=== PATIENT | female | born 1970 | race Hispanic/Latino ===

== ENCOUNTER 2018-08-26 17:53 | Emergency (ER) | payer BC ==
--- OUTSIDE RECORDS SUMMARY | 2018-08-26 17:55 | XMS REPORT ---
:1970 Author Organization [employer] Care Team Providers Name Role Phone De Souza, Renuka Provider Role Unavailable Allergies, Adverse Reactions, Alerts Substance Reaction Event Type N.K.D.A. Info Not Available Non Drug Allergy Problems Problem Type Condition Code Onset Dates Condition Status Problem Obese E66.9 Active Problem Diabetes E11.9 Active Problem Fatty liver K76.0 Active Problem Right foot pain M79.671 Active Problem Seasonal allergic rhinitis, J30.2 Active unspecified trigger Problem Elevated liver enzymes R74.8 Active Problem Uncontrolled type 2 diabetes E11.65 Active mellitus without complication, without long-term current use of insulin Problem Uterine polyp N84.0 Active Problem Morbid (severe) obesity due to E66.01 Active excess calories Problem Congenital pes planus, unspecified Q66.50 Active foot Assessment Right foot pain M79.671 Active Assessment Elevated liver enzymes R74.8 Active Assessment Morbid (severe) obesity due to E66.01 Active excess calories Assessment Fatty liver K76.0 Active Assessment Seasonal allergic rhinitis, J30.2 Active unspecified trigger Assessment Uncontrolled type 2 diabetes E11.65 Active mellitus without complication, without long-term current use of insulin Medications Medication Code Code Instructions Start End Status Dosage System Date Date Zithromax [facility] 96986402077 250 MG Orally Active 2 tablets Z-Mario Alberto Once a day on the first day, then 1 tablet daily for 4 days Duexis [facility] 90655422274 800-26.6 MG Active 1 tablet Orally Three times a day Nasacort [facility] 08820044707 55 MCG/ACT Active 1 puff in Allergy 24HR Nasally Once a each day nostril Diflucan [facility] 66710141320 150 MG Orally Active 1 tablet Zyrtec Allergy [facility] 17891325502 10 MG Orally Active 1 tablet Once a day Metformin HCl ND 75780656715 1000 MG Orally Active 1 tablet Twice a day with meals Invokana [facility] 07795342847 300 MG Orally Active 1 tablet Once a day Tradjenta [facility] 68535847239 5 MG Orally Once Active 1 tablet a day Results No Known Results Summary Purpose eClinicalWorks Submission
--- OUTSIDE RECORDS SUMMARY | 2018-08-26 17:55 | XMS REPORT ---
:1970 Author Organization [employer] Care Team Providers Name Role Phone De Souza, Na Provider Role Unavailable Allergies, Adverse Reactions, Alerts Substance Reaction Event Type N.K.D.A. Info Not Available Non Drug Allergy Problems Problem Type Condition Code Onset Dates Condition Status Problem Diabetes E11.9 Active Problem Congenital pes planus, unspecified Q66.50 Active foot Problem Uterine polyp N84.0 Active Problem Other specified bacterial agents as B96.89 Active the cause of diseases classified elsewhere Problem Body aches R52 Active Problem Acute sinusitis, unspecified J01.90 Active Problem Right foot pain M79.671 Active Problem Morbid (severe) obesity due to E66.01 Active excess calories Problem Seasonal allergic rhinitis, J30.2 Active unspecified trigger Problem Elevated liver enzymes R74.8 Active Assessment Body aches R52 Active Assessment Seasonal allergic rhinitis, J30.2 Active unspecified trigger Problem Uncontrolled type 2 diabetes E11.65 Active mellitus without complication, without long-term current use of insulin Assessment Other specified bacterial agents as B96.89 Active the cause of diseases classified elsewhere Problem Obese E66.9 Active Assessment Acute sinusitis, unspecified J01.90 Active Problem Fatty liver K76.0 Active Medications Medication Code Code Instructions Start End Status Dosage System Date Date Augmentin [facility] 24817626797 875-125 MG Jan 24, Active 1 tablet Orally every 12 2018 hrs Metformin HCl [facility] 47009122743 1000 MG Orally Active 1 tablet Twice a day with meals Duexis [facility] 81999780345 800-26.6 MG Active 1 tablet Orally Three times a day Diflucan [facility] 15832875430 150 MG Orally Active 1 tablet Tradjenta [facility] 97330141419 5 MG Orally Once Active 1 tablet a day Invokana [facility] 00059048580 300 MG Orally Active 1 tablet Once a day Cetirizine HCl [facility] 45729658467 10 MG Orally Jan 14, Active 1 tablet Once a day 2017 Flonase [facility] 09333011388 50 MCG/ACT Jan 14, Active 2 spray in Nasally Once a 2018 each day nostril Zithromax [facility] 79185503779 250 MG Orally Active 2 tablets Z-Mario Alberto Once a day on the first day, then 1 tablet daily for 4 days Nasacort [facility] 19640610543 55 MCG/ACT Active 1 puff in Allergy 24HR Nasally Once a each day nostril Zyrtec Allergy [facility] 77675009101 10 MG Orally Active 1 tablet Once a day Results No Known Results Summary Purpose eClinicalWorks Submission
--- NOTE | 2018-08-26 20:25 | EDPHYS ---
Physician Documentation [facility] Name: Roxana Ricci Age: 48 yrs Sex: Female : 1970 Arrival Date: 08/26/2018 Time: 17:54 Bed 11 Private MD: ED Physician Urbano Amaral HPI: 08/26 20:19 This 48 yrs old Female presents to ER via Ambulatory with complaints of rn Abscess. 20:19 The patient presents with an abscess of the right supraclavicular region. Description: rn The affected area is small, swollen, warm. Onset: The symptoms/episode began/occurred 2 day(s) ago. Possible cause(s): unknown. Modifying factors: the symptoms are alleviated by nothing, the symptoms are aggravated by pressure, squeezing the lesion and expressing the contents. 20:21 Severity of symptoms: At their worst the symptoms were mild, in the emergency rn department the symptoms are unchanged. The patient has not experienced similar symptoms in the past. Reports a couple of days of small abscess to right supraclavicular region, is scabbed over now, unsure how it started, no fever, + pain with touching.. 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 - Social history:: Smoking status: Patient/guardian denies using tobacco. - Ebola Screening: : No symptoms or risks identified at this time. - Family history:: not pertinent. - Hospitalizations: : No recent hospitalization is reported. ROS: 20:21 Constitutional: Negative for fever, chills, and weight loss, Skin: + abscess to right rn supraclavicular region Exam: 20:22 Constitutional: This is a well developed, well nourished patient who is awake, alert, rn and in no acute distress. Skin: Warm, dry, 1cm area of swelling at right supraclavicular region, minimal fluctuance, is scabbed over and has a head to it, + mild warmth Vital Signs: 18:39 BP 141 / 87; Pulse 85; Resp 18; Temp 98; Pulse Ox 97% on R/A; Weight 136.08 kg; Height ea 5 ft. 1 in. (154.94 cm); Pain 7/10; 18:39 Body Mass Index 56.68 (136.08 kg, 154.94 cm) ea MDM: 20:12 Patient medically screened. rn 20:22 Differential diagnosis: abscess, cellulitis, insect bite. Data reviewed: vital signs, rn nurses notes, and as a result, I will discharge patient. Counseling: I had a detailed discussion with the patient and/or guardian regarding: the historical points, exam findings, and any diagnostic results supporting the discharge/admit diagnosis, the need for outpatient follow up, to return to the emergency department if symptoms worsen or persist or if there are any questions or concerns that arise at home. Special discussion: I discussed with the patient/guardian in detail that at this point there is no indication for admission to the hospital. It is understood, however, that if the symptoms persist or worsen the patient needs to return immediately for re-evaluation. Based on the history and exam findings, there is no indication for further emergent testing or inpatient evaluation. I discussed with the patient/guardian the need to see the primary care provider for further evaluation of the symptoms. ED course: Had discussion with patient, told her safest option is incision and drainage, with abx, patient states since is at a head, prefers to use warm compresses and express it herself, will add abx, and return precautions given and understood.. Administered Medications: 20:37 Drug: Clindamycin 300 mg Route: PO; 20:54 Follow up: Response: No adverse reaction; No change in condition Disposition: 08/26/18 20:24 Discharged to Home. Impression: Cutaneous abscess, unspecified. - Condition is Stable. - Discharge Instructions: Skin Abscess. - Prescriptions for Clindamycin HCl 300 mg Oral Capsule - take 1 capsule by ORAL route every 6 hours for 10 days; 40 capsule. - Medication Reconciliation Form, Thank You Letter, Antibiotic Education, Prescription Opioid Use form. - Follow up: Private Physician; When: As needed; Reason: Recheck today's complaints, Re-evaluation by your physician. - Problem is an ongoing problem. - Symptoms are unchanged. Signatures: Chretien, GisellePATRICIA miguel RN, Roman, MD MD rn Antunez, Elena, RN RN ea Corrections: (The following items were deleted from the chart) 20:22 20:21 Constitutional: Negative for fever, chills, and weight loss, rn rn 20:54 20:24 08/26/2018 20:24 Discharged to Home. Impression: Cutaneous abscess, unspecified. fc Condition is Stable. Forms are Medication Reconciliation Form, Thank You Letter, Antibiotic Education, Prescription Opioid Use. Follow up: Private Physician; When: As needed; Reason: Recheck today's complaints, Re-evaluation by your physician. Problem is an ongoing problem. Symptoms are unchanged. rn
--- NOTE | 2018-08-26 20:25 | ER ---
Nurse's Notes [facility] Name: Roxana Ricci Age: 48 yrs Sex: Female : 1970 Arrival Date: 08/26/2018 Time: 17:54 Bed 11 Private MD: Diagnosis: Cutaneous abscess, unspecified Presentation: 08/26 18:38 Presenting complaint: Patient states: Abscess that started 3 days ago, redness and pain ea that travels down right arm started today. Pt denies fever at this time. Transition of care: patient was not received from another setting of care. Onset of symptoms was August 26, 2018. Risk Assessment: Do you want to hurt yourself or someone else? Patient reports no desire to harm self or others. Initial Sepsis Screen: Does the patient meet any 2 criteria? No. Patient's initial sepsis screen is negative. Does the patient have a suspected source of infection? Yes: Skin breakdown/wound. Care prior to arrival: None. 18:38 Method Of Arrival: Ambulatory ea 18:38 Acuity: FREDERIC 4 ea Triage Assessment: 18:40 General: Appears in no apparent distress. uncomfortable, Behavior is calm, cooperative, ea appropriate for age. Pain: Complains of pain in right arm. Neuro: Level of Consciousness is awake, alert, obeys commands, Oriented to person, place, time, situation. Cardiovascular: Patient's skin is warm and dry. Respiratory: Airway is patent Respiratory effort is even, unlabored, Respiratory pattern is regular, symmetrical. Derm: Abscess located on anterior aspect of right shoulder is dime sized, is hot to touch, is red. 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 - Social history:: Smoking status: Patient/guardian denies using tobacco. - Ebola Screening: : No symptoms or risks identified at this time. - Family history:: not pertinent. - Hospitalizations: : No recent hospitalization is reported. Screenin:10 Abuse screen: Denies threats or abuse. Nutritional screening: No deficits noted. fc Tuberculosis screening: No symptoms or risk factors identified. Fall Risk None identified. Assessment: 20:10 General: Appears uncomfortable, obese, well groomed, Behavior is calm, cooperative, fc appropriate for age. Pain: Complains of pain in anterior aspect of right shoulder Pain currently is 6 out of 10 on a pain scale. Quality of pain is described as burning, aching, Pain began gradually, Is continuous, Aggravated by increased activity, repositioning, palpitation. Neuro: Level of Consciousness is awake, alert, obeys commands, Oriented to person, place, time, situation, Appropriate for age. Cardiovascular: No deficits noted. Respiratory: No deficits noted. GI: No deficits noted. : No deficits noted. EENT: No deficits noted. Derm: Skin is pink, warm \T\ dry. Abscess located on anterior aspect of right shoulder is dime sized, is hot to touch, is red, is raised, was lanced by patient prior to arrival, Reports burning, pain. Musculoskeletal: Circulation, motion, and sensation intact. Capillary refill < 3 seconds, Range of motion: intact in all extremities. 20:15 Reassessment: Dr Amaral in to see and examine pt. fc 20:53 Reassessment: No changes from previously documented assessment. Patient and/or family fc updated on plan of care and expected duration. Pain level reassessed. Patient is alert, oriented x 3, equal unlabored respirations, skin warm/dry/pink. Vital Signs: 18:39 BP 141 / 87; Pulse 85; Resp 18; Temp 98; Pulse Ox 97% on R/A; Weight 136.08 kg; Height ea 5 ft. 1 in. (154.94 cm); Pain 7/10; 18:39 Body Mass Index 56.68 (136.08 kg, 154.94 cm) ea ED Course: 17:54 Patient arrived in ED. rg4 18:39 Triage completed. ea 20:10 Arm band placed on Patient placed in an exam room, on a stretcher. fc 20:10 Patient has correct armband on for positive identification. Bed in low position. Call fc light in reach. 20:10 No provider procedures requiring assistance completed. fc 20:12 Urbano Amaral MD is Attending Physician. rn 20:53 Patient did not have IV access during this emergency room visit. fc Administered Medications: 20:37 Drug: Clindamycin 300 mg Route: PO; fc 20:54 Follow up: Response: No adverse reaction; No change in condition Outcome: 20:24 Discharge ordered by . rn 20:53 Discharged to home ambulatory. 20:53 Condition: good 20:53 Discharge instructions given to patient, Instructed on discharge instructions, follow up and referral plans. no drinking with medication, no driving heavy equipment, medication usage, wound care, Demonstrated understanding of instructions, follow-up care, medications, wound care, Prescriptions given X 1. 20:54 Patient left the ED. fc Signatures: Giselle Rowland, RN RN Urbano Amaral MD MD rn Garcia, Rubi rg4 Marie Bae RN RN ea
[2018-08-26] MEDS ORDERED: CLINDAMYCIN HCL 150 MG CAP ONE (20:48)
== END 2018-08-26 20:54 | disposition home or self-care (01) ==
LOC: ER 17:53
DX: L02.413 Cutaneous abscess of right upper limb (principal); E11.9 Type 2 diabetes mellitus without complications
CPT/HCPCS: 99283

== ENCOUNTER 2019-03-28 18:36 | Inpatient (IN) | payer BC ==
[2019-03-28] MEDS ORDERED: LIDOCAINE 1% MPF 5 ML VIAL ONE ×2 (19:58→21:01)
[2019-03-28] MEDS ORDERED: ONDANSETRON 4 MG/2 ML VIAL ONE (19:58)
[2019-03-28] MEDS ORDERED: FENTANYL CITR 100 MCG/2 ML ONE ×2 (19:58→21:14)
[2019-03-28] MEDS ORDERED: NA CHLORIDE 0.9% 1,000 ML ONE ×3 (19:59→21:56)
[2019-03-28] MEDS ORDERED: CLINDAMYCIN 900MG/D5W 900 MG/50 ML IVPB IV ONE (19:59)
[2019-03-28] MEDS ORDERED: PIPER/TAZO/NS 3.375gm 3.375 GM/100 ML BAG ONE (20:04)
[2019-03-28 20:10] LABS: Basophils % 0.4 % (0-1.3); Lymphocytes % 7.3 % (15.3-44.8); MPV 10.9 fL (7.6-11.3); RBC Red Blood Cell Count 4.87 M/uL (3.86-4.86)
[2019-03-28 20:31] LABS: Urine Blood TRACE (NEG); Urine Glucose 2+ (NEG); Urine Protein NEGATIVE (NEG)
[2019-03-28 20:36] LABS: Blood Morphology Comment NOT SEEN (NOT SEEN); Platelet Estimate ADEQ; Platelets, Giant PRESENT; Urine White Blood Cell Casts OK
[2019-03-28 21:22] LABS: Albumin 2.2 g/dL (3.4-5.0); Bilirubin Direct 0.9 mg/dL (0-0.2); Bilirubin Total 2.3 mg/dL (0.2-1.0); Potassium 4.2 mmol/L (3.5-5.1); Protein, Total 8.3 g/dL (6.4-8.2)
--- NOTE | 2019-03-28 21:41 | ER ---
Nurse's Notes [facility] Name: Roxana Ricci Age: 48 yrs Sex: Female : 1970 Arrival Date: 03/28/2019 Time: 18:37 Bed 5 Private MD: Renuka De Souza Diagnosis: Large Left Groin Abscess;L lateral thigh abscess;Hyperglycemia, unspecified;Leukocytosis Presentation: 03/28 19:18 Presenting complaint: Patient states: abscess to left inner thigh since Thursday. pt ak1 stated abscess started draining yesterday. pt started her mother's antibiotics Thursday and now states she also has a yeast infection. pt has a 2nd abscess to left buttock X1 week. pt has appointment with PCP Thursday. Transition of care: patient was not received from another setting of care. Onset of symptoms is unknown. Risk Assessment: Do you want to hurt yourself or someone else? Patient reports no desire to harm self or others. Initial Sepsis Screen: Does the patient meet any 2 criteria? No. Patient's initial sepsis screen is negative. Does the patient have a suspected source of infection? No. Patient's initial sepsis screen is negative. Care prior to arrival: None. 19:18 Method Of Arrival: Ambulatory ak1 19:18 Acuity: FREDERIC 3 ak1 Triage Assessment: 19:20 General: Appears in no apparent distress. uncomfortable, Behavior is cooperative. Pain: ak1 Complains of pain in pelvis. 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 - Social history:: Smoking status: Patient/guardian denies using tobacco. - Ebola Screening: : No symptoms or risks identified at this time. - Family history:: not pertinent. - Hospitalizations: : No recent hospitalization is reported. Screenin:50 Abuse screen: Denies threats or abuse. Denies injuries from another. Nutritional ca1 screening: No deficits noted. Tuberculosis screening: No symptoms or risk factors identified. Fall Risk None identified. Assessment: 19:50 General: Appears in no apparent distress. comfortable, obese, Behavior is calm, ca1 cooperative, appropriate for age. Pain: Complains of pain in left femoral area Pain currently is 10 out of 10 on a pain scale. Neuro: Level of Consciousness is awake, alert, obeys commands, Oriented to person, place, time, situation, Appropriate for age. Cardiovascular: Heart tones S1 S2 present Capillary refill < 3 seconds Patient's skin is warm and dry. Respiratory: Airway is patent Respiratory effort is even, unlabored, Respiratory pattern is regular, symmetrical, Breath sounds are clear bilaterally. GI: Abdomen is round non-distended, obese, Bowel sounds present X 4 quads. Abd is soft and non tender X 4 quads. : No deficits noted. No signs and/or symptoms were reported regarding the genitourinary system. EENT: No deficits noted. No signs and/or symptoms were reported regarding the EENT system. Derm: Skin is healthy with good turgor, Skin is pink, warm \T\ dry. Abscess located on left femoral area is quarter sized, is hot to touch, is red, is raised. Musculoskeletal: Circulation, motion, and sensation intact. Capillary refill < 3 seconds. 20:50 Reassessment: Patient appears in no apparent distress at this time. Patient and/or ca1 family updated on plan of care and expected duration. Pain level reassessed. Patient is alert, oriented x 3, equal unlabored respirations, skin warm/dry/pink. 21:41 Reassessment: Patient appears in no apparent distress at this time. Patient and/or ca1 family updated on plan of care and expected duration. Pain level reassessed. Patient is alert, oriented x 3, equal unlabored respirations, skin warm/dry/pink. 23:27 Reassessment: Patient appears in no apparent distress at this time. No changes from wh previously documented assessment. Patient and/or family updated on plan of care and expected duration. Pain level reassessed. Patient is alert, oriented x 3, equal unlabored respirations, skin warm/dry/pink. Patient states feeling better. Patient states symptoms have improved. Vital Signs: 19:18 BP 154 / 95; Pulse 106; Resp 18; Temp 98.2; Pulse Ox 94% on R/A; Weight 145.15 kg (R); ak1 Height 5 ft. 1 in. (154.94 cm) (R); Pain 10/10; 20:18 BP 136 / 86; Pulse 105; Resp 16 S; Pulse Ox 95% on R/A; ca1 21:41 BP 104 / 88; Pulse 105; Resp 16 S; Pulse Ox 96% on R/A; ca1 23:15 BP 125 / 75; Pulse 108; Resp 18; Pulse Ox 92% on R/A; wh 19:18 Body Mass Index 60.46 (145.15 kg, 154.94 cm) ak1 ED Course: 18:37 Patient arrived in ED. mr 18:38 Renuka De Souza MD is Private Physician. mr 19:18 Arm band placed on Patient placed in waiting room, Patient notified of wait time. ak1 19:20 Triage completed. ak1 19:33 Chase Mancini MD is Attending Physician. wa 19:33 Esther Bonner, PATRICIA is Primary Nurse. ca1 19:41 Urine obtained. ak1 19:50 Patient has correct armband on for positive identification. Placed in gown. Bed in low ca1 position. Call light in reach. Side rails up X 1. Pulse ox on. NIBP on. Warm blanket given. 19:55 Inserted saline lock: 20 gauge in right antecubital area, using aseptic technique. mt Blood collected. 20:50 Lab(s) recollected, by me, sent to lab. ca1 21:40 Verona Crum MD is Hospitalizing Provider. wa 21:42 Assist provider with I \T\ D: of an abscess on left perineal back of thigh L Set up I\T\D ca 1 tray. Performed by Chase Mancini MD Culture sent to lab. Wound packed. iodoform gauze, Dressing with 4X4s, tape Patient tolerated well. 23:32 Patient admitted, IV remains in place. wh Administered Medications: 20:00 Drug: NS 0.9% 1000 ml Route: IV; Rate: 1 bolus; Site: right antecubital; ca1 21:48 Follow up: IV Status: Completed infusion ca1 20:05 Drug: Zofran 4 mg Route: IVP; Site: right antecubital; ca1 21:57 Follow up: Response: No adverse reaction; Nausea is decreased ca1 20:10 Drug: fentaNYL (PF) 75 mcg Route: IVP; Site: right antecubital; ca1 21:51 Follow up: Response: No adverse reaction; Pain is decreased ca1 20:14 Drug: Clindamycin 900 mg Route: IVPB; Infused Over: 30 mins; Site: right antecubital; ca1 21:15 Follow up: Response: No adverse reaction; IV Status: Completed infusion ca1 20:45 Drug: Zosyn 3.375 grams Route: IVPB; Infused Over: 60 mins; Site: right antecubital; ca1 21:52 Follow up: Response: No adverse reaction; IV Status: Completed infusion ca1 21:58 Follow up: Response: No adverse reaction; IV Status: Completed infusion ca1 21:20 Drug: fentaNYL (PF) 100 mcg Route: IVP; Site: right antecubital; ea 23:31 Follow up: Response: No adverse reaction; Pain is decreased; RASS: Alert and Calm (0) 21:57 Drug: NS 0.9% 1000 ml Route: IV; Rate: 1 bolus; Site: right antecubital; ca1 23:31 Follow up: Response: No adverse reaction; IV Status: Completed infusion Outcome: 21:40 Decision to Hospitalize by Provider. adair 22:23 Instructed on the need for admit, Demonstrated understanding of instructions. an 23:31 Admitted to Tele accompanied by tech, via wheelchair, room 407, with chart, Report wh called to Elizabeth Bolivar RN 23:31 Condition: stable 23:31 Instructed on the need for admit, Demonstrated understanding of 23:32 Patient left the ED. Signatures: Negra Waterman mr McknightJosie RN RN Yomaira Holcomb mt, Elena, RN RN ea Habalo, Winsy Chase Mancini MD MD wa Acob, Cheryl, RN RN ca1
--- NOTE | 2019-03-28 21:41 | EDPHYS ---
Physician Documentation [facility] Name: Roxana Ricci Age: 48 yrs Sex: Female : 1970 Arrival Date: 03/28/2019 Time: 18:37 Bed 5 Private MD: Renuka De Souza ED Physician Chase Mancini HPI: 03/28 20:34 This 48 yrs old Female presents to ER via Ambulatory with complaints of wa Abscess. 20:34 The patient presents with an abscess of the left femoral area. Description: localized, wa draining, erythematous, fluctuant, swollen. Onset: The symptoms/episode began/occurred 2 day(s) ago. Possible cause(s): unknown. Associated signs and symptoms: Pertinent positives: drainage, erythema, swelling, Pertinent negatives: headache, shortness of breath, vomiting. Modifying factors: the symptoms are alleviated by nothing, the symptoms are aggravated by movement, walking, pressure, squeezing the lesion and expressing the contents, touching. Severity of symptoms: At their worst the symptoms were moderate, in the emergency department the symptoms are unchanged. The patient has experienced similar episodes in the past, several times. The patient has not recently seen a physician. states has noted some drainage from lesion. 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 - Social history:: Smoking status: Patient/guardian denies using tobacco. - Ebola Screening: : No symptoms or risks identified at this time. - Family history:: not pertinent. - Hospitalizations: : No recent hospitalization is reported. ROS: 20:36 Constitutional: Negative for fever, chills, and weight loss, Eyes: Negative for injury, wa pain, redness, and discharge, ENT: Negative for injury, pain, and discharge, Neck: Negative for injury, pain, and swelling, Cardiovascular: Negative for chest pain, palpitations, and edema, Respiratory: Negative for shortness of breath, cough, wheezing, and pleuritic chest pain, Abdomen/GI: Negative for abdominal pain, nausea, vomiting, diarrhea, and constipation, Back: Negative for injury and pain, : Negative for injury, bleeding, discharge, and swelling, MS/Extremity: Negative for injury and deformity, Neuro: Negative for headache, weakness, numbness, tingling, and seizure, Psych: Negative for depression, anxiety, suicide ideation, homicidal ideation, and hallucinations. 20:36 Skin: Positive for abscess, swelling, of the left femoral area. 20:36 All other systems are negative. Exam: 20:37 Constitutional: This is a well developed, well nourished patient who is awake, alert, wa and in no acute distress. Head/Face: Normocephalic, atraumatic. Eyes: Pupils equal round and reactive to light, extra-ocular motions intact. Lids and lashes normal. Conjunctiva and sclera are non-icteric and not injected. Cornea within normal limits. Periorbital areas with no swelling, redness, or edema. ENT: Nares patent. No nasal discharge, no septal abnormalities noted. Tympanic membranes are normal and external auditory canals are clear. Oropharynx with no redness, swelling, or masses, exudates, or evidence of obstruction, uvula midline. Mucous membranes moist. Neck: Trachea midline, no thyromegaly or masses palpated, and no cervical lymphadenopathy. Supple, full range of motion without nuchal rigidity, or vertebral point tenderness. No Meningismus. Chest/axilla: Normal chest wall appearance and motion. Nontender with no deformity. No lesions are appreciated. Cardiovascular: Regular rate and rhythm with a normal S1 and S2. No gallops, murmurs, or rubs. Normal PMI, no JVD. No pulse deficits. Respiratory: Lungs have equal breath sounds bilaterally, clear to auscultation and percussion. No rales, rhonchi or wheezes noted. No increased work of breathing, no retractions or nasal flaring. Abdomen/GI: Soft, non-tender, with normal bowel sounds. No distension or tympany. No guarding or rebound. No evidence of tenderness throughout. Back: No spinal tenderness. No costovertebral tenderness. Full range of motion. MS/ Extremity: Pulses equal, no cyanosis. Neurovascular intact. Full, normal range of motion. Neuro: Awake and alert, GCS 15, oriented to person, place, time, and situation. Cranial nerves II-XII grossly intact. Motor strength 5/5 in all extremities. Sensory grossly intact. Cerebellar exam normal. Normal gait. Psych: Awake, alert, with orientation to person, place and time. Behavior, mood, and affect are within normal limits. 20:37 Skin: abscess, that is moderate sized, of the left femoral area, with fluctuance, that is moderate. Vital Signs: 19:18 BP 154 / 95; Pulse 106; Resp 18; Temp 98.2; Pulse Ox 94% on R/A; Weight 145.15 kg (R); ak1 Height 5 ft. 1 in. (154.94 cm) (R); Pain 10/10; 20:18 BP 136 / 86; Pulse 105; Resp 16 S; Pulse Ox 95% on R/A; ca1 21:41 BP 104 / 88; Pulse 105; Resp 16 S; Pulse Ox 96% on R/A; ca1 23:15 BP 125 / 75; Pulse 108; Resp 18; Pulse Ox 92% on R/A; wh 19:18 Body Mass Index 60.46 (145.15 kg, 154.94 cm) ak1 Procedures: 21:16 I \T\ D: Incision and drainage was performed for an abscess of the left lateral thigh wa Prepped with Betadine, Anesthetized with 5 ml's 2% Lidocaine. Incised with #11 blade. Drained small amount purulent fluid. Packed with iodoform gauze, Dressing: sterile 4x4 gauze, the patient tolerated the procedure well. 21:37 I \T\ D: Incision and drainage was performed for an abscess of the left medial groin wa Prepped with Betadine, Anesthetized with 6 ml's 1% Lidocaine. Incised with #11 blade. Drained large amount purulent fluid. Loculations removed. Cultures obtained. Abscess cavity explored. Packed with iodoform gauze, Dressing: sterile 4x4 gauze, the patient tolerated the procedure well. MDM: 19:33 Patient medically screened. wa 20:37 Differential diagnosis: abscess, cellulitis. Data reviewed: vital signs, nurses notes. wa 21:38 Test interpretation: by ED physician or midlevel provider: large groin abscess drained. wa elevated wbc. h/o DM. will admit for IV abx and further surgical eval. . Response to treatment: the patient's symptoms have markedly improved after treatment. Physician consultation: Verona Crum MD. ED course: large groin abscess drained. pt with comorbidities. needs admit for further tx. 21:41 Test interpretation: by ED physician or midlevel provider: labs noted for glucose of wa 400 (hyperglycemia). elevated wbc. elevated T.bili. UA noted for 2+ glucose and ketones. ED course: hyperglycemia. will give IV fluid bolus and consider insulin therapy. 03/28 19:52 Order name: Basic Metabolic Panel; Complete Time: 21:41 ny 03/28 19:52 Order name: CBC with Diff; Complete Time: 21:15 ny 03/28 19:52 Order name: Hepatic Function; Complete Time: 21:41 ny 03/28 20:08 Order name: Urine Dipstick--Ancillary (enter results); Complete Time: 21:15 cm6 03/28 20:08 Order name: Urine --Ancillary (enter results); Complete Time: 21:15 cm6 03/28 20:36 Order name: CBC Smear Scan; Complete Time: 21:15 EDHI 03/28 21:30 Order name: Wound Culture mt 03/28 21:31 Order name: Wound Culture EDHI 03/28 22:36 Order name: Basic Metabolic Panel EDHI 03/28 22:36 Order name: Basic Metabolic Panel EDMS 03/28 22:36 Order name: CBC with Automated Diff EDHI 03/28 22:36 Order name: CBC with Automated Diff EDHI 03/28 19:52 Order name: IV Saline Lock; Complete Time: 19:55 ny 03/28 19:52 Order name: Labs collected and sent; Complete Time: 19:55 ny 03/28 19:52 Order name: I\T\D Setup; Complete Time: 20:06 ny 03/28 22:36 Order name: CONS Pharmacy Consult EDHI 03/28 22:36 Order name: CONS Pharmacy Consult EDHI Administered Medications: 20:00 Drug: NS 0.9% 1000 ml Route: IV; Rate: 1 bolus; Site: right antecubital; ca1 21:48 Follow up: IV Status: Completed infusion ca1 20:05 Drug: Zofran 4 mg Route: IVP; Site: right antecubital; ca1 21:57 Follow up: Response: No adverse reaction; Nausea is decreased ca1 20:10 Drug: fentaNYL (PF) 75 mcg Route: IVP; Site: right antecubital; ca1 21:51 Follow up: Response: No adverse reaction; Pain is decreased ca1 20:14 Drug: Clindamycin 900 mg Route: IVPB; Infused Over: 30 mins; Site: right antecubital; ca1 21:15 Follow up: Response: No adverse reaction; IV Status: Completed infusion ca1 20:45 Drug: Zosyn 3.375 grams Route: IVPB; Infused Over: 60 mins; Site: right antecubital; ca1 21:52 Follow up: Response: No adverse reaction; IV Status: Completed infusion ca1 21:58 Follow up: Response: No adverse reaction; IV Status: Completed infusion ca1 21:20 Drug: fentaNYL (PF) 100 mcg Route: IVP; Site: right antecubital; ea 23:31 Follow up: Response: No adverse reaction; Pain is decreased; RASS: Alert and Calm (0) 21:57 Drug: NS 0.9% 1000 ml Route: IV; Rate: 1 bolus; Site: right antecubital; ca1 23:31 Follow up: Response: No adverse reaction; IV Status: Completed infusion Disposition: 03/28/19 21:40 Hospitalization ordered by Verona Crum for Inpatient Admission. Preliminary diagnosis are Large Left Groin Abscess, L lateral thigh abscess, Hyperglycemia, unspecified, Leukocytosis. - Bed requested for Telemetry/MedSurg (Inpatient). - Status is Inpatient Admission. - Condition is Stable. - Problem is new. - Symptoms have improved. UTI on Admission? No Signatures: Dispatcher [employer] EDMS Josie Mcknight RN RN akDaisy Gutierrez RN RN Marie Bae RN RN ea Habalo, Winsy Chase Mancini MD MD wa Acob, Cheryl, RN RN ca1 Corrections: (The following items were deleted from the chart) 21:44 21:40 Hospitalization Ordered by Verona Crum MD for Observation. Preliminary ny diagnosis is Large Left Groin Abscess; L lateral thigh abscess. Bed requested for Telemetry/MedSurg (observation). Status is Observation. Condition is Stable. Problem is new. Symptoms have improved. UTI on Admission? No. ny 23:09 21:44 03/28/2019 21:40 Hospitalization Ordered by Verona Crum MD for Inpatient Admission. Preliminary diagnosis is Large Left Groin Abscess; L lateral thigh abscess; Hyperglycemia, unspecified; Leukocytosis. Bed requested for Telemetry/MedSurg (Inpatient). Status is Inpatient Admission. Condition is Stable. Problem is new. Symptoms have improved. UTI on Admission? No. ny 23:32 23:09 03/28/2019 21:40 Hospitalization Ordered by Verona Crum MD for Inpatient Admission. Preliminary diagnosis is Large Left Groin Abscess; L lateral thigh abscess; Hyperglycemia, unspecified; Leukocytosis. Bed requested for Telemetry/MedSurg (Inpatient). Status is Inpatient Admission. Condition is Stable. Problem is new. Symptoms have improved. UTI on Admission? No.
[2019-03-28] MEDS ORDERED: ACETAMINOPHEN 500 MG TAB PO PRN (22:31)
[2019-03-28] MEDS ORDERED: ONDANSETRON 4 MG/2 ML VIAL IV PRN (22:31)
[2019-03-29 00:03] VITALS: BMI 57.0
[2019-03-29] MEDS ORDERED: D50W 25 GM/50 ML SYRINGE IV PRN ×2 (00:14→12:04)
[2019-03-29] MEDS ORDERED: GLUCAGON 1 MG/VIAL IM PRN ×2 (00:14→12:04)
[2019-03-29] MEDS ORDERED: INSULIN 70/30 100 UNITS/ML SQ ONE (00:15)
[2019-03-29] MEDS: NA CHLORIDE 0.9% 1,000 ML IV SCH ×2 (00:52→13:55)
[2019-03-29] MEDS ORDERED: VANCOMYCIN/NS 1 gm 2 GM/500 ML BAG IVPB SCH (02:00)
[2019-03-29] MEDS ORDERED: VANCOMYCIN 1 GM/VIAL ONE ×2 (02:06→02:11)
[2019-03-29] MEDS ORDERED: NA CHLORIDE 0.9% 500 ML ONE (02:07)
[2019-03-29 02:22] LABS: Absolute Lymphocytes (CBC) 0.9 K/uL (0.7-4.9); Basophils % 0.5 % (0-1.3); Hematocrit 38.7 % (36.0-45.0); Lymphocytes % 6.6 % (15.3-44.8); MPV 11.3 fL (7.6-11.3); RBC Red Blood Cell Count 4.17 M/uL (3.86-4.86)
[2019-03-29 02:39] LABS: BUN Blood Urea Nitrogen 8 mg/dL (7-18); Bicarbonate 24 mmol/L (21-32); Glucose Level 324 mg/dL (74-106); Potassium 4.2 mmol/L (3.5-5.1); Sodium Level 134 mmol/L (136-145)
[2019-03-29] MEDS ORDERED: Levofloxacin500mg IV 500 MG/100 ML BAG IV SCH (05:00)
[2019-03-29] MEDS: HYDROMORPHONE HCL 1 MG/ML INJ IV PRN (05:55)
--- NOTE | 2019-03-29 08:45 | P.HP ---
Certification for Inpatient Patient admitted to: Inpatient With expected LOS: >2 Midnights Patient will require the following post-hospital care: None Practitioner: I am a practitioner with admitting privileges, knowledge of patient current condition, hospital course, and medical plan of care. Services: Services provided to patient in accordance with Admission requirements found in Title 42 Section 412.3 of the Code of Federal Regulations Patient History Date of Service: 03/29/19 Reason for admission: Cutaneous abscess/skin abscess x2 History of Present Illness: Patient is a 48-year-old female who came to the hospital with multiple abscesses. Patient had an inguinal abscess and a lower extremity abscess. Patient has had prior abscesses in the past. Patient came in with a large boil that was I & D in the emergency room. Patient had a large amount of purulent drainage. Patient hadan incision and debrided over lower extremity abscess. Patient will be admitted for further evaluation along with surgical consultation. Allergies No Known Allergies Allergy (Verified 03/29/19 00:20) Home Medications: Metformin HCl 1,000 mg PO BID 03/29/19 - Past Medical/Surgical History Has patient received pneumonia vaccine in the past: No Diabetic: Yes -: NIDDM -: D&C - Family History Father Family History: Reviewed- Non-Contributory - Social History Smoking Status: Never smoker Alcohol use: Yes Place of Residence: Home Review of Systems 10-point ROS is otherwise unremarkable Physical Examination - Vital Signs Temperature: 97.1 F Blood Pressure: 90/52 Pulse: 104 Respirations: 19 Pulse Ox (%): 93 - Physical Exam General: Alert, In no apparent distress, Oriented x3 HEENT: Atraumatic, PERRLA, Mucous membr. moist/pink, EOMI, Sclerae nonicteric Neck: Supple, 2+ carotid pulse no bruit, No LAD, Without JVD or thyroid abnormality Respiratory: Clear to auscultation bilaterally, Normal air movement Cardiovascular: Regular rate/rhythm, Normal S1 S2, No murmurs Gastrointestinal: Normal bowel sounds, Soft and benign, Non-distended, No tenderness Musculoskeletal: No tenderness Integumentary: Skin breakdown, Skin lesion, Tenderness/swelling Neurological: Normal gait, Normal speech, Normal strength at 5/5 x4 extr, Normal tone, Sensation intact, Cranial nerves 3-12 intact, Normal affect Lymphatics: No axilla or inguinal lymphadenopathy - Studies Laboratory Data (last 24 hrs) 03/28/19 20:48: Sodium 133 L, Potassium 4.2, BUN 8, Creatinine 0.87, Glucose 400 H, Total Bilirubin 2.3 H, AST 20, ALT 19, Alkaline Phosphatase 202 H 03/28/19 19:55: WBC 13.8 H, Hgb 15.2 H, Hct 46.0 H, Plt Count 183 Assessment & Plan - Problems (Diagnosis) (1) Inguinal abscess Current Visit: Yes Status: Acute (2) Abscess of left lower extremity Current Visit: Yes Status: Acute (3) History of type 2 diabetes mellitus Current Visit: Yes Status: Acute - Plan 1. Continue with IV antibiotic 2. Continue with local wound care 3. Wound care consultation/surgical consultation 4. Gentle IV hydration 5. Monitor CBC 6. Strict blood sugar monitoring 7. Pain control 8. GI and DVT prophylaxis Discharge Plan: Home Plan to discharge in: Greater than 2 days - Advance Directives Does patient have a Living Will: No Does patient have a Durable POA for Healthcare: No - Code Status/Comfort Care Code Status Assessed: Yes Code Status: Full Code Critical Care: No Time Spent Managing PTS Care (In Minutes): 45
[2019-03-29] MEDS ORDERED: PROPOFOL 200 MG/20 ML VIAL IV ONE ×2 (10:33→11:31)
[2019-03-29] MEDS ORDERED: LIDOCAINE 2% MPF 5 ML VIAL ONE ×2 (10:33→11:31)
[2019-03-29] MEDS ORDERED: FENTANYL CITR 100 MCG/2 ML ONE ×2 (10:33→11:31)
[2019-03-29] MEDS ORDERED: MIDAZOLAM HCL 2 MG/2 ML INJ ONE ×2 (10:33→11:31)
--- NOTE | 2019-03-29 12:31 | P.BOP ---
Preoperative diagnosis: LEft groin and left post thigh necrotic wound with complex abscess.morbid o Postoperative diagnosis: morbid obesity, cellulitis groin and thigh, diabetes Primary procedure: 1. Incision drainage complex abscess left groin abscess 11 x 7 x3 cm Secondary procedure: 2. Incision drainage complex abscess left post thigh abscess 6 x 5 x 2 cm Estimated blood loss: <20cc Specimen: necrotic tissue and abscess culture Findings: see dictation Anesthesia: General Complications: None Transferred to: Recovery Room Condition: Good
[2019-03-29] MEDS: HYDROMORPHONE HCL 1 MG/ML INJ ONE ×3 (12:45→12:51)
--- NOTE | 2019-03-29 12:52 | CON ---
Reason For Service: Cellulitis and abscess with necrotic wound of the left groin area and also cellu litis and abscess of the left posterior thigh. History Of Present Illness: This is a case of a 48-year-old patient, morbidly obese, who comes to us with infection over the left groin area on the left posterior thigh region. The ER saw her yesterd ay, did a small I and D in that area, not enough to drain all the pus and she was having so much pain she was admitted to the hospital and a surgical consult was obtained for a formal incision and drain age and debridement. She does not remember exactly what happened. She denies any dysuria, hematuria , hematochezia, or melena. Denies any recent traveling out of the country. Denies any family member sick at home. Past Medical History: Includes morbid obesity, diabetes. Past Surgical History: Includes D and C. Family History: Noncontributory. Social History: She does not smoke. She does not drink alcohol. Medications: Reviewed. Review of Systems: Ten points otherwise unremarkable. Physical Examination: General: Patient is awake and alert, no distress. HEENT: Pupils are equal and reactive, anicteric. Neck: Supple. Chest: Clear. HEART: S1, S2. Abdomen: Soft and depressible. No guarding or rebound. EXTREMITIES: Over the left groin region, patient has a large necrotic ulcer with necrotic tissue pre sent and also an abscess and cellulitis associated with it. It is at least 5 x 5 cm with necrotic ti ssue present, going deep and tender, so patient is not letting us examine that 100% here. In the pos terior proximal thigh, patient has also an area of induration about 7 x 7 cm with fluctuance present. Apparently, they did an I and D yesterday but it was too tender. It was very small and is not able to drain that properly so that surgical consult was obtained also for incision and drainage of this abscess since it has not been draining completely yet. Good peripheral pulses present. No cyanosis. RECTAL: Deferred. BREASTS: Deferred. Laboratory Data: WBC count of 13.8 with hemoglobin of 15.2, potassium of 4.2, total bilirubin of 2.3 . UA; nitrite negative. Assessment: This is a 48-year-old patient, comes to us with cellulitis and abscess, necrotic ulcer o f the left groin and left posterior thigh. Patient needed incision and drainage of abscess with exci sional debridement of the necrotic tissue with benefits, alternatives, and risks including, but not l imited to infection, bleeding, damage to adjacent structures as complication, nonhealing wound, AL, a nd even . She also understands this may not relieve any symptoms. She might need more than one surgical intervention. The patient was immediately booked in OR for surgery. ISABEL/KIM Voice ID: [id number] Report ID: [id number]
[2019-03-29] MEDS ORDERED: VANCOMYCIN 2 GM in NA CHLORIDE 0.9% 500 ML IVPB SCH (14:00)
[2019-03-29] MEDS: HYDROCODONE/APAP 7.5/325 MG TAB PO PRN (16:38)
[2019-03-29] MEDS: INSULIN -REGULAR HUMAN 50 UNIT/0.5 ML ML SQ SCH ×2 (16:39→20:37)
[2019-03-29] MEDS: CLINDAMYCIN INJ 600 MG in NA CHLORIDE 0.9% 50 ML IV SCH (17:26)
[2019-03-30] MEDS: HYDROCODONE/APAP 7.5/325 MG TAB PO PRN ×2 (00:38→12:00)
[2019-03-30] MEDS: CLINDAMYCIN INJ 600 MG in NA CHLORIDE 0.9% 50 ML IV SCH ×4 (00:39→17:09)
[2019-03-30] MEDS: NA CHLORIDE 0.9% 1,000 ML IV SCH ×2 (00:39→16:12)
[2019-03-30] MEDS: INSULIN -REGULAR HUMAN 50 UNIT/0.5 ML ML SQ SCH ×4 (07:49→22:04)
[2019-03-30 09:43] VITALS: O2SAT 97
--- NOTE | 2019-03-30 11:45 | P.PN ---
Subjective Date of Service: 03/30/19 Chief Complaint: Cutaneous abscess/skin abscess x2 Subjective: No C/O voiced, Improving, Working w/ PT, Doing well Review of Systems 10-point ROS is otherwise unremarkable Physical Examination - Vital Signs Temperature: 96.5 F Blood Pressure: 115/61 Pulse: 84 Respirations: 19 Pulse Ox (%): 97 - Physical Exam General: Alert, In no apparent distress, Obese HEENT: Atraumatic, PERRLA, EOMI Neck: Supple, JVD not distended Respiratory: Clear to auscultation bilaterally, Normal air movement Cardiovascular: Regular rate/rhythm, Normal S1 S2 Gastrointestinal: Normal bowel sounds, No tenderness Musculoskeletal: No tenderness Integumentary: Skin breakdown, Skin lesion, Tenderness/swelling, Erythema Neurological: Normal speech, Normal tone, Normal affect Lymphatics: No axilla or inguinal lymphadenopathy - Studies Microbiology Data (last 24 hrs): 03/28/19 21:38 Wound - Abscess Gram Stain - Final Medications List Reviewed: Yes Assessment And Plan - Current Problems (Diagnosis) (1) Abscess of left lower extremity Current Visit: Yes Status: Acute Plan: abscess of the LLE and Inguinal Area most likely 2.2 to Uncontrolled DM and Obesity -S/o I&D with Surgery POD # 1 -Blood and wound culture are pending -Currently on IV clindamycin improving -Will f.u with Culture -Dressing changes wet to dry per surgery reccs (2) Inguinal abscess Current Visit: Yes Status: Acute Plan: abscess of the LLE and Inguinal Area most likely 2.2 to Uncontrolled DM and Obesity -S/o I&D with Surgery POD # 1 -Blood and wound culture are pending -Currently on IV clindamycin improving -Will f.u with Culture -Dressing changes wet to dry per surgery reccs (3) History of type 2 diabetes mellitus Current Visit: Yes Status: Chronic Discharge Plan: Home Plan to discharge in: Greater than 2 days - Code Status/Comfort Care Code Status Assessed: Yes Critical Care: No
[2019-03-30] MEDS: HYDROMORPHONE HCL 1 MG/ML INJ IV PRN ×2 (13:14→22:02)
--- NOTE | 2019-03-30 14:54 | PN ---
Date of Progress Note: 03/30/2019 Diagnoses: Groin and hip cellulitis, abscess, status post debridement. Patient doing well. No feve r. Physical Examination: Abdomen: Nontender. Surgical site. Extremities: Intact surgical site. Culture is still pending. Plan: When the patient gets discharged home, she is going to be discharged home in a wet-to-dry dres sing, normal saline. Follow with my office in 1 week. May take a shower with dressings off. ISABEL/KIM Voice ID: [id number] Report ID: [id number]
[2019-03-31] MEDS: CLINDAMYCIN INJ 600 MG in NA CHLORIDE 0.9% 50 ML IV SCH ×2 (00:50→06:17)
[2019-03-31] MEDS: HYDROCODONE/APAP 7.5/325 MG TAB PO PRN ×3 (04:38→16:31)
[2019-03-31] MEDS: NA CHLORIDE 0.9% 1,000 ML IV SCH (06:17)
[2019-03-31] MEDS: INSULIN -REGULAR HUMAN 50 UNIT/0.5 ML ML SQ SCH ×3 (07:24→16:45)
[2019-03-31 08:00] LABS: Basophils % 0.4 % (0-1.3); Hematocrit 35.2 % (36.0-45.0); Lymphocytes % 13.8 % (15.3-44.8); MPV 9.9 fL (7.6-11.3); RBC Red Blood Cell Count 3.83 M/uL (3.86-4.86)
[2019-03-31] MEDS ORDERED: INSULIN GLARGINE 100 UNITS/ML SQ SCH (08:00)
[2019-03-31 08:20] LABS: BUN Blood Urea Nitrogen 5 mg/dL (7-18); Bicarbonate 28 mmol/L (21-32); Glucose Level 295 mg/dL (74-106); Potassium 3.9 mmol/L (3.5-5.1); Sodium Level 136 mmol/L (136-145)
[2019-03-31] MEDS: METFORMIN HCL 500 MG TAB PO SCH ×2 (08:43→16:48)
[2019-03-31] MEDS ORDERED: AMOX/K CLAV 875 MG TAB PO SCH (09:00)
--- NOTE | 2019-03-31 10:11 | P.DS ---
Admission Date: 03/29/19 Discharge Date: 03/31/19 Primary Care Provider: Dr. De Souza Disposition: ROUTINE DISCHARGE Discharge Condition: GOOD Reason for Admission: Cutaneous abscess/skin abscess x2 Consultations: Surgery-Dr. Gee Procedures: Surgery: Data procedure: March 29, 2019 Surgeon: Dr. Oskar Gee Preop diagnosis: left groin and left posterior thigh necrotic wound with complex abscess Postop diagnosis: As above Primary procedure: Incision drainage of complex abscess/cellulitis left groin 11 x 7 x 3 cm Secondary procedure: Incision drainage of complex abscess last cellulitis to the left posterior thigh 6 x 5 x 2 cm Estimated blood loss: Less than 20 cc. Specimen: Necrotic tissue and abscess culture Complications: none Medical Problem List: Left groin and left posterior thigh complex abscess/cellulitis status post incision/drainage of complex abscess, wound culture positive for Streptococcus. Diabetes mellitus type 2 now insulin-dependent with hyperglycemia Morbid obesity, BMI 57 Brief History of Present Illness: 48-year-old [place] female with history of diabetes presented with cellulitis and abscess to the left groin and upper thigh. Patient was evaluated in the emergency room. Patient admitted for further evaluation and treatment. Hospital Course: Patient presented with Left groin and left posterior thigh complex abscess/ cellulitis. Patient was started on IV antibiotic therapy. Cultures obtained. Surgery was consulted. Surgical intervention was required. Patient had incision/drainage of complex abscess. Wound culture was positive for Streptococcus. Patient tolerated the procedure well. At discharge patient will continue with current wound care. Patient will continue with Augmentin 875 mg 1 pill twice daily and doxycycline 100 mg twice daily for 10 days. Patient and family member will be taught wound care. Patient will follow up with surgery in 1 week to follow up this hospitalization and continue her care. Home health for wound care will be arranged prior to discharge. Patient with underlying diabetes mellitus type 2. Patient previously only on metformin. Patient with hypoglycemia. A1c was 11.1. Insulin therapy was recommended. At discharge she will continue with metformin 1000 mg 1 pill twice daily. Patient will also begin Lantus 10 units subcu daily for better diabetic control. Recommend to monitor blood sugars at least twice daily. Recommend to maintain blood sugars less 140 fasting and less than 200 after meals. Patient may need to increase her insulin therapy if blood sugar remains above 200. Further adjustment can be done by her PCP. Patient with morbid obesity. Lifestyle modification education will be provided. Vital Signs/Physical Exam: Temp Pulse Resp BP Pulse Ox 96.9 F 83 19 116/63 92 03/31/19 08:00 03/31/19 08:00 03/31/19 08:00 03/31/19 08:00 03/31/19 08:00 General: Alert, In no apparent distress, Oriented x3, Cooperative HEENT: Atraumatic Neck: Supple Respiratory: Clear to auscultation bilaterally, Normal air movement Cardiovascular: Normal pulses, Regular rate/rhythm Gastrointestinal: Normal bowel sounds, Soft and benign, Non-distended Musculoskeletal: No erythema, No tenderness, No warmth Neurological: Normal speech, Normal strength at 5/5 x4 extr, Normal tone, Normal affect Laboratory Data at Discharge: WBC 7.2 K/uL (4.3-10.9) D 03/31/19 07:49 Hgb 12.6 g/dL (12.0-15.0) 03/31/19 07:49 Hct 35.2 % (36.0-45.0) L 03/31/19 07:49 Plt Count 185 K/uL (152-406) 03/31/19 07:49 Sodium 136 mmol/L (136-145) 03/31/19 07:49 Potassium 3.9 mmol/L (3.5-5.1) 03/31/19 07:49 BUN 5 mg/dL (7-18) L 03/31/19 07:49 Creatinine 0.53 mg/dL (0.55-1.3) L 03/31/19 07:49 Glucose 295 mg/dL (74-106) H 03/31/19 07:49 Magnesium 2.0 mg/dL (1.8-2.4) 03/31/19 07:49 Total Bilirubin 2.3 mg/dL (0.2-1.0) H 03/28/19 20:48 AST 20 U/L (15-37) 03/28/19 20:48 ALT 19 U/L (12-78) 03/28/19 20:48 Alkaline Phosphatase 202 U/L (45-117) H 03/28/19 20:48 Home Medications: Metformin HCl 1,000 mg PO BID 03/29/19 Amox/Clavulanate [Augmentin 875-125 Tab*] 875 mg PO BID #20 tab 03/31/19 Doxycycline Hyclate 100 mg PO BID #20 tablet 03/31/19 Insulin Glargine,Hum.rec.anlog [Lantus Solostar] 10 unit SQ DAILY #1 packet traMADol HCL [Ultram*] 50 mg PO TID PRN #10 tab 03/31/19 New Medications: Amox/Clavulanate [Augmentin 875-125 Tab*] 875 mg PO BID #20 tab Doxycycline Hyclate 100 mg PO BID #20 tablet Insulin Glargine,Hum.rec.anlog [Lantus Solostar] 10 unit SQ DAILY #1 packet traMADol HCL [Ultram*] 50 mg PO TID PRN #10 tab PRN Reason: Pain Patient Discharge Instructions: 1. Recommend follow up with her PCP in 1 week to follow up this hospitalization. 2. Patient presented with Left groin and left posterior thigh complex abscess/cellulitis. Patient was started on IV antibiotic therapy. Cultures obtained. Surgery was consulted. Surgical intervention was required. Patient had incision/drainage of complex abscess. Wound culture was positive for Streptococcus. Patient tolerated the procedure well. At discharge patient will continue with current wound care. Patient will continue with Augmentin 875 mg 1 pill twice daily and doxycycline 100 mg twice daily for 10 days. Patient and family member will be taught wound care. Patient will follow up with surgery in 1 week to follow up this hospitalization and continue her care. Home health for wound care will be arranged prior to discharge. 3. Patient with underlying diabetes mellitus type 2. Patient previously only on metformin. Patient with hypoglycemia. A1c was 11.1. Insulin therapy was recommended. At discharge she will continue with metformin 1000 mg 1 pill twice daily. Patient will also begin Lantus 10 units subcu daily for better diabetic control. Recommend to monitor blood sugars at least twice daily. Recommend to maintain blood sugars less 140 fasting and less than 200 after meals. Patient may need to increase her insulin therapy if blood sugar remains above 200. Further adjustment can be done by her PCP. 4. Patient with morbid obesity. Lifestyle modification education will be provided. 5. A limited supply of pain medication-tramadol will be provided prior to discharge. Diet: AHA Activity: Ad kenia Time spent managing pt's care (in minutes): 55
[2019-03-31 15:42] VITALS: BP 128/73; TEMP 96.2
--- NOTE | 2019-04-07 23:59 | OP ---
Date of Procedure: 03/29/2019 Surgeon: Oskar Gee MD Preoperative Diagnoses: Left groin left posterior thigh necrotic wound with complex abscess, morbid obesity. Postoperative Diagnoses: Left groin left posterior thigh necrotic wound with complex abscess, morbid obesity, diabetes. Procedures: 1.Incision and drainage of complex abscess, left groin abscess 11 x 7 x 3 cm with excisional debride ment of necrotic tissue. 2.Incision and drainage of complex abscess, left posterior thigh abscess 6 x 5 x 2 cm. Findings: Patient has foul smelling with necrotic tissue over both areas, worse of the left groin re gion goes all the way down to the groin region and inguinal area. The area was debrided, profuse irr igation was done over the area until the area is clean. Indications: This is a case of a lady, who comes to us with a cellulitis over the left groin and thi gh region initially, any I and D was done in ER by the ER physician, did not improve her condition. She was admitted to the hospital. IV antibiotics and a surgical consult were obtained after foul sme lling coming from the wound with necrotic tissue. The benefits, alternatives, and risks of the incis ion and drainage with debridement fully explained to the patient of those 2 areas, which include, but not limited to infection, bleeding, damage to adjacent structures, anesthesia complication, nonheali ng wound, MA, and even . She also understands this may not relieve any symptoms. She might nee d more than one surgical intervention. She understands the importance of wound care. Being complian ce with treatment, diabetes control, and losing weight. She signed a consent. The area of concern w as marked by me and the patient in the holding room. Description Of Procedure: The patient was brought to the operating room, placed in supine position. Anesthesia was done without complication. Then, the patient was placed in lateral decubitus positio n with proper protection. This allowed me to visualize the 2 areas. The instruments were kept apart . In the area of the groin, we did incise the area, we noticed a large cavity about 11 x 7 cm with n ecrotic tissue, foul smelling, but we did a wide debridement of that region, drained the abscess, exp lored loculations, irrigated the area, and then cultured the area, and then packed the area with wet- to-dry Nu Gauze. Then, we went to the area of the posterior thigh once again, another complex absces s, which is half to remove the necrotic tissue, drained the abscess, drained loculations, and then pa cked the area with also Nu Gauze half an inch. Local anesthetic was applied to both areas. Patient tolerated the procedure well. The patient was sent to recovery room in stable condition. This patie nt may need further debridement. ISABEL/KIM Voice ID: [id number] Report ID: [id number]
== END 2019-03-31 17:37 | disposition home or self-care (01) | DRG 264 ==
LOC: ER 18:36 → 4TH 23:22 → OBSVTOIN 03-29 08:40
PROVIDERS: ADMIT Hospitalist; ATTEND Family Medicine
PROC: 0JBP0ZZ Excision of Left Lower Leg Subcutaneous Tissue and Fascia, Open Approach (ICD-10-PCS; 2019-03-29)
PROC: 0JBC0ZZ Excision of Pelvic Region Subcutaneous Tissue and Fascia, Open Approach (ICD-10-PCS; principal; 2019-03-29 11:00)
DX: E11.52 Type 2 diabetes mellitus with diabetic peripheral angiopathy with gangrene (principal); L02.416 Cutaneous abscess of left lower limb; L02.214 Cutaneous abscess of groin; I96 Gangrene, not elsewhere classified; Z68.43 Body mass index [BMI] 50.0-59.9, adult; B95.1 Streptococcus, group B, as the cause of diseases classified elsewhere; E66.01 Morbid (severe) obesity due to excess calories; E11.65 Type 2 diabetes mellitus with hyperglycemia
CPT/HCPCS: 36415; 80048; 80076; 81003; 81025; 82947; 83036; 83605; 83735; 85025; 87040; 87070; 87075; 87077; 87185; 87186; 87205; 88304; 96361; 96365; 96368; 96375; 97116; 97161; 99285; G0378; J1170; J1815; J2250; J2405; J2543; J2704; J3010; J3370; J7030; J7040

== ENCOUNTER 2019-04-13 09:34 | Day surgery (SDC) | payer BC ==
[2019-04-12 13:10] LABS: Absolute Lymphocytes (CBC) 1.5 K/uL (0.7-4.9); Basophils % 0.8 % (0-1.3); Hematocrit 40.6 % (36.0-45.0); Lymphocytes % 25.4 % (15.3-44.8); MPV 11.2 fL (7.6-11.3); RBC Red Blood Cell Count 4.44 M/uL (3.86-4.86)
[2019-04-12 13:12] LABS: BUN Blood Urea Nitrogen 10 mg/dL (7-18); Bicarbonate 30 mmol/L (21-32); Glucose Level 154 mg/dL (74-106); Potassium 3.9 mmol/L (3.5-5.1); Sodium Level 139 mmol/L (136-145)
[2019-04-13] MEDS ORDERED: NA CHLORIDE 0.9% 1,000 ML ONE (09:51)
[2019-04-13] MEDS: BUPIVACAINE 0.5% PF 10 ML VIAL ONE ×2 (11:58→12:18)
[2019-04-13] MEDS ORDERED: propofoL 200 MG/20 ML VIAL IV ONE (12:05)
[2019-04-13] MEDS ORDERED: LIDOCAINE 1% MPF 5 ML VIAL ONE (12:05)
[2019-04-13] MEDS ORDERED: FENTANYL CITR 100 MCG/2 ML ONE (12:05)
[2019-04-13] MEDS ORDERED: MIDAZOLAM HCL 2 MG/2 ML INJ ONE (12:05)
[2019-04-13] MEDS ORDERED: ONDANSETRON 4 MG/2 ML VIAL ONE (12:44)
[2019-04-13] MEDS ORDERED: KETOROLAC 30 MG/ML INJ ONE (12:44)
[2019-04-13] MEDS: HYDROMORPHONE HCL 2 MG/ML inj ONE ×4 (13:12→13:27)
[2019-04-13 13:20] VITALS: O2SAT 100
--- NOTE | 2019-04-13 13:21 | P.BOP ---
Preoperative diagnosis: left groin necrotic complex wound down to fascia, morbid obesity, diabetes Postoperative diagnosis: same Primary procedure: Wide excision of left groin necrotic wound down to muscle 3.8 x 6 x 6cm Estimated blood loss: <20cc Specimen: necrotic tissue Findings: large cavity tracking from the right inner thigh , cephalad up to inguinal Anesthesia: General Complications: None Transferred to: Recovery Room Condition: Good
[2019-04-13] MEDS ORDERED: HYDROMORPHONE HCL 1 MG/ML INJ ONE (13:31)
[2019-04-13] MEDS ORDERED: CODEINE 30MG/APAP 300MG TAB ONE (14:06)
[2019-04-13 14:45] VITALS: BP 99/64; TEMP 96.5
--- NOTE | 2019-04-14 02:18 | DS ---
Date of Discharge: 04/13/2019 Diagnosis: Left groin necrotic complex wound. Procedures: Wide excision of left groin necrotic wound down to muscle 3.8 x 6 x 6 cm. Disposition: Home. Discharge Instructions: The patient is going to continue with Nu Gauze wet-to-dry over that area. S he has home health agencies already going to her home. PENELOPE Voice ID: [id number] Report ID: [id number]
--- NOTE | 2019-04-14 02:20 | OP ---
Date of Procedure: 04/13/2019 Surgeon: Oskar Gee MD Preoperative Diagnoses: Left groin necrotic complex wound down to fascia, morbid obesity, diabetes. Postoperative Diagnoses: Left groin necrotic complex wound down to fascia, morbid obesity, diabetes. Procedure Performed: Wide excision of left groin necrotic wound debridement down to muscle 3.8 x 6 x 6 cm. Estimated Blood Loss: Less than 20 mL. Specimens: Necrotic tissue. Findings: A large cavity tracking from the right thigh inner area into the right groin, I can find a tunnel which was 6 cm into the inguinal area, then also that goes medial side, goes near the genital ia, although it does not involve the genitalia, which is about 6 cm too. Inside the area, patient irwin d the fascia of the muscle necrotic. This has been cleaned before and when she will have an acute ev ent that she need admission to the hospital. But the other one that we did before looked improved, b ut not this one. Anesthesia: General plus local. Indications: This is the case of a 48-year-old with history just mentioned above. The patient need once again screening under anesthesia since she cannot have it done left groin area. It i s deep and due to the morbid obesity it is hard for her to just manipulate the area as good as she ma nipulate the lateral side. The benefits, alternatives, and risks of excision were fully explained to the patient, which include, but are not limited to infection, bleeding, damage to adjacent structure s, anesthesia complication, nonhealing wound, ND, and even . She also understands the importanc e of proper packing, understanding the hygiene, understanding also of losing weight. She signed the consent. Description Of Procedure: Patient was brought to the operating room, placed in supine position. Ane sthesia was done without complication. Patient was placed in the lithotomy position with proper prot ection. The left thigh and groin area were prepped and draped in the usual sterile fashion. Once melissa mcmullen, we took a look at the wound in the area, it is large about 6 x 6 cm with necrotic tis dora. So, we have to open the area even more until we got to deep subcutaneous tissue musc le need to be debrided. Muscle seems to be intact leaving a large cavity behind about 6 x 6 x 3.8 cm . Necrotic tissue was sent to the pathologist. The area was profusely irrigated and then packed all the way in with a 1 inch iodoform packing. Patient tolerated the procedure well. Patient was sent to recovery in stable condition. ISAEBL/KIM Voice ID: [id number] Report ID: [id number]
--- OUTSIDE RECORDS SUMMARY | 2019-04-18 00:41 | XMS REPORT ---
:1970 Author Organization [employer] Care Team Providers Name Role Phone De Souza, Na Provider Role Unavailable Allergies No Known Allergies Problems Problem Type Condition Code Onset Dates Condition Status Problem Elevated liver enzymes R74.8 Active Problem Body aches R52 Active Problem Seasonal allergic rhinitis, J30.2 Active unspecified trigger Problem Current use of insulin Z79.4 Active Problem Uncontrolled type 2 diabetes E11.65 Active mellitus with hyperglycemia Problem Diabetic polyneuropathy associated E11.42 Active with type 2 diabetes mellitus Problem Other specified bacterial agents as B96.89 Active the cause of diseases classified elsewhere Problem Acute sinusitis, unspecified J01.90 Active Problem Infection of wound due to A49.02 Active methicillin resistant Staphylococcus aureus (MRSA) Problem Abscess of skin of abdomen L02.211 Active Problem Congenital pes planus, unspecified Q66.50 Active foot Problem Morbid (severe) obesity due to E66.01 Active excess calories Problem Diabetes E11.9 Active Problem Uterine polyp N84.0 Active Problem Obese E66.9 Active Problem Uncontrolled type 2 diabetes E11.65 Active mellitus without complication, without long-term current use of insulin Problem Fatty liver K76.0 Active Problem Right foot pain M79.671 Active Medications Medication Code System Code Instructions Start Date End Date Status Dosage Jardiance [facility] [id number] 25 MG Orally Once Feb 10, Mar 12, Active 1 tablet a day 2018 2018 Results No Known Results Summary Purpose [employer] Submission
== END 2019-04-13 14:53 | disposition home or self-care (01) ==
LOC: OR 09:34
PROVIDERS: ATTEND Surgery
PROC: 0JBM0ZZ Excision of Left Upper Leg Subcutaneous Tissue and Fascia, Open Approach (ICD-10-PCS; principal; 2019-04-13 12:45)
DX: L98.499 Non-pressure chronic ulcer of skin of other sites with unspecified severity (principal); E11.622 Type 2 diabetes mellitus with other skin ulcer; I96 Gangrene, not elsewhere classified; E66.01 Morbid (severe) obesity due to excess calories; Z68.43 Body mass index [BMI] 50.0-59.9, adult
CPT/HCPCS: 85025; 80048; 36415; 82947 ×2; 88304; 11042; 11045; J2704; J2250; J1170; J3010; J7030; J2405

== ENCOUNTER 2019-07-15 12:42 | Emergency (ER) | payer OTHER, SELFPAY ==
--- OUTSIDE RECORDS SUMMARY | 2019-07-15 12:45 | XMS REPORT ---
:1970 Author Organization [employer] Care Team Providers Name Role Phone De Souza, Na Provider Role Unavailable Allergies, Adverse Reactions, Alerts Substance Reaction Event Type N.K.D.A. Info Not Available Non Drug Allergy Problems Problem Type Condition Code Onset Dates Condition Status Assessment History of nonadherence to medical Z91.19 Active treatment Assessment Current use of insulin Z79.4 Active Assessment Morbid (severe) obesity due to E66.01 Active excess calories Assessment Fatty liver K76.0 Active Problem Uncontrolled type 2 diabetes E11.65 Active mellitus without complication, without long-term current use of insulin Assessment Wound, open T14.8XXA Active Problem Right foot pain M79.671 Active Assessment Elevated liver enzymes R74.8 Active Problem Elevated liver enzymes R74.8 Active Problem Body aches R52 Active Problem Seasonal allergic rhinitis, J30.2 Active unspecified trigger Problem Current use of insulin Z79.4 Active Problem Uncontrolled type 2 diabetes E11.65 Active mellitus with hyperglycemia Assessment Infection of wound due to A49.02 Active methicillin resistant Staphylococcus aureus (MRSA) Assessment Uncontrolled type 2 diabetes E11.65 Active mellitus with hyperglycemia Problem Diabetic polyneuropathy associated E11.42 Active with type 2 diabetes mellitus Assessment Diabetic polyneuropathy associated E11.42 Active with type 2 diabetes mellitus Problem Other specified bacterial agents B96.89 Active as the cause of diseases classified elsewhere Problem Acute sinusitis, unspecified J01.90 Active Problem Infection of wound due to A49.02 Active methicillin resistant Staphylococcus aureus (MRSA) Problem Abscess of skin of abdomen L02.211 Active Problem Congenital pes planus, unspecified Q66.50 Active foot Problem Morbid (severe) obesity due to E66.01 Active excess calories Assessment Hospital discharge follow-up Z09 Active Problem Diabetes E11.9 Active Problem Uterine polyp N84.0 Active Problem Obese E66.9 Active Problem Fatty liver K76.0 Active Medications Medication Code Code Instructions Start End Status Dosage System Date Date Diflucan ND 73198173291 150 MG Orally Active 1 tablet Zithromax Z-Mario Alberto NDC 24217661372 250 MG Orally Active 2 tablets on Once a day the first day, then 1 tablet daily for 4 days Zyrtec Allergy [facility] 21929295497 10 MG Orally Active 1 tablet Once a day Furosemide ND 89884896203 40 MG Orally Active 1 tablet Once a day x 3 days prn swelling Potassium [facility] 34769104224 20 MEQ Active TAKE 1 TABLET Chloride ER BY MOUTH EVERY DAY TAKEN WITH LASIX Triamcinolone [facility] 88683856606 0.1 % December Active 1 application Acetonide Externally 10, to affected Twice a day 2018 area Cetirizine HCl [facility] 21902828328 10 MG Orally Jan 14, Active 1 tablet Once a day 2017 Furosemide [facility] 85202691629 40 MG Orally Active 1 tablet Once a day x 3 days prn swelling Gabapentin ND 77112743290 300 MG Orally Apr 05, Active as directed twice a day at 2019 bedtime Nasacort Allergy [facility] 01260009672 55 MCG/ACT Active 1 puff in 24HR Nasally Once a each nostril day Flonase [facility] 50149945187 50 MCG/ACT Jan 14, Active 2 spray in Nasally Once a 2018 each nostril day Metformin HCl [facility] 00985403155 1000 MG Orally Active 1 tablet with Twice a day meals Doxycycline [facility] 82832515593 100 MG Orally Active 1 capsule Hyclate Twice a day Bactrim DS [facility] 40159591397 800-160 MG Active 1 tablet Orally Twice a day Lantus SoloStar [facility] 37432248258 100 UNIT/ML Active 10 units Subcutaneous daily titrate once daily up 2 untis every 2 days until FBG less 100 Duexis [facility] 54804983250 800-26.6 MG Active 1 tablet Orally Three times a day Results No Known Results Summary Purpose [employer]ClinicalWorks Submission
--- OUTSIDE RECORDS SUMMARY | 2019-07-15 12:45 | XMS REPORT ---
[...] Date End Date Status Dosage Jardiance [facility] 95922985233 25 MG Orally Once Feb 10, Mar 12, Active 1 tablet a day 2018 2018 Results No Known Results Summary Purpose [employer]ClinicalWorks Submission
--- OUTSIDE RECORDS SUMMARY | 2019-07-15 12:45 | XMS REPORT ---
:1970 Author Organization [employer] Care Team Providers Name Role Phone De Souza, Na Provider Role Unavailable Allergies, Adverse Reactions, Alerts Substance Reaction Event Type N.K.D.A. Info Not Available Non Drug Allergy Problems Problem Type Condition Code Onset Dates Condition Status Assessment Current use of insulin Z79.4 Active Problem Uncontrolled type 2 diabetes E11.65 Active mellitus without complication, without long-term current use of insulin Assessment Morbid (severe) obesity due to E66.01 Active excess calories Problem Right foot pain M79.671 Active Assessment Fatty liver K76.0 Active Problem Elevated liver enzymes R74.8 Active Problem Body aches R52 Active Problem Seasonal allergic rhinitis, J30.2 Active unspecified trigger Problem Current use of insulin Z79.4 Active Problem Uncontrolled type 2 diabetes E11.65 Active mellitus with hyperglycemia Assessment Infection of wound due to A49.02 Active methicillin resistant Staphylococcus aureus (MRSA) Assessment Diabetic polyneuropathy associated E11.42 Active with type 2 diabetes mellitus Problem Diabetic polyneuropathy associated E11.42 Active with type 2 diabetes mellitus Assessment Wound, open T14.8XXA Active Problem Other specified bacterial agents B96.89 Active as the cause of diseases classified elsewhere Problem Acute sinusitis, unspecified J01.90 Active Problem Infection of wound due to A49.02 Active methicillin resistant Staphylococcus aureus (MRSA) Problem Abscess of skin of abdomen L02.211 Active Problem Congenital pes planus, unspecified Q66.50 Active foot Problem Morbid (severe) obesity due to E66.01 Active excess calories Assessment Uncontrolled type 2 diabetes E11.65 Active mellitus with hyperglycemia Problem Diabetes E11.9 Active Problem Uterine polyp N84.0 Active Problem Obese E66.9 Active Problem Fatty liver K76.0 Active Medications Medication Code Code Instructions Start End Status Dosage System Date Date Diflucan [facility] 32676546868 150 MG Orally Active 1 tablet Zithromax Z-Mario Alberto ND 62908408155 250 MG Orally Active 2 tablets on Once a day the first day, then 1 tablet daily for 4 days Nasacort Allergy [facility] 94909628072 55 MCG/ACT Active 1 puff in 24HR Nasally Once a each nostril day Gabapentin [facility] 50458603741 300 MG Orally Active as directed twice a day at bedtime Bactrim DS [facility] 68094798257 800-160 MG Active 1 tablet Orally Twice a day Triamcinolone [facility] 10343883620 0.1 % December Active 1 application Acetonide Externally 10, to affected Twice a day 2018 area Cetirizine HCl [facility] 16745608510 10 MG Orally Jan 14, Active 1 tablet Once a day 2017 Metformin HCl [facility] 40333234869 1000 MG Orally Active 1 tablet with Twice a day meals Duexis [facility] 13702682881 800-26.6 MG Active 1 tablet Orally Three times a day Zyrtec Allergy [facility] 55949375291 10 MG Orally Active 1 tablet Once a day Furosemide [facility] 63363228866 40 MG Orally Active 1 tablet Once a day x 3 days prn swelling Flonase [facility] 67329736045 50 MCG/ACT Jan 14, Active 2 spray in Nasally Once a 2017 each nostril day Potassium [facility] 75531586713 20 MEQ Active TAKE 1 TABLET Chloride ER BY MOUTH EVERY DAY TAKEN WITH LASIX Furosemide ND 57904990374 40 MG Orally Active 1 tablet Once a day x 3 days prn swelling Doxycycline [facility] 99265323038 100 MG Orally Active 1 capsule Hyclate Twice a day Lantus SoloStar [facility] 29639608897 100 UNIT/ML Active 20 units Subcutaneous daily titrate once daily up 2 untis every 2 days until fbg less 100 Results No Known Results Summary Purpose eClinicalWorks Submission
[2019-07-15 13:51] LABS: Urine Blood TRACE (NEG); Urine Glucose 2+ (NEG); Urine Protein 1+ (NEG); Urine Specific Gravity 1.015 (1.005-1.030)
[2019-07-15] MEDS ORDERED: NA CHLORIDE 0.9% 1,000 ML ONE (14:31)
[2019-07-15] MEDS ORDERED: MORPHINE 4 MG/ML SYR ONE (14:31)
[2019-07-15] MEDS ORDERED: ONDANSETRON 4 MG/2 ML VIAL ONE (14:31)
[2019-07-15 14:35] LABS: Absolute Lymphocytes (CBC) 0.6 K/uL (0.7-4.9); Basophils % 0.3 % (0-1.3); Hematocrit 39.2 % (36.0-45.0); Lymphocytes % 5.7 % (15.3-44.8); MPV 9.9 fL (7.6-11.3); RBC Red Blood Cell Count 4.39 M/uL (3.86-4.86)
[2019-07-15 14:55] LABS: Albumin 2.5 g/dL (3.4-5.0); Protein, Total 8.3 g/dL (6.4-8.2)
[2019-07-15] MEDS ORDERED: LIDOCAINE 1% 20 ML MDV ONE (15:36)
[2019-07-15] MEDS ORDERED: SMZ./TMP. 800/160 MG TABLET ONE (16:13)
[2019-07-15] MEDS ORDERED: CLINDAMYCIN 900MG/D5W 900 MG/50 ML IVPB IV ONE (16:13)
--- NOTE | 2019-07-15 16:24 | ER ---
Nurse's Notes [facility] Name: Roxana Ricci Age: 48 yrs Sex: Female : 1970 Arrival Date: 07/15/2019 Time: 12:45 Bed 27 Private MD: Diagnosis: Urinary tract infection, site not specified;Cutaneous abscess of buttock;Cutaneous abscess of groin Presentation: 07/15 13:07 Presenting complaint: Patient states: burning with urination, low bad pain, low back iw pain since yesterday , denies fever, also has abscess on bottom and abscess in private area X2-3 days also has pain to right groin area down right leg, pt is diabetic has hx abscesses to groin area. Transition of care: patient was not received from another setting of care. Onset of symptoms was July 13, 2019. Risk Assessment: Do you want to hurt yourself or someone else? Patient reports no desire to harm self or others. Initial Sepsis Screen: Does the patient meet any 2 criteria? HR > 90 bpm. Does the patient have a suspected source of infection?. Care prior to arrival: None. 13:07 Method Of Arrival: Ambulatory iw 13:07 Acuity: FREDERIC 3 iw [employer]: 13:29 LMP N/A - Post-menopause iw Historical: - Allergies: 13:11 No Known Allergies; iw - Home Meds: 13:11 metformin 1,000 mg Oral tab 1 tab 2 times per day [Active]; iw 13:29 Lantus 100 unit/mL Sub-Q soln 22 unit daily [Active]; iw - PMHx: 13:11 Diabetes - NIDDM; iw - PSHx: 13:29 I\T\D X 2; D \T\ C; iw - Immunization history:: Adult Immunizations not up to date. - Coronavirus screen:: The patient has NOT traveled to [place], [place], or [place] in the past 14 days. Proceed with normal triage process as indicated. - Social history:: Smoking status: Patient denies any tobacco usage or history of. - Ebola Screening: : Patient negative for fever greater than or equal to 101.5 degrees Fahrenheit, and additional compatible Ebola Virus Disease symptoms Patient denies exposure to infectious person Patient denies travel to an Ebola-affected area in the 21 days before illness onset No symptoms or risks identified at this time. Screenin:00 Abuse screen: Denies threats or abuse. Nutritional screening: No deficits noted. vc Tuberculosis screening: No symptoms or risk factors identified. Fall Risk None identified. Assessment: 13:55 Reassessment: Chaperoned for visual inspection of vaginal abscess and abscess on right vc gluteus renny. 14:00 General: Appears in no apparent distress. uncomfortable. Pain: Complains of pain in vc left labia majora. Pain: Complains of pain in right gluteus renny. Pain: Complains of pain in medial aspect of right thigh Pain radiates to medial aspect of right knee Pain at worst was 10 out of 10 on a pain scale. Neuro: Level of Consciousness is awake, alert, obeys commands, Oriented to person, place, time, situation, Appropriate for age. Cardiovascular: Patient's skin is warm and dry. Respiratory: Respiratory effort is even, unlabored, Respiratory pattern is regular, symmetrical. GI: Bowel sounds present X 4 quads. Abd is soft X 4 quads Abdomen is tender to palpation in right lower quadrant and left lower quadrant. : Urine is cloudy, orange in color. EENT: No signs and/or symptoms were reported regarding the EENT system. Derm: Wound noted right gluteus renny. Derm: Wound noted left labia majora. Musculoskeletal: Circulation, motion, and sensation intact. Range of motion: intact in all extremities. 15:00 Reassessment: Patient and/or family updated on plan of care and expected duration. Pain vc level reassessed. Patient is alert, oriented x 3, equal unlabored respirations, skin warm/dry/pink. 16:00 Reassessment: Patient and/or family updated on plan of care and expected duration. Pain vc level reassessed. Patient is alert, oriented x 3, equal unlabored respirations, skin warm/dry/pink. Patient states feeling better. Patient states symptoms have improved. 16:31 Reassessment: Discharge on hold due to fluids infusing. vc 16:50 Reassessment: Patient and/or family updated on plan of care and expected duration. Pain vc level reassessed. Patient is alert, oriented x 3, equal unlabored respirations, skin warm/dry/pink. Reassessment: Patient states feeling better. Patient states symptoms have improved. General: Appears. Neuro: Level of Consciousness is awake, alert, obeys commands, Oriented to person, place, time. Vital Signs: 13:29 BP 106 / 85; Pulse 116; Resp 20 S; Temp 98.5; Pulse Ox 97% on R/A; Weight 129.27 kg; iw Height 5 ft. 1 in. (154.94 cm); Pain 10/10; 14:30 BP 110 / 48; Pulse 88; Pulse Ox 96% on R/A; vc 15:30 BP 95 / 61; Pulse 88; Pulse Ox 97% on R/A; vc 16:30 BP 101 / 64; Pulse 86; Pulse Ox 94% on R/A; vc 13:29 Body Mass Index 53.85 (129.27 kg, 154.94 cm) iw ED Course: 12:45 Patient arrived in ED. as 13:03 Ayesha Anaya, PATRICIA is Primary Nurse. vc 13:10 Triage completed. iw 13:11 Kevin Daniels PA is PHCP. jmm 13:11 Verona Moody MD is Attending Physician. jmm 13:29 Arm band placed on. iw 13:40 Patient has correct armband on for positive identification. Pulse ox on. NIBP on. vc 14:20 Inserted saline lock: 20 gauge in right antecubital area, using aseptic technique. vc 14:39 Blood Culture Adult (2) Sent. vc 14:39 Urine Culture Sent. vc 16:05 Assist provider with I \T\ D: of an abscess on Right gluteus renny, left labia majora. vc 16:51 IV discontinued, intact, bleeding controlled, No redness/swelling at site. Pressure vc dressing applied. Administered Medications: 14:39 Drug: Zofran 4 mg Route: IVP; Site: right antecubital; vc 16:25 Follow up: Response: No adverse reaction vc 14:40 Drug: NS 0.9% 1000 ml Route: IV; Rate: 1 bolus; Site: right antecubital; vc 15:40 Follow up: IV Status: Completed infusion vc 14:40 Drug: morphine 4 mg Route: IVP; Site: right antecubital; vc 16:25 Follow up: Response: No adverse reaction vc 16:05 Drug: Lidocaine (1 %) 20 ml Volume: 20 ml; Route: Infiltration; vc 16:15 Drug: Clindamycin 900 mg Route: IVPB; Infused Over: 30 mins; Site: right antecubital; vc 16:54 Follow up: Response: No adverse reaction; IV Status: Completed infusion vc 16:15 Drug: Bactrim (160 mg-800 mg (DS) 1 tablet Route: PO; vc 16:54 Follow up: Response: No adverse reaction vc Outcome: 16:23 Discharge ordered by . didier 16:51 Discharged to home ambulatory, with family. vc 16:51 Condition: good 16:51 Discharge instructions given to patient, family, Instructed on discharge instructions, follow up and referral plans. no driving heavy equipment, medication usage, Demonstrated understanding of instructions, follow-up care, medications, Prescriptions given X 3. 17:00 Patient left the ED. vc Addendum: 07/17/2019 07:27 Addendum: Culture Results: Positive urine culture. No further action required. Bacteria e b sensitive to prescribed antibiotic. Signatures: Kevin Daniels PA PA jmm Martinez, Amelia as Williams, Irene, RN RN iw Botello, Elizabeth eb Calcote, Vanessa, RN RN vc
--- NOTE | 2019-07-15 16:24 | EDPHYS ---
Physician Documentation [facility] Name: Roxana Ricci Age: 48 yrs Sex: Female : 1970 Arrival Date: 07/15/2019 Time: 12:45 Bed 27 Private MD: ED Physician Verona Moody HPI: 07/15 13:44 This 48 yrs old Female presents to ER via Ambulatory with complaints of jmm Abscess, Leg Pain, Pain With Urination, Abdominal Pain, Back Pain. 13:44 The patient presents with cellulitis of the pelvis. Onset: The symptoms/episode jmm began/occurred gradually, 2 day(s) ago. Possible cause(s): unknown. Associated signs and symptoms: Pertinent negatives: fever. Modifying factors: the symptoms are alleviated by nothing, the symptoms are aggravated by squeezing the lesion and expressing the contents. This is a 48 year old female with a history of DM that presents to the ED with complaints of 2 abscesses which began 2 days ago. Patient states she has squeezed pus out of both abscesses. Patient also complaints of right left pain which radiates to the knee along with painful urination. . 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 - Coronavirus screen:: The patient has NOT traveled to [place], [place], or [place] in the past 14 days. Proceed with normal triage process as indicated. - Social history:: Smoking status: Patient denies any tobacco usage or history of. - Ebola Screening: : Patient negative for fever greater than or equal to 101.5 degrees Fahrenheit, and additional compatible Ebola Virus Disease symptoms Patient denies exposure to infectious person Patient denies travel to an Ebola-affected area in the 21 days before illness onset No symptoms or risks identified at this time. ROS: 13:58 Cardiovascular: Negative for chest pain, palpitations, and edema, Respiratory: Negative jmm for shortness of breath, cough, wheezing, and pleuritic chest pain, Abdomen/GI: Negative for abdominal pain, nausea, vomiting, diarrhea, and constipation. 13:58 Constitutional: Positive for body aches, chills. 13:58 : Positive for urinary symptoms. 13:58 MS/extremity: Positive for pain. 13:58 All other systems are negative. Exam: 13:58 Constitutional: This is a well developed, well nourished patient who is awake, alert, jmm and in no acute distress. Head/Face: atraumatic. Eyes: EOMI, no conjunctival erythema appreciated ENT: Moist Mucus Membranes Neck: Trachea midline, Supple Chest/axilla: Normal chest wall appearance and motion. Cardiovascular: Regular rate and rhythm. No edema appreciated Respiratory: Normal respirations, no respiratory distress appreciated Back: Normal ROM 13:58 Abdomen/GI: Inspection: obese Bowel sounds: normal. 13:58 Skin: a small area of induration and erythema is appreciated on the left labia and right buttocks. Purulent drainage is appreciated. 13:58 Neuro: Orientation: is normal, Mentation: is normal, Memory: is normal. 13:58 Psych: Behavior/mood is pleasant, cooperative. Vital Signs: 13:29 BP 106 / 85; Pulse 116; Resp 20 S; Temp 98.5; Pulse Ox 97% on R/A; Weight 129.27 kg; iw Height 5 ft. 1 in. (154.94 cm); Pain 10/10; 14:30 BP 110 / 48; Pulse 88; Pulse Ox 96% on R/A; vc 15:30 BP 95 / 61; Pulse 88; Pulse Ox 97% on R/A; vc 16:30 BP 101 / 64; Pulse 86; Pulse Ox 94% on R/A; vc 13:29 Body Mass Index 53.85 (129.27 kg, 154.94 cm) iw Procedures: 16:17 I \T\ D: Incision and drainage was performed for an abscess of the left labia majora jmm Prepped with Betadine, Anesthetized with 3 ml's 1% Lidocaine. Incised with #11 blade. Drained small amount purulent fluid. Abscess cavity explored. Packed with iodoform gauze, Dressing: sterile 4x4 gauze, the patient tolerated the procedure well. I \T\ D: Incision and drainage was performed for an abscess of the right gluteus renny Prepped with Betadine, Anesthetized with 3 ml's 1% Lidocaine. Incised with #15 blade. Drained moderate amount purulent fluid. Abscess cavity explored. Packed with iodoform gauze, Dressing: sterile 4x4 gauze, the patient tolerated the procedure well. MDM: 13:22 Patient medically screened. [facility] 16:22 Data reviewed: vital signs, nurses notes. Counseling: I had a detailed discussion with didier the patient and/or guardian regarding: the historical points, exam findings, and any diagnostic results supporting the discharge/admit diagnosis, lab results, the need for outpatient follow up, to return to the emergency department if symptoms worsen or persist or if there are any questions or concerns that arise at home. ED course: Patient is alert and non toxic in appearance in the ED. Patient will follow up with Dr. Gee on Thursday and otherwise given strict return precautions. Patient understood and agrees with the plan of care. . 07/15 13:38 Order name: Urine Dipstick--Ancillary (enter results); Complete Time: 13:53 07/15 13:38 Order name: Urine --Ancillary (enter results); Complete Time: 13:53 07/15 13:44 Order name: CBC with Diff; Complete Time: 16:39 [facility] 07/15 13:44 Order name: CMP; Complete Time: 15:01 [facility] 07/15 13:44 Order name: Procalcitonin; Complete Time: 15:26 [facility] 07/15 13:44 Order name: Lactate; Complete Time: 15:01 [facility] 07/15 13:54 Order name: Urine Culture [facility] 07/15 13:57 Order name: Blood Culture Adult (2) [facility] 07/15 16:38 Order name: CBC Smear Scan; Complete Time: 16:39 EDMS Administered Medications: 14:39 Drug: Zofran 4 mg Route: IVP; Site: right antecubital; vc 16:25 Follow up: Response: No adverse reaction vc 14:40 Drug: NS 0.9% 1000 ml Route: IV; Rate: 1 bolus; Site: right antecubital; vc 15:40 Follow up: IV Status: Completed infusion vc 14:40 Drug: morphine 4 mg Route: IVP; Site: right antecubital; vc 16:25 Follow up: Response: No adverse reaction vc 16:05 Drug: Lidocaine (1 %) 20 ml Volume: 20 ml; Route: Infiltration; vc 16:15 Drug: Clindamycin 900 mg Route: IVPB; Infused Over: 30 mins; Site: right antecubital; vc 16:54 Follow up: Response: No adverse reaction; IV Status: Completed infusion vc 16:15 Drug: Bactrim (160 mg-800 mg (DS) 1 tablet Route: PO; vc 16:54 Follow up: Response: No adverse reaction vc Disposition: 18:15 Co-signature as Attending Physician, Verona Moody MD. ma2 Disposition: 07/15/19 16:23 Discharged to Home. Impression: Urinary tract infection, site not specified, Cutaneous abscess of buttock, Cutaneous abscess of groin. - Condition is Stable. - Discharge Instructions: Skin Abscess, Incision and Drainage, Urinary Tract Infection, Adult. - Prescriptions for Clindamycin HCl 300 mg Oral Capsule - take 1 capsule by ORAL route every 6 hours for 10 days; 40 capsule. Tylenol- Codeine #3 300-30 mg Oral Tablet - take 1 tablet by ORAL route every 6 hours As needed; 20 tablet. Bactrim DS 800- 160 mg Oral Tablet - take 1 tablet by ORAL route every 12 hours for 10 days; 20 tablet. - Medication Reconciliation Form, Thank You Letter, Antibiotic Education, Prescription Opioid Use form. - Follow up: Private Physician; When: 2 - 3 days; Reason: Recheck today's complaints, Continuance of care, Re-evaluation by your physician. Signatures: Dispatcher [employer] EDMS Kevin Daniels PA PA jmm Williams, Irene, PATRICIA GOMEZ Verona Moody MD MD ma2 Ayesha Anaya RN RN vc Corrections: (The following items were deleted from the chart) 13:59 13:44 This is a 48 year old female with a history of DM that presents to the ED with [facility] complaints of 2 abscesses which began . didier 17:00 16:23 07/15/2019 16:23 Discharged to Home. Impression: Urinary tract infection, site vc not specified; Cutaneous abscess of buttock; Cutaneous abscess of groin. Condition is Stable. Forms are Medication Reconciliation Form, Thank You Letter, Antibiotic Education, Prescription Opioid Use. Follow up: Private Physician; When: 2 - 3 days; Reason: Recheck today's complaints, Continuance of care, Re-evaluation by your physician. didier
[2019-07-15 16:37] LABS: Blood Morphology Comment NOT SEEN (NOT SEEN); Platelet Estimate ADEQ; Urine White Blood Cell Casts OK
[2019-07-15 17:07] VITALS: TEMP 98.5
[2019-07-15 17:10] VITALS: BP 101/64; O2SAT 94
== END 2019-07-15 17:00 | disposition home or self-care (01) ==
LOC: ER 12:42
PROC: 0J990ZZ Drainage of Buttock Subcutaneous Tissue and Fascia, Open Approach (ICD-10-PCS; principal; 2019-07-15)
PROC: 0J9B0ZZ Drainage of Perineum Subcutaneous Tissue and Fascia, Open Approach (ICD-10-PCS; 2019-07-15)
DX: N39.0 Urinary tract infection, site not specified (principal); L02.31 Cutaneous abscess of buttock; L02.214 Cutaneous abscess of groin; E11.9 Type 2 diabetes mellitus without complications
CPT/HCPCS: 96365; 96361; 87040 ×2; 87088; 85025; 87086; 36415; 81025; 83605; 87077; 87186; 81003; 80053; 84145; 96375; 99284; 10060; J7030; J2405

== ENCOUNTER 2019-07-17 21:50 | Emergency (ER) | payer OTHER ==
--- OUTSIDE RECORDS SUMMARY | 2019-07-17 21:52 | XMS REPORT ---
[...] End Status Dosage System Date Date Diflucan [facility] 00415230100 150 MG Orally Active 1 tablet Zithromax Z-Mario Alberto ND 88451347079 250 MG Orally Active 2 tablets on Once a day the first day, then 1 tablet daily for 4 days Nasacort Allergy [facility] 26139049973 55 MCG/ACT Active 1 puff in 24HR Nasally Once a each nostril day Gabapentin [facility] 63023664987 300 MG Orally Active as directed twice a day at bedtime Bactrim DS [facility] 84809265535 800-160 MG Active 1 tablet Orally Twice a day Triamcinolone [facility] 91564859518 0.1 % December Active 1 application Acetonide Externally 10, to affected Twice a day 2018 area Cetirizine HCl [facility] 06264146860 10 MG Orally Jan 14, Active 1 tablet Once a day 2017 Metformin HCl [facility] 16268748923 1000 MG Orally Active 1 tablet with Twice a day meals Duexis [facility] 36604610453 800-26.6 MG Active 1 tablet Orally Three times a day Zyrtec Allergy [facility] 56020843388 10 MG Orally Active 1 tablet Once a day Furosemide [facility] 37391717986 40 MG Orally Active 1 tablet Once a day x 3 days prn swelling Flonase [facility] 73857744156 50 MCG/ACT Jan 14, Active 2 spray in Nasally Once a 2017 each nostril day Potassium [facility] 16332677233 20 MEQ Active TAKE 1 TABLET Chloride ER BY MOUTH EVERY DAY TAKEN WITH LASIX Furosemide ND 77150963705 40 MG Orally Active 1 tablet Once a day x 3 days prn swelling Doxycycline [facility] 83470248407 100 MG Orally Active 1 capsule Hyclate Twice a day Lantus SoloStar [facility] 27426859541 100 UNIT/ML Active 20 units Subcutaneous daily titrate once daily up 2 untis every 2 days until fbg less 100 Results No Known Results Summary Purpose eClinicalWorks Submission
--- OUTSIDE RECORDS SUMMARY | 2019-07-17 21:52 | XMS REPORT ---
[...] Start Date End Date Status Dosage Jardiance [facility] 58778734893 25 MG Orally Once Feb 10, Mar 12, Active 1 tablet a day 2018 2018 Results No Known Results Summary Purpose eClinicalWorks Submission
--- OUTSIDE RECORDS SUMMARY | 2019-07-17 21:52 | XMS REPORT ---
[...] Status Dosage System Date Date Diflucan ND 30122316101 150 MG Orally Active 1 tablet Zithromax Z-Mario Alberto NDC 88034948550 250 MG Orally Active 2 tablets on Once a day the first day, then 1 tablet daily for 4 days Zyrtec Allergy [facility] 21539320477 10 MG Orally Active 1 tablet Once a day Furosemide ND 86752838722 40 MG Orally Active 1 tablet Once a day x 3 days prn swelling Potassium [facility] 74230515090 20 MEQ Active TAKE 1 TABLET Chloride ER BY MOUTH EVERY DAY TAKEN WITH LASIX Triamcinolone [facility] 25011651431 0.1 % December Active 1 application Acetonide Externally 10, to affected Twice a day 2018 area Cetirizine HCl [facility] 70932542945 10 MG Orally Jan 14, Active 1 tablet Once a day 2017 Furosemide [facility] 15834924069 40 MG Orally Active 1 tablet Once a day x 3 days prn swelling Gabapentin ND 51452008253 300 MG Orally Apr 05, Active as directed twice a day at 2019 bedtime Nasacort Allergy [facility] 19111383325 55 MCG/ACT Active 1 puff in 24HR Nasally Once a each nostril day Flonase [facility] 61120358988 50 MCG/ACT Jan 14, Active 2 spray in Nasally Once a 2018 each nostril day Metformin HCl [facility] 19864922559 1000 MG Orally Active 1 tablet with Twice a day meals Doxycycline [facility] 14626490218 100 MG Orally Active 1 capsule Hyclate Twice a day Bactrim DS [facility] 99901025481 800-160 MG Active 1 tablet Orally Twice a day Lantus SoloStar [facility] 56964784571 100 UNIT/ML Active 10 units Subcutaneous daily titrate once daily up 2 untis every 2 days until FBG less 100 Duexis [facility] 08057948614 800-26.6 MG Active 1 tablet Orally Three times a day Results No Known Results Summary Purpose eClinicalWorks Submission
[2019-07-17] MEDS ORDERED: ONDANSETRON 4 MG/2 ML VIAL ONE (22:31)
[2019-07-17] MEDS ORDERED: KETOROLAC 30 MG/ML INJ ONE (22:31)
--- NOTE | 2019-07-17 23:46 | EDPHYS ---
Physician Documentation [facility] Name: Roxana Ricci Age: 48 yrs Sex: Female : 1970 Arrival Date: 07/17/2019 Time: 21:54 Bed 13 Private MD: ED Physician Hunter Cobb HPI: 07/18 03:38 This 48 yrs old Female presents to ER via Ambulatory with complaints of tw4 Headache, Nausea. 03:38 The patient complains of pain to the top of head, forehead, left frontal area, left tw4 temporal area and right temporal area. The patient describes the headache as crushing, a pressure. Onset: The symptoms/episode began/occurred today. Associated signs and symptoms: Pertinent positives: nausea, vomiting. Severity of symptoms: At its worst the pain was moderate, in the emergency department the pain is unchanged. Headache History: Denies prior headaches. The symptoms are alleviated by nothing. the symptoms are aggravated by nothing. The patient has not experienced similar symptoms in the past. 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 - Coronavirus screen:: The patient has NOT traveled to [place], [place], or [place] in the past 14 days. - Social history:: Smoking status: Patient/guardian denies using tobacco. - Ebola Screening: : Patient denies travel to an Ebola-affected area in the 21 days before illness onset. ROS: 07/18 03:38 Constitutional: Negative for fever, chills, and weight loss, Eyes: Negative for injury, tw4 pain, redness, and discharge, Cardiovascular: Negative for chest pain, palpitations, and edema, Respiratory: Negative for shortness of breath, cough, wheezing, and pleuritic chest pain, Back: Negative for injury and pain, MS/Extremity: Negative for injury and deformity, Skin: Negative for injury, rash, and discoloration, Neuro: Negative for headache, weakness, numbness, tingling, and seizure. Abdomen/GI: Positive for nausea and vomiting, Negative for abdominal pain, diarrhea, constipation, abdominal cramps, abdominal distension, anorexia. Neuro: Positive for headache, Negative for altered mental status, dizziness, gait disturbance, hearing loss, loss of consciousness, numbness, syncope. Exam: 03:38 Head/Face: Normocephalic, atraumatic. Eyes: Pupils equal round and reactive to light, tw4 extra-ocular motions intact. Lids and lashes normal. Conjunctiva and sclera are non-icteric and not injected. Cornea within normal limits. Periorbital areas with no swelling, redness, or edema. Chest/axilla: Normal chest wall appearance and motion. Nontender with no deformity. No lesions are appreciated. Cardiovascular: Regular rate and rhythm with a normal S1 and S2. No gallops, murmurs, or rubs. Normal PMI, no JVD. No pulse deficits. Respiratory: Lungs have equal breath sounds bilaterally, clear to auscultation and percussion. No rales, rhonchi or wheezes noted. No increased work of breathing, no retractions or nasal flaring. Abdomen/GI: Soft, non-tender, with normal bowel sounds. No distension or tympany. No guarding or rebound. No evidence of tenderness throughout. Back: No spinal tenderness. No costovertebral tenderness. Full range of motion. Skin: Warm, dry with normal turgor. Normal color with no rashes, no lesions, and no evidence of cellulitis. MS/ Extremity: Pulses equal, no cyanosis. Neurovascular intact. Full, normal range of motion. Neuro: Awake and alert, GCS 15, oriented to person, place, time, and situation. Cranial nerves II-XII grossly intact. Motor strength 5/5 in all extremities. Sensory grossly intact. Cerebellar exam normal. Normal gait. 03:38 Constitutional: The patient appears in obvious pain, uncomfortable. Vital Signs: 07/17 22:01 BP 127 / 79; Pulse 98; Resp 18; Temp 97.2; Pulse Ox 100% on R/A; Weight 129.27 kg (R); aj1 Height 5 ft. 1 in. (154.94 cm) (R); Pain 10/10; 22:15 BP 117 / 78; Pulse 82; Pulse Ox 99% on R/A; vc 23:00 BP 109 / 71; Pulse 79; Pulse Ox 97% on R/A; vc 23:30 BP 112 / 65; Pulse 84; Resp 18; Pulse Ox 98% on R/A; vc 22:01 Body Mass Index 53.85 (129.27 kg, 154.94 cm) aj1 Hanna Coma Score: 07/18 03:38 Eye Response: spontaneous(4). Verbal Response: oriented(5). Motor Response: obeys tw4 commands(6). Total: 15. MDM: 07/17 22:07 Patient medically screened. tw4 07/18 03:38 Differential diagnosis: hypertensive headache, migraine, tension headache, trigeminal tw4 neuralgia, uremia. Data reviewed: vital signs, nurses notes. Data interpreted: Pulse oximetry: Interpretation: normal. Counseling: I had a detailed discussion with the patient and/or guardian regarding: the historical points, exam findings, and any diagnostic results supporting the discharge/admit diagnosis. Medication response: Toradol markedly relieved the patient's pain, Zofran markedly relieved the patient's nausea. Response to treatment: and as a result, I will discharge patient. Special discussion: I discussed with the patient/guardian in detail that at this point there is no indication for admission to the hospital. It is understood, however, that if the symptoms persist or worsen the patient needs to return immediately for re-evaluation. Administered Medications: 07/17 22:35 Drug: TORadol 30 mg Route: IVP; Site: right antecubital; vc 23:35 Follow up: Response: No adverse reaction; Pain is decreased vc 22:35 Drug: Zofran 4 mg Route: IVP; Site: right antecubital; vc 23:35 Follow up: Response: No adverse reaction; Pain is decreased vc Disposition: 07/17/19 23:45 Discharged to Home. Impression: Headache. - Condition is Stable. - Discharge Instructions: General Headache Without Cause. - Prescriptions for Fiorinal 50- 325-40 mg Oral Capsule - take 1 capsule by ORAL route every 4 hours As needed - not to exceed 6 capsules per day; 20 capsule. Ibuprofen 800 mg Oral Tablet - take 1 tablet by ORAL route every 8 hours As needed take with food; 30 tablet. Zofran 4 mg Oral Tablet - take 1 tablet by ORAL route every 12 hours As needed; 6 tablet. - Medication Reconciliation Form, Thank You Letter, Antibiotic Education, Prescription Opioid Use form. - Follow up: Private Physician; When: Upon discharge from the Emergency Department; Reason: If symptoms return, Recheck today's complaints, Continuance of care, Re-evaluation by your physician. - Problem is new. - Symptoms have improved. Signatures: Samantha Merino RN RN aj1 Hunter Cobb MD MD tw4 Ayesha Anaya RN RN vc Corrections: (The following items were deleted from the chart) 07/18 00:02 07/17 23:45 07/17/2019 23:45 Discharged to Home. Impression: Headache. Condition is vc Stable. Forms are Medication Reconciliation Form, Thank You Letter, Antibiotic Education, Prescription Opioid Use. Follow up: Private Physician; When: Upon discharge from the Emergency Department; Reason: If symptoms return, Recheck today's complaints, Continuance of care, Re-evaluation by your physician. Problem is new. Symptoms have improved. tw4
--- NOTE | 2019-07-17 23:46 | ER ---
Nurse's Notes [facility] Name: Roxana Ricci Age: 48 yrs Sex: Female : 1970 Arrival Date: 07/17/2019 Time: 21:54 Bed 13 Private MD: Diagnosis: Headache Presentation: 07/17 21:59 Presenting complaint: Patient states: "I was here Thursday and the doctor prescribed me 2 aj1 antibiotics and Tylenol #3 and I started taking the antibiotic when I got them but I have a real bad headache, I had a UTI and 2 abscess and he lanced them. I've had the headache since I started taking that medicine and it dont want to go away". Transition of care: patient was not received from another setting of care. Onset of symptoms was July 2019. Risk Assessment: Do you want to hurt yourself or someone else? Patient reports no desire to harm self or others. Initial Sepsis Screen: Does the patient meet any 2 criteria? HR > 90 bpm. No. Patient's initial sepsis screen is negative. Does the patient have a suspected source of infection? Yes: Skin breakdown/wound. Care prior to arrival: None. 21:59 Method Of Arrival: Ambulatory aj1 21:59 Acuity: FREDERIC 4 aj1 Triage Assessment: 22:01 Headache History: Denies prior headaches. General: Appears in no apparent distress. aj1 comfortable, Behavior is calm, cooperative, appropriate for age. Pain: Complains of pain in forehead Pain currently is 10 out of 10 on a pain scale. Pain began 2-3 days ago. Also complains of nausea. Neuro: Level of Consciousness is awake, alert, obeys commands, Oriented to person, place, time, situation. Cardiovascular: Patient's skin is warm and dry. Respiratory: Airway is patent Respiratory effort is even, unlabored, Respiratory pattern is regular, symmetrical. 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 - Coronavirus screen:: The patient has NOT traveled to [place], [place], or [place] in the past 14 days. - Social history:: Smoking status: Patient/guardian denies using tobacco. - Ebola Screening: : Patient denies travel to an Ebola-affected area in the 21 days before illness onset. Screenin:00 Abuse screen: Denies threats or abuse. Nutritional screening: No deficits noted. vc Tuberculosis screening: No symptoms or risk factors identified. Fall Risk None identified. Assessment: 22:15 General: Appears in no apparent distress. uncomfortable, Behavior is calm, cooperative, vc appropriate for age. Pain: Complains of pain in forehead Aggravated by LIGHTS. Neuro: Level of Consciousness is awake, alert, obeys commands, Oriented to person, place, time, situation, Appropriate for age. Cardiovascular: Patient's skin is warm and dry. Respiratory: Respiratory effort is even, unlabored, Respiratory pattern is regular, symmetrical. GI: No signs and/or symptoms were reported involving the gastrointestinal system. : No signs and/or symptoms were reported regarding the genitourinary system. EENT: No signs and/or symptoms were reported regarding the EENT system. Derm: Skin temperature is warm. Musculoskeletal: Circulation, motion, and sensation intact. Range of motion: intact in all extremities. 23:00 Reassessment: Patient and/or family updated on plan of care and expected duration. Pain vc level reassessed. Patient is alert, oriented x 3, equal unlabored respirations, skin warm/dry/pink. 23:45 Reassessment: Patient and/or family updated on plan of care and expected duration. Pain vc level reassessed. Patient is alert, oriented x 3, equal unlabored respirations, skin warm/dry/pink. Patient states feeling better. Patient states symptoms have improved. Vital Signs: 22:01 BP 127 / 79; Pulse 98; Resp 18; Temp 97.2; Pulse Ox 100% on R/A; Weight 129.27 kg (R); aj1 Height 5 ft. 1 in. (154.94 cm) (R); Pain 10/10; 22:15 BP 117 / 78; Pulse 82; Pulse Ox 99% on R/A; vc 23:00 BP 109 / 71; Pulse 79; Pulse Ox 97% on R/A; vc 23:30 BP 112 / 65; Pulse 84; Resp 18; Pulse Ox 98% on R/A; vc 22:01 Body Mass Index 53.85 (129.27 kg, 154.94 cm) aj1 John Coma Score: 07/18 03:38 Eye Response: spontaneous(4). Verbal Response: oriented(5). Motor Response: obeys tw4 commands(6). Total: 15. ED Course: 07/17 21:54 Patient arrived in ED. cf2 22:01 Triage completed. aj1 22:01 Arm band placed on Patient placed in an exam room. aj1 22:05 Hunter Cobb MD is Attending Physician. tw4 22:15 Patient has correct armband on for positive identification. vc 22:15 No provider procedures requiring assistance completed. Inserted saline lock: 22 gauge vc in right antecubital area, using aseptic technique. 22:19 Ayesha Anaya RN is Primary Nurse. vc 07/18 00:00 IV discontinued, intact, bleeding controlled, No redness/swelling at site. Pressure vc dressing applied. Administered Medications: 07/17 22:35 Drug: TORadol 30 mg Route: IVP; Site: right antecubital; vc 23:35 Follow up: Response: No adverse reaction; Pain is decreased vc 22:35 Drug: Zofran 4 mg Route: IVP; Site: right antecubital; vc 23:35 Follow up: Response: No adverse reaction; Pain is decreased vc Outcome: 23:45 Discharge ordered by . tw4 23:50 Condition: good vc 23:50 Discharge instructions given to patient, Instructed on discharge instructions, medication usage, Demonstrated understanding of instructions, follow-up care, medications, Prescriptions given X 3. 07/18 00:00 Discharged to home ambulatory, with family. vc 00:02 Patient left the ED. vc Signatures: Samantha eMrino RN RN aj1 Hunter Cobb MD MD tw4 Jay Hughes 2 Ayesha Anaya RN RN vc Corrections: (The following items were deleted from the chart) 00:00 07/17 23:50 Discharge instructions given to patient, Instructed on discharge vc instructions, medication usage, Demonstrated understanding of instructions, follow-up care, medications, vc
[2019-07-18 00:56] VITALS: TEMP 97.2
[2019-07-18 01:00] VITALS: BP 112/65; O2SAT 98
== END 2019-07-18 00:02 | disposition home or self-care (01) ==
LOC: ER 21:50
DX: R51 Headache (principal); E11.9 Type 2 diabetes mellitus without complications; Z79.4 Long term (current) use of insulin
CPT/HCPCS: 96375; 96374; 99283; J2405

== ENCOUNTER 2019-07-20 07:34 | Day surgery (SDC) | payer OTHER ==
--- NOTE | 2019-07-19 17:20 | RAD REPORT ---
EXAM DESCRIPTION: Dino Villanueva (2 Views)07/19/2019 4:52 pm CLINICAL HISTORY: Preop surgery for abscess removal from inguinal region COMPARISON: None FINDINGS: The lungs appear clear of acute infiltrate. The heart is normal size Calcified right hilar lymph nodes are present IMPRESSION: No acute abnormalities displayed
[2019-07-19 17:46] LABS: Absolute Lymphocytes (CBC) 1.2 K/uL (0.7-4.9); Basophils % 0.5 % (0-1.3); Hematocrit 39.3 % (36.0-45.0); Lymphocytes % 13.3 % (15.3-44.8); MPV 10.3 fL (7.6-11.3); RBC Red Blood Cell Count 4.38 M/uL (3.86-4.86)
--- NOTE | 2019-07-19 18:42 | EKG ---
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
[2019-07-19 20:11] LABS: Potassium 4.2 mmol/L (3.5-5.1)
--- OUTSIDE RECORDS SUMMARY | 2019-07-20 06:30 | XMS REPORT ---
[...] Status Dosage System Date Date Diflucan ND 72456213146 150 MG Orally Active 1 tablet Zithromax Z-Mario Alberto NDC 03267810157 250 MG Orally Active 2 tablets on Once a day the first day, then 1 tablet daily for 4 days Zyrtec Allergy [facility] 36881110644 10 MG Orally Active 1 tablet Once a day Furosemide ND 58101966084 40 MG Orally Active 1 tablet Once a day x 3 days prn swelling Potassium [facility] 25155557268 20 MEQ Active TAKE 1 TABLET Chloride ER BY MOUTH EVERY DAY TAKEN WITH LASIX Triamcinolone [facility] 40237390198 0.1 % December Active 1 application Acetonide Externally 10, to affected Twice a day 2018 area Cetirizine HCl [facility] 27225772498 10 MG Orally Jan 14, Active 1 tablet Once a day 2017 Furosemide [facility] 65945000075 40 MG Orally Active 1 tablet Once a day x 3 days prn swelling Gabapentin ND 76091808836 300 MG Orally Apr 05, Active as directed twice a day at 2019 bedtime Nasacort Allergy [facility] 49865347406 55 MCG/ACT Active 1 puff in 24HR Nasally Once a each nostril day Flonase [facility] 15409858111 50 MCG/ACT Jan 14, Active 2 spray in Nasally Once a 2018 each nostril day Metformin HCl [facility] 74351863640 1000 MG Orally Active 1 tablet with Twice a day meals Doxycycline [facility] 03589373112 100 MG Orally Active 1 capsule Hyclate Twice a day Bactrim DS [facility] 32816234290 800-160 MG Active 1 tablet Orally Twice a day Lantus SoloStar [facility] 74488689823 100 UNIT/ML Active 10 units Subcutaneous daily titrate once daily up 2 untis every 2 days until FBG less 100 Duexis [facility] 39720157934 800-26.6 MG Active 1 tablet Orally Three times a day Results No Known Results Summary Purpose eClinicalWorks Submission
--- OUTSIDE RECORDS SUMMARY | 2019-07-20 06:30 | XMS REPORT ---
[...] Start Date End Date Status Dosage Jardiance [facility] 53233527738 25 MG Orally Once Feb 10, Mar 12, Active 1 tablet a day 2018 2018 Results No Known Results Summary Purpose eClinicalWorks Submission
--- OUTSIDE RECORDS SUMMARY | 2019-07-20 06:31 | XMS REPORT ---
[...] End Status Dosage System Date Date Diflucan [facility] 45263341353 150 MG Orally Active 1 tablet Zithromax Z-Mario Alberto ND 45344970079 250 MG Orally Active 2 tablets on Once a day the first day, then 1 tablet daily for 4 days Nas[address] Allergy [facility] 27971888911 55 MCG/ACT Active 1 puff in 24HR Nasally Once a each nostril day Gabapentin [facility] 54528911794 300 MG Orally Active as directed twice a day at bedtime Bactrim DS [facility] 53172826578 800-160 MG Active 1 tablet Orally Twice a day Triamcinolone [facility] 53018582774 0.1 % December Active 1 application Acetonide Externally 10, to affected Twice a day 2018 area Cetirizine HCl [facility] 52552767961 10 MG Orally Jan 14, Active 1 tablet Once a day [address] [facility] 17708018789 1000 MG Orally Active 1 tablet with Twice a day meals Duexis [facility] 54651542454 800-26.6 MG Active 1 tablet Orally Three times a day Zyrtec Allergy [facility] 85905410843 10 MG Orally Active 1 tablet Once a day Furosemide [facility] 74768893659 40 MG Orally Active 1 tablet Once a day x 3 days prn swelling Flonase [facility] 32895720575 50 MCG/ACT Jan 14, Active 2 spray in Nasally Once a 2017 each nostril day Potassium [facility] 71115541717 20 MEQ Active TAKE 1 TABLET Chloride ER BY MOUTH EVERY DAY TAKEN WITH LASIX Furosemide ND 25453805982 40 MG Orally Active 1 tablet Once a day x 3 days prn swelling Doxycycline [facility] 17855304517 100 MG Orally Active 1 capsule Hyclate Twice a day Lantus SoloStar [facility] 71532353324 100 UNIT/ML Active 20 units Subcutaneous daily titrate once daily up 2 untis every 2 days until fbg less 100 Results No Known Results Summary Purpose eClinicalWorks Submission
--- OUTSIDE RECORDS SUMMARY | 2019-07-20 07:39 | XMS REPORT ---
[...] Start Date End Date Status Dosage Jardiance [facility] 74061372843 25 MG Orally Once Feb 10, Mar 12, Active 1 tablet a day 2018 2018 Results No Known Results Summary Purpose eClinicalWorks Submission
--- OUTSIDE RECORDS SUMMARY | 2019-07-20 07:40 | XMS REPORT ---
[...] End Status Dosage System Date Date Diflucan [facility] 34121755715 150 MG Orally Active 1 tablet Zithromax Z-Mario Alberto ND 40242018006 250 MG Orally Active 2 tablets on Once a day the first day, then 1 tablet daily for 4 days Nasacort Allergy [facility] 05896471339 55 MCG/ACT Active 1 puff in 24HR Nasally Once a each nostril day Gabapentin [facility] 32423458403 300 MG Orally Active as directed twice a day at bedtime Bactrim DS [facility] 78442370593 800-160 MG Active 1 tablet Orally Twice a day Triamcinolone [facility] 50993287350 0.1 % December Active 1 application Acetonide Externally 10, to affected Twice a day 2018 area Cetirizine HCl [facility] 53425313495 10 MG Orally Jan 14, Active 1 tablet Once a day 2017 Metformin HCl [facility] 40374436366 1000 MG Orally Active 1 tablet with Twice a day meals Duexis [facility] 83381902813 800-26.6 MG Active 1 tablet Orally Three times a day Zyrtec Allergy [facility] 76491409652 10 MG Orally Active 1 tablet Once a day Furosemide [facility] 20844488890 40 MG Orally Active 1 tablet Once a day x 3 days prn swelling Flonase [facility] 60150935742 50 MCG/ACT Jan 14, Active 2 spray in Nasally Once a 2017 each nostril day Potassium [facility] 97082607959 20 MEQ Active TAKE 1 TABLET Chloride ER BY MOUTH EVERY DAY TAKEN WITH LASIX Furosemide ND 29433289415 40 MG Orally Active 1 tablet Once a day x 3 days prn swelling Doxycycline [facility] 81006067161 100 MG Orally Active 1 capsule Hyclate Twice a day Lantus SoloStar [facility] 23553413486 100 UNIT/ML Active 20 units Subcutaneous daily titrate once daily up 2 untis every 2 days until fbg less 100 Results No Known Results Summary Purpose eClinicalWorks Submission
--- OUTSIDE RECORDS SUMMARY | 2019-07-20 07:40 | XMS REPORT ---
[...] Status Dosage System Date Date Diflucan ND 70391256876 150 MG Orally Active 1 tablet Zithromax Z-Mario Alberto NDC 53118889838 250 MG Orally Active 2 tablets on Once a day the first day, then 1 tablet daily for 4 days Zyrtec Allergy [facility] 38186167575 10 MG Orally Active 1 tablet Once a day Furosemide ND 71914232607 40 MG Orally Active 1 tablet Once a day x 3 days prn swelling Potassium [facility] 42400141649 20 MEQ Active TAKE 1 TABLET Chloride ER BY MOUTH EVERY DAY TAKEN WITH LASIX Triamcinolone [facility] 11503862728 0.1 % December Active 1 application Acetonide Externally 10, to affected Twice a day 2018 area Cetirizine HCl [facility] 12668681743 10 MG Orally Jan 14, Active 1 tablet Once a day 2017 Furosemide [facility] 05872940964 40 MG Orally Active 1 tablet Once a day x 3 days prn swelling Gabapentin ND 70786934080 300 MG Orally Apr 05, Active as directed twice a day at 2019 bedtime Nasacort Allergy [facility] 36079051096 55 MCG/ACT Active 1 puff in 24HR Nasally Once a each nostril day Flonase [facility] 65143914447 50 MCG/ACT Jan 14, Active 2 spray in Nasally Once a 2018 each nostril day Metformin HCl [facility] 34837872820 1000 MG Orally Active 1 tablet with Twice a day meals Doxycycline [facility] 25261353962 100 MG Orally Active 1 capsule Hyclate Twice a day Bactrim DS [facility] 78493334400 800-160 MG Active 1 tablet Orally Twice a day Lantus SoloStar [facility] 72191758978 100 UNIT/ML Active 10 units Subcutaneous daily titrate once daily up 2 untis every 2 days until FBG less 100 Duexis [facility] 49505846436 800-26.6 MG Active 1 tablet Orally Three times a day Results No Known Results Summary Purpose eClinicalWorks Submission
[2019-07-20] MEDS ORDERED: NA CHLORIDE 0.9% 1,000 ML ONE (08:01)
[2019-07-20] MEDS: CEFAZOLIN/SWI 1gm 1 GM/10 ML SYR ONE ×2 (09:24→09:32)
[2019-07-20] MEDS ORDERED: SUCCINYLCHOLINE 20 MG/ML (10 ML) IV ONE (09:28)
[2019-07-20] MEDS ORDERED: LIDOCAINE 1% MPF 5 ML VIAL ONE (09:30)
[2019-07-20] MEDS ORDERED: propofoL 200 MG/20 ML VIAL IV ONE (09:30)
[2019-07-20] MEDS ORDERED: FENTANYL CITR 100 MCG/2 ML ONE (09:30)
[2019-07-20] MEDS ORDERED: ROCURONIUM 50 MG/5 ML VIAL IV ONE (09:32)
[2019-07-20] MEDS ORDERED: KETOROLAC 30 MG/ML INJ ONE (10:06)
[2019-07-20] MEDS ORDERED: ONDANSETRON 4 MG/2 ML VIAL ONE (10:08)
--- NOTE | 2019-07-20 10:41 | P.BOP ---
Preoperative diagnosis: LEft groin , labia and buttock abscess, morbid obesity Postoperative diagnosis: same Primary procedure: 1. Incision and drainage of Left groin complex abscess 2x2x4 cm Secondary procedure: 2. Incision and drainage of Left labia abscess 2x2x1 cm Other procedure(s): 3. Incision and drainage of Left buttock abscess 2x2x1 cm Estimated blood loss: <10cc Specimen: culture and devitalized tissue Findings: as above Anesthesia: General Complications: None Transferred to: Recovery Room Condition: Good
[2019-07-20 10:55] VITALS: O2SAT 98
[2019-07-20] MEDS ORDERED: INSULIN -REGULAR HUMAN 50 UNIT/0.5 ML ML ONE (10:57)
[2019-07-20 11:05] VITALS: TEMP 97.3
[2019-07-20 11:37] VITALS: BP 105/68
--- NOTE | 2019-07-20 23:27 | OP ---
Date of Procedure: 07/20/2019 Surgeon: Oskar Gee MD Preoperative Diagnoses: 1.Left groin, left labia, left buttock abscess. 2.Morbid obesity. Postoperative Diagnoses: 1.Left groin, left labia, left buttock abscess. 2.Morbid obesity. Procedures: 1.Incision and drainage of complex left groin abscess, 2 x 2 x 4 cm. 2.Incision and drainage of a left labia abscess 2 x 2 x 1 cm. 3.Incision and drainage of left buttock abscess, 2 x 2 x 1 cm. Specimen: Culture and devitalized tissue. Indications: This is the case of a 48-year-old patient, who came yesterday to the wound healing cent er with abscess on the left groin, left labia, and left buttock. Patient has been on and off dealing with a previous wound several months ago and that she was almost getting completely resolved with th is, but then some of the abscesses just developed. The patient needed incision and drainage with ramez efits, alternatives, and risks including, but not limited to infection, bleeding, damage to adjacent structures, anesthesia complication, recurrence, NH, and even . She also understands the import ance of dressing changes. She has to make sure she do them. In the past, she used to have home heal th, then she lost home health and she is trying to do the best she can, but apparently and she might need some help since location is difficult to access by herself. The benefits, alternatives, and ris ks of incision and drainage were explained, which include but are not limited to infection, bleeding, damage to adjacent structures as complication, nonhealing wound, NH, and even . She understood and signed a consent. Description Of Procedure: Patient came to the operating room this morning. We pinpointed the area w ith markers. Then, the patient was placed in lithotomy position. The genitalia, groin, and buttocks were prepped and draped in a sterile fashion. Then, we proceeded to do the I and D of those areas u sing the same technique, which consisted of sharp knife incision, taken all the way down until all of the devitalized tissue was removed. Pus was obtained for culture. Area was irrigated. Hemostasis obtained. Local anesthesia was applied and then each area was packed with iodoform quarter of an inc h. Each area was done individually using the same technique. Patient tolerated each procedure well. Patient was sent to Recovery in stable condition. ISABEL/KIM Voice ID: [id number] Report ID: [id number]
--- NOTE | 2019-07-20 23:38 | DS ---
Date of Discharge: 07/20/2019 Diagnoses: 1.Left groin, labia, and buttock abscess. 2.Morbid obesity. Procedure: Incision and drainage of left groin, labia, and buttock abscess. Disposition: Home. Discharge Instructions: Wet-to-dry dressing. Normal saline daily. The family is going to trying to do it, otherwise they are going to call home health once again. Followup: Follow up in my office in 1 week. Call for appointment [phone]. Then, follow up in the wound healing center in one week. Call for appointment [phone]. ISABEL/KIM Voice ID: [id number] Report ID: [id number]
== END 2019-07-20 12:03 | disposition home health service (06) ==
LOC: OR 07:34
PROVIDERS: ATTEND Surgery
PROC: 0J9C0ZZ Drainage of Pelvic Region Subcutaneous Tissue and Fascia, Open Approach (ICD-10-PCS; 2019-07-20)
PROC: 0U9M0ZZ Drainage of Vulva, Open Approach (ICD-10-PCS; principal; 2019-07-20 09:00)
PROC: 0J990ZZ Drainage of Buttock Subcutaneous Tissue and Fascia, Open Approach (ICD-10-PCS; 2019-07-20 09:00)
DX: N76.4 Abscess of vulva (principal); L02.31 Cutaneous abscess of buttock; L02.214 Cutaneous abscess of groin; E11.9 Type 2 diabetes mellitus without complications; K21.9 Gastro-esophageal reflux disease without esophagitis; E66.01 Morbid (severe) obesity due to excess calories; Z68.43 Body mass index [BMI] 50.0-59.9, adult
CPT/HCPCS: 93005; 87070; 85025; 80048; 36415; 87205; 82947 ×2; 88304; 87075; 87077 ×2; 87186 ×2; 71046; 56405; 10061; J2704; J0330; J3010; J0690; J7030; J2405; 88305

== ENCOUNTER 2019-08-02 11:35 | Emergency (ER) | payer OTHER ==
--- OUTSIDE RECORDS SUMMARY | 2019-08-02 11:37 | XMS REPORT ---
[...] Status Dosage System Date Date Diflucan ND 37837253728 150 MG Orally Active 1 tablet Zithromax Z-Mario Alberto NDC 92015396580 250 MG Orally Active 2 tablets on Once a day the first day, then 1 tablet daily for 4 days Zyrtec Allergy [facility] 54446601095 10 MG Orally Active 1 tablet Once a day Furosemide ND 72551716234 40 MG Orally Active 1 tablet Once a day x 3 days prn swelling Potassium [facility] 92078172978 20 MEQ Active TAKE 1 TABLET Chloride ER BY MOUTH EVERY DAY TAKEN WITH LASIX Triamcinolone [facility] 59931375351 0.1 % December Active 1 application Acetonide Externally 10, to affected Twice a day 2018 area Cetirizine HCl [facility] 32081784632 10 MG Orally Jan 14, Active 1 tablet Once a day 2017 Furosemide [facility] 71234902474 40 MG Orally Active 1 tablet Once a day x 3 days prn swelling Gabapentin ND 50241569619 300 MG Orally Apr 05, Active as directed twice a day at 2019 bedtime Nasacort Allergy [facility] 58117623132 55 MCG/ACT Active 1 puff in 24HR Nasally Once a each nostril day Flonase [facility] 01413184712 50 MCG/ACT Jan 14, Active 2 spray in Nasally Once a 2018 each nostril day Metformin HCl [facility] 04366107773 1000 MG Orally Active 1 tablet with Twice a day meals Doxycycline [facility] 21066768840 100 MG Orally Active 1 capsule Hyclate Twice a day Bactrim DS [facility] 95575429215 800-160 MG Active 1 tablet Orally Twice a day Lantus SoloStar [facility] 75262435303 100 UNIT/ML Active 10 units Subcutaneous daily titrate once daily up 2 untis every 2 days until FBG less 100 Duexis [facility] 33018730366 800-26.6 MG Active 1 tablet Orally Three times a day Results No Known Results Summary Purpose eClinicalWorks Submission
--- OUTSIDE RECORDS SUMMARY | 2019-08-02 11:37 | XMS REPORT ---
[...] Start Date End Date Status Dosage Jardiance [facility] 45950847772 25 MG Orally Once Feb 10, Mar 12, Active 1 tablet a day 2018 2018 Results No Known Results Summary Purpose eClinicalWorks Submission
--- OUTSIDE RECORDS SUMMARY | 2019-08-02 11:38 | XMS REPORT ---
[...] foot pain M79.671 Active Medications Medication Code Code Instructions Start End Status Dosage System Date Date BD Ultra-Fine [facility] 34037587941 4mm x 32Gm SQ as Aug 01, Jul 26, Active as directed Rosalind Pen directed 2019 2020 [place] Lantus ND 23187348709 100 UNIT/ML Active 25 units SoloStar Subcutaneous daily once daily titrate up 2 untis every 2 days until fbg less 100 Results No Known Results Summary Purpose eClinicalWorks Submission
--- OUTSIDE RECORDS SUMMARY | 2019-08-02 11:38 | XMS REPORT ---
[...] End Status Dosage System Date Date Diflucan [facility] 86073227683 150 MG Orally Active 1 tablet Zithromax Z-Mario Alberto ND 10480032476 250 MG Orally Active 2 tablets on Once a day the first day, then 1 tablet daily for 4 days Nasacort Allergy [facility] 21039977787 55 MCG/ACT Active 1 puff in 24HR Nasally Once a each nostril day Gabapentin [facility] 37039810940 300 MG Orally Active as directed twice a day at bedtime Bactrim DS [facility] 54575147422 800-160 MG Active 1 tablet Orally Twice a day Triamcinolone [facility] 22933791310 0.1 % December Active 1 application Acetonide Externally 10, to affected Twice a day 2018 area Cetirizine HCl [facility] 39738930141 10 MG Orally Jan 14, Active 1 tablet Once a day 2017 Metformin HCl [facility] 48957401251 1000 MG Orally Active 1 tablet with Twice a day meals Duexis [facility] 20335300268 800-26.6 MG Active 1 tablet Orally Three times a day Zyrtec Allergy [facility] 59268775340 10 MG Orally Active 1 tablet Once a day Furosemide [facility] 36924692050 40 MG Orally Active 1 tablet Once a day x 3 days prn swelling Flonase [facility] 40798415828 50 MCG/ACT Jan 14, Active 2 spray in Nasally Once a 2017 each nostril day Potassium [facility] 83929863536 20 MEQ Active TAKE 1 TABLET Chloride ER BY MOUTH EVERY DAY TAKEN WITH LASIX Furosemide ND 00309452583 40 MG Orally Active 1 tablet Once a day x 3 days prn swelling Doxycycline [facility] 69979283363 100 MG Orally Active 1 capsule Hyclate Twice a day Lantus SoloStar [facility] 36988415087 100 UNIT/ML Active 20 units Subcutaneous daily titrate once daily up 2 untis every 2 days until fbg less 100 Results No Known Results Summary Purpose eClinicalWorks Submission
[2019-08-02] MEDS ORDERED: HYDROCODONE/APAP 10/325 TAB ONE (12:17)
[2019-08-02 12:24] LABS: Urine Blood 1+ (NEG); Urine Glucose NEGATIVE (NEG); Urine Protein NEGATIVE (NEG); Urine pH 6.5 (5.0-7.0)
--- NOTE | 2019-08-02 12:31 | EDPHYS ---
Physician Documentation [facility] Name: Roxana Ricci Age: 48 yrs Sex: Female : 1970 Arrival Date: 08/02/2019 Time: 11:38 Bed 26 Private MD: Renuka De Souza ED Physician Collins Gee HPI: 08/02 12:22 This 48 yrs old Female presents to ER via Ambulatory with complaints of kb Vaginal Pain. 12:22 The patient presents with vaginal pain. Onset: The symptoms/episode began/occurred 5 kb day(s) ago. Modifying factors: The symptoms are alleviated by nothing, the symptoms are aggravated by movement, pressure, walking. Associated signs and symptoms: The patient has no apparent associated signs or symptoms. Severity of symptoms: At their worst the symptoms were moderate, severe. The patient has not experienced similar symptoms in the past. The patient has been recently seen by a physician: Dr. 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 - Coronavirus screen:: The patient has NOT traveled to [place] in the past 14 days. The patient has NOT had contact with known/suspected case of Coronavirus? Proceed with normal triage procedures. - Social history:: Smoking status: Patient denies any tobacco usage or history of. - Ebola Screening: : No symptoms or risks identified at this time. ROS: 12:20 Constitutional: Negative for fever, chills, and weight loss, Cardiovascular: Negative kb for chest pain, palpitations, and edema, Respiratory: Negative for shortness of breath, cough, wheezing, and pleuritic chest pain, Abdomen/GI: Negative for abdominal pain, nausea, vomiting, diarrhea, and constipation, Back: Negative for injury and pain, MS/Extremity: Negative for injury and deformity, Skin: Negative for injury, rash, and discoloration, Neuro: Negative for headache, weakness, numbness, tingling, and seizure. 12:20 : Positive for vaginal pain. Exam: 12:20 Constitutional: This is a well developed, well nourished patient who is awake, alert, kb and in no acute distress. Head/Face: Normocephalic, atraumatic. Chest/axilla: Normal chest wall appearance and motion. Nontender with no deformity. No lesions are appreciated. Cardiovascular: Regular rate and rhythm with a normal S1 and S2. No gallops, murmurs, or rubs. Normal PMI, no JVD. No pulse deficits. Respiratory: Lungs have equal breath sounds bilaterally, clear to auscultation and percussion. No rales, rhonchi or wheezes noted. No increased work of breathing, no retractions or nasal flaring. Abdomen/GI: Soft, non-tender, with normal bowel sounds. No distension or tympany. No guarding or rebound. No evidence of tenderness throughout. Skin: Warm, dry with normal turgor. Normal color with no rashes, no lesions, and no evidence of cellulitis. MS/ Extremity: Pulses equal, no cyanosis. Neurovascular intact. Full, normal range of motion. Neuro: Awake and alert, GCS 15, oriented to person, place, time, and situation. Cranial nerves II-XII grossly intact. Motor strength 5/5 in all extremities. Sensory grossly intact. Cerebellar exam normal. Normal gait. 12:20 : Pelvic Exam: External exam: is normal, no tenderness on external exam, the nurse was present for the exam. 12:29 : Pelvic Exam: Speculum exam: no bleeding is noted, erythema noted on speculum exam, kb no source of vaginal pain identified. . Vital Signs: 11:45 BP 131 / 84; Pulse 89; Resp 16; Temp 97.9; Pulse Ox 100% on R/A; Weight 131.54 kg; hb Height 5 ft. 1 in. (154.94 cm); Pain 10/10; 12:44 BP 107 / 69; Pulse 85; Resp 16 S; Pulse Ox 100% on R/A; ca1 11:45 Body Mass Index 54.79 (131.54 kg, 154.94 cm) hb MDM: 11:51 Patient medically screened. kb 12:21 Data reviewed: vital signs, nurses notes. Data interpreted: Pulse oximetry: on room air kb is 100 %. Interpretation: normal. 12:29 Counseling: I had a detailed discussion with the patient and/or guardian regarding: the kb historical points, exam findings, and any diagnostic results supporting the discharge/admit diagnosis, lab results, the need for outpatient follow up, an OB/Gyne specialist, to return to the emergency department if symptoms worsen or persist or if there are any questions or concerns that arise at home. ED course: Pt educated to call Dr Jon's office today to make appt for follow up. . 08/02 12:14 Order name: Urine Dipstick--Ancillary (enter results); Complete Time: 12:28 bd 08/02 12:14 Order name: Urine --Ancillary (enter results); Complete Time: 12:28 bd 08/02 12:08 Order name: Urine Dipstick-Ancillary (obtain specimen); Complete Time: 12:09 kb 08/02 12:08 Order name: Pelvic Exam Setup; Complete Time: 12:09 kb Administered Medications: 12:14 Drug: [place] 10 mg-325 mg 1 tabs {Note: rass - 0.} Route: PO; ca1 12:36 Follow up: Response: No adverse reaction; Pain is decreased; RASS: Alert and Calm (0) ca1 Disposition: 08/03 06:49 Co-signature as Attending Physician, Collins Gee MD I agree with the assessment and kdr plan of care. Disposition: 08/02/19 12:31 Discharged to Home. Impression: Vaginal Pain. - Condition is Stable. - Discharge Instructions: Pelvic Pain, Female, [id number]. - Medication Reconciliation Form, Thank You Letter, Antibiotic Education, Prescription Opioid Use form. - Follow up: Emergency Department; When: As needed; Reason: Worsening of condition. Follow up: Celia Price MD; When: 2 - 3 days; Reason: Recheck today's complaints. - Notes: Continue previously prescribed Tylenol with codiene for pain Signatures: Dispatcher [employer] EDMS Maryjo Polanco, ICT HELP DESK TECHNICIAN-C YAHIR-Collins Gentile MD MD kdr Baxter, Heather, PATRICIA RN hb AcEsther miranda RN RN ca1 Corrections: (The following items were deleted from the chart) 08/02 12:50 12:31 08/02/2019 12:31 Discharged to Home. Impression: Vaginal Pain. Condition is ca1 Stable. Forms are Medication Reconciliation Form, Thank You Letter, Antibiotic Education, Prescription Opioid Use. Follow up: Emergency Department; When: As needed; Reason: Worsening of condition. Follow up: Celia Price; When: 2 - 3 days; Reason: Recheck today's complaints. kb
--- NOTE | 2019-08-02 12:31 | ER ---
Nurse's Notes [facility] Name: Roxana Ricci Age: 48 yrs Sex: Female : 1970 Arrival Date: 08/02/2019 Time: 11:38 Bed 26 Private MD: Renuka De Souza Diagnosis: Vaginal Pain Presentation: 08/02 11:41 Presenting complaint: Worsening vaginal pain x 5 days. Recently seen by Dr. Gee for I\T\D of abscesses on labia and buttock, reports pain seems to be r/t labial abscess. Transition of care: patient was not received from another setting of care. Onset of symptoms was July 29, 2019. Risk Assessment: Do you want to hurt yourself or someone else? Patient reports no desire to harm self or others. Care prior to arrival: None. 11:41 Method Of Arrival: Ambulatory hb 11:41 Acuity: FREDERIC 3 hb 11:56 Initial Sepsis Screen: Does the patient meet any 2 criteria? No. Patient's initial ca1 sepsis screen is negative. Does the patient have a suspected source of infection? No. Patient's initial sepsis screen is negative. 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 - Coronavirus screen:: The patient has NOT traveled to [place] in the past 14 days. The patient has NOT had contact with known/suspected case of Coronavirus? Proceed with normal triage procedures. - Social history:: Smoking status: Patient denies any tobacco usage or history of. - Ebola Screening: : No symptoms or risks identified at this time. Screenin:54 Abuse screen: Denies threats or abuse. Denies injuries from another. Nutritional ca1 screening: No deficits noted. Tuberculosis screening: No symptoms or risk factors identified. Fall Risk None identified. Assessment: 11:54 General: Appears in no apparent distress. uncomfortable, Behavior is calm, cooperative, ca1 appropriate for age. Pain: Complains of pain in groin Pain currently is 10 out of 10 on a pain scale. Pain began 2-3 days ago. Neuro: Level of Consciousness is awake, alert, obeys commands, Oriented to person, place, time, situation, Appropriate for age. Cardiovascular: Heart tones S1 S2 present Capillary refill < 3 seconds Patient's skin is warm and dry. Respiratory: Airway is patent Respiratory effort is even, unlabored, Respiratory pattern is regular, symmetrical, Breath sounds are clear bilaterally. GI: Abdomen is round non-distended, obese, Bowel sounds present X 4 quads. Abd is soft and non tender X 4 quads. : Reports pain on vaginal area. EENT: No signs and/or symptoms were reported regarding the EENT system. Derm: Skin is intact, is healthy with good turgor, Skin is pink, warm \T\ dry. Musculoskeletal: Circulation, motion, and sensation intact. Capillary refill < 3 seconds. 12:44 Reassessment: Patient appears in no apparent distress at this time. Patient is alert, ca1 oriented x 3, equal unlabored respirations, skin warm/dry/pink. Vital Signs: 11:45 BP 131 / 84; Pulse 89; Resp 16; Temp 97.9; Pulse Ox 100% on R/A; Weight 131.54 kg; hb Height 5 ft. 1 in. (154.94 cm); Pain 10/10; 12:44 BP 107 / 69; Pulse 85; Resp 16 S; Pulse Ox 100% on R/A; ca1 11:45 Body Mass Index 54.79 (131.54 kg, 154.94 cm) hb ED Course: 11:38 Patient arrived in ED. mr 11:38 Renuka De Souza MD is Private Physician. mr 11:40 Maryjo Polanco FNP-C is [facility]. kb 11:40 Collins Gee MD is Attending Physician. kb 11:45 Triage completed. hb 11:46 Esther Bonner, PATRICIA is Primary Nurse. ca1 11:46 Arm band placed on. hb 11:54 Patient has correct armband on for positive identification. Placed in gown. Bed in low ca1 position. Call light in reach. Side rails up X2. Pulse ox on. NIBP on. Warm blanket given. 12:15 Assist provider with pelvic exam: Set up pelvic tray. Performed by Maryjo RIVERA Patient tolerated well. 12:15 Patient did not have IV access during this emergency room visit. ca1 12:30 Celia Price MD is Referral Physician. kb Administered Medications: 12:14 Drug: [place] 10 mg-325 mg 1 tabs {Note: rass - 0.} Route: PO; ca1 12:36 Follow up: Response: No adverse reaction; Pain is decreased; RASS: Alert and Calm (0) ca1 Outcome: 12:31 Discharge ordered by . elizabeth 12:45 Discharged to home via wheelchair. ca1 12:45 Condition: stable 12:45 Discharge instructions given to patient, Instructed on discharge instructions, follow up and referral plans. Demonstrated understanding of instructions, follow-up care. 12:50 Patient left the ED. ca1 Signatures: Maryjo Polanco, NICOLE SINCLAIR-Negra Canas mr Meli Bautista, RN RN Esther Bonner RN RN ca1
[2019-08-02 13:14] VITALS: TEMP 97.9; O2SAT 100
[2019-08-02 13:15] VITALS: BP 107/69
== END 2019-08-02 12:50 | disposition home or self-care (01) ==
LOC: ER 11:35
DX: R10.2 Pelvic and perineal pain (principal); E11.9 Type 2 diabetes mellitus without complications
CPT/HCPCS: 81003; 81025; 99215; 99283

== ENCOUNTER 2019-08-31 06:09 | Day surgery (SDC) | payer OTHER ==
--- OUTSIDE RECORDS SUMMARY | 2019-08-31 06:11 | XMS REPORT ---
[...] Status Dosage System Date Date Diflucan ND 77425575238 150 MG Orally Active 1 tablet Zithromax Z-Mario Alberto NDC 88337925212 250 MG Orally Active 2 tablets on Once a day the first day, then 1 tablet daily for 4 days Zyrtec Allergy [facility] 91193572137 10 MG Orally Active 1 tablet Once a day Furosemide ND 36342428066 40 MG Orally Active 1 tablet Once a day x 3 days prn swelling Potassium [facility] 52345584412 20 MEQ Active TAKE 1 TABLET Chloride ER BY MOUTH EVERY DAY TAKEN WITH LASIX Triamcinolone [facility] 75251568712 0.1 % December Active 1 application Acetonide Externally 10, to affected Twice a day 2018 area Cetirizine HCl [facility] 87953532658 10 MG Orally Jan 14, Active 1 tablet Once a day 2017 Furosemide [facility] 88305056746 40 MG Orally Active 1 tablet Once a day x 3 days prn swelling Gabapentin ND 45003846904 300 MG Orally Apr 05, Active as directed twice a day at 2019 bedtime Nasacort Allergy [facility] 99212991881 55 MCG/ACT Active 1 puff in 24HR Nasally Once a each nostril day Flonase [facility] 73827390672 50 MCG/ACT Jan 14, Active 2 spray in Nasally Once a 2018 each nostril day Metformin HCl [facility] 54575847793 1000 MG Orally Active 1 tablet with Twice a day meals Doxycycline [facility] 44703459388 100 MG Orally Active 1 capsule Hyclate Twice a day Bactrim DS [facility] 21510332714 800-160 MG Active 1 tablet Orally Twice a day Lantus SoloStar [facility] 95416415178 100 UNIT/ML Active 10 units Subcutaneous daily titrate once daily up 2 untis every 2 days until FBG less 100 Duexis [facility] 72210702927 800-26.6 MG Active 1 tablet Orally Three times a day Results No Known Results Summary Purpose eClinicalWorks Submission
--- OUTSIDE RECORDS SUMMARY | 2019-08-31 06:11 | XMS REPORT ---
[...] Start Date End Date Status Dosage Jardiance [facility] 85042201676 25 MG Orally Once Feb 10, Mar 12, Active 1 tablet a day 2018 2018 Results No Known Results Summary Purpose eClinicalWorks Submission
--- OUTSIDE RECORDS SUMMARY | 2019-08-31 06:11 | XMS REPORT ---
[...] Status Dosage System Date Date Diflucan [facility] 26268900900 150 MG Orally Active 1 tablet Zithromax Z-Mario Alberto ND 65718775166 250 MG Orally Active 2 tablets on Once a day the first day, then 1 tablet daily for 4 days Nasacort Allergy [facility] 95860953399 55 MCG/ACT Active 1 puff in 24HR Nasally Once a each nostril day Gabapentin [facility] 47119904013 300 MG Orally Active as directed twice a day at bedtime Bactrim DS [facility] 30096335594 800-160 MG Active 1 tablet Orally Twice a day Triamcinolone [facility] 18382155874 0.1 % December Active 1 application Acetonide Externally 10, to affected Twice a day 2018 area Cetirizine HCl [facility] 60615019534 10 MG Orally Jan 14, Active 1 tablet Once a day 2017 Metformin HCl [facility] 68282738251 1000 MG Orally Active 1 tablet with Twice a day meals Duexis [facility] 67150308968 800-26.6 MG Active 1 tablet Orally Three times a day Zyrtec Allergy [facility] 99148076862 10 MG Orally Active 1 tablet Once a day Furosemide [facility] 21702961568 40 MG Orally Active 1 tablet Once a day x 3 days prn swelling Flonase [facility] 36578574114 50 MCG/ACT Jan 14, Active 2 spray in Nasally Once a 2017 each nostril day Potassium [facility] 93235578790 20 MEQ Active TAKE 1 TABLET Chloride ER BY MOUTH EVERY DAY TAKEN WITH LASIX Furosemide ND 37001124065 40 MG Orally Active 1 tablet Once a day x 3 days prn swelling Doxycycline [facility] 35993331775 100 MG Orally Active 1 capsule Hyclate Twice a day Lantus SoloStar [facility] 58133371578 100 UNIT/ML Active 20 units Subcutaneous daily titrate once daily up 2 untis every 2 days until fbg less 100 Results No Known Results Summary Purpose eClinicalWorks Submission
--- OUTSIDE RECORDS SUMMARY | 2019-08-31 06:12 | XMS REPORT ---
[...] Medications Medication Code Code Instructions Start End Date Status Dosage System Date Metformin HCl [facility] 91436026391 1000 MG Orally Active 1 tablet Twice a day with meals Results No Known Results Summary Purpose eClinicalWorks Submission
--- OUTSIDE RECORDS SUMMARY | 2019-08-31 06:12 | XMS REPORT ---
[...] Status Dosage System Date Date BD Ultra-Fine [facility] 38492450109 4mm x 32Gm SQ as Aug 01, Jul 26, Active as directed Rosalind Pen directed 2019 2020 [place] Lantus ND 37083610250 100 UNIT/ML Active 25 units SoloStar Subcutaneous daily once daily titrate up 2 untis every 2 days until fbg less 100 Results No Known Results Summary Purpose eClinicalWorks Submission
--- OUTSIDE RECORDS SUMMARY | 2019-08-31 06:12 | XMS REPORT ---
[...] Start End Status Dosage System Date Date Basaglar [facility] 18616675838 100 UNIT/ML Aug 02, Active 25 units KwikPen daily daily 2019 daily titrate up 2 untis every 2 days until fbg less [address] [facility] 08142993152 100 UNIT/ML Inactive 25 units SoloStar Subcutaneous daily once daily titrate up 2 untis every 2 days until fbg less 100 Results No Known Results Summary Purpose eClinicalWorks Submission
[2019-08-31] MEDS ORDERED: NA CHLORIDE 0.9% 1,000 ML ONE (07:10)
[2019-08-31 07:14] LABS: Specific Gravity 1.015 (1.005-1.030)
[2019-08-31] MEDS ORDERED: MIDAZOLAM HCL 2 MG/2 ML INJ ONE (07:30)
[2019-08-31] MEDS ORDERED: ONDANSETRON 4 MG/2 ML VIAL ONE (07:30)
[2019-08-31] MEDS ORDERED: FENTANYL CITR 100 MCG/2 ML ONE (07:30)
[2019-08-31] MEDS ORDERED: LIDOCAINE 2% MPF 5 ML VIAL ONE (07:30)
[2019-08-31] MEDS ORDERED: propofoL 200 MG/20 ML VIAL IV ONE (07:30)
[2019-08-31] MEDS ORDERED: dexAMETHasone 10 MG/ML VIAL ONE (07:30)
[2019-08-31] MEDS ORDERED: LIDOCAINE 1% W/EPI 1:100,000 MDV 20 ML VIAL ONE (07:36)
[2019-08-31 10:31] VITALS: BP 139/75; TEMP 97.6; O2SAT 99
--- NOTE | 2019-08-31 21:51 | OP ---
Date of Procedure: 08/31/2019 Surgeon: Celia Price MD Preoperative Diagnoses: Pelvic pain, history of endometrial polyps, morbid obesity, risk factors for uterine atypia or malignancy. Postoperative Diagnoses: Pelvic pain, history of endometrial polyps, morbid obesity, risk factors fo r uterine atypia or malignancy. Procedures Performed: Hysteroscopy, D and C. Anesthesia: General. Specimens: Endometrial curettings. Complications: No complications. Drains: No drains. Condition: Stable. Description Of Procedure: After informed consent was verified, patient was taken back to OR, placed in a supine fashion on operative table. General anesthesia given. Placed in a dorsal lithotomy posi tion using Wolfgang stirrups. Vulva, vagina, perineum prepped and draped in a sterile fashion. A specu lum placed to expose the cervix. Anterior lip grasped with 2 Allis clamps. External cervical os ope julia up with the tip of a hemostat. A Slimline diagnostic hysteroscope introduced through the cervica l canal to traverse into the uterine cavity under direct vision. The cavity was narrowed. There wer e adhesions and synechiae on the left half of it. Only the right tubal ostium could be visualized. There was evidence of adhesions here on the left side without any intracavitary lesions and endometri um appeared to be unremarkable. Scope was removed. A 0 endometrial curette was used for performing endometrial curettage. A small amount of tissue was obtained and sent to pathology. All instruments were removed. Instrument, needle, and sponge counts were correct at the end of the case. The patie nt tolerated the procedure well. She was recovered from anesthesia in the OR and taken to PACU in stable condition. She will follow up with qian lomas in 1 week in a tele meeting. SHANTELL/KIM Voice ID: [id number] Report ID: [id number]
== END 2019-08-31 10:40 | disposition home or self-care (01) ==
LOC: OR 06:09
PROVIDERS: ATTEND Obstetrics & Gynecology
PROC: 0UJD8ZZ Inspection of Uterus and Cervix, Via Natural or Artificial Opening Endoscopic (ICD-10-PCS; 2019-08-31)
PROC: 0UDB7ZX Extraction of Endometrium, Via Natural or Artificial Opening, Diagnostic (ICD-10-PCS; principal; 2019-08-31 07:30)
DX: R10.2 Pelvic and perineal pain (principal); N85.6 Intrauterine synechiae; N76.6 Ulceration of vulva; E11.65 Type 2 diabetes mellitus with hyperglycemia; E66.01 Morbid (severe) obesity due to excess calories; Z68.43 Body mass index [BMI] 50.0-59.9, adult; Z79.4 Long term (current) use of insulin
CPT/HCPCS: 81025; 82947 ×2; 88305; 58558; J2704; J2250; J3010; J7030; J2405; J1100

== ENCOUNTER 2019-09-13 12:17 | Inpatient (IN) | payer OTHER ==
--- OUTSIDE RECORDS SUMMARY | 2019-09-13 12:30 | XMS REPORT ---
:1970 Author Organization eClinicalWorks Care Team Providers Name Role Phone De Souza, Na Provider Role Unavailable Allergies No Known Allergies Problems Problem Type Condition Code Onset Dates Condition Statu s Problem Elevated liver enzymes R74.8 Activ e Problem Body aches R52 Active Problem Seasonal allergic rhinitis, J30.2 Active unspecified trigger Problem Current use of insulin Z79.4 Activ e Problem Uncontrolled type 2 diabetes E11.65 Active mellitus with hyperglycemia Problem Diabetic polyneuropathy associated E11.42 Active with type 2 diabetes mellitus Problem Other specified bacterial agents as B96.89 Active the cause of diseases classified elsewhere Problem Acute sinusitis, unspecified J01.90 Active Problem Infection of wound due to A49.02 Ac tive methicillin resistant Staphylococcus aureus (MRSA) Problem Abscess of skin of abdomen L02.211 A ctive Problem Congenital pes planus, unspecified Q66.50 Active [...] [facility] 96448390012 25 MG Orally Once Feb 10, Mar 12, Active 1 tablet a day 2018 2018 Results No Known Results Summary Purpose eClinicalWorks Submission
--- OUTSIDE RECORDS SUMMARY | 2019-09-13 12:31 | XMS REPORT ---
:1970 Author Organization eClinicalWorks Care Team Providers Name Role Phone De Souza, Na Provider Role Unavailable Allergies, Adverse Reactions, Alerts Substance Reaction Event Type N.K.D.A. Info Not Available Non Drug Allergy Problems Problem Type Condition Code Onset Dates Condition Statu s Assessment History of nonadherence to medical Z91.19 Active treatment Assessment Current use of insulin Z79.4 Activ e Assessment Morbid (severe) obesity due to E66.01 Active excess calories Assessment Fatty liver K76.0 Active Problem Uncontrolled type 2 diabetes E11.65 Active mellitus without complication, without long-term current use of insulin Assessment Wound, open T14.8XXA Active Problem Right foot pain M79.671 Active Assessment Elevated liver enzymes R74.8 Activ e Problem Elevated liver enzymes R74.8 Activ e Problem Body aches R52 Active Problem Seasonal allergic rhinitis, J30.2 Active unspecified trigger Problem Current use of insulin Z79.4 Activ e Problem Uncontrolled type 2 diabetes E11.65 Active mellitus with hyperglycemia Assessment Infection of wound due to A49.02 Ac tive methicillin resistant Staphylococcus aureus (MRSA) Assessment Uncontrolled [...] End Status Dosage System Date Date Diflucan [facility] 52306154058 150 MG Orally Active 1 tab let Zithromax Z-Mario Alberto [facility] 91011731485 250 MG Orally Active 2 tablets on Once a day the first day, then 1 tablet daily for 4 days Zyrtec Allergy [facility] 47781906369 10 MG Orally Active 1 tablet Once a day Furosemide ND 00115967681 40 MG Orally Active 1 ta blet Once a day x 3 days prn swelling Potassium [facility] 87187992765 20 MEQ Active TAKE 1 TAB LET Chloride ER BY MOUTH EVERY DAY TAKEN WITH LASIX Triamcinolone [facility] 87250831920 0.1 % December Active 1 appl ication Acetonide Externally 10, to affected Twice a day 2019 area Cetirizine HCl ND 91014250416 10 MG Orally Jan 14, Active 1 tablet Once a day 2017 Furosemide ND 50573970510 40 MG Orally Active 1 ta blet Once a day x 3 days prn swelling Gabapentin ND 65122970338 300 MG Orally Apr 05, Active as directed twice a day at 2019 bedtime Nasacort Allergy [facility] 04874434225 55 MCG/ACT Active 1 puff in 24HR Nasally Once a each nost ril day Flonase [facility] 16849331308 50 MCG/ACT Jan 14, Active 2 spray i n Nasally Once a 2017 each nost ril day Metformin HCl ND 87212157323 1000 MG Orally Active 1 tablet with Twice a day meals Doxycycline [facility] 12388247045 100 MG Orally Active 1 capsule Hyclate Twice a day Bactrim DS [facility] 58111819552 800-160 MG Active 1 tabl et Orally Twice a day Lantus SoloStar [facility] 99859102593 100 UNIT/ML Active 10 units Subcutaneous daily titra te once daily up 2 untis every 2 days until FBG less 100 Duexis [facility] 58771790217 800-26.6 MG Active 1 tablet Orally Three times a day Results No Known Results Summary Purpose eClinicalWorks Submission
--- OUTSIDE RECORDS SUMMARY | 2019-09-13 12:31 | XMS REPORT ---
:1970 Author Organization eClinicalWorks Care Team Providers Name Role Phone De Souza, Na Provider Role Unavailable Allergies, Adverse Reactions, Alerts Substance Reaction Event Type N.K.D.A. Info Not Available Non Drug Allergy Problems Problem Type Condition Code Onset Dates Condition Statu s Assessment Current use of insulin Z79.4 Activ e Problem Uncontrolled type 2 diabetes E11.65 Active mellitus without complication, without long-term current use of insulin Assessment Morbid (severe) obesity due to E66.01 Active excess calories Problem Right foot pain M79.671 Active Assessment Fatty liver K76.0 Active Problem Elevated liver enzymes R74.8 Activ e Problem Body aches R52 Active Problem Seasonal allergic rhinitis, J30.2 Active unspecified trigger Problem Current use of insulin Z79.4 Activ e Problem Uncontrolled type 2 diabetes E11.65 Active mellitus with hyperglycemia Assessment Infection of wound due to A49.02 Ac tive methicillin resistant Staphylococcus aureus (MRSA) Assessment Diabetic [...] End Status Dosage System Date Date Diflucan NDC 20015266902 150 MG Orally Active 1 tab let Zithromax Z-Mario Alberto NDC 57186988112 250 MG Orally Active 2 tablets on Once a day the first day, then 1 tablet daily for 4 days [address]ergy [facility] 78675058887 55 MCG/ACT Active 1 puff in 24HR Nasally Once a each nost ril day Gabapentin ND 27919297821 300 MG Orally Active as directed twice a day at bedtime Bactrim DS [facility] 73773975345 800-160 MG Active 1 tabl et Orally Twice a day Triamcinolone [facility] 03317747058 0.1 % December Active 1 appl ication Acetonide Externally 10, to affected Twice a day 2018 area Cetirizine HCl ND 35284336297 10 MG Orally Jan 14, Active 1 tablet Once a day 2017 Metformin HCl ND 24933196375 1000 MG Orally Active 1 tablet with Twice a day meals Duexis [facility] 79804816491 800-26.6 MG Active 1 tablet Orally Three times a day Zyrtec Allergy [facility] 33882283013 10 MG Orally Active 1 tablet Once a day Furosemide ND 21338964052 40 MG Orally Active 1 ta blet Once a day x 3 days prn swelling Flonase [facility] 62271442532 50 MCG/ACT Jan 14, Active 2 spray i n Nasally Once a 2017 each nost ril day Potassium [facility] 03402357947 20 MEQ Active TAKE 1 TAB LET Chloride ER BY MOUTH EVERY DAY TAKEN WITH LASIX Furosemide ND 26328338695 40 MG Orally Active 1 ta blet Once a day x 3 days prn swelling Doxycycline ND 94762643252 100 MG Orally Active 1 capsule Hyclate Twice a day Lantus SoloStar [facility] 94715191542 100 UNIT/ML Active 20 units Subcutaneous daily titra te once daily up 2 untis every 2 days until fbg less 100 Results No Known Results Summary Purpose eClinicalWorks Submission
--- OUTSIDE RECORDS SUMMARY | 2019-09-13 12:32 | XMS REPORT ---
[...] End Status Dosage System Date Date Basaglar [facility] 49879458658 100 UNIT/ML Aug 02, Active 25 unit s KwikPen daily daily 2019 daily titrate up 2 untis every 2 days until fbg less [address] [facility] 53267272547 100 UNIT/ML Inactive 25 unit s SoloStar Subcutaneous daily once daily titrate up 2 untis every 2 days until fbg less 100 Results No Known Results Summary Purpose eClinicalWorks Submission
--- OUTSIDE RECORDS SUMMARY | 2019-09-13 12:32 | XMS REPORT ---
[...] Status Dosage System Date Date BD Ultra-Fine ND 15796406555 4mm x 32Gm SQ as Aug 01, Jul 26, Activ e as directed Rosalind Pen directed 2019 2020 [place] Lantus [facility] 42403852004 100 UNIT/ML Active 25 units SoloStar Subcutaneous daily once daily titrate up 2 untis every 2 days until fbg less 100 Results No Known Results Summary Purpose eClinicalWorks Submission
--- OUTSIDE RECORDS SUMMARY | 2019-09-13 12:32 | XMS REPORT ---
[...] Date Status Dosage System Date Metformin HCl [facility] 45374990915 1000 MG Orally Active 1 tablet Twice a day with meals Results No Known Results Summary Purpose eClinicalWorks Submission
[2019-09-13] MEDS ORDERED: VANCOMYCIN/NS 1 gm 1 GM/250 ML BAG IV ONE ×2 (12:45→21:00)
[2019-09-13 12:49] LABS: Absolute Lymphocytes (CBC) 1.3 K/uL (0.7-4.9); Basophils % 0.5 % (0-1.3); Lymphocytes % 14.9 % (15.3-44.8); MPV 10.5 fL (7.6-11.3); RBC Red Blood Cell Count 4.46 M/uL (3.86-4.86)
--- NOTE | 2019-09-13 12:50 | RAD REPORT ---
EXAM DESCRIPTION: Dino Single View09/13/2019 12:43 pm CLINICAL HISTORY: Preop for abscess drainage from buttock COMPARISON: July 2019 FINDINGS: The lungs appear clear of acute infiltrate. The heart is normal size IMPRESSION: No acute abnormalities displayed
[2019-09-13 12:52] LABS: Protime INR 1.02
[2019-09-13] MEDS ORDERED: PIPER/TAZO/NS 3.375gm 3.375 GM/100 ML BAG ONE (13:01)
[2019-09-13] MEDS ORDERED: NA CHLORIDE 0.9% 2,000 ML ONE (13:01)
[2019-09-13] MEDS ORDERED: MORPHINE 2 MG/ML SYR ONE (13:01)
[2019-09-13] MEDS ORDERED: ONDANSETRON 4 MG/2 ML VIAL ONE (13:01)
[2019-09-13 13:17] LABS: ALT/SGPT 16 U/L (12-78); AST/SGOT 19 U/L (15-37); Albumin 2.5 g/dL (3.4-5.0); Alkaline Phosphatase 194 U/L (45-117); BUN Blood Urea Nitrogen 9 mg/dL (7-18); Bicarbonate 24 mmol/L (21-32); Bilirubin Direct 0.3 mg/dL (0-0.2); Bilirubin Total 0.9 mg/dL (0.2-1.0); Glucose Level 237 mg/dL (74-106); Lipase 92 U/L (73-393); Magnesium 1.8 mg/dL (1.8-2.4); NT PRO-BNP 176 pg/mL (<125); Protein, Total 9.3 g/dL (6.4-8.2); Sodium Level 136 mmol/L (136-145); Troponin (Emerg Dept Use Only) < 0.02 ng/mL (0.0-0.045)
[2019-09-13 13:41] LABS: Urine Blood TRACE (NEG); Urine Glucose TRACE (NEG); Urine Protein TRACE (NEG); Urine Specific Gravity 1.025 (1.005-1.030); Urine pH 6.5 (5.0-7.0)
--- NOTE | 2019-09-13 13:49 | EDPHYS ---
Physician Documentation [facility] Name: Roxana Ricci Age: 49 yrs Sex: Female : 1970 Arrival Date: 09/13/2019 Time: 12:20 Bed 14 Private MD: ED Physician Yunior Barney HPI: 09/12 13:24 This 49 yrs old Female presents to ER via Ambulatory with complaints of roxane REFERRAL FROM DR JEFFREY. 13:24 The patient presents with an abscess of the buttocks, The patient presents with roxane cellulitis of the buttocks. Description: The affected area is small, confluent, draining, erythematous. Onset: The symptoms/episode began/occurred 3 day(s) ago. Possible cause(s): unknown. Associated signs and symptoms: The patient has no apparent associated signs or symptoms. Modifying factors: the symptoms are alleviated by remaining still, warm soaks, sitz bath, the symptoms are aggravated by walking, pressure, sitting, squeezing the lesion and expressing the contents. Severity of symptoms: At their worst the symptoms were moderate, in the emergency department the symptoms are unchanged. The patient has not experienced similar symptoms in the past. 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 - Social history:: Smoking status: Patient denies any tobacco usage or history of. - Family history:: not pertinent. ROS: 13:24 Constitutional: Negative for fever, chills, and weight loss, Eyes: Negative for injury, roxane pain, redness, and discharge, ENT: Negative for injury, pain, and discharge, Neck: Negative for injury, pain, and swelling, Cardiovascular: Negative for chest pain, palpitations, and edema, Respiratory: Negative for shortness of breath, cough, wheezing, and pleuritic chest pain, Abdomen/GI: Negative for abdominal pain, nausea, vomiting, diarrhea, and constipation, Back: Negative for injury and pain, : Negative for injury, bleeding, discharge, and swelling, MS/Extremity: Negative for injury and deformity, Neuro: Negative for headache, weakness, numbness, tingling, and seizure, Psych: Negative for depression, anxiety, suicide ideation, homicidal ideation, and hallucinations, Allergy/Immunology: Negative for hives, rash, and allergies, Endocrine: Negative for neck swelling, polydipsia, polyuria, polyphagia, and marked weight changes, Hematologic/Lymphatic: Negative for swollen nodes, abnormal bleeding, and unusual bruising. 13:24 Skin: Positive for cellulitis, erythema, swelling, of the left gluteus renny. Exam: 13:24 Constitutional: This is a well developed, well nourished patient who is awake, alert, roxane and in no acute distress. Head/Face: Normocephalic, atraumatic. Eyes: Pupils equal round and reactive to light, extra-ocular motions intact. Lids and lashes normal. Conjunctiva and sclera are non-icteric and not injected. Cornea within normal limits. Periorbital areas with no swelling, redness, or edema. ENT: Nares patent. No nasal discharge, no septal abnormalities noted. Tympanic membranes are normal and external auditory canals are clear. Oropharynx with no redness, swelling, or masses, exudates, or evidence of obstruction, uvula midline. Mucous membranes moist. Neck: Trachea midline, no thyromegaly or masses palpated, and no cervical lymphadenopathy. Supple, full range of motion without nuchal rigidity, or vertebral point tenderness. No Meningismus. Chest/axilla: Normal chest wall appearance and motion. Nontender with no deformity. No lesions are appreciated. Cardiovascular: Regular rate and rhythm with a normal S1 and S2. No gallops, murmurs, or rubs. Normal PMI, no JVD. No pulse deficits. Respiratory: Lungs have equal breath sounds bilaterally, clear to auscultation and percussion. No rales, rhonchi or wheezes noted. No increased work of breathing, no retractions or nasal flaring. Abdomen/GI: Soft, non-tender, with normal bowel sounds. No distension or tympany. No guarding or rebound. No evidence of tenderness throughout. Back: No spinal tenderness. No costovertebral tenderness. Full range of motion. MS/ Extremity: Pulses equal, no cyanosis. Neurovascular intact. Full, normal range of motion. Neuro: Awake and alert, GCS 15, oriented to person, place, time, and situation. Cranial nerves II-XII grossly intact. Motor strength 5/5 in all extremities. Sensory grossly intact. Cerebellar exam normal. Normal gait. Psych: Awake, alert, with orientation to person, place and time. Behavior, mood, and affect are within normal limits. Vital Signs: 12:23 BP 147 / 83; Pulse 79; Resp 16; Temp 98.3; Pulse Ox 97% ; Weight 127.01 kg; Height 5 hb ft. 1 in. (154.94 cm); Pain 6/10; 12:23 Body Mass Index 52.90 (127.01 kg, 154.94 cm) hb MDM: 12:26 Patient medically screened. [facility] 13:39 Data reviewed: vital signs, nurses notes, lab test result(s), EKG, radiologic studies, roxane plain films. 09/12 12:29 Order name: Basic Metabolic Panel [facility] 09/12 12:29 Order name: CBC with Diff [facility] 09/12 12:29 Order name: LFT's [facility] 09/12 12:29 Order name: Magnesium [facility] 09/12 12:29 Order name: NT PRO-BNP; Complete Time: 13:46 [facility] 09/12 12:29 Order name: PT-INR; Complete Time: 13:46 [facility] 09/12 12:29 Order name: Troponin (emerg Dept Use Only); Complete Time: 13:46 [facility] 09/12 12:29 Order name: Urine Culture [facility] 09/12 12:29 Order name: Lipase; Complete Time: 13:46 [facility] 09/12 12:30 Order name: Basic Metabolic Panel; Complete Time: 13:46 [facility] 09/12 12:30 Order name: CBC with Automated Diff; Complete Time: 13:46 [facility]MN 09/12 12:30 Order name: Liver (Hepatic) Function; Complete Time: 13:46 [facility]MN 09/12 12:30 Order name: Magnesium; Complete Time: 13:46 [facility]MN 09/12 13:17 Order name: Urine Dipstick--Ancillary (enter results); Complete Time: 13:46 09/12 12:29 Order name: XRAY Chest (1 view); Complete Time: 13:46 [facility] 09/12 12:29 Order name: EKG; Complete Time: 12:30 roxane 09/12 13:17 Order name: Urine --Ancillary (enter results); Complete Time: 13:46 bd 09/12 14:23 Order name: CONS Pharmacy Consult [facility] 09/12 14:23 Order name: CONS Pharmacy Consult [facility] 09/12 14:23 Order name: Clear Liquid [facility] 09/12 14:23 Order name: Vancomycin Level Trough [facility] 09/12 14:23 Order name: Blood Culture [facility] 09/12 15:00 Order name: CONS Physician Consult [facility] 09/12 12:29 Order name: Cardiac monitoring; Complete Time: 13:38 [facility] 09/12 12:29 Order name: EKG - Nurse/Tech; Complete Time: 13:38 [facility] 09/12 12:29 Order name: IV Saline Lock; Complete Time: 12:45 [facility] 09/12 12:29 Order name: Labs collected and sent; Complete Time: 12:45 [facility] 09/12 12:29 Order name: O2 Per Protocol; Complete Time: 13:38 [facility] 09/12 12:29 Order name: O2 Sat Monitoring; Complete Time: 13:38 [facility] 09/12 12:29 Order name: Urine Dipstick-Ancillary (obtain specimen); Complete Time: 13:20 [facility] 09/12 12:29 Order name: Urine Test (obtain specimen); Complete Time: 13:20 [facility] 09/12 15:05 Order name: CONS Pharmacy Consult EDMN Administered Medications: 13:00 Drug: NS 0.9% 1000 ml Route: IV; Rate: 1 bolus; Site: right antecubital; 14:51 Follow up: IV Status: Completed infusion; IV Intake: 1000ml 13:05 Drug: Zofran (Ondansetron) 4 mg Route: IVP; Site: right antecubital; 14:51 Follow up: Response: No adverse reaction ah 13:05 Drug: morphine 2 mg Route: IVP; Site: right antecubital; ah 14:51 Follow up: Response: No adverse reaction; Pain is decreased; RASS: Alert and Calm (0) 13:10 Drug: Zosyn 3.375 grams Route: IVPB; Infused Over: 60 mins; Site: right antecubital; 14:24 Follow up: Response: No adverse reaction; IV Status: Completed infusion; IV Intake: ah 100ml 14:20 Drug: vancoMYCIN 1 grams Route: IVPB; Infused Over: 2 hrs; Site: right antecubital; 14:50 Drug: NS 0.9% 1000 ml Route: IV; Rate: 125 ml/hr; Site: right antecubital; Disposition: 09/13/19 13:47 Hospitalization ordered by Shakir Elliott for Inpatient Admission. Preliminary diagnosis are Cutaneous abscess of buttock, Type 2 diabetes mellitus, Obesity, unspecified. - Bed requested for Telemetry/MedSurg (Inpatient). - Status is Inpatient Admission. ll1 - Condition is Fair. - Problem is new. - Symptoms have improved. Signatures: Dispatcher [employer] EDMS Caro Hansen Corey, MD MD cha Baxter, Heather, RN RN Khloe Morel RN RN ah Lewis, Lynsay, RN RN ll1 Corrections: (The following items were deleted from the chart) 14:59 14:23 CONS Physician Consult ordered. EDMN EDMN 15:14 13:47 Hospitalization Ordered by Shakir Elliott MD for Inpatient Admission. Preliminary bd diagnosis is Cutaneous abscess of buttock; Type 2 diabetes mellitus; Obesity, unspecified. Bed requested for Telemetry/MedSurg (Inpatient). Status is Inpatient Admission. Condition is Fair. Problem is new. Symptoms have improved. [facility] 16:59 15:14 09/13/2019 13:47 Hospitalization Ordered by Shakir Elliott MD for Inpatient ll1 Admission. Preliminary diagnosis is Cutaneous abscess of buttock; Type 2 diabetes mellitus; Obesity, unspecified. Bed requested for Telemetry/MedSurg (Inpatient). Status is Inpatient Admission. Condition is Fair. Problem is new. Symptoms have improved. bd
--- NOTE | 2019-09-13 13:49 | ER ---
Nurse's Notes [facility] Name: Roxana Ricci Age: 49 yrs Sex: Female : 1970 Arrival Date: 09/13/2019 Time: 12:20 Bed 14 Private MD: Diagnosis: Cutaneous abscess of buttock;Type 2 diabetes mellitus;Obesity, unspecified Presentation: 09/12 12:23 Chief complaint: Sent by Dr. Gee for abscess on left buttock x 3 days. Coronavirus hb screen: Proceed with normal triage. Ebola Screen: No symptoms or risks identified at this time. Initial Sepsis Screen: Does the patient meet any 2 criteria? No. Patient's initial sepsis screen is negative. Does the patient have a suspected source of infection? No. Patient's initial sepsis screen is negative. Risk Assessment: Do you want to hurt yourself or someone else? Patient reports no desire to harm self or others. Onset of symptoms was September 11, 2019. 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 - Social history:: Smoking status: Patient denies any tobacco usage or history of. - Family history:: not pertinent. Screenin:43 Abuse screen: Denies threats or abuse. Nutritional screening: No deficits noted. Tuberculosis screening: No symptoms or risk factors identified. Fall Risk None identified. Assessment: 13:00 General: Appears in no apparent distress. uncomfortable, Behavior is calm, cooperative, ah appropriate for age, Denies fever, chills. Pain: Complains of pain in buttocks left inner buttocks Pain does not radiate. Pain currently is 6 out of 10 on a pain scale. Quality of pain is described as Pain began 2-3 days ago. Alleviated by repositioning. Neuro: Level of Consciousness is awake, alert, obeys commands, Oriented to person, place, time, situation, Olive Grower are equal bilaterally. Cardiovascular: Heart tones S1 S2 present Capillary refill < 3 seconds Patient's skin is warm and dry. Respiratory: Airway is patent Respiratory effort is even, unlabored, Respiratory pattern is regular, symmetrical, Breath sounds are clear bilaterally. GI: No signs and/or symptoms were reported involving the gastrointestinal system. Bowel sounds present X 4 quads. GI: Abdomen is obese. : No signs and/or symptoms were reported regarding the genitourinary system. EENT: No signs and/or symptoms were reported regarding the EENT system. Derm: Abscess located on left inner buttocks is red, open with redness around. Pt states that she squeezed it this morning and some red tinged liquid came out Reports pain that is 6 out of 10 on a pain scale. Musculoskeletal: No signs and/or symptoms reported regarding the musculoskeletal system. 14:00 Reassessment: Patient appears in no apparent distress at this time. Patient and/or ah family updated on plan of care and expected duration. Pain level reassessed. Patient is alert, oriented x 3, equal unlabored respirations, skin warm/dry/pink. Patient states feeling better. 16:04 Reassessment: Called report to Vital Signs: 12:23 BP 147 / 83; Pulse 79; Resp 16; Temp 98.3; Pulse Ox 97% ; Weight 127.01 kg; Height 5 hb ft. 1 in. (154.94 cm); Pain 6/10; 12:23 Body Mass Index 52.90 (127.01 kg, 154.94 cm) ED Course: 12:20 Patient arrived in ED. fj1 12:24 Triage completed. hb 12:24 Arm band placed on. hb 12:26 Yunior Barney MD is Attending Physician. roxane 12:33 Khloe Morel, RN is Primary Nurse. ah 12:45 XRAY Chest (1 view) In Process Unspecified. EDMS 12:45 Initial lab(s) drawn, by me, sent to lab. Inserted saline lock: 20 gauge in right em1 antecubital area, using aseptic technique. Blood collected. 13:44 Patient has correct armband on for positive identification. Placed in gown. Bed in low ah position. Call light in reach. Side rails up X 1. Pulse ox on. NIBP on. Door closed. Lights dimmed. 13:47 Shakir Elliott MD is Hospitalizing Provider. [facility] 16:30 No provider procedures requiring assistance completed. Patient admitted, IV remains in place. Administered Medications: 13:00 Drug: NS 0.9% 1000 ml Route: IV; Rate: 1 bolus; Site: right antecubital; 14:51 Follow up: IV Status: Completed infusion; IV Intake: 1000ml 13:05 Drug: Zofran (Ondansetron) 4 mg Route: IVP; Site: right antecubital; 14:51 Follow up: Response: No adverse reaction 13:05 Drug: morphine 2 mg Route: IVP; Site: right antecubital; 14:51 Follow up: Response: No adverse reaction; Pain is decreased; RASS: Alert and Calm (0) 13:10 Drug: Zosyn 3.375 grams Route: IVPB; Infused Over: 60 mins; Site: right antecubital; 14:24 Follow up: Response: No adverse reaction; IV Status: Completed infusion; IV Intake: ah 100ml 14:20 Drug: vancoMYCIN 1 grams Route: IVPB; Infused Over: 2 hrs; Site: right antecubital; 14:50 Drug: NS 0.9% 1000 ml Route: IV; Rate: 125 ml/hr; Site: right antecubital; Intake: 14:24 IV: 100ml; Total: 100ml. 14:51 IV: 1000ml; Total: 1100ml. Outcome: 13:47 Decision to Hospitalize by Provider. [facility] 16:45 Discharge instructions given to patient, Instructed on the need for admit. 16:59 Patient left the ED. ll1 22:33 Admitted to Med/surg accompanied by tech, via wheelchair, with chart, Report called to receiving nurse 22:33 Condition: stable Signatures: Dispatcher [employer] EDYunior Chinchilla MD MD cha Martinez, Eric em1 Meli Bautista, Francisco Means RN1 Khloe Morel, PATRICIA RN Kali Abel RN RN ll1
[2019-09-13] MEDS ORDERED: ONDANSETRON 4 MG/2 ML VIAL IV PRN (14:06)
[2019-09-13] MEDS ORDERED: MORPHINE 2 MG/ML SYR IV PRN (14:13)
[2019-09-13] MEDS ORDERED: ACETAMINOPHEN 325 MG TABLET PO PRN (14:13)
[2019-09-13] MEDS ORDERED: HYDRALAZINE HCL 20 MG/ML VIAL IV PRN (14:13)
--- NOTE | 2019-09-13 14:35 | P.HP ---
Certification for Inpatient With expected LOS: >2 Midnights Patient will require the following post-hospital care: None Practitioner: I am a practitioner with admitting privileges, knowledge of patient current condition, hospital course, and medical plan of care. Services: Services provided to patient in accordance with Admission requirements found in Title 42 Section 412.3 of the Code of Federal Regulations Patient History Date of Service: 09/13/19 Reason for admission: Right buttock abscess History of Present Illness: 49-year-old female with past medical history of longstanding diabetes, recurrent abscess in the buttock and groin area. New home right inguinal area poorly healing wound status post multiple debridements since the last 3 months, follow with Dr. Gee developed new pimple like pain and swelling over the right Botox was asked to come to the ED. In the ED she is noted with right buttock abscess and he has been admitted for possible debridement by Dr. ang in the morning. She admits to history of poorly-controlled diabetes but admits to compliance with her home insulin regimen. She states her last A1c was about 11 2 months ago. She denies any nausea vomiting. She denies any dysuria, polyuria or nocturia. She states she has never had a prolonged antibiotics course in the past Allergies No Known Allergies Allergy (Verified 07/19/19 16:12) Home Medications: Metformin HCl 1,000 mg PO BID 03/29/19 Ibuprofen [Ibu] 600 mg PO PRN PRN 04/12/19 Insulin Glargine,Hum.rec.anlog [Lantus Solostar] 23 unit SQ DAILY AFTER SUPPER 04/12/19 - Past Medical/Surgical History Diabetic: Yes -: NIDDM -: D&C - Social History Alcohol use: Yes Review of Systems 10-point ROS is otherwise unremarkable Physical Examination - Physical Exam General: Alert, In no apparent distress, Oriented x3 HEENT: Atraumatic, Normocephalic, PERRLA Neck: Supple, 2+ carotid pulse no bruit Respiratory: Clear to auscultation bilaterally, Normal air movement Gastrointestinal: Normal bowel sounds, Soft and benign, Non-distended Musculoskeletal: Erythema, Tenderness Integumentary: No rashes, No breakdown, Other (right buttock cheek abscess , healing open ulcer lesion ) Neurological: Normal speech, Normal strength at 5/5 x4 extr, Cranial nerves 3-12 intact - Studies Laboratory Data (last 24 hrs) 09/13/19 12:40: PT 12.0, INR 1.02 09/13/19 12:40: WBC 8.5, Hgb 13.4, Hct 40.0, Plt Count 210 09/13/19 12:40: Sodium 136, Potassium 4.0, BUN 9, Creatinine 0.75, Glucose 237 H, Magnesium 1.8, Total Bilirubin 0.9, AST 19, ALT 16, Alkaline Phosphatase 194 H, Lipase 92 Assessment and Plan - Problems (Diagnosis) (1) History of type 2 diabetes mellitus Current Visit: No Status: Chronic (2) Inguinal abscess Current Visit: No Status: Resolved - Advance Directives Does patient have a Living Will: No Does patient have a Durable POA for Healthcare: No Physician Review: Patient Assessed, Agree with Above Assessment and Plan Physician Review Additional Text: # Left Buttock Abscess - will start pt on vancomycin -Strict glycemic control advised -will add ascorbic acid and zinc -will consult surgery for debridement -NPO post midnight # DM -strict glycemic control advised -resume home lantus dosage -follow hba1c # DVT prop- sc heparin Time Spent Managing Pts Care (In Minutes): 65
[2019-09-13] MEDS ORDERED: VANCOMYCIN 1.25 GM in NA CHLORIDE 0.9% 250 ML IVPB SCH (15:00)
[2019-09-13] MEDS: INSULIN -REGULAR HUMAN 50 UNIT/0.5 ML ML SQ SCH ×2 (16:30→21:00)
[2019-09-13] MEDS ORDERED: INSULIN GLARGINE HUM REC ANLOG 23 UNIT SQ SCH (17:30)
[2019-09-13 17:45] VITALS: BMI 52.9
[2019-09-13] MEDS: ENOXAPARIN 40 MG/0.4 ML SQ SCH (18:16)
[2019-09-13] MEDS: METFORMIN HCL 500 MG TAB PO SCH (18:17)
[2019-09-13] MEDS: INSULIN GLARGINE 100 UNITS/ML SQ SCH (18:17)
[2019-09-13] MEDS: NS KCL 20MEQ 20 MEQ/1,000 ML BAG IV SCH (18:17)
[2019-09-13] MEDS: MORPHINE 2 MG/ML SYR IV PRN (18:18)
[2019-09-13] MEDS ORDERED: HOME MED 1 EA UNK (Metformin Hcl [Metformin Hcl] 1,000 MG) PO SCH (21:00)
[2019-09-13] MEDS: FAMOTIDINE 20 MG TAB PO SCH (21:27)
[2019-09-13] MEDS ORDERED: D50W 25 GM/50 ML SYRINGE/VIAL IV PRN (21:28)
[2019-09-13] MEDS ORDERED: GLUCAGON 1 MG/VIAL IM PRN (21:28)
[2019-09-14 06:01] LABS: Absolute Lymphocytes (CBC) 1.5 K/uL (0.7-4.9); Basophils % 0.7 % (0-1.3); Hematocrit 36.1 % (36.0-45.0); Lymphocytes % 19.9 % (15.3-44.8); MPV 10.9 fL (7.6-11.3); RBC Red Blood Cell Count 4.02 M/uL (3.86-4.86)
[2019-09-14 06:12] LABS: ALT/SGPT 14 U/L (12-78); AST/SGOT 18 U/L (15-37); Albumin 2.2 g/dL (3.4-5.0); Alkaline Phosphatase 139 U/L (45-117); BUN Blood Urea Nitrogen 5 mg/dL (7-18); Bicarbonate 27 mmol/L (21-32); Glucose Level 186 mg/dL (74-106); Potassium 4.1 mmol/L (3.5-5.1); Protein, Total 8.1 g/dL (6.4-8.2); Sodium Level 138 mmol/L (136-145)
[2019-09-14] MEDS: MORPHINE 2 MG/ML SYR IV PRN (06:32)
[2019-09-14] MEDS: INSULIN -REGULAR HUMAN 50 UNIT/0.5 ML ML SQ SCH ×5 (06:32→20:37)
[2019-09-14] MEDS: METFORMIN HCL 500 MG TAB PO SCH ×2 (08:00→17:00)
[2019-09-14] MEDS: ZINC SULFATE 220 MG CAP PO SCH (08:38)
[2019-09-14] MEDS: ENOXAPARIN 40 MG/0.4 ML SQ SCH (08:38)
[2019-09-14] MEDS: ASCORBIC ACID 500 MG TABLET PO SCH (08:38)
[2019-09-14] MEDS: FAMOTIDINE 20 MG TAB PO SCH ×2 (08:38→20:37)
[2019-09-14] MEDS: VANCOMYCIN 2 GM in NA CHLORIDE 0.9% 500 ML IVPB SCH ×2 (08:53→20:36)
--- NOTE | 2019-09-14 11:22 | P.PN ---
Subjective Date of Service: 09/14/19 Chief Complaint: Right buttock abscess Subjective: No new changes Patient has no new complaint. She has been afebrile. Physical Examination - Vital Signs Temperature: 97.8 F Blood Pressure: 111/61 Pulse: 76 Respirations: 20 Pulse Ox (%): 96 - Physical Exam General: Alert, In no apparent distress, Obese HEENT: Mucous membr. moist/pink Neck: Supple Respiratory: Clear to auscultation bilaterally, Normal air movement Cardiovascular: No edema, Regular rate/rhythm, Normal S1 S2 Gastrointestinal: Normal bowel sounds, Soft and benign, Non-distended, Other (Obese abdomen.) Musculoskeletal: No erythema Integumentary: Other (Dressed wound-right gluteal area, and left inguinal area.) Neurological: Normal speech, Normal strength at 5/5 x4 extr - Studies Laboratory Data (last 24 hrs) 09/13/19 12:40: PT 12.0, INR 1.02 09/13/19 12:40: WBC 8.5, Hgb 13.4, Hct 40.0, Plt Count 210 09/13/19 12:40: Sodium 136, Potassium 4.0, BUN 9, Creatinine 0.75, Glucose 237 H, Magnesium 1.8, Total Bilirubin 0.9, AST 19, ALT 16, Alkaline Phosphatase 194 H, Lipase 92 Assessment And Plan - Current Problems (Diagnosis) (1) DM type 2 (diabetes mellitus, type 2) Current Visit: Yes Status: Acute (2) Morbid obesity with BMI of 50.0-59.9, adult Current Visit: No Status: Acute (3) Inguinal abscess Current Visit: No Status: Resolved (4) Open wound of left buttock with complication Current Visit: No Status: Resolved Physician Review: Patient Assessed, Agree with Above Assessment and Plan Physician Review Additional Text: # Left Buttock Abscess - will start pt on vancomycin. -add IV Levaquin for double coverage given diabetes. -hemoglobin A1c 6 months ago was 11 denoting uncontrolled diabetes. -Strict glycemic control advised -continue metformin -titrate Lantus insulin, keep fingerstick glucose less than 200 for optimal wound healing. -condition ascorbic acid and zinc -patient may need I and D and debridement -general surgery consult is pending. # DM type 2 -strict glycemic control advised -continue and titrate Lantus insulin -continue metformin. -follow hba1c # DVT prop- sc heparin
[2019-09-14] MEDS ORDERED: NA CHLORIDE 0.9% 1,000 ML ONE (13:59)
[2019-09-14] MEDS ORDERED: propofoL 200 MG/20 ML VIAL IV ONE (14:45)
[2019-09-14] MEDS ORDERED: FENTANYL CITR 100 MCG/2 ML ONE (14:45)
[2019-09-14] MEDS ORDERED: LIDOCAINE 2% MPF 5 ML VIAL ONE (14:45)
[2019-09-14] MEDS ORDERED: MIDAZOLAM HCL 2 MG/2 ML INJ ONE (14:45)
[2019-09-14] MEDS ORDERED: ONDANSETRON 4 MG/2 ML VIAL ONE (14:50)
[2019-09-14] MEDS ORDERED: ROCURONIUM 50 MG/5 ML VIAL IV ONE (14:55)
[2019-09-14] MEDS ORDERED: Phenylephrine HCl 10 MG/ML 1 ML VIAL ONE (15:16)
[2019-09-14] MEDS ORDERED: GLYCOPYRROLATE 0.2 MG/ML SYR ONE (15:32)
[2019-09-14] MEDS ORDERED: KETOROLAC 30 MG/ML INJ ONE (15:32)
[2019-09-14] MEDS ORDERED: NEOSTIGMINE 1 MG/ML -5 ML ONE (15:33)
--- NOTE | 2019-09-14 15:42 | P.BOP ---
Preoperative diagnosis: right buttock cellulitis, abscess, diabetes, morbid obesity Postoperative diagnosis: same plus complex abscess Primary procedure: Incision and drainage of left buttock complex abscess 7 x 6 x 2 cm Estimated blood loss: <20cc Specimen: pus culture Findings: multiloculated deep abscess Anesthesia: General Complications: None Drain(s): Other Transferred to: Recovery Room Condition: Good
--- NOTE | 2019-09-14 15:54 | EKG ---
Test Date: 2019-09-13 Test Time: 13:10:56 [employer] Tender: KERRI MEASUREMENT RESULTS: Intervals: Rate: 78 MS: 132 QRSD: 76 QT: 376 QTc: 428 [place]: P: 39 MS: 132 QRS: -19 T: 21 INTERPRETIVE STATEMENTS: Normal sinus rhythm Normal ECG Compared to ECG 07/19/2019 16:16:48 No significant changes Electronically Signed On 09-14-19 15:50:40 CDT by Reed Dobson
--- NOTE | 2019-09-14 15:55 | CON ---
Date of Consultation: 09/14/2019 Reason For Service: Cellulitis of the left buttock with a large abscess. History Of Present Illness: This is a case of a 49-year-old patient, known by us in the past due to history of multiple complex abscesses. She still is recovering from some other ones in some other pa rt of the body, now came yesterday with a large area of the buttocks with induration. She noticed ho w the other ones started before and got out of control to the point that she needed long-term antibio tics and she needed long-term hospital stay. She came to the ER, admitted to the hospital for cellul itis and buttock abscess. She does not remember any trauma. She does not remember any laceration or any bruises in that area. She denies any dysuria, hematuria, hematochezia, or melena. Denies any r ecent traveling out of the country. Denies any family members sick at home. Allergies: NONE. Medical Problems: Morbid obesity and diabetes. Past Surgical History: D and C. Social History: She does not drink alcohol. She does not smoke. Family History: Noncontributory. Review of Systems: 10 points otherwise unremarkable. Physical Examination: General: Patient is awake, alert. HEENT: Pupils are equal and reactive. Anicteric. Neck: Supple. Chest: Clear. Abdomen: Soft and depressible. No guarding or rebound. Skin: On the left buttock, patient has an area of large abscess, about 12 x 12 cm, with induration, fluctuance, erythema, tenderness. The rest of the wounds on other parts of the body look intact. Sh abebe has been doing dressing changes. Extremities: Good capillary refill. Laboratory Data: WBC count is 8.5 with hemoglobin of 13.4. Potassium is 4.0. Glucose is 237. Assessment: This is a 49-year-old patient with abscess and cellulitis of the left buttock area, is v sabino tender. She does not want local anesthetic. If we leave it like this, that will prolong treatme nt. Will be in the hospital for some time. Last time, she had to receive IV antibiotics for a signi ficant amount of time, so I agree with her. We are going to get this case emergently in the OR to do incision and drainage. Hopefully, we can home send her home soon enough when the diabetes also gets under control, so she can be with antibiotics. She understands the benefits, alternatives, and risk s of surgery which include but not limited to infection, bleeding, damage to adjacent structures, ane sthesia complication, nonhealing wound, [place], and even . She also understands this may not reliev e the symptoms. She might need more than one surgical intervention. She understands she will requir e wound care. She understands the national emergency right now with coronavirus outbreak. She under stands the risk of aracely that. Still, this is getting too tender and too big in the last 2 day s. It has doubled in size and she wants this done. So, we will book her emergently in the OR. ISABEL/KIM Voice ID: [id number] Report ID: [id number]
[2019-09-14] MEDS: HYDROMORPHONE HCL 1 MG/ML INJ ONE ×2 (16:25→16:30)
[2019-09-14] MEDS: INSULIN GLARGINE 100 UNITS/ML SQ SCH (18:39)
[2019-09-14] MEDS: NS KCL 20MEQ 20 MEQ/1,000 ML BAG IV SCH (20:35)
--- NOTE | 2019-09-15 02:04 | OP ---
Date of Procedure: 09/14/2019 Surgeon: Oskar Gee MD Preoperative Diagnoses: Right buttock cellulitis, abscess; diabetes; morbid obesity. Postoperative Diagnoses: Right buttock cellulitis, abscess; diabetes; morbid obesity; complex absces s, right buttock. Procedure: Incision and drainage of left buttock complex abscess 7 x 6 x 2 cm. Estimated Blood Loss: Less than 20 mL. Specimen: Pus culture. Findings: Multiloculated deep abscess, left buttock. Anesthesia: General plus local. Indications: This is the case of a 49-year-old patient known by us due to history of abscess in the past to the point that get complicated complex requiring many hospital stay for IV antibiotics. At t his time, she found 1 in the left buttock. She found medially. She wants this done befor e it is too late. It is very tender, large, doubled in size in just hours. So, patient was fully ex plained the need for incision and drainage of this abscess with benefits, alternatives, and risks inc luding, but not limited to infection, bleeding, damage to adjacent structures, anesthesia complicatio n, recurrence, [place], and even . She also understands this may not relieve the symptoms. She migh t need more than one surgical intervention. She knows how to do dressing changes and she was explain ed how to do so. Patient understands the emergency with coronavirus at risk exposure. She understoo d the case was booked emergently. Area was marked by me and the patient in the holding room. Description Of Procedure: Patient was brought to the operating room, placed in supine position. Ane sthesia was done without complication. Patient was placed in lateral decubitus position with proper protection. Left buttock was prepped and draped in a sterile fashion. Incision was made in that are a after injection of local anesthetic. Then, we go deep right near the muscle. We found this large cavity with purulent discharge present. The loculations were explored and opened. The area was prof usely irrigated. Hemostasis obtained and then the area was packed with wet-to-dry dressing. Patient tolerated the procedure well. Patient was sent to recovery in stable condition. ISABEL/MODL Voice ID: [id number] Report ID: [id number]
[2019-09-15] MEDS: NS KCL 20MEQ 20 MEQ/1,000 ML BAG IV SCH (07:00)
[2019-09-15] MEDS: INSULIN -REGULAR HUMAN 50 UNIT/0.5 ML ML SQ SCH ×2 (07:30→11:30)
[2019-09-15] MEDS: ENOXAPARIN 40 MG/0.4 ML SQ SCH (07:47)
[2019-09-15] MEDS: FAMOTIDINE 20 MG TAB PO SCH (07:47)
[2019-09-15] MEDS: METFORMIN HCL 500 MG TAB PO SCH (07:47)
[2019-09-15] MEDS: ZINC SULFATE 220 MG CAP PO SCH (07:47)
[2019-09-15] MEDS: ASCORBIC ACID 500 MG TABLET PO SCH (07:47)
[2019-09-15 07:53] VITALS: O2SAT 97
[2019-09-15] MEDS: MORPHINE 2 MG/ML SYR IV PRN ×2 (09:00→14:40)
[2019-09-15] MEDS ORDERED: VANCOMYCIN 1.5 GM in NA CHLORIDE 0.9% 500 ML IVPB SCH (09:00)
[2019-09-15] MEDS ORDERED: Levofloxacin 750mg IV 750 MG/150 ML BAG IV SCH (10:00)
--- NOTE | 2019-09-15 13:04 | P.DS ---
Admission Date: 09/13/19 Discharge Date: 09/15/19 Disposition: ROUTINE DISCHARGE Discharge Condition: FAIR Reason for Admission: Right buttock abscess - Problems (1) Abscess of right buttock Status: Acute (2) DM type 2 (diabetes mellitus, type 2) Status: Acute (3) Morbid obesity with BMI of 50.0-59.9, adult Status: Acute Brief History of Present Illness: 49-year-old morbidly obese woman with a history of diabetes mellitus, on insulin therapy which was started about 6 months ago, history of recurrent abscess in the gluteal and inguinal areas presented to the ED with a complaint of another abscess developing in the right gluteal area. Patient noted to have a new large abscess in the right gluteal area, had old left inguinal wound. No leukocytosis or fever. Dr. eGe was contacted who recommended hospitalization for him to evaluate for I and D and debridement. Patient was admitted for further management. Hospital Course: Patient admitted to the medical floor and treated with IV vancomycin and Levaquin. She was taking to the OR, incision and drainage and debridement of the right gluteal abscess was performed. Postop period was uneventful. She was continued on her home dose Lantus insulin, home dose metformin and insulin sliding scale added for glucose control. Her blood glucose readings were mostly less than 180 which is optimal for wound healing. The patient is discharged to home with same regimen. Wound culture is currently growing coag ulase positive Staph. This is likely MRSA given her history of MRSA infected wounds. Patient is therefore discharged with oral Augmentin and doxycycline based on her previous culture results. She will be a re-evaluate by Dr. Gee next week in the office. Vital Signs/Physical Exam: Temp Pulse Resp BP Pulse Ox 97.2 F 63 16 107/65 98 09/15/19 08:00 09/15/19 08:00 09/15/19 09:30 09/15/19 08:00 09/15/19 09:30 General: Alert, Obese HEENT: Mucous membr. moist/pink Respiratory: Clear to auscultation bilaterally, Normal air movement Cardiovascular: No edema, Regular rate/rhythm, Normal S1 S2 Gastrointestinal: Normal bowel sounds, Soft and benign, Non-distended, No tenderness Musculoskeletal: No swelling Integumentary: Other (Right gluteal abscess-status post I and D and dressed. Left inguinal wound also dressed.) Neurological: Other (Non-focal.) Laboratory Data at Discharge: WBC 7.3 K/uL (4.3-10.9) D 09/14/19 04:56 Hgb 11.9 g/dL (12.0-15.0) L 09/14/19 04:56 Hct 36.1 % (36.0-45.0) 09/14/19 04:56 Plt Count 197 K/uL (152-406) 09/14/19 04:56 PT 12.0 SECONDS (9.5-12.5) 09/13/19 12:40 INR 1.02 09/13/19 12:40 Sodium 138 mmol/L (136-145) 09/14/19 04:56 Potassium 4.1 mmol/L (3.5-5.1) 09/14/19 04:56 BUN 5 mg/dL (7-18) L 09/14/19 04:56 Creatinine 0.62 mg/dL (0.55-1.3) 09/14/19 04:56 Glucose 186 mg/dL (74-106) H 09/14/19 04:56 Magnesium 1.8 mg/dL (1.8-2.4) 09/13/19 12:40 Total Bilirubin 1.0 mg/dL (0.2-1.0) 09/14/19 04:56 AST 18 U/L (15-37) 09/14/19 04:56 ALT 14 U/L (12-78) 09/14/19 04:56 Alkaline Phosphatase 139 U/L (45-117) H 09/14/19 04:56 Lipase 92 U/L (73-393) 09/13/19 12:40 Home Medications: Metformin HCl 1,000 mg PO BID 03/29/19 Insulin Glargine,Hum.rec.anlog [Lantus Solostar] 23 unit SQ DAILY AFTER SUPPER 04/12/19 Amox/Clavulanate [Augmentin 875-125 Tab] 875 mg PO BID #28 tab 09/15/19 Ascorbic Acid [Vitamin C*] 500 mg PO DAILY #30 tablet 09/15/19 Codeine/APAP [Tylenol W/Codeine #3 tab] 1 tab PO Q6HP PRN #20 tab 09/15/19 Doxycycline Hyclate 100 mg PO BID #28 capsule 09/15/19 Ibuprofen [Ibu] 600 mg PO PRN PRN #30 09/15/19 Insulin -Regular Human [Novolin -R*] See Protocol SQ ACHS #10 ml 09/15/19 Zinc Sulfate [Zinc Sulfate*] 220 mg PO DAILY #30 cap 09/15/19 New Medications: Codeine/APAP [Tylenol W/Codeine #3 tab] 1 tab PO Q6HP PRN #20 tab PRN Reason: Pain Amox/Clavulanate [Augmentin 875-125 Tab] 875 mg PO BID #28 tab Doxycycline Hyclate 100 mg PO BID #28 capsule Ibuprofen [Ibu] 600 mg PO PRN PRN #30 PRN Reason: pain Insulin -Regular Human [Novolin -R*] See Protocol SQ ACHS #10 ml Ascorbic Acid [Vitamin C*] 500 mg PO DAILY #30 tablet Zinc Sulfate [Zinc Sulfate*] 220 mg PO DAILY #30 cap Diet: ADA Activity: Ad kenia Followup: Oskar Gee MD [ACTIVE - CAN ADMIT] - (Please call to make an appointment. ) Time spent managing pt's care (in minutes): 40
[2019-09-15 14:03] VITALS: BP 102/63; TEMP 97.3
--- NOTE | 2019-09-15 14:17 | PN ---
Date of Progress Note: 09/15/2019 Diagnosis: Buttock abscess. Subjective: Patient is doing better. No complaint. Buttock area left surgical site is intact. Cul ture is still pending. Laboratory Data: WBC count of 7.3. Assessment: 49-year-old patient with history of diabetes, morbid obesity, multiple abscess in the pa st who received incision and drainage. From the surgical standpoint, whenever her medical issues are controlled, she can be discharged home. [facility] have to do dressing changes and take a look at the incision. Her mother normally does her dressing changes, though they feel comfortable with that. With those conditions, we will see the manjeet pruitt next Thursday then. ISABEL/KIM Voice ID: [id number] Report ID: [id number]
== END 2019-09-15 16:17 | disposition home or self-care (01) | DRG 580 ==
LOC: ER 12:17 → ERHOLD 15:04 → 2ND 16:32
PROVIDERS: ADMIT Internal Medicine; ATTEND Internal Medicine
PROC: 0K9P0ZZ Drainage of Left Hip Muscle, Open Approach (ICD-10-PCS; principal; 2019-09-14 10:15)
DX: L02.31 Cutaneous abscess of buttock (principal); Z68.43 Body mass index [BMI] 50.0-59.9, adult; E11.9 Type 2 diabetes mellitus without complications; E66.01 Morbid (severe) obesity due to excess calories; L03.317 Cellulitis of buttock; Z79.4 Long term (current) use of insulin; B95.62 Methicillin resistant Staphylococcus aureus infection as the cause of diseases classified elsewhere; Z86.14 Personal history of Methicillin resistant Staphylococcus aureus infection; Z79.891 Long term (current) use of opiate analgesic
CPT/HCPCS: 36415; 71045; 80048; 80053; 80076; 80202; 81003; 81025; 82947; 83690; 83735; 83880; 84484; 85025; 85610; 87040; 87070; 87075; 87077; 87086; 87088; 87186; 87205; 88304; 93005; 96361; 96365; 96375; 99285; J1170; J1650; J1815; J2250; J2270; J2370; J2405; J2543; J2704; J2710; J3010; J3370; J7030; J7040

== ENCOUNTER 2021-03-26 18:33 | Emergency (ER) | payer OTHER ==
[2021-03-26 20:48] LABS: Urine Blood Trace-lysed (Negative); Urine Glucose 2+ (Negative); Urine Protein Negative (Negative); Urine Specific Gravity 1.025 (1.005-1.030)
[2021-03-26 20:52] LABS: Urine Specific Gravity/Preg 1.025 (1.005-1.030)
[2021-03-26 21:06] LABS: Urine Appearance CLOUDY (Clear); Urine Bilirubin NEGATIVE (Negative); Urine Blood TRACE (Negative); Urine Color YELLOW (Yellow); Urine Glucose 3+ (Negative); Urine Protein NEGATIVE (Negative); Urine Specific Gravity >=1.030 (1.005-1.030); Urine Urobilinogen 0.2 mg/dL (0.2-1.0)
[2021-03-26 21:07] LABS: Urine Microscopic Reflex ORDER UMIC
[2021-03-26 21:14] LABS: Urine Bacteria 20-50 /HPF (<20); Urine Mucus 2+ /HPF (NONE SEEN)
[2021-03-26] MEDS ORDERED: ACETAMINOPHEN 500 MG TAB ONE (22:50)
[2021-03-26] MEDS ORDERED: LIDOCAINE JELLY 2%- 5 ML TUBE ONE ×2 (22:51→22:56)
[2021-03-26] MEDS ORDERED: CEFTRIAXONE 1000 MG/VIAL ONE (22:51)
[2021-03-26] MEDS ORDERED: IBUPROFEN 400 MG TAB ONE (22:51)
[2021-03-26] MEDS ORDERED: WATER FOR INJ,STERILE 10 ML ONE (22:51)
[2021-03-26] MEDS ORDERED: AZITHROMYCIN 250 MG TAB ONE (22:51)
--- NOTE | 2021-03-26 23:42 | ER ---
Nurse's Notes [facility] Name: Roxana Wheeler Age: 50 yrs Sex: Female : 1970 Arrival Date: 03/26/2021 Time: 18:47 Bed 23 Private MD: Renuka De Souza Diagnosis: Herpesviral infection of genitalia and urogenital tract;UTI/ Urinary tract infection, site not specified;Acute vaginitis Presentation: 03/26 19:27 Chief complaint: Patient states: vaginal itching, burning, diarrhea x 2 days, sore sj1 throat x 1 day. Coronavirus screen: Vaccine status: Patient reports receiving the 2nd dose of the covid vaccine. Ebola Screen: Patient negative for fever greater than or equal to 101.5 degrees Fahrenheit, and additional compatible Ebola Virus Disease symptoms Patient denies exposure to infectious person. Patient denies travel to an Ebola-affected area in the 21 days before illness onset. No symptoms or risks identified at this time. Risk Assessment:. Onset of symptoms was March 24, 2021. 19:27 Method Of Arrival: Ambulatory [facility] 19:27 Acuity: FREDERIC 4 sj1 21:00 Initial Sepsis Screen: Does the patient meet any 2 criteria? No. Patient's initial dc2 sepsis screen is negative. Does the patient have a suspected source of infection? No. Patient's initial sepsis screen is negative. Risk Assessment: Do you want to hurt yourself or someone else? Patient reports no desire to harm self or others. Triage Assessment: 19:32 General: Appears in no apparent distress. Pain: Complains of pain in throat pain. sj1 21:00 General: Appears in no apparent distress. 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 - Social history:: Smoking status: Patient denies any tobacco usage or history of. Patient/guardian denies using alcohol, street drugs. Screenin:00 Abuse screen:. Nutritional screening: No deficits noted. Tuberculosis screening: No dc2 symptoms or risk factors identified. Never had TB. Possible symptoms: None. Fall Risk None identified. No fall in past 12 months (0 pts). No secondary diagnosis (0 pts). No IV (0 pts). Ambulatory Aid- None/Bed Rest/Nurse Assist (0 pts). Gait- Normal/Bed Rest/Wheelchair (0 pts) Mental Status- Oriented to own ability (0 pts). Total Kincaid Fall Scale indicates No Risk (0-24 pts). Assessment: 21:00 Pain: Complains of pain in Pelvic , vagina area x 3 days. Neuro: No deficits noted. dc2 Respiratory: No deficits noted. GI: No deficits noted. : Blisters noted Reports vaginal itching, since 3 days ago. Derm: No deficits noted. Musculoskeletal: No deficits noted. Vital Signs: 19:27 BP 125 / 72 RA Sitting (auto/reg); Pulse 94; Resp 20; Temp 98.2; Pulse Ox 96% ; Weight sj1 136.08 kg; Height 5 ft. 1 in. (154.94 cm); Pain 9/10; 21:30 BP 133 / 79; Pulse 87; Resp 19; Temp 98.6; Pulse Ox 98% ; Pain 8/10; dc2 22:20 BP 131 / 71; Pulse 80; Resp 20; Pulse Ox 98% ; Pain 10/10; dc2 23:17 BP 140 / 89; Pulse 82; Resp 18; Pulse Ox 100% ; Pain 6/10; dc2 19:27 Body Mass Index 56.68 (136.08 kg, 154.94 cm) sj1 ED Course: 18:47 Patient arrived in ED. am2 18:47 Renuka De Souza MD is Private Physician. am2 19:29 Triage completed. sj1 19:32 Arm band placed on. sj1 20:49 Milly Le, RN is Primary Nurse. dc2 21:00 Pulse ox on. NIBP on. Door closed. Lights dimmed. Warm blanket given. dc2 21:00 Patient has correct armband on for positive identification. Allergy band placed. Placed dc2 in gown. Bed in low position. Call light in reach. Side rails up X 1. 21:06 Yunior Wilson PA is PHCP. cp 21:06 Darinel Cooper MD is Attending Physician. cp 22:20 Assist provider with pelvic exam: Set up pelvic tray. Patient tolerated well. dc2 23:50 Patient did not have IV access during this emergency room visit. dc2 Administered Medications: 22:15 CANCELLED (Physician Discretion): Rocephin (cefTRIAXone) 250 mg IM once cp 22:36 Drug: Ibuprofen 800 mg Route: PO; ld1 22:36 Follow up: Response: No adverse reaction ld1 23:21 Follow up: Response: Pain is decreased dc2 22:36 Drug: Lidocaine Gel 2 % 1 ea Volume: 15 ml; Route: Mucous Membrane; ld1 22:36 Follow up: Response: No adverse reaction ld1 23:21 Follow up: Response: No adverse reaction dc2 22:36 Drug: Zithromax (azithromycin) 1 grams Route: PO; ld1 22:37 Follow up: Response: No adverse reaction ld1 23:21 Follow up: Response: No adverse reaction dc2 22:36 Drug: Rocephin (cefTRIAXone) 1 grams Route: IM; Site: right gluteus; ld1 22:37 Follow up: Response: No adverse reaction ld1 23:21 Follow up: Response: No adverse reaction dc2 22:36 Drug: Tylenol 1000 mg Route: PO; mr2 22:36 Follow up: Response: No adverse reaction ld1 23:21 Follow up: Response: Pain is decreased dc2 Outcome: 23:42 Discharge ordered by MD. cp 23:50 Discharged to home ambulatory. dc2 23:50 Condition: stable 23:50 Discharge instructions given to Instructed on discharge instructions, follow up and referral plans. Demonstrated understanding of instructions, follow-up care, Prescriptions given X 4. 23:56 Patient left the ED. dc2 Addendum: 04/01/2021 07:46 Addendum: Culture Results: Positive urine culture. Phone call Attempt #1 Called patient s s who states that her UTI symptoms have improved. Verbalizes understanding importance of follow up with PCP. Signatures: Nelly Mcclendon RN RN ss Yunior Wilson PA PA cp Moreno, Amanda am2 Kasia Bailey RN RN ld1 Mateo Gonzalez RN RN mr2 Milly Le RN RN dc2 Paula Merino RN RN sj1 Corrections: (The following items were deleted from the chart) 07:49 07:46 Addendum: Culture Results: Positive urine culture. No further action required. ss Bacteria sensitive to prescribed antibiotic. ss
--- NOTE | 2021-03-26 23:42 | EDPHYS ---
Physician Documentation [facility] Name: Roxana Wheeler Age: 50 yrs Sex: Female : 1970 Arrival Date: 03/26/2021 Time: 18:47 Bed 23 Private MD: Renuka De Souza ED Physician Darinel Cooper HPI: 03/26 20:30 This 50 yrs old Female presents to ER via Ambulatory with complaints of cp Vaginal Pain, Vaginal Itching. 20:30 The patient presents with perineal itching, of the vaginal, pain. cp 20:30 Onset: The symptoms/episode began/occurred 2 day(s) ago. cp 20:30 Patient reports she has been applying OTC vagiseal. cp 20:30 The patient or guardian reports cough, that is intermittent, with no sputum, sore cp throat. Onset: The symptoms/episode began/occurred 2 day(s) ago. 20:30 Severity of symptoms: in the emergency department the symptoms are unchanged, despite cp home interventions. 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 - Social history:: Smoking status: Patient denies any tobacco usage or history of. Patient/guardian denies using alcohol, street drugs. ROS: 20:35 Constitutional: Negative for body aches, chills, fever, poor PO intake. cp 20:35 Eyes: Negative for injury, pain, redness, and discharge. cp 20:35 ENT: Positive for rhinorrhea, sore throat, Negative for drainage from ear(s), ear pain, difficulty swallowing, difficulty handling secretions. 20:35 Respiratory: Positive for cough, with no reported sputum, Negative for shortness of breath, wheezing. 20:35 Abdomen/GI: Negative for abdominal pain, nausea, vomiting, and diarrhea. 20:35 : Positive for vaginal itching, vaginal burning and pain. 20:35 All other systems are negative. Exam: 20:40 Constitutional: The patient appears in no acute distress, alert, awake, non-toxic, well cp developed, well nourished, obese. 20:40 Head/Face: Normocephalic, atraumatic. cp 20:40 Eyes: Periorbital structures: appear normal, Conjunctiva: normal, no exudate, no injection, Sclera: no appreciated abnormality, Lids and lashes: appear normal, bilaterally. 20:40 ENT: External ear(s): are unremarkable, Ear canal(s): are normal, clear, TM's: bulging, is not appreciated, bilaterally, dullness, bilaterally, erythema, is not appreciated, bilaterally, Nose: is normal, Mouth: Lips: moist, Oral mucosa: pink and intact, moist, Posterior pharynx: Airway: no evidence of obstruction, patent, Tonsils: are normal in appearance, swelling, is not appreciated, erythema, is not appreciated, exudate, is not appreciated. 20:40 Neck: Lymph nodes: no appreciated lymphadenopathy. 20:40 Chest/axilla: Inspection: normal, Palpation: is normal, no crepitus, no tenderness. 20:40 Cardiovascular: Rate: normal, Rhythm: regular. 20:40 Respiratory: the patient does not display signs of respiratory distress, Respirations: normal, no use of accessory muscles, no retractions, labored breathing, is not present, Breath sounds: are clear throughout, no decreased breath sounds, no stridor, no wheezing, + upper airway congestion. 20:40 Abdomen/GI: Inspection: obese Palpation: abdomen is soft and non-tender, in all quadrants. 20:40 Back: CVA tenderness, is absent. 22:45 : Pelvic Exam: External exam: reveals ulcerations on external genitalia, mild cp erythema, pain to touch. Patient with remnants of vaginal cream in vaginal vault, the nurse was present for the exam, Sexual behavior: the patient is sexually active. Vital Signs: 19:27 BP 125 / 72 RA Sitting (auto/reg); Pulse 94; Resp 20; Temp 98.2; Pulse Ox 96% ; Weight sj1 136.08 kg; Height 5 ft. 1 in. (154.94 cm); Pain 9/10; 21:30 BP 133 / 79; Pulse 87; Resp 19; Temp 98.6; Pulse Ox 98% ; Pain 8/10; dc2 22:20 BP 131 / 71; Pulse 80; Resp 20; Pulse Ox 98% ; Pain 10/10; dc2 23:17 BP 140 / 89; Pulse 82; Resp 18; Pulse Ox 100% ; Pain 6/10; dc2 19:27 Body Mass Index 56.68 (136.08 kg, 154.94 cm) 1 MDM: 21:13 Patient medically screened. cp 23:40 Data reviewed: vital signs, nurses notes, lab test result(s). cp 23:40 Antibiotic administration: The patient is discharged and will get outpatient antibiotics. Counseling: I had a detailed discussion with the patient and/or guardian regarding: the historical points, exam findings, and any diagnostic results supporting the discharge/admit diagnosis, lab results. ED course: VSS. Pain improved with meds. Patient reports history of genital herpes. Will treat with antivirals and antibiotics to cover for gc/chlamydia. Will discharge to home for continued monitoring. 03/26 19:31 Order name: Strep; Complete Time: 22:14 sj1 03/26 20:22 Order name: Throat Culture EDMO 03/26 20:48 Order name: Urine Dipstick-Ancillary; Complete Time: 22:14 EDMO 03/26 20:49 Order name: Urine --Ancillary (enter results); Complete Time: 22:14 tt3 03/26 20:49 Order name: UA; Complete Time: 22:14 dc2 03/26 21:10 Order name: Urine Microscopic Only; Complete Time: 22:14 EDMO 03/26 22:57 Interpretation: Normal except: UWBC 5-10; URBC 5-10; UBACT 20-50. cp 03/26 21:16 Order name: Urine Culture EDMO 03/26 21:31 Order name: Influenza Screen (a \T\ B); Complete Time: 22:57 cp 03/26 22:57 Interpretation: Reviewed. cp 03/26 21:31 Order name: Setup-Pelvic Exam; Complete Time: 22:37 cp Administered Medications: 22:15 CANCELLED (Physician Discretion): Rocephin (cefTRIAXone) 250 mg IM once cp 22:36 Drug: Ibuprofen 800 mg Route: PO; ld1 22:36 Follow up: Response: No adverse reaction ld1 23:21 Follow up: Response: Pain is decreased dc2 22:36 Drug: Lidocaine Gel 2 % 1 ea Volume: 15 ml; Route: Mucous Membrane; ld1 22:36 Follow up: Response: No adverse reaction ld1 23:21 Follow up: Response: No adverse reaction dc2 22:36 Drug: Zithromax (azithromycin) 1 grams Route: PO; ld1 22:37 Follow up: Response: No adverse reaction ld1 23:21 Follow up: Response: No adverse reaction dc2 22:36 Drug: Rocephin (cefTRIAXone) 1 grams Route: IM; Site: right gluteus; ld1 22:37 Follow up: Response: No adverse reaction ld1 23:21 Follow up: Response: No adverse reaction dc2 22:36 Drug: Tylenol 1000 mg Route: PO; mr2 22:36 Follow up: Response: No adverse reaction ld1 23:21 Follow up: Response: Pain is decreased dc2 Disposition: 03/27 07:14 Co-signature as Attending Physician, Darinel Cooper MD. 7 Disposition Summary: 03/26/21 23:42 Discharge Ordered Location: Home cp Problem: new cp Symptoms: have improved cp Condition: Stable cp Diagnosis - Herpesviral infection of genitalia and urogenital tract cp - UTI/ Urinary tract infection, site not specified cp - Acute vaginitis cp Followup: cp - With: Private Physician - When: 2 - 3 days - Reason: Recheck today's complaints Discharge Instructions: - Discharge Summary Sheet cp - Genital Herpes cp Forms: - Medication Reconciliation Form cp - Thank You Letter cp - Antibiotic Education cp - Prescription Opioid Use cp - Work release form dc2 Prescriptions: - Acyclovir 200 mg Oral Capsule - take 1 capsule by ORAL route 5 times per day; 50 capsule; Refills: 0, Product cp Selection Permitted - Doxycycline Hyclate 100 mg Oral Tablet - take 1 tablet by ORAL route every 12 hours; 20 tablet; Refills: 0, Product cp Selection Permitted - Ibuprofen 800 mg Oral Tablet - take 1 tablet by ORAL route every 8 hours As needed take with food; 30 tablet; cp Refills: 0, Product Selection Permitted - Metronidazole 500 mg Oral Tablet - take 1 tablet by ORAL route every 8 hours; 30 tablet; Refills: 0, Product cp Selection Permitted Signatures: Dispatcher [employer] [facility] Yunior Wilson PA PA cp Holmes, Maurice, MD MD 7 Kasia Bailey RN RN ld1 Mateo Gonzalez RN RN mr2 Milly Le RN RN dc2 Paula Merino RN RN 1 Corrections: (The following items were deleted from the chart) 03/26 22:15 22:14 Rocephin (cefTRIAXone) 250 mg IM once ordered. cp cp
[2021-03-27 00:52] VITALS: BP 133/79; TEMP 98.6; O2SAT 98
== END 2021-03-26 23:56 | disposition home or self-care (01) ==
LOC: ER 18:33
DX: A60.09 Herpesviral infection of other urogenital tract (principal); U07.1 COVID-19; N39.0 Urinary tract infection, site not specified; N76.0 Acute vaginitis
CPT/HCPCS: 87070; 87088; 87086; 81025; 87081; 87077; 87186; 87804 ×2; 96372; 99284; U0003; 81003; 81015

== ENCOUNTER 2021-04-03 00:03 | Inpatient (IN) | payer OTHER ==
--- NOTE | 2021-04-03 00:24 | P.HP ---
Certification for Inpatient Patient admitted to: Inpatient With expected LOS: >2 Midnights Patient will require the following post-hospital care: None Practitioner: I am a practitioner with admitting privileges, knowledge of patient current condition, hospital course, and medical plan of care. Services: Services provided to patient in accordance with Admission requirements found in Title 42 Section 412.3 of the Code of Federal Regulations Patient History Date of Service: 04/03/21 Reason for admission: COVID-19 pneumonia History of Present Illness: 50-year-old female with history of diabetes mellitus type 2 presented to emergency department for shortness of breath. Patient reports testing positive for Covid approximately 10 days ago, had [employer] vaccine in August. Patient with progressing shortness of breath over the course of the last few days arrived to the emergency department hypoxic with saturations in the 80s, currently on simple facemask. Patient was evaluated in the emergency department ED provider wishes to admit for further evaluation and management of COVID-19 pneumonia. Allergies No Known Allergies Allergy (Verified 07/19/19 16:12) Home Medications: Metformin HCl 1,000 mg PO BID 03/29/19 Insulin Glargine,Hum.rec.anlog [Lantus Solostar] 23 unit SQ DAILY AFTER SUPPER 04/12/19 Amox/Clavulanate [Augmentin 875-125 Tab] 875 mg PO BID #28 tab 09/15/19 Ascorbic Acid [Vitamin C*] 500 mg PO DAILY #30 tablet 09/15/19 Codeine/APAP [Tylenol W/Codeine #3 tab] 1 tab PO Q6HP PRN #20 tab 09/15/19 Doxycycline Hyclate 100 mg PO BID #28 capsule 09/15/19 Ibuprofen [Ibu] 600 mg PO PRN PRN #30 09/15/19 Insulin -Regular Human [Novolin -R*] See Protocol SQ ACHS #10 ml 09/15/19 Zinc Sulfate [Zinc Sulfate*] 220 mg PO DAILY #30 cap 09/15/19 - Past Medical/Surgical History Diabetic: Yes -: NIDDM -: D&C Psychosocial/ Personal History: Patient lives at home alone, 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 moist/pink, EOMI, Sclerae nonicteric Neck: Supple, 2+ carotid pulse no bruit, No LAD, Without JVD or thyroid abnormality Respiratory: Clear to auscultation bilaterally, Normal air movement Cardiovascular: Regular rate/rhythm, Normal S1 S2 Gastrointestinal: Normal bowel sounds, No tenderness Musculoskeletal: No tenderness Integumentary: No rashes Neurological: Normal gait, Normal speech, Normal strength at 5/5 x4 extr, Normal tone, Normal affect Lymphatics: No axilla or inguinal lymphadenopathy Assessment and Plan - Plan Assessment: Acute hypoxic respiratory failure secondary to COVID-19 pneumonia Diabetes type 2 Obesity Plan: Acute hypoxic respiratory failure secondary to COVID-19 pneumonia: Patient vaccinated in August with [employer] vaccine tested positive approximate 10 days ago, currently with saturations in the 80s on room air tolerating simple mask well at this point time. Patient given IV steroids in the ER, will likely require multiple days of hospitalization. Pulmonology and respiratory therapy consulted. Continue with IV steroids, oral supplements. Waiting on labs to determine if patient is candidate for baricitinib or Actemra. Diabetes type 2: ACH is Accu-Chek, sliding scale insulin therapy. A1c with morning labs Obesity: Lifestyle changes addressed. DVT PPX: Lovenox Code status: Full Discharge Plan: Home Plan to discharge in: Greater than 2 days - Advance Directives Does patient have a Living Will: No Does patient have a Durable POA for Healthcare: No - Code Status/Comfort Care Code Status Assessed: Yes (Full code) Critical Care: No Time Spent Managing Pts Care (In Minutes): 55
--- NOTE | 2021-04-03 00:33 | ER ---
Nurse's Notes [facility] Name: Roxana Wheeler Age: 50 yrs Sex: Female : 1970 Arrival Date: 04/03/2021 Time: 00:05 Bed 8 Private MD: Diagnosis: COVID - 19 (Hypoxia) Presentation: 04/03 00:15 Chief complaint: EMS states: DX with covid on 03/26 yesterday around 1800 started kc4 feeling SOB. on EMS arrival O2 sat was 80. placed on a NRB 15L O2 increased to 93%. pt complains of N/ D with generalized body pain and weakness. Coronavirus screen: Client denies travel out of the [place] in the last 14 days. diarrhea, difficulty breathing, fatigue, muscle pain, nausea, shortness of breath, Client presents with at least one sign or symptom that may indicate coronavirus-19. Standard/surgical mask placed on the client. Provider contacted for isolation considerations. Client reports previous positive COVID test result. Date of collection: March 26, 2021. Ebola Screen: Patient negative for fever greater than or equal to 101.5 degrees Fahrenheit, and additional compatible Ebola Virus Disease symptoms Patient denies exposure to infectious person. Patient denies travel to an Ebola-affected area in the 21 days before illness onset. No symptoms or risks identified at this time. Initial Sepsis Screen: Does the patient meet any 2 criteria? RR > 20 per min. No. Patient's initial sepsis screen is negative. Does the patient have a suspected source of infection? No. Patient's initial sepsis screen is negative. Risk Assessment: Do you want to hurt yourself or someone else? Patient reports no desire to harm self or others. Onset of symptoms was April 02, 2021 at 13:00. 00:15 Method Of Arrival: EMS kc4 00:15 Acuity: FREDERIC 2 kc4 Triage Assessment: 00:26 General: Appears distressed, uncomfortable, obese, unkempt, Behavior is cooperative, kc4 appropriate for age, restless. Pain: Denies pain. EENT: No deficits noted. No signs and/or symptoms were reported regarding the EENT system. Neuro: No deficits noted. 00:44 Cardiovascular: No deficits noted. Reports shortness of breath, Denies chest pain, kc4 diaphoresis, nausea, palpitations, syncope, vomiting, Heart tones Capillary refill < 3 seconds Rhythm is regular Chest pain is denied. Respiratory: Reports shortness of breath at rest on exertion since yesterday Airway is patent Trachea midline Respiratory effort is with nasal flaring, with retractions, using tripod position, Respiratory pattern is symmetrical, tachypnea Ventilator assessment: HOB > 30 degrees. Breath sounds are diminished bilaterally. Onset: The symptoms/episode began/occurred yesterday, the patient has moderate shortness of breath Denies shortness of breath at rest, on exertion. GI: No deficits noted. No signs and/or symptoms were reported involving the gastrointestinal system. : No deficits noted. No signs and/or symptoms were reported regarding the genitourinary system. Derm: No deficits noted. No signs and/or symptoms reported regarding the dermatologic system. Musculoskeletal: No deficits noted. No signs and/or symptoms reported regarding the musculoskeletal system. Historical: - Home Meds: 00:26 Lantus 100 unit/mL Sub-Q soln 22 unit daily for type 2 diabetes mellitus [Active]; kc4 metformin 1,000 mg Oral tab 1 tab 2 times per day for type 2 diabetes mellitus [Active]; 01:01 metronidazole 500 mg Oral tab 1 tab every 8 hours [Active]; acyclovir 200 mg Oral cap 1 kc4 cap 5 times per day [Active]; ibuprofen 800 mg Oral tab 1 tab 3 times per day [Active]; doxycycline hyclate 100 mg Oral cap 1 cap every 12 hours [Active]; - PMHx: 00:26 Diabetes - NIDDM; kc4 - Immunization history:: Adult Immunizations up to date, Client reports receiving the Wilber \T\ Wilber single-dose vaccine. Date received August 2020. - Social history:: Smoking status: Patient denies any tobacco usage or history of. Screenin:48 Abuse screen: Denies threats or abuse. Nutritional screening: No deficits noted. On no kc4 prescribed diet Difficulty chewing/swallowing? No. Tuberculosis screening: No symptoms or risk factors identified. Never had TB. Possible symptoms: None Risk factors: None. Fall Risk None identified. No fall in past 12 months (0 pts). No secondary diagnosis (0 pts). IV access (20 points). Ambulatory Aid- None/Bed Rest/Nurse Assist (0 pts). Gait- Normal/Bed Rest/Wheelchair (0 pts) Mental Status- Oriented to own ability (0 pts). Total Kincaid Fall Scale indicates No Risk (0-24 pts). Assessment: 01:15 General: Appears distressed, uncomfortable, obese, Behavior is calm, cooperative, kc4 appropriate for age. Pain: Denies pain. Neuro: No deficits noted. Cardiovascular: No deficits noted. Respiratory: Reports shortness of breath at rest on exertion Airway is patent Trachea midline Breath sounds are diminished bilaterally. GI: No deficits noted. No signs and/or symptoms were reported involving the gastrointestinal system. : No deficits noted. No signs and/or symptoms were reported regarding the genitourinary system. EENT: No deficits noted. Derm: No deficits noted. No signs and/or symptoms reported regarding the dermatologic system. Musculoskeletal: Reports weakness in generalized. Vital Signs: 00:15 BP 123 / 72; Pulse 80; Resp 22; Temp 98.8(O); Pulse Ox 94% on 15% Non-rebreather mask; kc4 Weight 136.08 kg; Height 5 ft. 1 in. (154.94 cm); Pain 3/10; 01:14 BP 126 / 72; Pulse 84; Resp 20; Temp 98.7(O); Pulse Ox 92% on 15% Non-rebreather mask; kc4 Pain 0/10; 02:43 BP 128 / 72 LA Sitting (man/reg); Pulse 80; Resp 20; Temp 98.8(A); Pulse Ox 93% on 15% kc4 Non-rebreather mask; Pain 0/10; 00:15 Body Mass Index 56.68 (136.08 kg, 154.94 cm) kc4 John Coma Score: 01:14 Eye Response: spontaneous(4). Verbal Response: oriented(5). Motor Response: obeys kc4 commands(6). Total: 15. ED Course: 00:05 Patient arrived in ED. mw2 00:06 Kevin Daniels PA is PHCP. jmm 00:06 Yunior Barney MD is Attending Physician. jmm 00:13 Rina Oconnor is Primary Nurse. kc4 00:26 Triage completed. kc4 00:32 Tray Hampton DO is Hospitalizing Provider. jmm 00:44 Arm band placed on right wrist. kc4 00:48 Appears restless. kc4 00:48 Patient has correct armband on for positive identification. Placed in gown. Bed in low kc4 position. Call light in reach. Side rails up X2. loop sewer on. Pulse ox on. NIBP on. 00:48 No provider procedures requiring assistance completed. Inserted saline lock: 18 gauge kc4 in right antecubital area, using aseptic technique. 01:00 Basic Metabolic Panel Sent. kc4 01:00 LFT's Sent. kc4 01:00 Magnesium Sent. kc4 01:00 NT PRO-BNP Sent. kc4 01:00 PT-INR Sent. kc4 01:00 Troponin (emerg Dept Use Only) Sent. kc4 01:01 Ferritin Sent. kc4 01:01 CRP Sent. kc4 02:43 Patient admitted, IV remains in place. kc4 Administered Medications: 01:00 Drug: Decadron - Dexamethasone 10 mg Route: IVP; Site: right antecubital; kc4 01:17 Follow up: Response: No adverse reaction kc4 02:41 Follow up: Response: No adverse reaction kc4 Outcome: 00:32 Decision to Hospitalize by Provider. didier 02:42 Admitted to Tele accompanied by nurse, via stretcher, room 408, with oxygen, with kc4 chart, Report called to Taryn GOMEZ 02:42 Condition: stable 02:42 Instructed on the need for admit. 03:12 Patient left the ED. kc4 Signatures: Kevin Daniels PA PA jmm [place], MyKena mw2 Rina Oconnor kc4
--- NOTE | 2021-04-03 00:33 | EDPHYS ---
Physician Documentation [facility] Name: Roxana Wheeler Age: 50 yrs Sex: Female : 1970 Arrival Date: 04/03/2021 Time: 00:05 Bed 8 Private MD: ED Physician Yunior Barney HPI: 04/03 00:25 This 50 yrs old Female presents to ER via Unassigned with complaints of jmm shortness of breath. 00:25 The patient has shortness of breath at rest. Onset: The symptoms/episode began/occurred jmm gradually. Duration: The symptoms are continuous, and are steadily getting worse. The patient's shortness of breath is aggravated by nothing, is alleviated by nothing. Associated signs and symptoms: Pertinent negatives: fever. 50-year-old female with history of obesity, diabetes mellitus the presents emerged department with complaints of increasingly worsening shortness of breath over the past 10 days since being diagnosed with Covid.. Historical: - Home Meds: 00:26 Lantus 100 unit/mL Sub-Q soln 22 unit daily for type 2 diabetes mellitus [Active]; kc4 metformin 1,000 mg Oral tab 1 tab 2 times per day for type 2 diabetes mellitus [Active]; 01:01 metronidazole 500 mg Oral tab 1 tab every 8 hours [Active]; acyclovir 200 mg Oral cap 1 kc4 cap 5 times per day [Active]; ibuprofen 800 mg Oral tab 1 tab 3 times per day [Active]; doxycycline hyclate 100 mg Oral cap 1 cap every 12 hours [Active]; - PMHx: 00:26 Diabetes - NIDDM; kc4 - Immunization history:: Adult Immunizations up to date, Client reports receiving the Wilber \T\ Wilber single-dose vaccine. Date received August 2020. - Social history:: Smoking status: Patient denies any tobacco usage or history of. ROS: 00:25 Constitutional: Negative for fever, chills, and weight loss, Cardiovascular: Negative jmm for chest pain, palpitations, and edema. 00:25 Respiratory: Positive for cough, shortness of breath. 00:25 All other systems are negative. Exam: 00:25 Constitutional: This is a well developed, well nourished patient who is awake, alert, jmm and in no acute distress. Head/Face: atraumatic. Eyes: EOMI, no conjunctival erythema appreciated ENT: Moist Mucus Membranes Neck: Trachea midline, Supple Chest/axilla: Normal chest wall appearance and motion. Cardiovascular: Regular rate and rhythm. No edema appreciated 00:25 Abdomen/GI: Non distended, soft Back: Normal ROM Skin: General appearance color normal MS/ Extremity: Moves all extremities, no obvious deformities appreciated, no edema noted to the lower extremities Neuro: Awake and alert, normal gait Psych: Behavior is normal, Mood is normal, Patient is cooperative and pleasant 00:25 Respiratory: the patient does not display signs of respiratory distress, Respirations: normal, Breath sounds: decreased breath sounds, are scattered. Vital Signs: 00:15 BP 123 / 72; Pulse 80; Resp 22; Temp 98.8(O); Pulse Ox 94% on 15% Non-rebreather mask; kc4 Weight 136.08 kg; Height 5 ft. 1 in. (154.94 cm); Pain 3/10; 01:14 BP 126 / 72; Pulse 84; Resp 20; Temp 98.7(O); Pulse Ox 92% on 15% Non-rebreather mask; kc4 Pain 0/10; 02:43 BP 128 / 72 LA Sitting (man/reg); Pulse 80; Resp 20; Temp 98.8(A); Pulse Ox 93% on 15% kc4 Non-rebreather mask; Pain 0/10; 00:15 Body Mass Index 56.68 (136.08 kg, 154.94 cm) kc4 Buna Coma Score: 01:14 Eye Response: spontaneous(4). Verbal Response: oriented(5). Motor Response: obeys kc4 commands(6). Total: 15. MDM: 00:07 Patient medically screened. roxane 00:25 Data reviewed: vital signs, nurses notes. Counseling: I had a detailed discussion with didier the patient and/or guardian regarding: the historical points, exam findings, and any diagnostic results supporting the discharge/admit diagnosis, lab results, the need for further work-up and treatment in the hospital. ED course: I discussed the patient with Stu Mitchell whom accepted the patient to Dr. Berta mcgregor.. 04/03 00:06 Order name: Basic Metabolic Panel; Complete Time: 01:19 [facility] 04/03 00:06 Order name: CBC with Diff [facility] 04/03 00:06 Order name: LFT's; Complete Time: 01:19 [facility] 04/03 00:06 Order name: Magnesium; Complete Time: :19 [facility] 04/03 00:06 Order name: NT PRO-BNP; Complete Time: 01:19 [facility] 04/03 00:06 Order name: PT-INR [facility] 04/03 00:06 Order name: Troponin (emerg Dept Use Only); Complete Time: 01:19 [facility] 04/03 00:07 Order name: D-Dimer; Complete Time: 00:50 [facility] 04/03 00:07 Order name: CRP; Complete Time: : [facility] 04/03 00:07 Order name: Ferritin; Complete Time: 01: [facility] 04/03 00:44 Order name: Protime (+INR); Complete Time: 00:50 [facility] 04/03 00:51 Order name: CT Chest For PE Angio [facility] 04/03 02:15 Order name: Urine --Ancillary (enter results) 04/03 02:15 Order name: Urine Dipstick-Ancillary [facility] 04/03 00:06 Order name: EKG; Complete Time: 00:07 [facility] 04/03 00:06 Order name: Cardiac monitoring; Complete Time: 01:17 [facility] 04/03 00:06 Order name: EKG - Nurse/Tech; Complete Time: 01:17 [facility] 04/03 00:06 Order name: IV Saline Lock; Complete Time: 00:53 [facility] 04/03 00:06 Order name: Labs collected and sent; Complete Time: 00:53 [facility] 04/03 00:06 Order name: O2 Per Protocol; Complete Time: 00:53 [facility] 04/03 00:06 Order name: O2 Sat Monitoring; Complete Time: 00:53 [facility] 04/03 02:10 Order name: Urine Dipstick-Ancillary (obtain specimen); Complete Time: 02:10 bs2 04/03 02:10 Order name: Urine Test (obtain specimen); Complete Time: 02:10 bs2 Administered Medications: 01:00 Drug: Decadron - Dexamethasone 10 mg Route: IVP; Site: right antecubital; kc4 01:17 Follow up: Response: No adverse reaction kc4 02:41 Follow up: Response: No adverse reaction kc4 Disposition: 08:04 Co-signature as Attending Physician, Yunior Ector MD I agree with the assessment and roxane plan of care. Disposition Summary: 04/03/21 00:32 Hospitalization Ordered Hospitalization Status: Inpatient Admission [facility] Provider: Tray Hampton Location: Telemetry/MedSurg (Inpatient) jmm Condition: Stable jmm Problem: new jmm Symptoms: are unchanged jmm Bed/Room Type: Standard [facility] Room Assignment: 408(04/03/21 00:43) mw Diagnosis - COVID - 19 (Hypoxia) jmm Forms: - Medication Reconciliation Form jmm - SBAR form [facility] Signatures: Dispatcher [employer] EDSandi Boyd RN RN Yunior Espinosa MD MD cha Mickail, Joel, PA PA jmm Smith, Bridget, RN RN bs2 Rina Oconnor kc4 Corrections: (The following items were deleted from the chart) 00:43 00:32 jmm
[2021-04-03 00:36] LABS: Absolute Lymphocytes (CBC) 0.7 K/uL (0.7-4.9); Basophils % 0.3 % (0-1.3); Hematocrit 47.7 % (36.0-45.0); Lymphocytes % 8.8 % (15.3-44.8); MPV 10.6 fL (7.6-11.3); RBC Red Blood Cell Count 5.38 M/uL (3.86-4.86)
[2021-04-03 00:39] LABS: Protime INR 1.12
[2021-04-03 01:03] LABS: ALT/SGPT 38 U/L (12-78); AST/SGOT 60 U/L (15-37); Albumin 2.5 g/dL (3.4-5.0); Alkaline Phosphatase 167 U/L (45-117); BUN Blood Urea Nitrogen 8 mg/dL (7-18); Bicarbonate 23 mmol/L (21-32); Bilirubin Direct 0.4 mg/dL (0-0.2); Bilirubin Total 0.9 mg/dL (0.2-1.0); Ferritin 1145.3 ng/mL (8-388); Glucose Level 309 mg/dL (74-106); NT PRO-BNP 95 pg/mL (<125); Potassium 4.1 mmol/L (3.5-5.1); Protein, Total 8.7 g/dL (6.4-8.2); Sodium Level 135 mmol/L (136-145); Troponin (Emerg Dept Use Only) < 0.02 ng/mL (0.0-0.045)
[2021-04-03] MEDS ORDERED: dexAMETHasone 10 MG/ML VIAL ONE (01:22)
[2021-04-03 02:15] LABS: Urine Blood Negative (Negative); Urine Glucose 2+ (Negative); Urine Protein 1+ (Negative); Urine Specific Gravity 1.025 (1.005-1.030); Urine pH 5.5 (5.0-7.0)
[2021-04-03] MEDS ORDERED: ACETAMINOPHEN 500 MG TAB PO PRN (04:37)
[2021-04-03] MEDS ORDERED: MELATONIN 5 MG TABLET PO PRN (04:37)
[2021-04-03 05:17] LABS: Blood Morphology Comment NOT SEEN (NOT SEEN); Platelet Estimate ADEQ
--- NOTE | 2021-04-03 06:13 | P.PN ---
Subjective Date of Service: 04/03/21 Chief Complaint: COVID-19 pneumonia Subjective: Other (Overall stable. Currently on 15 L) Physical Examination - Vital Signs Temperature: 98.8 F Blood Pressure: 128/72 Pulse: 80 Respirations: 20 Pulse Ox (%): 92 - Studies Laboratory Data (last 24 hrs) 04/03/21 00:06: PT Cancelled, INR Cancelled Assessment & Plan Discharge Plan: Home Plan to discharge in: Greater than 2 days Physician Review Additional Text: COVID: Positive CT Chest: COMPARISON: Chest x-ray performed on 09/13/2019. No additional studies were available for comparison. FINDINGS: There is suboptimal contrast opacification of the pulmonary arteries on this examination. The pulmonary artery trunk and main pulmonary arteries enhance homogeneously. There are no intra-arterial filling defects within these vessels. Evaluation of the segmental and subsegmental pulmonary artery branches is limited for evaluation of pulmonary emboli. The thoracic aorta is normal in caliber and contour without evidence of aneurysm or dissection. The left vertebral artery arises directly from the aortic arch, a normal developmental variant. There also appears to be a common origin of the left common carotid artery and right brachiocephalic artery, a developmental variant. There are groundglass opacities and scattered areas of moderate airspace consol idation throughout both lungs most compatible with multifocal pneumonia. There are no pleural effusions. There is no pneumothorax. The central airways are patent. The heart is normal in size. There is no pericardial effusion. There is no reflux of contrast into the hepatic veins to suggest right heart strain.The RV/LV ratio is within normal limits. There is no evidence of hilar, mediastinal or axillary lymphadenopathy. No acute osseous abnormality is identified. The visualized upper abdominal structures are unremarkable. IMPRESSION: 1. Suboptimal contrast opacification of the pulmonary arteries on this examination. There are no intra-arterial filling defects within the pulmonary artery trunk or main pulmonary arteries. Evaluation of the segmental and subsegmental pulmonary artery branches is limited for evaluation of pulmonary emboli. 2. Groundglass opacities and scattered areas of moderate airspace consolidation throughout both lungs most compatible with multifocal pneumonia. Commonly reported imaging features of (COVID-19 or viral) pneumonia are present. Other processes such as influenza pneumonia and organizing pneumonia, as can be seen with drug toxicity and connective tissue disease, can cause similar imaging pattern. Physical exam: General: Alert, In no apparent distress, Oriented x3 HEENT: Neck supple Respiratory: Decreased bilateral. Currently on 15 L. Cardiovascular: Regular rate/rhythm, Normal S1 S2 Gastrointestinal: Normal bowel sounds, No tenderness Musculoskeletal: No tenderness Integumentary: No rashes Neurological: Normal gait, Normal speech, Normal strength at 5/5 x4 extr, Normal tone, Normal affect Lymphatics: No axilla or inguinal lymphadenopathy Assessment: Acute hypoxic respiratory failure secondary to bilateral COVID-19 pneumonia Diabetes mellitus type 2 with hyperglycemia Obesity, BMI 56.3 Plan: Acute hypoxic respiratory failure secondary to bilateral COVID-19 pneumonia: Patient vaccinated in August with Wilber & Wilber vaccine. Patient stable at this time. Continue with oxygen to maintain sats above 90%. Continue to wean off. Patient may require BiPAP. Will monitor closely. Continue IV steroids. Continue vitamin supplementation. Patient is a candidate for baricitinib. Side effects addressed in detail with patient. Patient understands medication. Will start baricitinib. Pulmonology consulted. Await further recommendation. Monitor lab closely. Recheck chest x-ray tomorrow. Continue to assess daily. Encourage incentive spirometer, proning, lying on her side. Anticipate continued improvement. Diabetes mellitus type 2 with hyperglycemia: Accu-Cheks in place. Will start Lantus for better diabetic control. Continue to adjust medication Obesity, BMI 56.3: Continue lifestyle modification education. DVT PPX: Xarelto Code status: Full code Discharge Plan: Home at discharge Time Spent Managing Pts Care (In Minutes): 55
[2021-04-03] MEDS ORDERED: D50W 25 GM/50 ML SYRINGE IV PRN (06:56)
[2021-04-03] MEDS ORDERED: GLUCAGON 1 MG/VIAL IM PRN (06:56)
[2021-04-03] MEDS: ASCORBIC ACID 500 MG TABLET PO SCH ×4 (07:48→20:52)
[2021-04-03] MEDS: VITAMIN D 1000 UNIT TAB PO SCH (07:48)
[2021-04-03] MEDS: THIAMINE HCL 100 MG TABLET PO SCH (07:48)
[2021-04-03] MEDS: ASPIRIN EC 81 MG TAB PO SCH (07:48)
[2021-04-03] MEDS: ZINC SULFATE 220 MG CAP PO SCH (07:49)
[2021-04-03] MEDS: METHYLPREDNISOLONE 40 MG INJ IV SCH ×2 (07:49→20:52)
[2021-04-03] MEDS: BARICITINIB 2 MG TABLET PO SCH (08:13)
[2021-04-03] MEDS: INSULIN -REGULAR HUMAN 50 UNIT/0.5 ML ML SQ SCH ×4 (08:13→20:58)
[2021-04-03] MEDS: INSULIN GLARGINE 100 UNITS/ML SQ SCH ×2 (08:13→20:54)
[2021-04-03] MEDS ORDERED: ENOXAPARIN 40 MG/0.4 ML SQ SCH (09:00)
--- NOTE | 2021-04-03 12:24 | RAD REPORT ---
EXAM DESCRIPTION: CT - Chest For Pe Angio - 04/03/2021 7:20 am CLINICAL HISTORY: 50 years Female sob, d-dimer. TECHNIQUE: Following the administration of intravenous contrast, multiple high-resolution axial imag es of the chest were performed followed by sagittal and coronal reconstructed images. Coronal and sag ittal MIP images were also performed. The CT study is performed according to ALARA (as low as reasona shannon achievable) or ALARA/IMAGE GENTLY, with automatic adjustment of mA and/or kV according to patient size. Performed on: 04/03/2021 at 2:31 AM COMPARISON: Chest x-ray performed on 09/13/2019. No additional studies were available for comparison. FINDINGS: There is suboptimal contrast opacification of the pulmonary arteries on this examination . The pulmonary artery trunk and main pulmonary arteries enhance homogeneously. There are no intra-ar terial filling defects within these vessels. Evaluation of the segmental and subsegmental pulmonary a rtery branches is limited for evaluation of pulmonary emboli. The thoracic aorta is normal in caliber and contour without evidence of aneurysm or dissection. The left vertebral artery arises directly fr om the aortic arch, a normal developmental variant. There also appears to be a common origin of the l eft common carotid artery and right brachiocephalic artery, a developmental variant. There are groundglass opacities and scattered areas of moderate airspace consolidation throughout bot h lungs most compatible with multifocal pneumonia. There are no pleural effusions. There is no pneumo thorax. The central airways are patent. The heart is normal in size. There is no pericardial effusion. There is no reflux of contrast into th e hepatic veins to suggest right heart strain.The RV/LV ratio is within normal limits. There is no evidence of hilar, mediastinal or axillary lymphadenopathy. No acute osseous abnormality is identified. The visualized upper abdominal structures are unremarkable. IMPRESSION: 1. Suboptimal contrast opacification of the pulmonary arteries on this examination. Th ere are no intra-arterial filling defects within the pulmonary artery trunk or main pulmonary arterie s. Evaluation of the segmental and subsegmental pulmonary artery branches is limited for evaluation o f pulmonary emboli. 2. Groundglass opacities and scattered areas of moderate airspace consolidation throughout both humberto gs most compatible with multifocal pneumonia. Commonly reported imaging features of (COVID-19 or sunday l) pneumonia are present. Other processes such as influenza pneumonia and organizing pneumonia, as ca n be seen with drug toxicity and connective tissue disease, can cause similar imaging pattern. Electronically signed by: Christa Collins DO 04/03/2021 3:33 AM CDT Due to temporary technical issues with the PACS/Fluency reporting system, reports are being signed by the in house radiologists without review as a courtesy to insure prompt reporting. The interpreting radiologist is fully responsible for the content of the report.
--- NOTE | 2021-04-03 12:27 | P.CNS ---
Date of Consult: 04/03/21 Reason for Consult: Coronavirus pneumonia Chief Complaint: COVID-19 pneumonia History of Present Illness: Patient is 50 years of age has been vaccinated letter from the emergency room with dyspnea and coronavirus pneumonia currently on high flow oxygen stable Morbidly obese Allergies No Known Allergies Allergy (Verified 07/19/19 16:12) Home Medications: Doxycycline Hyclate 100 mg PO BID #28 capsule 09/15/19 Acyclovir 200 mg PO 5XD 04/03/21 Ibuprofen [Ibu] 800 mg PO PRN PRN 04/03/21 Metronidazole 500 mg PO TID 04/03/21 - Past Medical/Surgical History Diabetic: Yes -: NIDDM -: D&C Psychosocial/ Personal History: Patient lives at home alone, 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 - Family History Mother Medical History: Hypertension - Social History Alcohol use: Yes CD- Drugs: No Caffeine use: No Place of Residence: Home Review of Systems General: Weakness Respiratory: Shortness of Breath Physical Examination Temp Pulse Resp BP Pulse Ox 97.4 F 74 26 H 137/76 92 04/03/21 08:00 04/03/21 08:00 04/03/21 08:00 04/03/21 08:00 04/03/21 08:00 General: Alert, Oriented x1, Mild distress Laboratory Data (last 24 hrs) 04/03/21 00:06: PT Cancelled, INR Cancelled - Problems (1) 2019 novel coronavirus-infected pneumonia (NCIP) Current Visit: Yes Status: Acute Plan: Patient is 50 years of age morbidly obese admitted with coronavirus pneumonia labs chemistries reviewed CT scan consistent with Covid pneumonia change to BiPAP and is on steroids Barcitinib fully anticoagulated
[2021-04-03 14:24] LABS: Urine Appearance CLEAR (Clear); Urine Bilirubin NEGATIVE (Negative); Urine Blood NEGATIVE (Negative); Urine Color YELLOW (Yellow); Urine Glucose 3+ (Negative); Urine Protein NEGATIVE (Negative); Urine Specific Gravity >=1.030 (1.005-1.030); Urine Urobilinogen 0.2 mg/dL (0.2-1.0); Urine pH 5.5 (5.0-7.0)
[2021-04-03 14:28] LABS: Urine Microscopic Reflex NO UMIC
--- NOTE | 2021-04-03 16:08 | EKG ---
Test Date: 2021-04-03 Test Time: 01:05:07 [place] Architect: MASON MEASUREMENT RESULTS: Intervals: Rate: 83 NV: 124 QRSD: 82 QT: 388 QTc: 455 [place]: P: 15 NV: 124 QRS: -44 T: 10 INTERPRETIVE STATEMENTS: Normal sinus rhythm Left axis deviation Anterolateral infarct, age undetermined Abnormal ECG Compared to ECG 05/11/1999 12:01:00 Left-axis deviation now present Myocardial infarct finding still present Electronically Signed On 04-03-21 16:07:03 CDT by Reed Dobson
[2021-04-03] MEDS: RIVAROXABAN 20 MG TABLET PO SCH (16:36)
[2021-04-03] MEDS: BENZONATATE 100 MG CAP PO PRN (20:58)
[2021-04-03 21:17] LABS: Urine Specific Gravity/Preg 1.025 (1.005-1.030)
[2021-04-04 04:00] LABS: Absolute Lymphocytes (CBC) 0.7 K/uL (0.7-4.9); Basophils % 0.1 % (0-1.3); Hematocrit 43.4 % (36.0-45.0); Lymphocytes % 9.5 % (15.3-44.8); MPV 10.7 fL (7.6-11.3); RBC Red Blood Cell Count 4.89 M/uL (3.86-4.86)
[2021-04-04 04:56] LABS: Bilirubin Total 0.5 mg/dL (0.2-1.0); Ferritin 1052.3 ng/mL (8-388); Magnesium 2.5 mg/dL (1.8-2.4); Potassium 4.5 mmol/L (3.5-5.1); Protein, Total 7.8 g/dL (6.4-8.2); Thyroid Stimulating Hormone 0.232 uIU/mL (0.360-3.740)
--- NOTE | 2021-04-04 06:00 | P.PN ---
Subjective Date of Service: 04/04/21 Chief Complaint: COVID-19 pneumonia Subjective: Other (Overall stable. Currently on BiPAP) Physical Examination - Vital Signs Temperature: 97.6 F Blood Pressure: 135/68 Pulse: 60 Respirations: 26 Pulse Ox (%): 99 Assessment & Plan Discharge Plan: Home Plan to discharge in: Greater than 2 days Physician Review Additional Text: COVID: Positive CT Chest: COMPARISON: Chest x-ray performed on 09/13/2019. No additional studies were available for comparison. FINDINGS: There is suboptimal contrast opacification of the pulmonary arteries on this examination. The pulmonary artery trunk and main pulmonary arteries enhance homogeneously. There are no intra-arterial filling defects within these vessels. Evaluation of the segmental and subsegmental pulmonary artery branches is limited for evaluation of pulmonary emboli. The thoracic aorta is normal in caliber and contour without evidence of aneurysm or dissection. The left vertebral artery arises directly from the aortic arch, a normal developmental variant. There also appears to be a common origin of the left common carotid artery and right brachiocephalic artery, a developmental variant. There are groundglass opacities and scattered areas of moderate airspace consolidation throughout both lungs most compatible with multifocal pneumonia. There are no pleural effusions. There is no pneumothorax. The central airways are patent. The heart is normal in size. There is no pericardial effusion. There is no reflux of contrast into the hepatic veins to suggest right heart strain.The RV/LV ratio is within normal limits. There is no evidence of hilar, mediastinal or axillary lymphadenopathy. No acute osseous abnormality is identified. The visualized upper abdominal structures are unremarkable. IMPRESSION: 1. Suboptimal contrast opacification of the pulmonary arteries on this examination. There are no intra-arterial filling defects within the pulmonary artery trunk or main pulmonary arteries. Evaluation of the segmental and subsegmental pulmonary artery branches is limited for evaluation of pulmonary emboli. 2. Groundglass opacities and scattered areas of moderate airspace conso lidation throughout both lungs most compatible with multifocal pneumonia. Commonly reported imaging features of (COVID-19 or viral) pneumonia are present. Other processes such as influenza pneumonia and organizing pneumonia, as can be seen with drug toxicity and connective tissue disease, can cause similar imaging pattern. Follow up CXR 04/04/2021: COMPARISON: CT chest April 03 TECHNIQUE: AP portable chest image was obtained 04/04/2021 6:04 am . FINDINGS: Diffuse airspace opacification seen throughout both lung castro. This matches the wall described COVID-19 pneumonia findings detailed on the prior day CT study. No substantial change to this pattern has occurred. Trachea is midline. Heart and vasculature are normal. No measurable pleural effusion and no pneumothorax. No acute bony abnormality seen. No acute aortic findings suspected. IMPRESSION: Moderately severe bilateral COVID-19 pneumonia pattern. No significant change from prior day CT study. Physical exam: General: Alert, In no apparent distress, Oriented x3 HEENT: Neck supple Respiratory: Patient remains on BiPAP Cardiovascular: Regular rate/rhythm, Normal S1 S2 Gastrointestinal: Normal bowel sounds, No tenderness Musculoskeletal: No tenderness Integumentary: No rashes Neurological: Normal gait, Normal speech, Normal strength at 5/5 x4 extr, Normal tone, Normal affect Lymphatics: No axilla or inguinal lymphadenopathy Assessment: Acute hypoxic respiratory failure secondary to bilateral COVID-19 pneumonia Diabetes mellitus type 2 with hyperglycemia Obesity, BMI 56.3 Plan: Acute hypoxic respiratory failure secondary to bilateral COVID-19 pneumonia: Patient remains on BiPAP. Overall stable. CRP and ferritin improved. Patient vaccinated in August with [employer] vaccine. Continue with oxygen to maintain sats above 90%. Continue to wean off. Continue IV steroids. Continue vitamin supplementation. Continue baricitinib. Monitor liver function test. Continue with pulmonology recommendations monitor lab closely. Recheck chest x- ray tomorrow. Continue to assess daily. Encourage incentive spirometer, proning, lying on her side. Anticipate continued improvement. Diabetes mellitus type 2 with hyperglycemia: Accu-Cheks in place. Blood sugars elevated. A1c 12.7. Will increase Lantus for better diabetic control. Continue to monitor and adjust appropriately. Sliding scale in place. Obesity, BMI 56.3: Continue lifestyle modification education. DVT PPX: Xarelto Code status: Full code Discharge Plan: Home at discharge Time Spent Managing Pts Care (In Minutes): 55
--- NOTE | 2021-04-04 07:37 | RAD REPORT ---
EXAM DESCRIPTION: RAD - Chest Single View - 04/04/2021 6:04 am CLINICAL HISTORY: Follow-up Covidpneumonia, abnormal CT chest COMPARISON: CT chest April 03 TECHNIQUE: AP portable chest image was obtained 04/04/2021 6:04 am . FINDINGS: Diffuse airspace opacification seen throughout both lung castro. This matches the wall tremaine cribed COVID-19 pneumonia findings detailed on the prior day CT study. No substantial change to this pattern has occurred. Trachea is midline. Heart and vasculature are normal. No measurable pleural effusion and no pneumotho rax. No acute bony abnormality seen. No acute aortic findings suspected. IMPRESSION: Moderately severe bilateral COVID-19 pneumonia pattern. No significant change from prior day CT study.
[2021-04-04] MEDS ORDERED: INSULIN GLARGINE 100 UNITS/ML SQ SCH ×2 (09:00→21:00)
[2021-04-04] MEDS: THIAMINE HCL 100 MG TABLET PO SCH (09:14)
[2021-04-04] MEDS: ASPIRIN EC 81 MG TAB PO SCH (09:14)
[2021-04-04] MEDS: BENZONATATE 100 MG CAP PO PRN ×2 (09:14→16:56)
[2021-04-04] MEDS: ASCORBIC ACID 500 MG TABLET PO SCH ×4 (09:14→21:23)
[2021-04-04] MEDS: INSULIN -REGULAR HUMAN 50 UNIT/0.5 ML ML SQ SCH ×4 (09:14→21:00)
[2021-04-04] MEDS: VITAMIN D 1000 UNIT TAB PO SCH (09:14)
[2021-04-04] MEDS: ZINC SULFATE 220 MG CAP PO SCH (09:15)
[2021-04-04] MEDS: BARICITINIB 2 MG TABLET PO SCH (09:15)
[2021-04-04] MEDS: METHYLPREDNISOLONE 40 MG INJ IV SCH ×2 (09:15→21:23)
--- NOTE | 2021-04-04 12:42 | P.PN ---
Subjective Date of Service: 04/04/21 Chief Complaint: COVID-19 pneumonia No change patient is still very hypoxic requiring BiPAP Review of Systems General: Weakness Respiratory: Shortness of Breath Physical Examination - Vital Signs Temperature: 97.2 F Blood Pressure: 121/62 Pulse: 65 Respirations: 24 Pulse Ox (%): 99 - Physical Exam General: Alert, Oriented x3, Cooperative, Acute distress Assessment & Plan - Problems (Diagnosis) (1) 2019 novel coronavirus-infected pneumonia (NCIP) Current Visit: Yes Status: Acute Plan: Respiratory failure from coronavirus condition stable on maximum therapy with BiPAP 100% FiO2 continue with steroids and Barcitinib patient is auto anticoagulated titrate sat to 90%
[2021-04-04] MEDS: RIVAROXABAN 20 MG TABLET PO SCH (16:56)
[2021-04-04] MEDS: ONDANSETRON 4 MG/2 ML VIAL IV PRN (21:23)
[2021-04-05 05:10] LABS: Absolute Lymphocytes (CBC) 0.5 K/uL (0.7-4.9); Basophils % 0.6 % (0-1.3); Hematocrit 45.1 % (36.0-45.0); Lymphocytes % 5.4 % (15.3-44.8); MPV 10.3 fL (7.6-11.3); RBC Red Blood Cell Count 5.13 M/uL (3.86-4.86)
[2021-04-05 05:40] LABS: Bilirubin Total 0.6 mg/dL (0.2-1.0); C-Reactive Protein 71.6 mg/L (<3.00); Ferritin 1056.6 ng/mL (8-388); Magnesium 2.5 mg/dL (1.8-2.4); Potassium 4.4 mmol/L (3.5-5.1); Protein, Total 7.4 g/dL (6.4-8.2)
--- NOTE | 2021-04-05 06:02 | P.PN ---
Subjective Date of Service: 04/05/21 Chief Complaint: COVID-19 pneumonia Subjective: Improving (Patient on high flow this morning.) Physical Examination - Vital Signs Temperature: 97.2 F Blood Pressure: 118/59 Pulse: 70 Respirations: 18 Pulse Ox (%): 94 Assessment & Plan Discharge Plan: Home Plan to discharge in: Greater than 2 days Physician Review Additional Text: COVID: Positive CT Chest: COMPARISON: Chest x-ray performed on 09/13/2019. No additional studies were available for comparison. FINDINGS: There is suboptimal contrast opacification of the pulmonary arteries on this examination. The pulmonary artery trunk and main pulmonary arteries enhance homogeneously. There are no intra-arterial filling defects within these vessels. Evaluation of the segmental and subsegmental pulmonary artery branches is limited for evaluation of pulmonary emboli. The thoracic aorta is normal in caliber and contour without evidence of aneurysm or dissection. The left vertebral artery arises directly from the aortic arch, a normal developmental variant. There also appears to be a common origin of the left common carotid artery and right brachiocephalic artery, a developmental variant. There are groundglass opacities and scattered areas of moderate airspace consolidation throughout both lungs most compatible with multifocal pneumonia. There are no pleural effusions. There is no pneumothorax. The central airways are patent. The heart is normal in size. There is no pericardial effusion. There is no reflux of contrast into the hepatic veins to suggest right heart strain.The RV/LV ratio is within normal limits. There is no evidence of hilar, mediastinal or axillary lymphadenopathy. No acute osseous abnormality is identified. The visualized upper abdominal structures are unremarkable. IMPRESSION: 1. Suboptimal contrast opacification of the pulmonary arteries on this examination. There are no intra-arterial filling defects within the pulmonary artery trunk or main pulmonary arteries. Evaluation of the segmental and subsegmental pulmonary artery branches is limited for evaluation of pulmonary emboli. 2. Groundglass opacities and scattered areas of moderate airspace co nsolidation throughout both lungs most compatible with multifocal pneumonia. Commonly reported imaging features of (COVID-19 or viral) pneumonia are present. Other processes such as influenza pneumonia and organizing pneumonia, as can be seen with drug toxicity and connective tissue disease, can cause similar imaging pattern. Follow up CXR 04/05/2021: COMPARISON: Chest Single View dated 04/04/2021; Chest Single View dated 09/13/2019; Chest Pa And Lat (2 Views) dated 07/19/2019; ABDOMEN ACUTE SERIES dated 01/04/2005; Chest For Pe Angio dated 04/03/2021 FINDINGS: Lines: None. Lungs: Severe widespread bilateral airspace disease. This is unchanged. Pleural: No significant pleural effusions or pneumothorax. Cardiac: Cardiomegaly. Bones: No acute fractures. IMPRESSION: Severe bilateral airspace disease without significant interval change and consistent with Covid-19 pneumonia. Physical exam: General: Alert, In no apparent distress, Oriented x3 HEENT: Neck supple Respiratory: Overall stable. Patient now on high flow Cardiovascular: Regular rate/rhythm, Normal S1 S2 Gastrointestinal: Normal bowel sounds, No tenderness Musculoskeletal: No tenderness Integumentary: No rashes Neurological: Normal gait, Normal speech, Normal strength at 5/5 x4 extr, Normal tone, Normal affect Lymphatics: No axilla or inguinal lymphadenopathy Assessment: Acute hypoxic respiratory failure secondary to bilateral COVID-19 pneumonia Diabetes mellitus type 2 with hyperglycemia Obesity, BMI 56.3 Plan: Acute hypoxic respiratory failure secondary to bilateral COVID-19 pneumonia: Overall slight improvement noted. Patient on high flow at 100%. CRP and ferritin improved. Patient vaccinated in August with [employer] vaccine. Continue with oxygen to maintain sats above 90%. Continue to wean off. Continue IV steroids. Continue vitamin supplementation. Continue baricitinib. Monitor liver function test. Continue with pulmonology recommendations monitor lab closely. Continue to assess daily. Encourage incentive spirometer, proning, lying on her side. Anticipate continued improvement. Diabetes mellitus type 2 with hyperglycemia: Accu-Cheks in place. Blood sugars elevated. A1c 12.7. Will increase Lantus for better diabetic control. Continue to monitor and adjust appropriately. Sliding scale in place. Obesity, BMI 56.3: Continue lifestyle modification education. DVT PPX: Xarelto Code status: Full code Discharge Plan: Home at discharge Time Spent Managing Pts Care (In Minutes): 55
[2021-04-05] MEDS: VITAMIN D 1000 UNIT TAB PO SCH (07:45)
[2021-04-05] MEDS: BARICITINIB 2 MG TABLET PO SCH (07:45)
[2021-04-05] MEDS: BENZONATATE 100 MG CAP PO PRN (07:45)
[2021-04-05] MEDS: ASPIRIN EC 81 MG TAB PO SCH (07:45)
[2021-04-05] MEDS: ASCORBIC ACID 500 MG TABLET PO SCH ×4 (07:46→20:54)
[2021-04-05] MEDS: METHYLPREDNISOLONE 40 MG INJ IV SCH ×2 (07:47→20:54)
[2021-04-05] MEDS: THIAMINE HCL 100 MG TABLET PO SCH (07:47)
--- NOTE | 2021-04-05 07:50 | RAD REPORT ---
EXAM DESCRIPTION: RAD - Chest Single View - 04/05/2021 6:03 am CLINICAL HISTORY: Follow-up Covid COMPARISON: Chest Single View dated 04/04/2021; Chest Single View dated 09/13/2019; Chest Pa And Lat ( 2 Views) dated 07/19/2019; ABDOMEN ACUTE SERIES dated 01/04/2005; Chest For Pe Angio dated 04/03/2021 FINDINGS: Lines: None. Lungs: Severe widespread bilateral airspace disease. This is unchanged. Pleural: No significant pleural effusions or pneumothorax. Cardiac: Cardiomegaly. Bones: No acute fractures. Other: IMPRESSION: Severe bilateral airspace disease without significant interval change and consistent wit h Covid-19 pneumonia.
[2021-04-05] MEDS: INSULIN -REGULAR HUMAN 50 UNIT/0.5 ML ML SQ SCH ×4 (07:57→20:55)
[2021-04-05] MEDS ORDERED: INSULIN GLARGINE 100 UNITS/ML SQ SCH ×2 (09:00→21:00)
--- NOTE | 2021-04-05 12:59 | P.PN ---
Subjective Date of Service: 04/05/21 Chief Complaint: COVID-19 pneumonia Respiratory failure still requiring 100% oxygen Review of Systems General: Weakness Respiratory: Shortness of Breath Physical Examination - Vital Signs Temperature: 97.2 F Blood Pressure: 118/59 Pulse: 70 Respirations: 18 Pulse Ox (%): 94 - Physical Exam General: Alert, Oriented x3, Cooperative Assessment & Plan - Problems (Diagnosis) (1) 2019 novel coronavirus-infected pneumonia (NCIP) Current Visit: Yes Status: Acute Plan: Respiratory failure no change patient is on maximal oxygen therapy blood sugars elevated add Januvia blood pressure stable chest x-ray severe Covid pneumonia add low-dose Lasix Physician Review Additional Text: COVID: Positive CT Chest: COMPARISON: Chest x-ray performed on 09/13/2019. No additional studies were available for comparison. FINDINGS: There is suboptimal contrast opacification of the pulmonary arteries on this examination. The pulmonary artery trunk and main pulmonary arteries enhance homogeneously. There are no intra-arterial filling defects within these vessels. Evaluation of the segmental and subsegmental pulmonary artery branches is limited for evaluation of pulmonary emboli. The thoracic aorta is normal in caliber and contour without evidence of aneurysm or dissection. The left vertebral artery arises directly from the aortic arch, a normal developmental variant. There also appears to be a common origin of the left common carotid artery and right brachiocephalic artery, a developmental variant. There are groundglass opacities and scattered areas of moderate airspace consolidation throughout both lungs most compatible with multifocal pneumonia. There are no pleural effusions. There is no pneumothorax. The central airways are patent. The heart is normal in size. There is no pericardial effusion. There is no reflux of contrast into the hepatic veins to suggest right heart strain.The RV/LV ratio is within normal limits. There is no evidence of hilar, mediastinal or axillary lymphadenopathy. No acute osseous abnormality is identified. The visualized upper abdominal structures are unremarkable. IMPRESSION: 1. Suboptimal contrast opacification of the pulmonary arteries on this examination. There are no intra-arterial filling defects within the pulmonary artery trunk or main pulmonary arteries. Evaluation of the segmental and subsegmental pulmonary artery branches is limited for evaluation of pulmonary emboli. 2. Groundglass opacities and scattered areas of moderate airspace consolidation throughout both lungs most compatible with multifocal pneumonia. Commonly reported imaging features of (COVID-19 or viral) pneumonia are present. Other processes such as influenza pneumonia and organizing pneumonia, as can be seen with drug toxicity and connective tissue disease, can cause similar imaging pattern. Follow up CXR 04/05/2021: COMPARISON: Chest Single View dated 04/04/2021; Chest Single View dated 09/13/2019; Chest Pa And Lat (2 Views) dated 07/19/2019; ABDOMEN ACUTE SERIES dated 01/04/2005; Chest For Pe Angio dated 04/03/2021 FINDINGS: Lines: None. Lungs: Severe widespread bilateral airspace disease. This is unchanged. Pleural: No significant pleural effusions or pneumothorax. Cardiac: Cardiomegaly. Bones: No acute fractures. IMPRESSION: Severe bilateral airspace disease without significant interval change and consistent with Covid-19 pneumonia. Physical exam: General: Alert, In no apparent distress, Oriented x3 HEENT: Neck supple Respiratory: Overall stable. Patient now on high flow Cardiovascular: Regular rate/rhythm, Normal S1 S2 Gastrointestinal: Normal bowel sounds, No tenderness Musculoskeletal: No tenderness Integumentary: No rashes Neurological: Normal gait, Normal speech, Normal strength at 5/5 x4 extr, Normal tone, Normal affect Lymphatics: No axilla or inguinal lymphadenopathy Assessment: Acute hypoxic respiratory failure secondary to bilateral COVID-19 pneumonia Diabetes mellitus type 2 with hyperglycemia Obesity, BMI 56.3 Plan: Acute hypoxic respiratory failure secondary to bilateral COVID-19 pneumonia: Overall slight improvement noted. Patient on high flow at 100%. CRP and ferritin improved. Patient vaccinated in August with [employer] vaccine. Continue with oxygen to maintain sats above 90%. Continue to wean off. Continue IV steroids. Continue vitamin supplementation. Continue baricitinib. Monitor liver function test. Continue with pulmonology recommendations monitor lab closely. Continue to assess daily. Encourage incentive spirometer, proning, lying on her side. Anticipate continued improvement. Diabetes mellitus type 2 with hyperglycemia: Accu-Cheks in place. Blood sugars elevated. A1c 12.7. Will increase Lantus for better diabetic control. Continue to monitor and adjust appropriately. Sliding scale in place. Obesity, BMI 56.3: Continue lifestyle modification education. DVT PPX: Xarelto Code status: Full code Discharge Plan: Home at discharge
[2021-04-05] MEDS: SITAGLIPTIN PHOS 100 MG TAB PO SCH (13:39)
[2021-04-05] MEDS: FUROSEMIDE 20 MG TABLET PO SCH (13:39)
[2021-04-05] MEDS: ONDANSETRON 4 MG/2 ML VIAL IV PRN (13:41)
[2021-04-05] MEDS: RIVAROXABAN 20 MG TABLET PO SCH (17:11)
[2021-04-05] MEDS: METFORMIN HCL 500 MG TAB PO SCH (17:11)
[2021-04-06 05:57] LABS: RBC Red Blood Cell Count 5.05 M/uL (3.86-4.86)
[2021-04-06 05:58] LABS: Absolute Lymphocytes (CBC) 0.3 K/uL (0.7-4.9); Basophils % 0.2 % (0-1.3); Hematocrit 44.4 % (36.0-45.0); Lymphocytes % 3.6 % (15.3-44.8); MPV 9.7 fL (7.6-11.3)
--- NOTE | 2021-04-06 06:09 | P.PN ---
Subjective Date of Service: 04/06/21 Chief Complaint: COVID-19 pneumonia Subjective: Other (Overall stable. Currently on high flow at 100%) Physical Examination - Vital Signs Temperature: 98.0 F Blood Pressure: 135/76 Pulse: 62 Respirations: 20 Pulse Ox (%): 91 Assessment & Plan Discharge Plan: Home Plan to discharge in: Greater than 2 days Physician Review Additional Text: COVID: Positive CT Chest: COMPARISON: Chest x-ray performed on 09/13/2019. No additional studies were available for comparison. FINDINGS: There is suboptimal contrast opacification of the pulmonary arteries on this examination. The pulmonary artery trunk and main pulmonary arteries enhance homogeneously. There are no intra-arterial filling defects within these vessels. Evaluation of the segmental and subsegmental pulmonary artery branches is limited for evaluation of pulmonary emboli. The thoracic aorta is normal in caliber and contour without evidence of aneurysm or dissection. The left vertebral artery arises directly from the aortic arch, a normal developmental variant. There also appears to be a common origin of the left common carotid artery and right brachiocephalic artery, a developmental variant. There are groundglass opacities and scattered areas of moderate airspace consolidation throughout both lungs most compatible with multifocal pneumonia. There are no pleural effusions. There is no pneumothorax. The central airways are patent. The heart is normal in size. There is no pericardial effusion. There is no reflux of contrast into the hepatic veins to suggest right heart strain.The RV/LV ratio is within normal limits. There is no evidence of hilar, mediastinal or axillary lymphadenopathy. No acute osseous abnormality is identified. The visualized upper abdominal structures are unremarkable. IMPRESSION: 1. Suboptimal contrast opacification of the pulmonary arteries on this examination. There are no intra-arterial filling defects within the pulmonary artery trunk or main pulmonary arteries. Evaluation of the segmental and subsegmental pulmonary artery branches is limited for evaluation of pulmonary emboli. 2. Groundglass opacities and scattered areas of moderate airspace consolidation throughout both lungs most compatible with multifocal pneumonia. Commonly reported imaging features of (COVID-19 or viral) pneumonia are present. Other processes such as influenza pneumonia and organizing pneumonia, as can be seen with drug toxicity and connective tissue disease, can cause similar imaging pattern. Follow up CXR 04/06/2021: COMPARISON: April 05, 2021 FINDINGS: Mild worsening in extensive bilateral pulmonary opacities. Cardiomegaly IMPRESSION: Mild worsening in extensive bilateral pneumonia Physical exam: General: Alert, In no apparent distress, Oriented x3 HEENT: Neck supple Respiratory: Overall stable. Patient now on high flow at 100%. Patient sitting on her bed. Cardiovascular: Regular rate/rhythm, Normal S1 S2 Gastrointestinal: Normal bowel sounds, No tenderness Musculoskeletal: No tenderness Integumentary: No rashes Neurological: Normal gait, Normal speech, Normal strength at 5/5 x4 extr, Normal tone, Normal affect Lymphatics: No axilla or inguinal lymphadenopathy Assessment: Acute hypoxic respiratory failure secondary to bilateral COVID-19 pneumonia Diabetes mellitus type 2 with hyperglycemia Obesity, BMI 56.3 Plan: Acute hypoxic respiratory failure secondary to bilateral COVID-19 pneumonia: Patient clinically improved. Currently on high flow at 100%. Patient sitting up on her bed. CRP improved. Chest x-ray reviewed. Continue to wean off oxygen to maintain sats above 90%. Continue IV steroid and baricitinib. Continue with pulmonology recommendations. Encourage incentive spirometer. Encourage proning, lying on her side. Continue to monitor her progress. Diabetes mellitus type 2 with hyperglycemia: Accu-Cheks in place. Blood sugars elevated. A1c 12.7. Continue to increase Lantus for better diabetic control. Continue to monitor and adjust appropriately. Sliding scale in place. Restart Metformin and adjust appropriately. Obesity, BMI 56.3: Continue lifestyle modification education. DVT PPX: Xarelto Code status: Full code Discharge Plan: Home at discharge Time Spent Managing Pts Care (In Minutes): 55
[2021-04-06 06:20] LABS: Bilirubin Total 0.6 mg/dL (0.2-1.0); C-Reactive Protein 35.7 mg/L (<3.00); Ferritin 951.3 ng/mL (8-388); Magnesium 2.5 mg/dL (1.8-2.4); Potassium 4.5 mmol/L (3.5-5.1); Protein, Total 7.2 g/dL (6.4-8.2)
[2021-04-06] MEDS: INSULIN -REGULAR HUMAN 50 UNIT/0.5 ML ML SQ SCH ×4 (08:49→20:35)
[2021-04-06] MEDS: INSULIN GLARGINE 100 UNITS/ML SQ SCH ×2 (08:49→20:36)
[2021-04-06] MEDS: VITAMIN D 1000 UNIT TAB PO SCH (08:50)
[2021-04-06] MEDS: BARICITINIB 2 MG TABLET PO SCH (08:50)
[2021-04-06] MEDS: THIAMINE HCL 100 MG TABLET PO SCH (08:50)
[2021-04-06] MEDS: METFORMIN HCL 500 MG TAB PO SCH (08:51)
[2021-04-06] MEDS: FUROSEMIDE 20 MG TABLET PO SCH (08:51)
[2021-04-06] MEDS: ASPIRIN EC 81 MG TAB PO SCH (08:51)
[2021-04-06] MEDS: ASCORBIC ACID 500 MG TABLET PO SCH ×4 (08:51→20:34)
[2021-04-06] MEDS: METHYLPREDNISOLONE 40 MG INJ IV SCH ×2 (08:51→20:34)
[2021-04-06] MEDS: SITAGLIPTIN PHOS 100 MG TAB PO SCH (08:57)
[2021-04-06] MEDS: BENZONATATE 100 MG CAP PO PRN (08:57)
--- NOTE | 2021-04-06 10:27 | RAD REPORT ---
EXAM DESCRIPTION: [facility] Single View04/06/2021 6:39 am CLINICAL HISTORY: Shortness of breath COMPARISON: April 05, 2021 FINDINGS: Mild worsening in extensive bilateral pulmonary opacities. Cardiomegaly IMPRESSION: Mild worsening in extensive bilateral pneumonia
--- NOTE | 2021-04-06 11:05 | P.PN ---
Subjective Date of Service: 04/06/21 Chief Complaint: COVID-19 pneumonia Respiratory failure no change still on her percent FiO2 Review of Systems General: Weakness Respiratory: Shortness of Breath Physical Examination - Vital Signs Temperature: 97.5 F Blood Pressure: 128/58 Pulse: 58 Respirations: 20 Pulse Ox (%): 87 - Physical Exam General: Alert, Cooperative Respiratory: Clear to auscultation bilaterally, Diminished Assessment & Plan - Problems (Diagnosis) (1) 2019 novel coronavirus-infected pneumonia (NCIP) Current Visit: Yes Status: Acute Plan: Respiratory failure no change patient is on maximal oxygen therapy blood sugars elevated add Januvia blood pressure stable chest x-ray severe Covid pneumonia add low-dose Lasix reduce dose of steroids blood sugars elevated increase Metformin
[2021-04-06] MEDS ORDERED: METFORMIN HCL 500 MG TAB PO SCH (17:00)
[2021-04-06] MEDS: RIVAROXABAN 20 MG TABLET PO SCH (17:31)
[2021-04-07] MEDS: BENZONATATE 100 MG CAP PO PRN ×2 (02:09→17:07)
[2021-04-07 05:44] LABS: Absolute Lymphocytes (CBC) 0.3 K/uL (0.7-4.9); Basophils % 0.3 % (0-1.3); Hematocrit 45.2 % (36.0-45.0); Lymphocytes % 3.1 % (15.3-44.8); MPV 10.2 fL (7.6-11.3); RBC Red Blood Cell Count 5.12 M/uL (3.86-4.86)
--- NOTE | 2021-04-07 05:52 | P.PN ---
Subjective Date of Service: 04/07/21 Chief Complaint: COVID-19 pneumonia Subjective: Other (Overall stable. Patient sitting up in bed. Currently on high flow at 100%) Physical Examination - Vital Signs Temperature: 96 F Blood Pressure: 80/57 Pulse: 54 Respirations: 20 Pulse Ox (%): 88 Assessment & Plan Discharge Plan: LTAC Plan to discharge in: Greater than 2 days Physician Review Additional Text: COVID: Positive CT Chest: COMPARISON: Chest x-ray performed on 09/13/2019. No additional studies were available for comparison. FINDINGS: There is suboptimal contrast opacification of the pulmonary arteries on this examination. The pulmonary artery trunk and main pulmonary arteries enhance homogeneously. There are no intra-arterial filling defects within these vessels. Evaluation of the segmental and subsegmental pulmonary artery branches is limited for evaluation of pulmonary emboli. The thoracic aorta is normal in caliber and contour without evidence of aneurysm or dissecti on. The left vertebral artery arises directly from the aortic arch, a normal developmental variant. There also appears to be a common origin of the left common carotid artery and right brachiocephalic artery, a developmental variant. There are groundglass opacities and scattered areas of moderate airspace consolidation throughout both lungs most compatible with multifocal pneumonia. There are no pleural effusions. There is no pneumothorax. The central airways are patent. The heart is normal in size. There is no pericardial effusion. There is no reflux of contrast into the hepatic veins to suggest right heart strain.The RV/LV ratio is within normal limits. There is no evidence of hilar, mediastinal or axillary lymphadenopathy. No acute osseous abnormality is identified. The visualized upper abdominal structures are unremarkable. IMPRESSION: 1. Suboptimal contrast opacification of the pulmonary arteries on this examination. There are no intra-arterial filling defects within the pulmo nary artery trunk or main pulmonary arteries. Evaluation of the segmental and subsegmental pulmonary artery branches is limited for evaluation of pulmonary emboli. 2. Groundglass opacities and scattered areas of moderate airspace consolidation throughout both lungs most compatible with multifocal pneumonia. Commonly reported imaging features of (COVID-19 or viral) pneumonia are present. Other processes such as influenza pneumonia and organizing pneumonia, as can be seen with drug toxicity and connective tissue disease, can cause similar imaging pattern. Follow up CXR 04/06/2021: COMPARISON: April 05, 2021 FINDINGS: Mild worsening in extensive bilateral pulmonary opacities. Cardiomegaly IMPRESSION: Mild worsening in extensive bilateral pneumonia Physical exam: General: Alert, In no apparent distress, Oriented x3 HEENT: Neck supple Respiratory: Overall stable. Patient now on high flow at 100%. Patient sitting on her bed. Cardiovascular: Regular rate/rhythm, Normal S1 S2 Gastrointestinal: Normal bowel sounds, No tenderness Musculoskeletal: No tenderness Integumentary: No rashes Neurological: Normal gait, Normal speech, Normal strength at 5/5 x4 extr, Normal tone, Normal affect Lymphatics: No axilla or inguinal lymphadenopathy Assessment: Acute hypoxic respiratory failure secondary to bilateral COVID-19 pneumonia Diabetes mellitus type 2 with hyperglycemia Obesity, BMI 56.3 Plan: Acute hypoxic respiratory failure secondary to bilateral COVID-19 pneumonia: Clinically patient improved. Still on high flow at 100%. CRP and ferritin improved. Continue IV steroid and baricitinib. Continue to monitor liver function test. Encourage incentive spirometer. Encourage proning, lying on her side. Anticipate continued improvement. Discussed the possibility of long-term acute care facility placement. Patient agreeable if insurance allows. I will consult protective services social worker to help with this. I will turn the service over to the hospitalist team tomorrow. I'll go plan of care with him. Diabetes mellitus type 2 with hyperglycemia: Accu-Cheks in place. Blood sugars remain elevated. Metformin was added during the course of her stay. She has had issues of GI irritation with metformin. She reports some GI irritation toda y. Therefore we'll discontinue Metformin. Continue Januvia. We'll continue to increase Lantus for better diabetic control. Sliding scale in place. Hemoglobin A1c 12.7. Obesity, BMI 56.3: Continue lifestyle modification education. DVT PPX: Xarelto Code status: Full code Discharge Plan: Long-term acute care facility versus home at discharge Time Spent Managing Pts Care (In Minutes): 55
[2021-04-07 06:07] LABS: ALT/SGPT 38 U/L (12-78); AST/SGOT 46 U/L (15-37); Alkaline Phosphatase 130 U/L (45-117); BUN Blood Urea Nitrogen 20 mg/dL (7-18); Bicarbonate 27 mmol/L (21-32); Bilirubin Total 0.7 mg/dL (0.2-1.0); Ferritin 941.9 ng/mL (8-388); Glucose Level 306 mg/dL (74-106); Magnesium 2.5 mg/dL (1.8-2.4); Potassium 4.3 mmol/L (3.5-5.1); Protein, Total 6.7 g/dL (6.4-8.2); Sodium Level 138 mmol/L (136-145)
[2021-04-07] MEDS: INSULIN -REGULAR HUMAN 50 UNIT/0.5 ML ML SQ SCH ×4 (08:56→20:21)
[2021-04-07] MEDS: INSULIN GLARGINE 100 UNITS/ML SQ SCH ×2 (08:57→20:21)
[2021-04-07] MEDS: THIAMINE HCL 100 MG TABLET PO SCH (08:57)
[2021-04-07] MEDS: ASPIRIN EC 81 MG TAB PO SCH (08:57)
[2021-04-07] MEDS: METHYLPREDNISOLONE 40 MG INJ IV SCH ×2 (08:57→20:20)
[2021-04-07] MEDS: ASCORBIC ACID 500 MG TABLET PO SCH ×4 (08:58→20:20)
[2021-04-07] MEDS: VITAMIN D 1000 UNIT TAB PO SCH (08:58)
[2021-04-07] MEDS: FUROSEMIDE 20 MG TABLET PO SCH (08:58)
[2021-04-07] MEDS: BARICITINIB 2 MG TABLET PO SCH (08:59)
[2021-04-07] MEDS: SITAGLIPTIN PHOS 100 MG TAB PO SCH (09:00)
[2021-04-07] MEDS: RIVAROXABAN 20 MG TABLET PO SCH (17:07)
[2021-04-08] MEDS: ONDANSETRON 4 MG/2 ML VIAL IV PRN (04:00)
[2021-04-08 05:17] LABS: Absolute Lymphocytes (CBC) 0.3 K/uL (0.7-4.9); Basophils % 0.5 % (0-1.3); Lymphocytes % 1.7 % (15.3-44.8); RBC Red Blood Cell Count 5.44 M/uL (3.86-4.86)
[2021-04-08 05:55] LABS: ALT/SGPT 44 U/L (12-78); AST/SGOT 51 U/L (15-37); Albumin 2.2 g/dL (3.4-5.0); Alkaline Phosphatase 147 U/L (45-117); BUN Blood Urea Nitrogen 18 mg/dL (7-18); Bicarbonate 30 mmol/L (21-32); Bilirubin Total 0.8 mg/dL (0.2-1.0); Ferritin 974.3 ng/mL (8-388); Glucose Level 167 mg/dL (74-106); Magnesium 2.5 mg/dL (1.8-2.4); Potassium 4.1 mmol/L (3.5-5.1); Protein, Total 7.1 g/dL (6.4-8.2); Sodium Level 141 mmol/L (136-145)
[2021-04-08] MEDS: INSULIN -REGULAR HUMAN 50 UNIT/0.5 ML ML SQ SCH ×4 (07:30→20:21)
[2021-04-08 08:29] LABS: Blood Morphology Comment NOT SEEN (NOT SEEN); Platelet Estimate ADEQ
[2021-04-08] MEDS: INSULIN GLARGINE 100 UNITS/ML SQ SCH ×2 (09:00→20:20)
[2021-04-08] MEDS: METHYLPREDNISOLONE 40 MG INJ IV SCH ×2 (09:26→20:20)
[2021-04-08] MEDS: VITAMIN D 1000 UNIT TAB PO SCH (09:27)
[2021-04-08] MEDS: ASPIRIN EC 81 MG TAB PO SCH (09:27)
[2021-04-08] MEDS: THIAMINE HCL 100 MG TABLET PO SCH (09:27)
[2021-04-08] MEDS: BARICITINIB 2 MG TABLET PO SCH (09:28)
[2021-04-08] MEDS: SITAGLIPTIN PHOS 100 MG TAB PO SCH (09:28)
[2021-04-08] MEDS: FUROSEMIDE 20 MG TABLET PO SCH (09:28)
[2021-04-08] MEDS: ASCORBIC ACID 500 MG TABLET PO SCH (09:28)
--- NOTE | 2021-04-08 12:19 | P.PN ---
Subjective Date of Service: 04/08/21 Chief Complaint: COVID-19 pneumonia Patient still requiring high concentration of oxygen steadily improving Review of Systems is unable to be obtained Physical Examination - Vital Signs Temperature: 97.2 F Blood Pressure: 93/54 Pulse: 61 Respirations: 27 Pulse Ox (%): 87 - Physical Exam General: Alert, Oriented x3, Moderate distress Assessment & Plan - Problems (Diagnosis) (1) 2019 novel coronavirus-infected pneumonia (NCIP) Current Visit: Yes Status: Acute Plan: Respiratory failure she is subjectively doing better he does not appear to be any significant distress still requiring high concentrations of oxygen labs reviewed blood sugar seems to be controlled continue with present medication on maximum therapy takes Barcitinib and steroid vital signs stable trait O2 to a sat of 90%
[2021-04-08] MEDS: RIVAROXABAN 20 MG TABLET PO SCH (17:06)
[2021-04-08] MEDS ORDERED: D50W 25 GM/50 ML SYRINGE IV PRN (17:12)
[2021-04-08] MEDS ORDERED: INSULIN 70/30 100 UNITS/ML SQ ONE (18:00)
[2021-04-08] MEDS: BENZONATATE 100 MG CAP PO PRN (23:53)
[2021-04-09 05:11] LABS: Absolute Lymphocytes (CBC) 0.2 K/uL (0.7-4.9); Basophils % 0.3 % (0-1.3); Hematocrit 46.9 % (36.0-45.0); Lymphocytes % 1.2 % (15.3-44.8); MPV 9.8 fL (7.6-11.3); RBC Red Blood Cell Count 5.35 M/uL (3.86-4.86)
[2021-04-09 05:31] LABS: Bilirubin Total 0.9 mg/dL (0.2-1.0); Magnesium 2.4 mg/dL (1.8-2.4); Potassium 4.3 mmol/L (3.5-5.1); Protein, Total 6.9 g/dL (6.4-8.2)
[2021-04-09] MEDS: FUROSEMIDE 20 MG TABLET PO SCH (08:33)
[2021-04-09] MEDS: VITAMIN D 1000 UNIT TAB PO SCH (08:33)
[2021-04-09] MEDS: BENZONATATE 100 MG CAP PO PRN (08:34)
[2021-04-09] MEDS: SITAGLIPTIN PHOS 100 MG TAB PO SCH (08:34)
[2021-04-09] MEDS: BARICITINIB 2 MG TABLET PO SCH (08:34)
[2021-04-09] MEDS: INSULIN -REGULAR HUMAN 50 UNIT/0.5 ML ML SQ SCH ×4 (08:34→20:38)
[2021-04-09] MEDS: ASPIRIN EC 81 MG TAB PO SCH (08:34)
[2021-04-09] MEDS: INSULIN GLARGINE 100 UNITS/ML SQ SCH ×2 (08:35→20:38)
[2021-04-09] MEDS: METHYLPREDNISOLONE 40 MG INJ IV SCH ×2 (08:36→20:37)
[2021-04-09] MEDS: RIVAROXABAN 20 MG TABLET PO SCH (16:53)
[2021-04-10 04:45] LABS: Absolute Lymphocytes (CBC) 0.2 K/uL (0.7-4.9); Basophils % 0.3 % (0-1.3); Hematocrit 46.2 % (36.0-45.0); Lymphocytes % 1.4 % (15.3-44.8); MPV 10.1 fL (7.6-11.3); RBC Red Blood Cell Count 5.28 M/uL (3.86-4.86)
[2021-04-10 05:03] LABS: ALT/SGPT 44 U/L (12-78); AST/SGOT 38 U/L (15-37); Albumin 1.9 g/dL (3.4-5.0); Alkaline Phosphatase 155 U/L (45-117); BUN Blood Urea Nitrogen 18 mg/dL (7-18); Bicarbonate 29 mmol/L (21-32); Glucose Level 186 mg/dL (74-106); Magnesium 2.5 mg/dL (1.8-2.4); Protein, Total 6.6 g/dL (6.4-8.2); Sodium Level 138 mmol/L (136-145)
[2021-04-10] MEDS: INSULIN -REGULAR HUMAN 50 UNIT/0.5 ML ML SQ SCH ×4 (08:26→20:20)
[2021-04-10] MEDS: ASPIRIN EC 81 MG TAB PO SCH (08:27)
[2021-04-10] MEDS: METHYLPREDNISOLONE 40 MG INJ IV SCH ×2 (08:27→20:19)
[2021-04-10] MEDS: SITAGLIPTIN PHOS 100 MG TAB PO SCH (08:27)
[2021-04-10] MEDS: INSULIN GLARGINE 100 UNITS/ML SQ SCH ×2 (08:27→20:19)
[2021-04-10] MEDS: FUROSEMIDE 20 MG TABLET PO SCH (08:27)
[2021-04-10] MEDS: VITAMIN D 1000 UNIT TAB PO SCH (08:27)
[2021-04-10] MEDS: BARICITINIB 2 MG TABLET PO SCH (08:28)
--- NOTE | 2021-04-10 08:43 | P.PN ---
Subjective Date of Service: 04/09/21 Chief Complaint: COVID-19 pneumonia Steady improvement, Review of Systems Respiratory: Shortness of Breath Physical Examination - Vital Signs Temperature: 97.0 F Blood Pressure: 98/55 Pulse: 54 Respirations: 21 Pulse Ox (%): 92 - Physical Exam General: Alert, Cooperative Assessment & Plan - Problems (Diagnosis) (1) 2018 novel coronavirus-infected pneumonia (NCIP) Current Visit: Yes Status: Acute Plan: Steady improvment cw weaning downon Fio2 / l;abs reviewed Physician Review Additional Text: COVID: Positive CT Chest: COMPARISON: Chest x-ray performed on 09/13/2019. No additional studies were available for comparison. FINDINGS: There is suboptimal contrast opacification of the pulmonary arteries on this examination. The pulmonary artery trunk and main pulmonary arteries enhance homogeneously. There are no intra-arterial filling defects within these vessels. Evaluation of the segmental and subsegmental pulmonary artery branches is limited for evaluation of pulmonary emboli. The thoracic aorta is normal in caliber and contour without evidence of aneurysm or dissection. The left vertebral artery arises directly from the aortic arch, a normal developmental variant. There also appears to be a common origin of the left common carotid artery and right brachiocephalic artery, a developmental variant. There are groundglass opacities and scattered areas of moderate airspace consolidation throughout both lungs most compatible with multifocal pneumonia. There are no pleural effusions. There is no pneumothorax. The central airways are patent. The heart is normal in size. There is no pericardial effusion. There is no reflux of contrast into the hepatic veins to suggest right heart strain.The RV/LV ratio is within normal limits. There is no evidence of hilar, mediastinal or axillary lymphadenopathy. No acute osseous abnormality is identified. The visualized upper abdominal structures are unremarkable. IMPRESSION: 1. Suboptimal contrast opacification of the pulmonary arteries on this examination. There are no intra-arterial filling defects within the pulmonary artery trunk or main pulmonary arteries. Evaluation of the segmental and subsegmental pulmonary artery branches is limited for evaluation of pulmonary emboli. 2. Groundglass opacities and scattered areas of moderate airspace consolidation throughout both lungs most compatible with multifocal pneumonia. Commonly reported imaging features of (COVID-19 or viral) pneumonia are present. Other processes such as influenza pneumonia and organizing pneumonia, as can be seen with drug toxicity and connective tissue disease, can cause similar imaging pattern. Follow up CXR 04/06/2021: COMPARISON: April 05, 2021 FINDINGS: Mild worsening in extensive bilateral pulmonary opacities. Cardiomegaly IMPRESSION: Mild worsening in extensive bilateral pneumonia Physical exam: General: Alert, In no apparent distress, Oriented x3 HEENT: Neck supple Respiratory: Overall stable. Patient now on high flow at 100%. Patient sitting on her bed. Cardiovascular: Regular rate/rhythm, Normal S1 S2 Gastrointestinal: Normal bowel sounds, No tenderness Musculoskeletal: No tenderness Integumentary: No rashes Neurological: Normal gait, Normal speech, Normal strength at 5/5 x4 extr, Normal tone, Normal affect Lymphatics: No axilla or inguinal lymphadenopathy Assessment: Acute hypoxic respiratory failure secondary to bilateral COVID-19 pneumonia Diabetes mellitus type 2 with hyperglycemia Obesity, BMI 56.3 Plan: Acute hypoxic respiratory failure secondary to bilateral COVID-19 pneumonia: Clinically patient improved. Still on high flow at 100%. CRP and ferritin improved. Continue IV steroid and baricitinib. Continue to monitor liver function test. Encourage incentive spirometer. Encourage proning, lying on her side. Anticipate continued improvement. Discussed the possibility of long-term acute care facility placement. Patient agreeable if insurance allows. I will consult dialysis social worker to help with this. I will turn the service over to the hospitalist team tomorrow. I'll go plan of care with him. Diabetes mellitus type 2 with hyperglycemia: Accu-Cheks in place. Blood sugars remain elevated. Metformin was added during the course of her stay. She has had issues of GI irritation with metformin. She reports some GI irritation today. Therefore we'll discontinue Metformin. Continue Januvia. We'll continue to increase Lantus for better diabetic control. Sliding scale in place. Hemoglobin A1c 12.7. Obesity, BMI 56.3: Continue lifestyle modification education. DVT PPX: Xarelto Code status: Full code Discharge Plan: Long-term acute care facility versus home at discharge
[2021-04-10] MEDS: FLUCONAZOLE 100 MG TAB PO SCH (09:03)
--- NOTE | 2021-04-10 10:59 | RAD REPORT ---
EXAM DESCRIPTION: Dino Single View04/10/2021 10:40 am CLINICAL HISTORY: Pneumonia COMPARISON: April 06, 2021 FINDINGS: Improvement in the diffuse bilateral pulmonary opacities. Heart remains enlarged IMPRESSION: Improvement in the diffuse bilateral pulmonary opacities probably pneumonia
[2021-04-10 11:06] LABS: Blood Gas Oxyhemoglobin 92.6 % (94-97); Blood O2 Saturation 94.4 % (92-98.5)
--- NOTE | 2021-04-10 11:11 | P.PN ---
Subjective Date of Service: 04/08/21 Subjective: No new changes, No C/O voiced, Improving Review of Systems 10-point ROS is otherwise unremarkable Physical Examination - Vital Signs Temperature: 97.0 F Blood Pressure: 98/55 Pulse: 54 Respirations: 21 Pulse Ox (%): 92 - Physical Exam General: Alert, In no apparent distress, Oriented x3 HEENT: Atraumatic, PERRLA, EOMI Neck: Supple, JVD not distended Respiratory: Diminished, Rhonchi/gurgles Cardiovascular: Regular rate/rhythm, Normal S1 S2, No murmurs Gastrointestinal: Normal bowel sounds, Soft and benign, Non-distended, No tenderness Musculoskeletal: No clubbing, No swelling, No tenderness Integumentary: No rashes Neurological: Normal speech, Normal tone, Normal affect Lymphatics: No axilla or inguinal lymphadenopathy - Studies Medications List Reviewed: Yes Assessment & Plan - Problems (Diagnosis) (1) 2019 novel coronavirus-infected pneumonia (NCIP) Current Visit: Yes Status: Acute (2) Diabetes Current Visit: No Status: Chronic - Plan 1. Continue with IV steroids 2. Monitor inflammatory markers 3. Repeat chest x-ray is symptoms are progressively worsening 4. O2 per protocol 5. Pulmonary consultation 6. Continue with albuterol inhaler therapy; also supportive care 7. Monitor LFTs 8. GI and DVT prophylaxis Discharge Plan: Home Plan to discharge in: Greater than 2 days - Advance Directives Does patient have a Living Will: No Does patient have a Durable POA for Healthcare: No - Code Status/Comfort Care Code Status Assessed: Yes Code Status: Full Code Critical Care: No Time Spent Managing PTS Care (In Minutes): 40
--- NOTE | 2021-04-10 11:12 | P.PN ---
Date of Service: 04/09/21 Subjective Patient continues to improve. Oxygen requirements are down to 85%. Review of Systems 10-point ROS is otherwise unremarkable Physical Examination - Vital Signs Reviewed - Physical Exam General: Alert, In no apparent distress, Oriented x3 Respiratory: Diminished, Rhonchi/gurgles Cardiovascular: Regular rate/rhythm, Normal S1 S2, No murmurs Gastrointestinal: Normal bowel sounds, Soft and benign, Non-distended, No tenderness Neurological: Normal speech, Normal tone, Normal affect Assessment & Plan - Problems (Diagnosis) (1) 2019 novel coronavirus-infected pneumonia (NCIP) Current Visit: Yes Status: Acute (2) Diabetes Current Visit: No Status: Chronic - Plan Continue with plan of care as mentioned below: 1. Continue with IV steroids 2. Monitor inflammatory markers 3. Repeat chest x-ray 4. O2 per protocol 5. Pulmonary consultation appreciated 6. Continue with supportive care 7. GI and DVT prophylaxis
--- NOTE | 2021-04-10 11:13 | P.PN ---
Date of Service: 04/10/21 Subjective PATIENT CONTINUES ON AIRVO. PATIENT DOWN 65%. OXYGEN SATURATIONS ARE 92-94%. PATIENT STATES SHE IS FEELING BETTER. CONTINUE TO WEAN DOWN THE OXYGEN REQUIREMENTS. Review of Systems 10-point ROS is otherwise unremarkable Physical Examination - Vital Signs Reviewed - Physical Exam General: Alert, In no apparent distress, Oriented x3 Respiratory: Diminished, Rhonchi/gurgles Cardiovascular: Regular rate/rhythm, Normal S1 S2, No murmurs Gastrointestinal: Normal bowel sounds, Soft and benign, Non-distended, No tenderness Neurological: Normal speech, Normal tone, Normal affect Assessment & Plan - Problems (Diagnosis) (1) 2019 novel coronavirus-infected pneumonia (NCIP) Current Visit: Yes Status: Acute (2) Diabetes Current Visit: No Status: Chronic - Plan Continue with plan of care as mentioned below: 1. Continue with IV steroids 2. CONTINUE TO WEAN DOWN O2 3. REPEAT CHEST X-RAY IF SYMPTOMS WORSEN 4. ARRANGE FOR HOME OXYGEN 5. Pulmonary consultation appreciated 6. Continue with supportive care 7. OUT OF BED AND AMBULATE 8. GI and DVT prophylaxis
[2021-04-10] MEDS: RIVAROXABAN 20 MG TABLET PO SCH (16:24)
[2021-04-10] MEDS: BENZONATATE 100 MG CAP PO PRN (20:19)
[2021-04-11 06:42] LABS: Potassium 4.4 mmol/L (3.5-5.1)
[2021-04-11] MEDS: INSULIN GLARGINE 100 UNITS/ML SQ SCH ×2 (08:13→21:00)
[2021-04-11] MEDS: INSULIN -REGULAR HUMAN 50 UNIT/0.5 ML ML SQ SCH ×4 (08:13→21:00)
[2021-04-11] MEDS: METHYLPREDNISOLONE 40 MG INJ IV SCH ×2 (08:13→21:05)
[2021-04-11] MEDS: SITAGLIPTIN PHOS 100 MG TAB PO SCH (08:14)
[2021-04-11] MEDS: VITAMIN D 1000 UNIT TAB PO SCH (08:14)
[2021-04-11] MEDS: FUROSEMIDE 20 MG TABLET PO SCH (08:14)
[2021-04-11] MEDS: FLUCONAZOLE 100 MG TAB PO SCH (08:14)
[2021-04-11] MEDS: ASPIRIN EC 81 MG TAB PO SCH (08:14)
[2021-04-11] MEDS: BARICITINIB 2 MG TABLET PO SCH (08:15)
[2021-04-11] MEDS: RIVAROXABAN 20 MG TABLET PO SCH (17:10)
[2021-04-12 04:59] LABS: Absolute Lymphocytes (CBC) 0.3 K/uL (0.7-4.9); Basophils % 0.2 % (0-1.3); Hematocrit 48.2 % (36.0-45.0); Lymphocytes % 1.9 % (15.3-44.8); MPV 10.6 fL (7.6-11.3); RBC Red Blood Cell Count 5.47 M/uL (3.86-4.86)
[2021-04-12 05:20] LABS: BUN Blood Urea Nitrogen 21 mg/dL (7-18); Bicarbonate 27 mmol/L (21-32); C-Reactive Protein 5.98 mg/L (<3.00); Ferritin 1027.1 ng/mL (8-388); Glucose Level 256 mg/dL (74-106); Magnesium 2.5 mg/dL (1.8-2.4); NT PRO-BNP 118 pg/mL (<125); Potassium 4.3 mmol/L (3.5-5.1); Sodium Level 138 mmol/L (136-145)
[2021-04-12] MEDS: VITAMIN D 1000 UNIT TAB PO SCH (08:16)
[2021-04-12] MEDS: SITAGLIPTIN PHOS 100 MG TAB PO SCH (08:16)
[2021-04-12] MEDS: ASPIRIN EC 81 MG TAB PO SCH (08:16)
[2021-04-12] MEDS: FUROSEMIDE 20 MG TABLET PO SCH (08:16)
[2021-04-12] MEDS: INSULIN -REGULAR HUMAN 50 UNIT/0.5 ML ML SQ SCH ×4 (08:17→20:12)
[2021-04-12] MEDS: METHYLPREDNISOLONE 40 MG INJ IV SCH (08:17)
[2021-04-12] MEDS: FLUCONAZOLE 100 MG TAB PO SCH (08:17)
[2021-04-12] MEDS: INSULIN GLARGINE 100 UNITS/ML SQ SCH ×2 (08:17→20:12)
[2021-04-12] MEDS: BARICITINIB 2 MG TABLET PO SCH (08:26)
[2021-04-12] MEDS ORDERED: INSULIN 70/30 100 UNITS/ML SQ ONE (17:05)
[2021-04-12] MEDS: RIVAROXABAN 20 MG TABLET PO SCH (17:16)
--- NOTE | 2021-04-12 18:09 | P.PN ---
Date of Service: 04/12/21 Subjective Patient continues to improve with no new complaints. Patient was on room air but her sats did drop into the mid 80s. On 1-2 L patient's oxygen saturations are 91-94%. Review of Systems 10-point ROS is otherwise unremarkable Physical Examination - Vital Signs Reviewed - Physical Exam General: Alert, In no apparent distress, Oriented x3 Respiratory: Diminished, Rhonchi/gurgles Cardiovascular: Regular rate/rhythm, Normal S1 S2, No murmurs Gastrointestinal: Normal bowel sounds, Soft and benign, Non-distended, No tenderness Neurological: Normal speech, Normal tone, Normal affect Assessment & Plan - Problems (Diagnosis) (1) 2019 novel coronavirus-infected pneumonia (NCIP) Current Visit: Yes Status: Acute (2) Diabetes Current Visit: No Status: Chronic - Plan Continue with plan of care as mentioned below: 1. Continue with IV steroids 2. Continue to wean down oxygen 3. Outpatient follow-up 4. Arrange for home oxygen 5. Pulmonary consultation appreciated 6. Continue with supportive care 7. Out of bed and ambulate 8. GI and DVT prophylaxis
[2021-04-12] MEDS: BENZONATATE 100 MG CAP PO PRN (20:11)
[2021-04-12] MEDS ORDERED: METHYLPREDNISOLONE 40 MG INJ IV SCH (21:00)
[2021-04-13 05:39] LABS: BUN Blood Urea Nitrogen 23 mg/dL (7-18); Bicarbonate 27 mmol/L (21-32); C-Reactive Protein 3.61 mg/L (<3.00); Ferritin 1070.4 ng/mL (8-388); Glucose Level 165 mg/dL (74-106); Magnesium 2.5 mg/dL (1.8-2.4); Potassium 4.3 mmol/L (3.5-5.1); Sodium Level 142 mmol/L (136-145)
[2021-04-13] MEDS: INSULIN -REGULAR HUMAN 50 UNIT/0.5 ML ML SQ SCH ×4 (08:21→21:46)
[2021-04-13] MEDS: VITAMIN D 1000 UNIT TAB PO SCH (08:22)
[2021-04-13] MEDS: INSULIN GLARGINE 100 UNITS/ML SQ SCH ×2 (08:22→21:49)
[2021-04-13] MEDS: FLUCONAZOLE 100 MG TAB PO SCH (08:23)
[2021-04-13] MEDS: SITAGLIPTIN PHOS 100 MG TAB PO SCH (08:23)
[2021-04-13] MEDS: ASPIRIN EC 81 MG TAB PO SCH (08:23)
[2021-04-13] MEDS: FUROSEMIDE 20 MG TABLET PO SCH (08:23)
[2021-04-13] MEDS: BARICITINIB 2 MG TABLET PO SCH (08:25)
[2021-04-13] MEDS: BENZONATATE 100 MG CAP PO PRN ×2 (08:27→21:49)
--- NOTE | 2021-04-13 12:50 | P.PN ---
Date of Service: 04/13/21 Subjective Patient is feeling better. She still feels a little tachypneic when she ambulates. She requested 1 more night in the hospital to help with her breathing on ambulation. If her ambulation is better tomorrow morning & I will discharge her home in the morning. Review of Systems 10-point ROS is otherwise unremarkable Physical Examination - Vital Signs Reviewed - Physical Exam General: Alert, In no apparent distress, Oriented x3 Respiratory: Diminished, Rhonchi/gurgles Cardiovascular: Regular rate/rhythm, Normal S1 S2, No murmurs Gastrointestinal: Normal bowel sounds, Soft and benign, Non-distended, No tenderness Neurological: Normal speech, Normal tone, Normal affect Assessment & Plan - Problems (Diagnosis) (1) 2019 novel coronavirus-infected pneumonia (NCIP) Current Visit: Yes Status: Acute (2) Diabetes Current Visit: No Status: Chronic - Plan Continue with plan of care as mentioned below: 1. Change to oral steroids 2. Continue to wean down oxygen; waiting for home oxygen 3. Outpatient follow-up 4. Outpatient pulmonary follow-up 5. Continue with supportive care 6. Out of bed and ambulate 7. GI and DVT prophylaxis
[2021-04-13] MEDS: RIVAROXABAN 20 MG TABLET PO SCH (16:27)
[2021-04-14 04:35] LABS: Hematocrit 48.5 % (36.0-45.0); MPV 10.3 fL (7.6-11.3); RBC Red Blood Cell Count 5.46 M/uL (3.86-4.86)
[2021-04-14 04:36] LABS: Absolute Lymphocytes (CBC) 0.9 K/uL (0.7-4.9); Basophils % 0.3 % (0-1.3)
[2021-04-14 05:06] LABS: BUN Blood Urea Nitrogen 24 mg/dL (7-18); Bicarbonate 30 mmol/L (21-32); Glucose Level 112 mg/dL (74-106); Potassium 4.5 mmol/L (3.5-5.1); Sodium Level 140 mmol/L (136-145)
[2021-04-14 05:08] LABS: C-Reactive Protein < 2.90 mg/L (<3.00)
[2021-04-14 05:18] VITALS: BMI 55.1
[2021-04-14 05:30] LABS: Ferritin 1122.2 ng/mL (8-388)
[2021-04-14] MEDS ORDERED: METHYLPREDNISOLONE 125 MG INJ IV ONE (07:08)
[2021-04-14] MEDS: INSULIN -REGULAR HUMAN 50 UNIT/0.5 ML ML SQ SCH (07:30)
[2021-04-14] MEDS: FLUCONAZOLE 100 MG TAB PO SCH (08:09)
[2021-04-14] MEDS: VITAMIN D 1000 UNIT TAB PO SCH (08:09)
[2021-04-14] MEDS: SITAGLIPTIN PHOS 100 MG TAB PO SCH (08:10)
[2021-04-14] MEDS: ASPIRIN EC 81 MG TAB PO SCH (08:10)
[2021-04-14] MEDS: INSULIN GLARGINE 100 UNITS/ML SQ SCH (08:10)
[2021-04-14] MEDS: BARICITINIB 2 MG TABLET PO SCH (08:12)
[2021-04-14 08:19] VITALS: O2SAT 94
[2021-04-14] MEDS: FUROSEMIDE 20 MG TABLET PO SCH (08:22)
[2021-04-14 08:23] VITALS: BP 94/60
--- NOTE | 2021-04-14 08:47 | P.DS ---
Discharge Date: 04/14/21 Disposition: ROUTINE DISCHARGE Discharge Condition: GOOD Reason for Admission: COVID-19 pneumonia - Problems (1) 2019 novel coronavirus-infected pneumonia (NCIP) Current Visit: Yes Status: Acute (2) Diabetes Current Visit: No Status: Chronic Brief History of Present Illness: Patient presented to the emergency room with tachypnea and hypoxemia. In the emergency room her x-ray showed diffuse infiltrates. She was diagnosed with COVID-19 pneumonia. Hospital Course: Patient is a 50-year-old female came to the hospital with COVID-19 pneumonia. Patient became severely hypoxic and required BiPAP support. She was able to start turning around and we are able to start reducing her oxygen requirements over the course of 2 weeks. She initially went on high-flow for many days. And then she suddenly turned around to were she was needing wall oxygen. She is been doing occasionally well with a room air oxygen. At this time, she is going to get arrange for home oxygen as she does drop her oxygen saturations into the 80s when she is sleeping. She will go home on a tapering dose of prednisone. She is stable for discharge once her oxygen is delivered. She is stable for discharge home. Vital Signs/Physical Exam: Temp Pulse Resp BP Pulse Ox 97.7 F 67 23 H 94/60 83 L 04/14/21 03:56 04/14/21 08:22 04/14/21 00:00 04/14/21 08:22 04/14/21 00:00 Laboratory Data at Discharge: WBC 17.50 K/uL (4.3-10.9) H D 04/14/21 04:27 Hgb 16.0 g/dL (12.0-15.0) H 04/14/21 04:27 Hct 48.5 % (36.0-45.0) H 04/14/21 04:27 Plt Count 285 K/uL (152-406) 04/14/21 04:27 PT 12.9 SECONDS (9.5-12.5) H 04/03/21 00:22 INR 1.12 04/03/21 00:22 Sodium 140 mmol/L (136-145) 04/14/21 04:27 Potassium 4.5 mmol/L (3.5-5.1) 04/14/21 04:27 BUN 24 mg/dL (7-18) H 04/14/21 04:27 Creatinine 0.71 mg/dL (0.55-1.3) 04/14/21 04:27 Glucose 112 mg/dL (74-106) H 04/14/21 04:27 Phosphorus 4.0 mg/dL (2.5-4.9) 04/12/21 04:48 Magnesium 2.5 mg/dL (1.8-2.4) H 04/13/21 05:02 Total Bilirubin 1.0 mg/dL (0.2-1.0) 04/10/21 04:30 AST 38 U/L (15-37) H 04/10/21 04:30 ALT 44 U/L (12-78) 04/10/21 04:30 Alkaline Phosphatase 155 U/L (45-117) H 04/10/21 04:30 Triglycerides 101 mg/dL (<150) 04/04/21 03:05 Cholesterol 79 mg/dL (<200) 04/04/21 03:05 HDL Cholesterol 26 mg/dL (40-60) L 04/04/21 03:05 Cholesterol/HDL Ratio 3.04 04/04/21 03:05 Home Medications: Acyclovir 200 mg PO 5XD 04/03/21 Benzonatate [Tessalon Perle*] 100 mg PO TID PRN #30 cap 04/13/21 Cholecalciferol (Vitamin D3) [Vitamin D 1000 Iu Tab*] 4,000 unit PO DAILY #60 tab 04/13/21 Fluconazole [Diflucan] 150 mg PO DAILY #3 tablet 04/13/21 Furosemide [Lasix*] 20 mg PO DAILY #30 tab 04/13/21 Insulin Glargine Human [Lantus*] 45 units SQ BID #10 ml 04/13/21 Melatonin 5 mg PO BEDTIME PRN PRN #14 tablet 04/13/21 Rivaroxaban [Xarelto] 20 mg PO DAILY #14 tablet 04/13/21 predniSONE [Prednisone*] 20 mg PO BID #20 tab 04/14/21 New Medications: Fluconazole [Diflucan] 150 mg PO DAILY #3 tablet Insulin Glargine Human [Lantus*] 45 units SQ BID #10 ml Furosemide [Lasix*] 20 mg PO DAILY #30 tab Melatonin 5 mg PO BEDTIME PRN PRN #14 tablet PRN Reason: Insomnia predniSONE [Prednisone*] 20 mg PO BID #20 tab Benzonatate [Tessalon Perle*] 100 mg PO TID PRN #30 cap PRN Reason: Cough Cholecalciferol (Vitamin D3) [Vitamin D 1000 Iu Tab*] 4,000 unit PO DAILY #60 tab Rivaroxaban [Xarelto] 20 mg PO DAILY #14 tablet Physician Discharge Instructions: OK TO DC IV AND DC HOME once home oxygen is delivered FOLLOW-UP WITH PRIMARY CARE PROVIDER IN 1-2 WEEKS Follow-up with Pulmonary in 1-2 weeks RETURN TO THE ER IF symptoms worsen CALL or TEXT DR. IVORY AT [phone] IF ANY QUESTIONS REGARDING HOSPITAL STAY. PLEASE CALL THE FLOOR AT [phone] IF ANY MEDICATION OR NURSING QUESTIONS. Diet: AHA Activity: Fall precautions Followup: NONE,NONE [Primary Care Provider] -
--- NOTE | 2021-04-14 08:51 | RAD REPORT ---
EXAM DESCRIPTION: Dino Single View04/14/2021 6:31 am CLINICAL HISTORY: Chest pain COMPARISON: April 13, 2021 FINDINGS: Worsening in extensive bilateral pulmonary opacities. The. The heart remains enlarged IMPRESSION: Worsening extensive bilateral pulmonary opacities which may represent pneumonia
[2021-04-14] MEDS ORDERED: predniSONE 20 MG TAB PO SCH (09:00)
[2021-04-14 09:58] VITALS: TEMP 96.7
--- OUTSIDE RECORDS SUMMARY | 2021-04-19 15:42 | XMS REPORT | Continuity of Care Document ---
:1970 Author Organization [facility] t Address [address] [place] [address] Care Team Providers Name Role Phone Unavailable Unavailable Unavailable Problems This patient has no known problems. Allergies, Adverse Reactions, Alerts This patient has no known allergies or adverse reactions. Medications Ordered Filled Start Stop Current Ordering Indication Dosage Frequency Signature Comments Components Source Medication Medication Date Date Medication? Clinician (SIG) Name Name Metformin Metformin Yes Na De Souza [address] [facility] HCl HCl with meals [facility] Procedures This patient has no known procedures. Encounters Start End Encounter Admission Attending Care Care Encounter Source Date/Time Date/Time Type Type Clinicians Facility Department ID 2021-04-01 2021-04-01 ambulatory [facility] [id number] [facility]00 [facility] 2019-08-25 2019-08-25 [facility] [id number] [facility] 13:19:00 13:19:00 [facility] l Medicine Outpati ent Clinics 2019-08-02 2019-08-02 [facility] [id number] [facility] 15[facility]05:00 15:05:00 [employer] [facility] Medicine l Medicine Outpati ent Clinics 2019-08-01 2019-08-01 [facility] [id number] [facility] 09:53:00 09:53:00 [facility] Medicine l Medicine Outpati ent Clinics 2019-04-28 2019-04-28 [facility] [id number] 09:40:00 09:40:[address] [facility] - Drive [facility] Medicine Outpati ent Clinics 2019-04-05 2019-04-05 [facility] [id number] 09:40:00 09:40:[address] [place] [address] - Drive [facility] Medicine Outpati ent Clinics 2019-02-08 2019-02-08 [facility] [id number] [facility] 11:36:00 11:36:[address] [place] [address] - Drive [facility] Medicine Outpati ent Clinics 2019-01-25 2019-01-25 [facility] [id number] [facility] 16:44:00 16:44:[address] [employer] s - Drive [facility] Medicine Outpati ent Clinics 2018-12-15 2018-12-15 [facility] [id number] 10:34:00 10:34:00 t [facility] s Road [facility] Medicine Outpati ent Clinics 2018-12-14 2018-12-14 [facility] [id number] 11:20:00 11:20:00 [place] [employer] - Drive [facility] Medicine Outpati ent Clinics 2018-01-14 2018-01-14 [facility] [id number] [facility] [address] 10:00:00 10:00:00 [place] [employer] [employer] - Drive [facility] Medicine Outpati ent Clinics 2017-11-17 2017-11-17 [facility] [id number] [facility] 15:00:00 15:00:00 [place] [employer] [employer] - Drive [facility] Medicine Outpati ent Clinics Results This patient has no known results.
== END 2021-04-14 11:10 | disposition home or self-care (01) | DRG 177 ==
LOC: ER 00:03 → ERHOLD 00:19 → 4TH 05:17 → 3RD-ICU 04-06 15:37
PROVIDERS: ADMIT Family Medicine; ATTEND Hospitalist
PROC: XW0DXM6 Introduction of Baricitinib into Mouth and Pharynx, External Approach, New Technology Group 6 (ICD-10-PCS; principal; 2021-04-03)
PROC: 5A09557 Assistance with Respiratory Ventilation, Greater than 96 Consecutive Hours, Continuous Positive Airway Pressure (ICD-10-PCS; 2021-04-03)
DX: U07.1 COVID-19 (principal); J12.82 Pneumonia due to coronavirus disease 2019; J96.01 Acute respiratory failure with hypoxia; Z68.43 Body mass index [BMI] 50.0-59.9, adult; E66.01 Morbid (severe) obesity due to excess calories; E11.65 Type 2 diabetes mellitus with hyperglycemia; Z79.84 Long term (current) use of oral hypoglycemic drugs; Z79.4 Long term (current) use of insulin; Z79.899 Other long term (current) drug therapy; Z60.2 Problems related to living alone; Z79.52 Long term (current) use of systemic steroids
CPT/HCPCS: 36415; 71045; 71275; 80048; 80053; 80061; 80076; 81003; 81025; 82728; 82805; 82947; 83036; 83735; 83880; 84100; 84439; 84443; 84484; 85025; 85379; 85610; 86140; 93005; 94002; 94003; 94010; 94660; 94760; 96374; 97116; 97161; 97530; 99285; J1100; J1650; J1815; J2405; J2920; J2930; J7512; Q9967

== ENCOUNTER 2021-09-26 16:52 | Emergency (ER) | payer OTHER ==
--- OUTSIDE RECORDS SUMMARY | 2021-09-26 16:55 | XMS REPORT | Continuity of Care Document ---
:1970 Author Organization [facility] t Address [address] [place] [address] Care Team Providers Name Role Phone Renuka De Souza Attending Clinician Unavailable Problems This patient has no known problems. Allergies, Adverse Reactions, Alerts This patient has no known allergies or adverse reactions. Medications Ordered Filled Start Stop Current Ordering Indication Dosage Frequency Signature Comments Components Source Medication Medication Date Date Medication? Clinician (SIG) Name Name Metformin Metformin Yes Na Nolvia [address] [facility] HCl HCl with meals [facility] Procedures This patient has no known procedures. Encounters Start End Encounter Admission Attending Care Care Encounter Source Date/Time Date/Time Type Type Clinicians Facility Department ID 2021-09-04 Outpatient De Souza[facility] [id number] [facility] 06:35[facility]00 [id number] [facility] 2021-08-27 Outpatient De Souza, Na STLMLC [facility] [id number] [facility] [facility] 11:16:00 [id number] [facility] 2021-07-03 Outpatient De Souza, Na STLMLC [facility] [id number] [facility] 14:21:33 [id number] [facility] 2021-07-03 Outpatient Nolvia Na STLMLC [facility] [id number] [facility] 11:08:47 [id number] [facility] 2021-07-03 Outpatient De Souza, Na STLMLC [facility] [id number] [facility] 11:07:47 [id number] [facility] 2021-09-23 2021-09-23 ambulatory [facility]C [facility] [id number] [facility] 2021-09-03 2021-09-03 ambulatory [facility]MLC [facility] [id number] [facility] 2021-07-12 2021-07-12 ambulatory [facility]LMLC [facility] [id number] [facility]00 [facility] 2021-07-10 2021-07-10 ambulatory [facility]LMLC [facility] [id number] [facility] 2021-06-28 2021-06-28 ambulatory [facility]LMLC [facility] [id number] [facility]00 [facility] 2021-06-05 2021-06-05 ambulatory [facility]LMLC [facility] [id number] [facility]00 [facility] 2021-05-15 2021-05-15 ambulatory [facility]LMLC [facility] [id number] [facility]00 [facility] 2021-05-14 2021-05-14 ambulatory [facility]LMLC [facility] [id number] [facility]00 [facility] 2021-05-14 2021-05-14 ambulatory [facility]LMLC [facility] [id number] [facility]00 [facility] 2021-04-01 2021-04-01 ambulatory [facility]LMLC [facility] [id number] [facility]00 [facility] 2019-08-25 2019-08-25 [facility] [id number] [facility] 13:19:00 13:19:00 t [facility] [place] Medicine Outpati ent Clinics 2019-08-02 2019-08-02 [facility] [id number] 15:05:00 15:05:00 t [place] [employer] - Drive [facility] l Medicine Outpati ent Clinics 2019-08-01 2019-08-01 [facility] [id number] [facility] 09:53:00 09:53:00 t [place] [employer] - Drive [facility] Medicine l Medicine Outpati ent Clinics 2019-04-28 2019-04-28 [facility] [id number] [address] 09:40:00 09:40:00 t [place] PD[employer] s - Drive [facility] Medicine Outpati ent Clinics 2019-04-05 2019-04-05 [facility] [id number] 09:40:00 09:40:00 t [place] ATEME [employer] - Drive [facility] Medicine Outpati ent Clinics 2019-02-08 2019-02-08 [facility] [id number] 11:36:00 11:36:00 t [place] PD[employer] s - Drive [facility] Medicine Outpati ent Clinics 2019-01-25 2019-01-25 [facility] [id number] [address] 16:44:00 16:44:00 t [place] PD[employer] s - Drive [facility] Medicine Outpati ent Clinics 2018-12-15 2018-12-15 [facility] [id number] 10:34:00 10:34:00 t [facility] [employer] [facility] [employer] [facility] Medicine Outpati ent Clinics 2018-12-14 2018-12-14 [facility] [id number] 11:20:00 11:20:00 t [place] PD[employer] s - Drive [facility] Medicine Outpati ent Clinics 2018-01-14 2018-01-14 [facility] [id number] [facility] 10:00:00 10:00:00 t [place] [employer] - Drive [facility] Medicine Medicine Outpati ent Clinics 2017-11-17 2017-11-17 [facility] [id number] 15:00:00 15:00:00 t [place] [email or web address] [facility] Family Medicine Medicine Outpati ent Clinics Results This patient has no known results.
--- NOTE | 2021-09-26 17:33 | ER ---
Nurse's Notes [facility] Name: Roxana Wheeler Age: 51 yrs Sex: Female : 1970 Arrival Date: 09/26/2021 Time: 16:53 Bed 8 Private MD: Renuka De Souza Diagnosis: Type 2 diabetes mellitus with diabetic neuropathy, unspecified Presentation: 09/26 17:10 Chief complaint: Patient states: left elbow pain - comes and goes. Denies injury. ld1 Coronavirus screen: At this time, the client does not indicate any symptoms associated with coronavirus-19. Ebola Screen: No symptoms or risks identified at this time. Initial Sepsis Screen: Does the patient meet any 2 criteria? No. Patient's initial sepsis screen is negative. Does the patient have a suspected source of infection? No. Patient's initial sepsis screen is negative. Risk Assessment: Do you want to hurt yourself or someone else? Patient reports no desire to harm self or others. Onset of symptoms was September 26, 2021. 17:10 Method Of Arrival: Ambulatory ld1 17:10 Acuity: FREDERIC 4 ld1 Triage Assessment: 17:11 General: Appears in no apparent distress. comfortable, Behavior is calm, cooperative, ld1 appropriate for age. Pain: Complains of pain in left arm Pain does not radiate. Pain currently is 6 out of 10 on a pain scale. Quality of pain is described as throbbing. EENT: No signs and/or symptoms were reported regarding the EENT system. Neuro: Level of Consciousness is awake, alert, obeys commands, Oriented to person, place, time, situation. Cardiovascular: Capillary refill < 3 seconds Patient's skin is warm and dry. Respiratory: Airway is patent Respiratory effort is even, unlabored. Historical: - Allergies: 17:11 No Known Allergies; ld1 - PMHx: 17:11 Diabetes - NIDDM; Diabetes mellitus; ld1 - PSHx: 17:11 None; ld1 - Immunization history:: Adult Immunizations up to date, Client reports receiving the 2nd dose of the Covid vaccine. - Social history:: Smoking status: Patient denies any tobacco usage or history of. Patient/guardian denies using alcohol. - Family history:: not pertinent. Screenin:10 Abuse screen: Denies threats or abuse. Nutritional screening: No deficits noted. aa5 Tuberculosis screening: No symptoms or risk factors identified. Fall Risk None identified. Assessment: 17:10 General: Appears comfortable, Behavior is calm, cooperative. Pain: Complains of pain in aa5 left little finger and left ring finger Pain radiates to left elbow Pain currently is 3 out of 10 on a pain scale. Quality of pain is described as tingling, numb, Is intermittent. Neuro: Level of Consciousness is awake, alert, obeys commands, Oriented to person, place, time, situation. Cardiovascular: Heart tones S1 S2 present Rhythm is regular. Respiratory: Airway is patent Respiratory effort is even, unlabored, Respiratory pattern is regular, symmetrical. GI: No signs and/or symptoms were reported involving the gastrointestinal system. : No signs and/or symptoms were reported regarding the genitourinary system. EENT: No signs and/or symptoms were reported regarding the EENT system. Derm: Skin is pink, warm \T\ dry. Musculoskeletal: Range of motion: intact in all extremities. 17:49 Reassessment: Patient is alert, oriented x 3, equal unlabored respirations, skin aa5 warm/dry/pink. Vital Signs: 17:10 BP 136 / 95; Pulse 86; Resp 18; Temp 98.3(TE); Pulse Ox 100% on R/A; Weight 133.81 kg; ld1 Height 5 ft. 5 in. (165.10 cm); Pain 3/10; 17:40 BP 118 / 72; Pulse 82; Resp 16 S; Pulse Ox 100% on R/A; aa5 17:10 Body Mass Index 49.09 (133.81 kg, 165.10 cm) ld1 ED Course: 16:53 Patient arrived in ED. am2 16:54 Renuka De Souza MD is Private Physician. am2 17:04 Verona Moody MD is Attending Physician. ma2 17:05 Nicole Roe, PATRICIA is Primary Nurse. aa5 17:11 Triage completed. ld1 17:11 Arm band placed on right wrist. ld1 17:11 Patient has correct armband on for positive identification. Bed in low position. Call aa5 light in reach. Side rails up X 1. 17:49 No provider procedures requiring assistance completed. Patient did not have IV access aa5 during this emergency room visit. Administered Medications: No medications were administered Outcome: 17:33 Discharge ordered by . lizzie 17:49 Discharged to home ambulatory. aa5 17:49 Condition: stable 17:49 Discharge instructions given to patient, Instructed on discharge instructions, follow up and referral plans. medication usage, Demonstrated understanding of instructions, follow-up care, medications, Prescriptions given X 1. 17:50 Patient left the ED. aa5 Signatures: Nicole Roe RN RN aa5 Jailene Ellis Mohammad, MD MD ma2 Kasia Bailey RN RN ld1
--- NOTE | 2021-09-26 17:33 | EDPHYS ---
Physician Documentation [facility] Name: Roxana Wheeler Age: 51 yrs Sex: Female : 1970 Arrival Date: 09/26/2021 Time: 16:53 Bed 8 Private MD: Renuka De Souza ED Physician Verona Moody HPI: 09/26 17:31 This 51 yrs old Female presents to ER via Ambulatory with complaints of left ma2 elbow pain, Numbness Of Arm. 17:31 -year-old female, with history of diabetes history of peripheral neuropathy, presents ma2 with left elbow pain that radiates to the left fifth and fourth finger, distally, she described as numbing and [id number] similar to her other peripheral neuropathy. The symptom is intermittent mostly at night has been there for 2 months. No symptom at this time. Historical: - Allergies: 17:11 No Known Allergies; ld1 - PMHx: 17:11 Diabetes - NIDDM; Diabetes mellitus; ld1 - PSHx: 17:11 None; ld1 - Immunization history:: Adult Immunizations up to date, Client reports receiving the 2nd dose of the Covid vaccine. - Social history:: Smoking status: Patient denies any tobacco usage or history of. Patient/guardian denies using alcohol. - Family history:: not pertinent. ROS: 17:31 Constitutional: Negative for fever, chills, and weight loss. ma2 17:31 All other systems are negative. Exam: 17:31 Constitutional: This is a well developed, well nourished patient who is awake, alert, ma2 and in no acute distress. Head/Face: Normocephalic, atraumatic. Eyes: Pupils equal round and reactive to light, extra-ocular motions intact. Lids and lashes normal. Conjunctiva and sclera are non-icteric and not injected. Cornea within normal limits. Periorbital areas with no swelling, redness, or edema. ENT: Nares patent. No nasal discharge, no septal abnormalities noted. Tympanic membranes are normal and external auditory canals are clear. Oropharynx with no redness, swelling, or masses, exudates, or evidence of obstruction, uvula midline. Mucous membranes moist. Neck: Trachea midline, no thyromegaly or masses palpated, and no cervical lymphadenopathy. Supple, full range of motion without nuchal rigidity, or vertebral point tenderness. No Meningismus. Chest/axilla: Normal chest wall appearance and motion. Nontender with no deformity. No lesions are appreciated. Cardiovascular: Regular rate and rhythm with a normal S1 and S2. No gallops, murmurs, or rubs. Normal PMI, no JVD. No pulse deficits. Respiratory: Lungs have equal breath sounds bilaterally, clear to auscultation and percussion. No rales, rhonchi or wheezes noted. No increased work of breathing, no retractions or nasal flaring. Abdomen/GI: Soft, non-tender, with normal bowel sounds. No distension or tympany. No guarding or rebound. No evidence of tenderness throughout. Back: No spinal tenderness. No costovertebral tenderness. Full range of motion. Skin: Warm, dry with normal turgor. Normal color with no rashes, no lesions, and no evidence of cellulitis. MS/ Extremity: Pulses equal, no cyanosis. Neurovascular intact. Full, normal range of motion. Neuro: Awake and alert, GCS 15, oriented to person, place, time, and situation. Cranial nerves II-XII grossly intact. Motor strength 5/5 in all extremities. Sensory grossly intact. Cerebellar exam normal. Normal gait. Vital Signs: 17:10 BP 136 / 95; Pulse 86; Resp 18; Temp 98.3(TE); Pulse Ox 100% on R/A; Weight 133.81 kg; ld1 Height 5 ft. 5 in. (165.10 cm); Pain 3/10; 17:40 BP 118 / 72; Pulse 82; Resp 16 S; Pulse Ox 100% on R/A; aa5 17:10 Body Mass Index 49.09 (133.81 kg, 165.10 cm) ld1 MDM: 17:04 Patient medically screened. ma2 17:31 Differential diagnosis: Likely a ulnar nerve neuropathy, versus muscle sprain versus ma2 tendinitis. Data reviewed: vital signs, nurses notes. Counseling: I had a detailed discussion with the patient and/or guardian regarding: the historical points, exam findings, and any diagnostic results supporting the discharge/admit diagnosis, the presence of at least one elevated blood pressure reading (>120/80) during this emergency department visit, the need for outpatient follow up. Response to treatment: the patient's symptoms have markedly improved after treatment. Administered Medications: No medications were administered Disposition Summary: 09/26/21 17:33 Discharge Ordered Location: Home ma2 Condition: Stable ma2 Diagnosis - Type 2 diabetes mellitus with diabetic neuropathy, unspecified ma2 Followup: ma2 - With: Private Physician - When: Tomorrow - Reason: Recheck today's complaints, Continuance of care Discharge Instructions: - Discharge Summary Sheet ma2 - Type 2 Diabetes Mellitus, Diagnosis, Adult ma2 - Neuropathic Pain ma2 Forms: - Medication Reconciliation Form ma2 - Thank You Letter ma2 - Antibiotic Education ma2 - Prescription Opioid Use ma2 Prescriptions: - NEURONTIN - take 100 milligram by ORAL route 1-3 times daily; 30 tablet; Refills: 0, ma2 Product Selection Permitted Signatures: Verona Moody MD MD ma2 Kasia Bailey RN RN ld1
[2021-09-26 17:55] VITALS: TEMP 98.3; O2SAT 100
[2021-09-26 17:56] VITALS: BP 118/72
== END 2021-09-26 17:50 | disposition home or self-care (01) ==
LOC: ER 16:52
DX: E11.40 Type 2 diabetes mellitus with diabetic neuropathy, unspecified (principal)
CPT/HCPCS: 99282

== ENCOUNTER 2024-05-15 20:42 | Inpatient (IN) | payer OTHER ==
--- OUTSIDE RECORDS SUMMARY | 2024-05-15 20:45 | XMS REPORT | Continuity of Care Document ---
Author Name Unknown Address [address] [facility] [address] [place] [address] [facility] thconnect Address [address] [facility] [address] [place] [address] Care Team Providers Care Type Copyist Name Role Phone Renuka De Souza Attending Clinician Unavailable [email or web address]_S Attending Clinician Unavaila ble [email or web address]_S Admitting Clinician Unavaila ble Payers Payer Name Policy Type Policy Number Effective Date Expirati on Date Source Beatrice from [facility] [id number] 2019 00:00:00 [facility] Problems Condition Name Condition Details Condition Category Status Onset Date Resolution Date Last Treatment Date Treating Clinician Comments Source [id number] Hyperlipid emia, unspecifie d Problem [facility] [id number] Neuropathy Problem Com [facility] [id number] Body mass index [BMI] 50.0-59.9, adult Problem [facility] Congenital pes planus Congenital pes planus, unspecifie d foot Problem [facility] Obese Obese Problem [facility] Morbid obesity Morbid (severe) obesity due to excess calories Problem [facility] Diabetes mellitus without complicati on Diabetes Problem [facility] Fatty liver Fatty liver Problem [facility] [id number] Uncontroll ed type 2 diabetes mellitus without complicati on, without long-term current use of insulin Problem [facility] Uterine polyp Uterine polyp Problem [facility] [id number] Seasonal allergic rhinitis, unspecifie d trigger Problem [facility] [id number] Body aches Problem Comm on [facility] [id number] Acute sinusitis, unspecifie d Problem [facility] [id number] Current use of insulin Problem [facility] Elevated liver enzymes level Elevated liver enzymes Problem [facility] Polyneurop athy due to type 2 diabetes mellitus Diabetic polyneurop athy associated with type 2 diabetes mellitus Problem [facility] [id number] Right foot pain Problem [facility] [id number] Other specified bacterial agents as the cause of diseases classified elsewhere Problem [facility] [id number] Abscess of skin of abdomen Problem [facility] [id number] 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 Ordering Clinician Indication Dosage Frequency Signature (SIG) Comments Components Source Fluconazole 150 MG Fluconazole 150 MG 01-01 00:00: 00 01-02 00:00 :00 No 1{table t} Fluconazol e 150 MG Amitriptyli ne HCl 25 MG Amitriptyli ne HCl 25 MG 11-11 00:00: 00 No 1{table t_at_be dtime} QD Amitriptyl ine HCl 25 MG Amitriptyli ne HCl 25 MG Amitriptyli ne HCl 25 MG 2022-0 6-06 00:00: 00 No 1{table t_at_be dtime} QD Amitriptyl ine HCl 25 MG Lyrica 75 MG Lyrica 75 MG 2021-0 5-25 00:00: 00 No 1{capsu le} BID Lyrica 75 MG Benzonatate 100 MG Benzonatate 100 MG 2021-0 2-04 00:00: 00 18 00:00 :00 No 1{capsu le_as_n eeded} Benzonatat e 100 MG Amoxicillin -Pot Clavulanate 875-125 MG Amoxicillin -Pot Clavulanate 875-125 MG 2021-0 2-04 00:00: 00 14 00:00 :00 No 1{table t} BID Amoxicilli n-Pot Clavulanat e 875-125 MG predniSONE 20 MG predniSONE 20 MG 2021-0 2-04 00:00: 00 07-17 00:00 :00 No QD predniSONE 20 MG Glimepiride 4 MG Glimepiride 4 MG 2021-0 1-21 00:00: 00 No BID Glimepirid e 4 MG Glimepiride 4 MG Glimepiride 4 MG 2021-0 1-21 00:00: 00 No BID Glimepirid e 4 MG Benzonatate 100 MG Benzonatate 100 MG 2021-0 1-05 00:00: 00 06-27 00:00 :00 No BID Benzonatat e 100 MG Tresiba FlexTouch 200 UNIT/ML Tresiba FlexTouch 200 UNIT/ML 2020-06 2- 00:00: 00 No QD Tresiba FlexTouch 200 UNIT/ML Atorvastati n Calcium 20 MG Atorvastati n Calcium 20 MG 2020-06 00:00: 00 No 1{table t} QD Atorvastat in Calcium 20 MG Atorvastati n Calcium 20 MG Atorvastati n Calcium 20 MG 2020-06 00:00: 00 No 1{table t} QD Atorvastat in Calcium 20 MG Tresiba FlexTouch 200 UNIT/ML Tresiba FlexTouch 200 UNIT/ML 2020-06 00:00: 00 No QD Tresiba FlexTouch 200 UNIT/ML Atorvastati n Calcium 20 MG Atorvastati n Calcium 20 MG 2020-06 00:00: 00 No 1{table t} QD Atorvastat in Calcium 20 MG Xarelto 20 MG Xarelto 20 MG 2020-06 00:00: 00 No 1{table t_with_ food} QD Xarelto 20 MG NovoFine Plus Pen Needle 32G X 4 MM NovoFine Plus Pen Needle 32G X 4 MM 2020-06 00:00: 00 No NovoFine Plus Pen Needle 32G X 4 MM NovoFine Plus Pen Needle 32G X 4 MM NovoFine Plus Pen Needle 32G X 4 MM 2020-06 00:00: 00 No NovoFine Plus Pen Needle 32G X 4 MM NovoFine Plus Pen Needle 32G X 4 MM NovoFine Plus Pen Needle 32G X 4 MM 2020-06 00:00: 00 No NovoFine Plus Pen Needle 32G X 4 MM Triamcinolo ne Acetonide 0.1 % Triamcinolo ne Acetonide 0.1 % 12-15 00:00: 00 No 1{appli cation_ to_affe cted_ar ea} BID Triamcinol one Acetonide 0.1 % Triamcinolo ne Acetonide 0.1 % Triamcinolo ne Acetonide 0.1 % 12-15 00:00: 00 No 1{appli cation_ to_affe cted_ar ea} BID Triamcinol one Acetonide 0.1 % Triamcinolo ne Acetonide 0.1 % Triamcinolo ne Acetonide 0.1 % 12-15 00:00: 00 No 1{appli cation_ to_affe cted_ar ea} BID Triamcinol one Acetonide 0.1 % Triamcinolo ne Acetonide 0.1 % Triamcinolo ne Acetonide 0.1 % 12-15 00:00: 00 No 1{appli cation_ to_affe cted_ar ea} BID Triamcinol one Acetonide 0.1 % Flonase 50 MCG/ACT Flonase 50 MCG/ACT 01-14 00:00: 00 No 2{spray _in_eac h_nostr il} QD Flonase 50 MCG/ACT Cetirizine HCl 10 MG Cetirizine HCl 10 MG 01-14 00:00: 00 No 1{table t} QD Cetirizine HCl 10 MG Flonase 50 MCG/ACT Flonase 50 MCG/ACT 01-14 00:00: 00 No 2{spray _in_eac h_nostr il} QD Flonase 50 MCG/ACT Cetirizine HCl 10 MG Cetirizine HCl 10 MG 01-14 00:00: 00 No 1{table t} QD Cetirizine HCl 10 MG Flonase 50 MCG/ACT Flonase 50 MCG/ACT 01-14 00:00: 00 No 2{spray _in_eac h_nostr il} QD Flonase 50 MCG/ACT Cetirizine HCl 10 MG Cetirizine HCl 10 MG 01-14 00:00: 00 No 1{table t} QD Cetirizine HCl 10 MG Cetirizine HCl 10 MG Cetirizine HCl 10 MG 01-14 00:00: 00 No 1{table t} QD Cetirizine HCl 10 MG Cetirizine HCl 10 MG Cetirizine HCl 10 MG 01-14 00:00: 00 No 1{table t} QD Cetirizine HCl 10 MG Flonase 50 MCG/ACT Flonase 50 MCG/ACT 01-14 00:00: 00 No 2{spray _in_eac h_nostr il} QD Flonase 50 MCG/ACT Metformin HCl Metformin HCl Yes Na De Souza 1 tablet with meals [facility] Diflucan 150 MG Diflucan 150 MG No 1{table t} Diflucan 150 MG Nasacort Allergy 24HR 55 MCG/ACT [facility]ort Allergy 24HR 55 MCG/ACT No 1{puff_ in_each _nostri l} QD [facility] Allergy 24HR 55 MCG/ACT ZyrTEC Allergy 10 MG ZyrTEC Allergy 10 MG No 1{table t} QD ZyrTEC Allergy 10 MG Furosemide 40 MG Furosemide 40 MG No 1{table t} Furosemide 40 MG Gabapentin 300 MG Gabapentin 300 MG No Gabapentin 300 MG Duexis 800-26.6 MG Duexis 800-26.6 MG No 1{table t} TID Duexis 800-26.6 MG Xarelto Starter Pack 15 & 20 MG Xarelto Starter Pack 15 & 20 MG No QD Xarelto Starter Pack 15 & 20 MG Doxycycline Hyclate 100 MG Doxycycline Hyclate 100 MG No 1{capsu le} BID Doxycyclin e Hyclate 100 MG metFORMIN HCl 1000 MG metFORMIN HCl 1000 MG No 1{table t_with_ meals} BID metFORMIN HCl 1000 MG Lantus SoloStar 100 UNIT/ML Lantus SoloStar 100 UNIT/ML No QD Lantus SoloStar 100 UNIT/ML Zithromax Z-Mario Alberto 250 MG Zithromax Z-Mario Alberto 250 MG No QD Zithromax Z-Mario Alberto 250 MG Basaglar KwikPen 100 UNIT/ML Basaglar KwikPen 100 UNIT/ML No QD Basaglar KwikPen 100 UNIT/ML Bactrim DS 800-160 MG Bactrim DS 800-160 MG No 1{table t} BID Bactrim DS 800-160 MG Potassium Chloride ER 20 MEQ Potassium Chloride ER 20 MEQ No Potassium Chloride ER 20 MEQ Potassium Chloride ER 20 MEQ Potassium Chloride ER 20 MEQ No Potassium Chloride ER 20 MEQ Furosemide 40 MG Furosemide 40 MG No 1{table t} Furosemide 40 MG Duexis 800-26.6 MG Duexis 800-26.6 MG No 1{table t} TID Duexis 800-26.6 MG ZyrTEC Allergy 10 MG ZyrTEC Allergy 10 MG No 1{table t} QD ZyrTEC Allergy 10 MG Bactrim DS 800-160 MG Bactrim DS 800-160 MG No 1{table t} BID Bactrim DS 800-160 MG Nasacort Allergy 24HR 55 MCG/ACT Nas[facility]ort Allergy 24HR 55 MCG/ACT No 1{puff_ in_each _nostri l} QD [facility]ort Allergy 24HR 55 MCG/ACT Basaglar KwikPen 100 UNIT/ML Basaglar KwikPen 100 UNIT/ML No QD Basaglar KwikPen 100 UNIT/ML metFORMIN HCl 1000 MG metFORMIN HCl 1000 MG No 1{table t_with_ meals} BID metFORMIN HCl 1000 MG Zithromax Z-Mario Alberto 250 MG Zithromax Z-Mario Alberto 250 MG No QD Zithromax Z-Mario Alberto 250 MG Xarelto 20 MG Xarelto 20 MG No 1{table t_with_ food} QD Xarelto 20 MG Diflucan 150 MG Diflucan 150 MG No 1{table t} Diflucan 150 MG Xarelto Starter Pack 15 & 20 MG Xarelto Starter Pack 15 & 20 MG No QD Xarelto Starter Pack 15 & 20 MG Gabapentin 300 MG Gabapentin 300 MG No Gabapentin 300 MG Doxycycline Hyclate 100 MG Doxycycline Hyclate 100 MG No 1{capsu le} BID Doxycyclin e Hyclate 100 MG Basaglar KwikPen 100 UNIT/ML Basaglar KwikPen 100 UNIT/ML No QD Basaglar KwikPen 100 UNIT/ML Furosemide 40 MG Furosemide 40 MG No 1{table t} Furosemide 40 MG Duexis 800-26.6 MG Duexis 800-26.6 MG No 1{table t} TID Duexis 800-26.6 MG Diflucan 150 MG Diflucan 150 MG No 1{table t} Diflucan 150 MG Zithromax Z-Mario Alberto 250 MG Zithromax Z-Mario Alberto 250 MG No QD Zithromax Z-Mario Alberto 250 MG ZyrTEC Allergy 10 MG ZyrTEC Allergy 10 MG No 1{table t} QD ZyrTEC Allergy 10 MG Bactrim DS 800-160 MG Bactrim DS 800-160 MG No 1{table t} BID Bactrim DS 800-160 MG Potassium Chloride ER 20 MEQ Potassium Chloride ER 20 MEQ No Potassium Chloride ER 20 MEQ Glimepiride 4 MG Glimepiride 4 MG No BID Glimepirid e 4 MG Nasacort Allergy 24HR 55 MCG/ACT [facility]ort Allergy 24HR 55 MCG/ACT No 1{puff_ in_each _nostri l} QD [facility] Allergy 24HR 55 MCG/ACT Gabapentin 300 MG Gabapentin 300 MG No Gabapentin 300 MG Doxycycline Hyclate 100 MG Doxycycline Hyclate 100 MG No 1{capsu le} BID Doxycyclin e Hyclate 100 MG metFORMIN HCl 1000 MG metFORMIN HCl 1000 MG No 1{table t_with_ meals} BID metFORMIN HCl 1000 MG True Metrix Blood Glucose Test - True Metrix Blood Glucose Test - No True Metrix Blood Glucose Test - Diflucan 150 MG Diflucan 150 MG No 1{table t} Diflucan 150 MG Zithromax Z-Mario Alberto 250 MG Zithromax Z-Mario Alberto 250 MG No QD Zithromax Z-Mario Alberto 250 MG Potassium Chloride ER 20 MEQ Potassium Chloride ER 20 MEQ No Potassium Chloride ER 20 MEQ Atorvastati n Calcium 20 MG Atorvastati n Calcium 20 MG No 1{table t} QD Atorvastat in Calcium 20 MG Furosemide 40 MG Furosemide 40 MG No 1{table t} Furosemide 40 MG Doxycycline Hyclate 100 MG Doxycycline Hyclate 100 MG No 1{capsu le} BID Doxycyclin e Hyclate 100 MG Bactrim DS 800-160 MG Bactrim DS 800-160 MG No 1{table t} BID Bactrim DS 800-160 MG Basaglar KwikPen 100 UNIT/ML Basaglar KwikPen 100 UNIT/ML No QD Basaglar KwikPen 100 UNIT/ML Glimepiride 4 MG Glimepiride 4 MG No BID Glimepirid e 4 MG ZyrTEC Allergy 10 MG ZyrTEC Allergy 10 MG No 1{table t} QD ZyrTEC Allergy 10 MG True Metrix Blood Glucose Test - True Metrix Blood Glucose Test - No True Metrix Blood Glucose Test - Duexis 800-26.6 MG Duexis 800-26.6 MG No 1{table t} TID Duexis 800-26.6 MG Nasacort Allergy 24HR 55 MCG/ACT [facility] Allergy 24HR 55 MCG/ACT No 1{puff_ in_each _nostri l} QD [facility] Allergy 24HR 55 MCG/ACT NovoFine Plus Pen Needle 32G X 4 MM NovoFine Plus Pen Needle 32G X 4 MM No NovoFine Plus Pen Needle 32G X 4 MM metFORMIN HCl 1000 MG metFORMIN HCl 1000 MG No 1{table t_with_ meals} BID metFORMIN HCl 1000 MG Vital Signs Vital Name Observation Time Observation Value Comments S gaboce height 2022-01-01 11:00:00 61 [in_i] Commo n [facility] weight 2022-01-01 11:00:00 295 [lb_av] Comm on [facility] bmi 2022-01-01 11:00:00 55.73 kg/m2 Comm on [facility] height 2021-09-03 16:40:00 61 [in_i] Commo n [facility] weight 2021-09-03 16:40:00 285 [lb_av] Comm on [facility] bmi 2021-09-03 16:40:00 53.84 kg/m2 Comm on [facility] height 2021-07-12 13:00:00 61.00 [in_i] Com mon [facility] weight 2021-07-12 13:00:00 285 [lb_av] Comm on [facility] bmi 2021-07-12 13:00:00 53.84 kg/m2 Comm on [facility] height 2021-05-14 10:10:00 61.00 [in_i] Com [facility] weight 2021-05-14 10:10:00 285.8 [lb_av] Co mmon [facility] temperature 2021-05-14 10:10:00 98.1 [degF] Com [facility] bmi 2021-05-14 10:10:00 54 kg/m2 Commo n [facility] oximetry 2021-05-14 10:10:00 98 % Commo n [facility] respiratory rate 2021-05-14 10:10:00 17 /min [facility] blood pressure systolic 2021-05-14 10:10:00 122 mm[Hg] [facility] blood pressure diastolic 2021-05-14 10:10:00 78 mm[Hg] [facility] Encounters Start Date/Time End Date/Time Encounter Type Admission Type Attending Clinicians Care Facility Care Department Encounter ID Source 2022-03-03 09:33:00 Outpatient Renuka De Souza [facility] [id number] [facility] 2021-09-04 06:35:00 [id number] 2021-08-27 11:16:00 Outpatient De Souza, Na [facility] [id number] [facility] 2021-07-03 14:21:33 Outpatient De Souza, Na [facility] [id number] [facility] 2021-07-03 11:08:47 Outpatient De Souza, Na [facility] [id number] [facility] 2021-07-03 11:07:47 Outpatient De Souza, Na [facility]LML[facility] [id number] [facility] 2023-04-07 00:00:00 2023-04-07 00:00:00 Outpatient GC_GCBZW_Ka diyala_S [facility] [id number] [facility] 2022-04-01 00:00:00 2022-04-01 00:00:00 (TEL) STLMLC [facility] [id number] [facility] 2022-01-02 00:00:00 2022-01-02 00:00:00 (TEL) [facility]LMLC [facility] [id number] [facility] 2022-01-01 00:00:00 2022-01-01 00:00:00 OFFICE VISIT ESTAB PT LEVEL 4 [facility] [id number] [facility] 2021-11-01 00:00:00 2021-11-01 00:00:00 (TEL) STLMLC ST[facility] [id number] [facility] 2021-10-30 00:00:00 2021-10-30 00:00:00 OL DIG E/M SVC 11-20 MIN [facility]LMLC ST[facility]C [id number] [facility] 2021-09-23 00:00:00 2021-09-23 00:00:00 (TEL) STLMLC ST[facility]C [id number] [facility] 2021-09-03 00:00:00 2021-09-03 00:00:00 OL DIG E/M SVC 11-20 MIN [facility]LMLC [facility] [id number] [facility] 2021-07-12 00:00:00 2021-07-12 00:00:00 OFFICE VISIT EST PT LEVEL 3 [facility] ST[facility] [id number] [facility] 2021-07-10 00:00:00 2021-07-10 00:00:00 (TEL) STLMLC [facility] [id number] [facility] 2021-06-28 00:00:00 2021-06-28 00:00:00 OFFICE VISIT EST PT LEVEL 3 [facility] [id number] [facility] 2021-06-05 00:00:00 2021-06-05 00:00:00 (TEL) STLMLC ST[facility]C [id number] [facility] 2021-05-15 00:00:00 2021-05-15 00:00:00 (TEL) STLMLC ST[facility] [id number] [facility] 2021-05-14 00:00:00 2021-05-14 00:00:00 (TEL) STLMLC ST[facility]C [id number] [facility] 2021-05-14 00:00:00 2021-05-14 00:00:00 OFFICE VISIT ESTAB PT LEVEL 4 [facility] [id number] [facility] 2021-04-01 00:00:00 2021-04-01 00:00:00 (TEL) STLMLC [facility] [id number] [facility] 2019-08-25 13:19:00 2019-08-25 13:19:00 [facility] [id number] [facility] 2019-08-02 15:05:00 2019-08-02 15:05:[address] [facility] [id number] [facility] 2019-08-01 09:53:00 2019-08-01 09:53:[address] [facility] [id number] [facility] 2019-04-28 09:40:00 2019-04-28 09:40:[address] [facility] [id number] [facility] 2019-04-05 09:40:00 2019-04-05 09:40:[address] [facility] [id number] [facility] 2019-02-08 11:36:00 2019-02-08 11:36:[address] [facility] [id number] [facility] 2019-01-25 16:44:00 2019-01-25 16:44:[address] [facility] [id number] [facility] 2018-12-15 10:34:00 2018-12-15 10:34:[address] [facility] [id number] [facility] 2018-12-14 11:20:00 2018-12-14 11:20:[address] [facility] [id number] [facility] 2018-01-14 10:00:00 2018-01-14 10:00:[address] [facility] [facility] [id number] [facility] 2017-11-17 15:00:00 2017-11-17 15:00:[address] [facility] [id number] [facility] Results Test Description Test Time Test Comments Results Result Co mments Source
[2024-05-15] MEDS ORDERED: CEFTRIAXONE 1000 MG/VIAL ONE (21:59)
[2024-05-15] MEDS ORDERED: ACETAMINOPHEN 500 MG TAB ONE (22:00)
[2024-05-15] MEDS ORDERED: NA CHLORIDE 0.9% 4,000 ML ONE (22:00)
[2024-05-15] MEDS ORDERED: IBUPROFEN 400 MG TAB ONE (22:00)
[2024-05-15] MEDS ORDERED: NA CHLORIDE 0.9% 500 ML ONE (22:00)
--- NOTE | 2024-05-15 22:37 | RAD REPORT ---
EXAMINATION: CT ABDOMEN AND PELVIS WITHOUT CONTRAST CLINICAL INDICATION: Female, 53 years old.flank pain, dysuri TECHNIQUE: CT abdomen and pelvis was performed, without IV contrast, as per department protocol. Axia l, sagittal and coronal reconstructions were obtained. One or more of the following dose reduction techniques were used: Automated exposure control, adjustment of the mA and/or kV according to the pat ient size, and/or iterative reconstruction. Unless otherwise specified, incidental findings do not require dedicated imaging follow-up. [id number]. IV CONTRAST: Not administered. COMPARISON: None FINDINGS: The lack of intravenous contrast limits the sensitivity of this exam for evaluation of solid visceral organs, vascular structures, and retroperitoneum. LOWER CHEST: Consolidative airspace disease is present left lower lobe. LIVER: Nodular liver contour. No focal mass. GALLBLADDER/BILE DUCTS: Cholelithiasis. No CT evidence of acute cholecystitis.? PANCREAS: No mass, ductal dilation, or eric-pancreatic fluid. SPLEEN: Normal size. No focal lesion. ADRENALS: Normal; no mass. KIDNEYS AND URETERS: Punctate stone in the upper pole left kidney. URINARY BLADDER: Normal contour. GASTROINTESTINAL TRACT: Stomach is non-dilated. Small bowel has normal course and caliber. No colonic wall thickening or pericolonic inflammatory changes. No appendicitis. PERITONEUM: No free fluid. ABDOMINAL AORTA AND OTHER VESSELS: Normal caliber aorta and IVC. REPRODUCTIVE ORGANS: No pathologic process. MUSCULOSKELETAL: No acute or suspicious osseous abnormality. Remote L1 compression deformity. Grade 1 anterolisthesis of L4 and L5. ADDITIONAL FINDINGS: None. IMPRESSION: 1. No acute findings within the abdomen or pelvis. Normal appendix. 2. Cholelithiasis but no CT evidence of acute process. 3. Findings which are most consistent with a left lower lobe pneumonia. Consider 3 month follow-up [facility] CT to ensure resolution.
[2024-05-15 22:51] LABS: Absolute Lymphocytes (CBC) 0.7 K/uL (0.7-4.9); Absolute Monocytes 1.2 K/uL (0.1-1.3); Absolute Neutrophil 14.3 K/uL (1.8-8.0); Basophils % 0.3 % (0-1.3); Eosinophils % 0.2 % (0-4.4); Hematocrit 47.8 % (36.0-45.0); Hemoglobin 15.8 g/dL (12.0-15.0); Lymphocytes % 4.6 % (15.3-44.8); MCH 29.4 pg (27.0-35.0); MCHC 33.2 g/dL (32.0-36.0); MCV 88.8 fL (80-100); MPV 11.6 fL (7.6-11.3); Monocytes % 7.4 % (3.3-12.3); Neutrophils % 87.5 % (41.7-73.7); Platelets 192 thou/uL (152-406); RBC Red Blood Cell Count 5.38 M/uL (3.86-4.86); Red Cell Distribution Width 14.6 % (12.1-15.2)
[2024-05-15 22:54] LABS: PT Prothrombin Time 12.7 SECONDS (9.4-12.5); PTT, Activated Partial Thromb 30.3 SECONDS (24.3-36.9); Protime INR 1.14
[2024-05-15 23:10] LABS: Albumin 2.8 g/dL (3.4-5.0); Albumin/Globulin Ratio 0.5 (1.1-1.8); Anion Gap 8.8 mEq/L (5.0-15.0); Bilirubin Total 2.5 mg/dL (0.2-1.0); Potassium 3.8 mEq/L (3.5-5.1); Protein, Total 8.8 g/dL (6.4-8.2)
[2024-05-15 23:13] LABS: Specific Gravity > 1.030 (1.005-1.030); Urine Bacteria 20-50 /HPF (<20); Urine Bilirubin NEGATIVE (Negative); Urine Blood 1+ (Negative); Urine Clarity Clear (Clear); Urine Color Yellow (Yellow); Urine Culture Reflex Order NOT NEEDED; Urine Glucose 4+ (Over) (Negative); Urine Ketones 1+ (Negative); Urine Microscopic Reflex YN ORDER UMIC; Urine Mucus Slight /HPF (None Seen); Urine Nitrite NEGATIVE (Negative); Urine Protein TRACE (Negative); Urine Urobilinogen Normal (Normal); Urine Yeast (Budding) Trace /HPF (None Seen)
--- NOTE | 2024-05-15 23:49 | EDPHYS ---
Physician Documentation [facility] Name: Roxana Wheeler Age: 53 yrs Sex: Female : 1970 Arrival Date: 05/15/2024 Time: 20:42 Bed 13 Private MD: ED Physician Soren Hdez HPI: 05/15 21:37 This 53 yrs old Female presents to ER via Ambulatory with complaints of Pain ec2 With Urination, Abdominal Pain, Fever, Nausea. 21:37 Patient arrives today for evaluation of dysuria, urinary frequency as well as flank ec2 pain. Reports has been having fevers and chills as well as abdominal pain along with nausea and vomiting.. 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 - Infectious Disease History:: Denies. - Social history:: Smoking status: Patient denies any tobacco usage or history of. ROS: 21:37 Constitutional: as per hpi ec2 Exam: 21:37 Constitutional: GEN: NAD Head: atraumatic Eyes: EOMI Ears: External ears are ec2 normal. CV: Tachycardia LUNGS: no respiratory distress ABD: non-distended, soft, tender in the right flank, not guarding, not rigid otherwise. SKIN: no evidence of rashes MSK: no evidence of trauma Vital Signs: 21:28 BP 139 / 78; Pulse 114; Resp 20; Temp 102(O); Pulse Ox 96% on R/A; MAP 95 mmHg; Weight tm6 176.9 kg; Height 5 ft. 1 in. ; Pain 10/10; 23:31 BP 119 / 62; Pulse 106; Resp 20; Temp 101.9; Pulse Ox 90% ; Pain 4/10; bm8 21:28 Body Mass Index 73.69 (176.90 kg, 154.94 cm) tm6 21:28 Pain Scale: Adult tm6 23:31 Pain Scale: Adult bm8 John Coma Score: 22:15 Eye Response: spontaneous(4). Motor Response: obeys commands(6). Verbal Response: bm8 oriented(5). Total: 15. 23:31 Eye Response: spontaneous(4). Motor Response: obeys commands(6). Verbal Response: bm8 oriented(5). Total: 15. MDM: 21:36 Medical Screening Exam initiated ec2 21:59 Data reviewed: vital signs, nurses notes. ED course: EKG independently reviewed and ec2 interpreted by me, shows sinus tachycardia, rate 111, no acute ST segment elevations, numbers are nonactionable, right bundle branch block noted.. 23:47 ED course: CBC shows leukocytosis. Metabolic profile shows hyperglycemia. Lactic acid ec2 minimally elevated 2.1. CT scan shows likely left lower lobe pneumonia.. 23:48 ED course: Will admit for sepsis secondary to pneumonia, UTI. Discussed with ec2 hospitalist, pending admission.. 12 21:36 Order name: Blood Culture Adult (2) ec2 05/15 21:36 Order name: CBC with Diff ec2 05/15 21:36 Order name: CMP; Complete Time: 23:46 ec2 05/15 21:36 Order name: Lactate w/ 2H reflex if indic.; Complete Time: 23:46 ec2 05/15 21:36 Order name: Protime (+inr); Complete Time: 23:46 ec2 05/15 21:36 Order name: Ptt, Activated; Complete Time: 23:46 ec2 05/15 21:36 Order name: Urinalysis w/ reflexes; Complete Time: 23:46 ec2 / 21:59 Order name: Influenza Screen (a \T\ B) ec2 05/15 21:59 Order name: SARS RAPID ec2 05/15 23:04 Order name: Manual Differential EDMS 05/15 23:14 Order name: Ghost Lactate-NO COLLECT Timer EDMS 05/16 00:54 Order name: CBC with Automated Diff EDMS 05/16 00:54 Order name: Comprehensive Metabolic Panel EDMS 05/16 00:54 Order name: Urinalysis w/ reflexes EDMS 05/16 08:24 Order name: Lactate Sepsis 2 HR Follow-up EDMS 05/16 11:54 Order name: Glucose, Ancillary Testing EDMS 05/15 21:36 Order name: Chest Single View XRAY ec2 05/15 21:36 Order name: CT Abd/Pelvis - Without Contrast; Complete Time: 22:42 ec2 05/15 21:36 Order name: EKG; Complete Time: 21:37 ec2 05/15 21:36 Order name: Cardiac monitoring; Complete Time: 21:57 ec2 05/15 21:36 Order name: EKG - Nurse/Tech; Complete Time: 21:57 ec2 05/15 21:36 Order name: IV Saline Lock - Large Bore; Complete Time: 21:57 ec2 05/15 21:36 Order name: Labs collected and sent; Complete Time: 21:57 ec2 05/15 21:36 Order name: O2 Per Protocol; Complete Time: 21:57 ec2 05/15 21:36 Order name: O2 Sat Monitoring; Complete Time: 21:58 ec2 05/15 21:36 Order name: Vital Signs; Complete Time: 21:58 ec2 Administered Medications: 22:14 Drug: Acetaminophen PO 1000 mg PO once Route: PO; bm8 23:32 Follow up: Response: No adverse reaction bm8 22:14 Drug: Ibuprofen PO 800 mg PO once Route: PO; bm8 23:32 Follow up: Response: No adverse reaction bm8 22:14 Drug: NS 0.9% IV (30 ml/kg) 30 ml/kg IV at bolus once; Sepsis Protocol; to be given as bm8 a bolus over 90 minutes Route: IV; Rate: bolus; Site: right antecubital; 23:32 Follow up: Response: No adverse reaction; IV Status: Completed infusion; IV Intake: bm8 2000ml 22:15 Drug: Rocephin IV 1 grams IV at bolus once; Given slow IV push per pharmacy bm8 instructions Route: IV; Rate: bolus; Site: right antecubital; 23:32 Follow up: Response: No adverse reaction; IV Status: Completed infusion; IV Intake: [id number] Disposition Summary: 05/15/24 23:49 Hospitalization Ordered Notes: Hospitalization Status: Inpatient Admission ec2 Provider: Jalil Walsh ecSabrina Condition: Stable ec2 Problem: new ec2 Symptoms: have improved ec2 Bed/Room Type: Standard ec2 Location: Telemetry/MedSurg (Inpatient)(05/16/24 11:31) bd Room Assignment: [facility](05/16/24 11:31) bd Diagnosis - Sepsis, unspecified organism ec2 - Pneumonia, unspecified organism ec2 - UTI/ Urinary tract infection, site not specified ec2 Forms: - Medication Reconciliation Form ec2 - SBAR form ec2 - Leadership Thank You Letter ec2 Critical care time excluding procedures: 23:48 Critical care time: Bedside Care: 30 minutes, Consultation: 4 minutes. Total time: 34 ec2 minutes Signatures: Dispatcher [employer] EDMS Caro Hansen Shawna sp Corral, Edwin, MD MD ec2 Amy Gaston RN RN tm6 Simeon Chang RN RN bm8 Corrections: (The following items were deleted from the chart) 21:57 21:36 Accucheck ordered. ec2 bm8 05/16 00:52 12 23:49 Telemetry/MedSurg (Inpatient) ec2 sp 05/16 00:52 1208 23:49 ec2 sp 05/16 01:03 00:52 sp sp 11:31 00:52 [facility] ER HOLD sp bd 11:31 01:03 ERHOLD- sp bd
--- NOTE | 2024-05-15 23:49 | ER ---
Nurse's Notes [facility] Name: Roxana Wheeler Age: 53 yrs Sex: Female : 1970 Arrival Date: 05/15/2024 Time: 20:42 Bed 13 Private MD: Diagnosis: Sepsis, unspecified organism;Pneumonia, unspecified organism;UTI/ Urinary tract infection, site not specified Presentation: 05/15 21:30 Chief complaint: Patient states: 2 days ago started with pain and burning with tm6 urination. Suprapubic area in pain and lower back. Having chills. Coronavirus screen: Client denies travel out of the [place] in the last 14 days. Ebola Screen: Patient negative for fever greater than or equal to 101.5 degrees Fahrenheit, and additional compatible Ebola Virus Disease symptoms Patient denies exposure to infectious person. Patient denies travel to an Ebola-affected area in the 21 days before illness onset. No symptoms or risks identified at this time. Initial Sepsis Screen: Does the patient meet any 2 criteria? Temp <36.0*C (96.8*F)) or > 38.3*C (100.9*F). HR > 90 bpm. Does the patient have a suspected source of infection? No. Patient's initial sepsis screen is negative. Risk Assessment: Do you want to hurt yourself or someone else? Patient reports no desire to harm self or others. Onset of symptoms was May 13, 2024. 21:30 Method Of Arrival: Ambulatory tm6 21:30 Acuity: FREDERIC 3 tm6 Triage Assessment: 21:30 General: Appears uncomfortable, Behavior is calm, cooperative. Pain: Complains of pain tm6 in back and pelvis. 21:35 EENT: No signs and/or symptoms were reported regarding the EENT system. Neuro: Level of tm6 Consciousness is awake, alert, obeys commands, Oriented to person, place, time, situation. Cardiovascular: Patient's skin is warm and dry. Respiratory: Airway is patent Respiratory effort is even, unlabored, Respiratory pattern is regular, symmetrical. GI: Abdomen is round Reports nausea. : Reports burning with urination, pain in suprapubic area in lower back with urination, Pain is 10 out of 10 on a pain scale. Derm: No signs and/or symptoms reported regarding the dermatologic system. Musculoskeletal: No signs and/or symptoms reported regarding the musculoskeletal system. CONTROL CLERK AUDITING: 21:35 LMP N/A - Post-menopause, Not tm6 Historical: - Allergies: 21:29 No Known Allergies; tm6 - PMHx: 21:29 Diabetes - NIDDM; diabetes mellitus; tm6 - PSHx: 21:29 D\T\C (diabetes mellitus ); tm6 - Immunization history:: Flu vaccine is not up to date. - Infectious Disease History:: Denies. - Social history:: Smoking status: Patient denies any tobacco usage or history of. Screenin:15 [facility] ED Fall Risk Assessment (Adult) History of falling in the last 3 months, bm8 including since admission No falls in past 3 months (0 pts) Confusion or Disorientation No (0 pts) Intoxicated or Sedated No (0 pts) Impaired Gait No (0 pts) Mobility Assist Device Used No (0 pt) Altered Elimination No (0 pt) Score/Fall Risk Level 0 - 2 = Low Risk Oriented to surroundings, Maintained a safe environment, Educated pt \T\ family on fall prevention, incl call for assistance when getting out of bed, Assessed \T\ reinforced patient's understanding of fall precautions, Hourly rounding (assess needs \T\ fall precautionary measures) done, Used ambulatory aids as needed (educated on \T\ assisted with), Used gait belt as appropriate. Abuse screen: Denies threats or abuse. Nutritional screening: No deficits noted. Tuberculosis screening: No symptoms or risk factors identified. Assessment: 22:15 Reassessment: Patient appears in no apparent distress at this time. Patient and/or bm8 family updated on plan of care and expected duration. Pain level reassessed. Patient is alert, oriented x 3, equal unlabored respirations, skin warm/dry/pink. General: Appears in no apparent distress. uncomfortable, Behavior is calm, cooperative, appropriate for age. Pain: Complains of pain in pelvis and back Pain currently is 8 out of 10 on a pain scale. Neuro: No deficits noted. Level of Consciousness is awake, alert, obeys commands, Oriented to person, place, time, situation, Appropriate for age. 22:15 Cardiovascular: No deficits noted. Denies chest pain, Capillary refill < 3 seconds in bm8 bilateral fingers Patient's skin is warm and dry. Rhythm is sinus tachycardia. Respiratory: Airway is patent Trachea midline Respiratory effort is even, unlabored, Respiratory pattern is regular, symmetrical. GI: Bowel sounds present X 4 quads. Abdomen is tender to palpation in suprapubic area Reports Pain is 8 out of 10 on a pain scale. : Urine is cloudy, Reports burning with urination, pain in suprapubic area urinary frequency, vaginal itching. EENT: No signs and/or symptoms were reported regarding the EENT system. Derm: No signs and/or symptoms reported regarding the dermatologic system. Musculoskeletal: No signs and/or symptoms reported regarding the musculoskeletal system. 23:31 Reassessment: Patient appears in no apparent distress at this time. Patient and/or bm8 family updated on plan of care and expected duration. Pain level reassessed. Patient is alert, oriented x 3, equal unlabored respirations, skin warm/dry/pink. Patient states feeling better. Vital Signs: 21:28 BP 139 / 78; Pulse 114; Resp 20; Temp 102(O); Pulse Ox 96% on R/A; MAP 95 mmHg; Weight tm6 176.9 kg; Height 5 ft. 1 in. ; Pain 10/10; 23:31 BP 119 / 62; Pulse 106; Resp 20; Temp 101.9; Pulse Ox 90% ; Pain 4/10; bm8 21:28 Body Mass Index 73.69 (176.90 kg, 154.94 cm) tm6 21:28 Pain Scale: Adult tm6 23:31 Pain Scale: Adult bm8 John Coma Score: 22:15 Eye Response: spontaneous(4). Motor Response: obeys commands(6). Verbal Response: bm8 oriented(5). Total: 15. 23:31 Eye Response: spontaneous(4). Motor Response: obeys commands(6). Verbal Response: bm8 oriented(5). Total: 15. ED Course: 20:46 Patient arrived in ED. gm2 21:31 Triage completed. tm6 21:35 Soren Hdez MD is Attending Physician. ec2 21:35 Arm band placed on right wrist. tm6 21:57 Simeon Chang, PATRICIA is Primary Nurse. bm8 21:59 Inserted saline lock: 20 gauge in right antecubital area, using aseptic technique. vk Blood collected. Flushed with 10 mL NS. 22:00 Initial lab(s) drawn, by me, sent to lab. First set of blood cultures drawn by ED bm8 staff, Urine collected: clean catch specimen, cloudy, EKG done, by ED staff, reviewed by Soren Hdez MD COVID swab sent to lab. Flu and/or RSV swab sent to lab. Strep swab sent to lab. Patient maintains SpO2 saturation greater than 95% on room air. 22:15 Patient has correct armband on for positive identification. Placed in gown. Bed in low bm8 position. Call light in reach. Side rails up X2. Adult w/ patient. Client placed on continuous cardiac and pulse oximetry monitoring. NIBP monitoring applied. sales recruiter on. Pulse ox on. NIBP on. Door closed. Noise minimized. Pillow given. Verbal reassurance given. Head of bed elevated. 22:15 No provider procedures requiring assistance completed. bm8 22:15 Second set of blood cultures drawn by me. bm8 22:22 CT Abd/Pelvis - Without Contrast In Process Unspecified. EDMS 22:41 Chest Single View XRAY In Process Unspecified. EDMS 23:48 Jaill Walsh MD is Hospitalizing Provider. ec2 05/16 03:03 Provided Education on: need for admission. bm8 03:03 Patient admitted, IV remains in place. bm8 06:37 Soren Hdez MD is Attending Physician. ec2 Administered Medications: 05/15 22:14 Drug: Acetaminophen PO 1000 mg PO once Route: PO; bm8 23:32 Follow up: Response: No adverse reaction bm8 22:14 Drug: Ibuprofen PO 800 mg PO once Route: PO; bm8 23:32 Follow up: Response: No adverse reaction bm8 22:14 Drug: NS 0.9% IV (30 ml/kg) 30 ml/kg IV at bolus once; Sepsis Protocol; to be given as bm8 a bolus over 90 minutes Route: IV; Rate: bolus; Site: right antecubital; 23:32 Follow up: Response: No adverse reaction; IV Status: Completed infusion; IV Intake: bm8 2000ml 22:15 Drug: Rocephin IV 1 grams IV at bolus once; Given slow IV push per pharmacy bm8 instructions Route: IV; Rate: bolus; Site: right antecubital; 23:32 Follow up: Response: No adverse reaction; IV Status: Completed infusion; IV Intake: [id number] Medication: 22:15 VIS not applicable for this client. bm8 Intake: 23:32 IV: 10ml; Total: 10ml. bm8 23:32 IV: 2000ml; Total: 2010ml. bm8 Outcome: 23:49 Decision to Hospitalize by Provider. ec2 05/16 03:03 Admitted to ER Hold. Please see [facility] for further documentation. bm8 Condition: stable Instructed on the need for admit, 12:31 Patient left the ED. cm10 Signatures: Dispatcher [employer] Apoorva Nicole, RN RN cm10 Soren Hdez MD MD ec2 Zeinab Castro Tawney, RN RN 6 Brooke Williamson Brad, RN RN bm8
[2024-05-16 00:08] LABS: SARS-CoV-2 Antigen CONTROL BLUE LINE VIS/BG OK; SARS-CoV-2 Antigen Rapid Res Negative (Negative)
[2024-05-16] MEDS ORDERED: ONDANSETRON 4 MG/2 ML VIAL IV PRN (00:48)
--- NOTE | 2024-05-16 00:50 | RAD REPORT ---
EXAM DESCRIPTION: Chest Single View CLINICAL HISTORY: 53 years Female, COUGH TECHNIQUE: 1 view (Single frontal view of the chest) COMPARISON: None were made available at time of this interpretation. FINDINGS: Patient's body habitus results in projectional magnification artifact. LINES AND TUBES: None. CARDIOVASCULAR STRUCTURES: Upper limits of normal heart size. LUNGS: Mild diffuse increased interstitial opacities. Query mild alveolar opacities versus projection al artifact. No confluent areas of acute consolidation. PLEURA: No layering pleural effusions. No pneumothorax. BONES: No acute osseous abnormality of the thorax. IMPRESSION: 1. Mild diffuse increased interstitial opacities which may be secondary to edema versus bronchitis versus projectional artifact. 2. Query mild alveolar opacities versus projectional artifact. 3. If warranted, follow-up two-view chest x-ray versus CT chest may be more helpful. Electronically signed by: Jb Casillas MD 05/15/2024 11:03 PM BELT KNIFE FEEDER N Due to temporary technical issues with the [email or web address] reporting system, reports are being luis d by the in-house radiologist without review as a courtesy to ensure prompt reporting the interpreting radiologist is fully responsible for the content of the report. Transcribed Date/Time: 05/16/2024 12:50 AM
[2024-05-16 00:55] LABS: Band Neutrophils 12 % (0-1); Differential Total Cells Count 100; Lymphocytes 6 % (15-42); Monocytes 9 % (0-10); Reactive Lymphocytes 1 %; Segmented Neutrophils 72 % (40-80)
--- NOTE | 2024-05-16 00:55 | P.HP ---
Certification for Inpatient Patient admitted to: Inpatient With expected LOS: >2 Midnights Practitioner: I am a practitioner with admitting privileges, knowledge of patient current condition, hospital course, and medical plan of care. Services: Services provided to patient in accordance with Admission requirements found in Title 42 Section 412.3 of the Code of Federal Regulations Patient History Date of Service: 05/16/24 Reason for admission: Generalized weakness , Fever History of Present Illness: 53 yrs old Female with past medical history of hypertension, diabetes, obesity who presents to the ER with generalized weakness dysuria subjective fever and abdominal pain along with nausea which has been going on for the last 2 days and has been progressively worsening and was brought to ER. She also has flank pain associated with dysuria. Patient has been running fever and chills. Denies any chest pain and shortness of breath. Associated with nausea but no vomiting. Patient was assessed in the ER and found to have UTI and pneumonia and was admitted for further management . Allergies No Known Allergies Allergy (Verified 07/19/19 16:12) Home medications list reviewed: Yes Home Medications: Acyclovir 200 mg PO 5XD 04/03/21 Benzonatate [Tessalon Perle*] 100 mg PO TID PRN #30 cap 04/13/21 Cholecalciferol (Vitamin D3) [Vitamin D 1000 Iu Tab*] 4,000 unit PO DAILY #60 tab 04/13/21 Fluconazole [Diflucan] 150 mg PO DAILY #3 tablet 04/13/21 Furosemide [Lasix*] 20 mg PO DAILY #30 tab 04/13/21 Insulin Glargine Human [Lantus*] 45 units SQ BID #10 ml 04/13/21 Melatonin 5 mg PO BEDTIME PRN PRN #14 tablet 04/13/21 Rivaroxaban [Xarelto] 20 mg PO DAILY #14 tablet 04/13/21 predniSONE [Prednisone*] 20 mg PO BID #20 tab 04/14/21 - Past Medical/Surgical History Diabetic: Yes Past Medical History: Reviewed- Non-Contributory -: NIDDM Past Surgical History: Reviewed- Non-Contributory -: D&C Psychosocial/ Personal History: Patient lives at home alone, 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 - Family History Mother -: Hypertension - Social History Smoking Status: Never smoker Alcohol use: Yes CD- Drugs: No Caffeine use: No Review of Systems 10-point ROS is otherwise unremarkable Physical Examination - Vital Signs Temperature: 98.9 F Blood Pressure: 107/65 Pulse: 86 Respirations: 18 Pulse Ox (%): 94 - Physical Exam General: Alert, Oriented x3, Mild distress, Obese HEENT: Atraumatic, Normocephalic Neck: Supple, No Thyromegaly Respiratory: Clear to auscultation bilaterally, Normal air movement, Crackles/rales Cardiovascular: Regular rate/rhythm, Normal S1 S2 Capillary refill: <2 Seconds Gastrointestinal: Soft and benign, W/out hepatosplenomegaly Musculoskeletal: No clubbing, No swelling Integumentary: No rashes Neurological: Normal speech, Normal strength at 5/5 x4 extr, Cranial nerves 3-12 intact, Normal affect Lymphatics: No axilla or inguinal lymphadenopathy - Studies Laboratory Data (last 24 hrs) 05/15/24 05/15/24 05/15/24 22:00 22:00 22:00 WBC 16.30 H Hgb 15.8 H Hct 47.8 H Plt Count 192 PT 12.7 H INR 1.14 APTT 30.3 Sodium 132 L Potassium 3.8 BUN 11 Creatinine 0.90 Glucose 410 H* Total Bilirubin 2.5 H AST 24 ALT 24 Alkaline Phosphatase 232 H Microbiology Data (last 24 hrs): 05/15/24 22:00 Nasopharnyx Influenza Type A Antigen Screen - Final 05/15/24 22:00 Nasopharnyx Influenza Type B Antigen Screen - Final Assessment and Plan - Plan Left lower lobe pneumonia Started on IV antibiotic Monitor closely on telemetry Change antibiotic as per sensitivities Cultures obtained UTI Started on antibiotics Obtain urine culture Change antibiotic as per sensitivity Diabetes with hyperglycemia Insulin sliding scale Will get an A1c in a.m. Will also get lipid panel in a.m. Obesity Advise lifestyle modification GI/DVT prophylaxis Advanced directive full code Discharge Plan: Home Plan to discharge in: 24 Hours - Advance Directives Does patient have a Living Will: Yes Does patient have a Durable POA for Healthcare: No - Code Status/Comfort Care Code Status: Full Code Time Spent Managing Pts Care (In Minutes): 48
[2024-05-16 00:56] LABS: Blood Morphology Comment NOT SEEN (NOT SEEN); Platelet Estimate ADEQ
[2024-05-16 03:25] VITALS: BMI 73.7
[2024-05-16 08:05] LABS: Absolute Basophils 0.1 K/uL (0-0.5); Absolute Lymphocytes (CBC) 1.2 K/uL (0.7-4.9); Absolute Monocytes 1.6 K/uL (0.1-1.3); Absolute Neutrophil 14.1 K/uL (1.8-8.0); Basophils % 0.3 % (0-1.3); Eosinophils % 0.2 % (0-4.4); Hematocrit 40.8 % (36.0-45.0); Hemoglobin 13.2 g/dL (12.0-15.0); Lymphocytes % 7.2 % (15.3-44.8); MCH 29.1 pg (27.0-35.0); MCHC 32.3 g/dL (32.0-36.0); MPV 10.9 fL (7.6-11.3); Monocytes % 9.2 % (3.3-12.3); Neutrophils % 83.1 % (41.7-73.7); Platelets 158 thou/uL (152-406); RBC Red Blood Cell Count 4.53 M/uL (3.86-4.86); Red Cell Distribution Width 14.4 % (12.1-15.2)
[2024-05-16 08:25] LABS: Albumin 2.2 g/dL (3.4-5.0); Albumin/Globulin Ratio 0.4 (1.1-1.8); Anion Gap 4.8 mEq/L (5.0-15.0); Bilirubin Total 1.9 mg/dL (0.2-1.0); Potassium 3.8 mEq/L (3.5-5.1); Protein, Total 7.2 g/dL (6.4-8.2)
[2024-05-16] MEDS: CEFTRIAXONE 1,000 MG in NA CHLORIDE 0.9% 50 ML IVPB SCH (09:00)
[2024-05-16] MEDS: INSULIN GLARGINE 100 UNIT/ML SQ SCH (09:00)
[2024-05-16] MEDS: ENOXAPARIN 40 MG/0.4 ML SQ SCH (09:00)
[2024-05-16] MEDS: AZITHROMYCIN IV 500 MG in NA CHLORIDE 0.9% 250 ML IVPB SCH (09:00)
[2024-05-16] MEDS ORDERED: D10W 125 ML IV PRN (09:17)
[2024-05-16] MEDS ORDERED: GLUCAGON 1 MG/VIAL IM PRN (09:17)
[2024-05-16] MEDS ORDERED: INSULIN GLARGINE 100 UNIT/ML SQ ONE (09:58)
[2024-05-16] MEDS ORDERED: INSULIN REGULAR (HUMAN) 100 UNIT/ML ONE (09:59)
[2024-05-16] MEDS ORDERED: AZITHROMYCIN 500 MG INJ IVPB ONE (10:02)
[2024-05-16] MEDS ORDERED: CEFTRIAXONE 1000 MG/VIAL ONE (10:02)
[2024-05-16] MEDS ORDERED: NA CHLORIDE 0.9% 100 ML ONE (10:02)
[2024-05-16] MEDS ORDERED: NA CHLORIDE 0.9% 250 ML ONE (10:02)
[2024-05-16] MEDS ORDERED: ENOXAPARIN 40 MG/0.4 ML SQ ONE (10:02)
[2024-05-16] MEDS: INSULIN REGULAR (HUMAN) 100 UNIT/ML SQ SCH (10:29)
[2024-05-16] MEDS ORDERED: NA CHLORIDE 0.9% 1,000 ML ONE (11:16)
[2024-05-16] MEDS: NA CHLORIDE 0.9% 1,000 ML IV SCH (11:24)
[2024-05-16 14:26] LABS: Specific Gravity > 1.030 (1.005-1.030); Urine Bacteria <20 /HPF (<20); Urine Bilirubin NEGATIVE (Negative); Urine Blood Trace (Negative); Urine Clarity Clear (Clear); Urine Color Yellow (Yellow); Urine Culture Reflex Order NOT NEEDED; Urine Glucose 4+ (Over) (Negative); Urine Ketones NEGATIVE (Negative); Urine Microscopic Reflex YN ORDER UMIC; Urine Mucus Slight /HPF (None Seen); Urine Nitrite NEGATIVE (Negative); Urine Protein TRACE (Negative); Urine Urobilinogen 1+ (Normal); Urine WBC <5 /HPF (<5); Urine Yeast (Budding) Trace /HPF (None Seen)
[2024-05-16] MEDS: ACETAMINOPHEN 325 MG TABLET PO PRN (21:02)
[2024-05-16] MEDS ORDERED: GUAIFENESIN/DM 5 ML UCUP PO PRN (23:38)
[2024-05-17] MEDS: GUAIFENESIN/DM 5 ML UCUP PO PRN (02:20)
--- NOTE | 2024-05-17 03:28 | P.PN ---
Date of Service: 05/16/24 Patient seen on rounds early in AM no acute events since admission does report UTI symptoms - dysuria, frequency +cough continue abx - cover UTI, possible pneumonia titrate insulin, states has not been on any insulin in many years, not checking glc at home
[2024-05-17 05:25] LABS: Absolute Basophils 0.1 K/uL (0-0.5); Absolute Eosinophils 0.3 K/uL (0-0.5); Absolute Lymphocytes (CBC) 1.8 K/uL (0.7-4.9); Absolute Monocytes 0.7 K/uL (0.1-1.3); Absolute Neutrophil 6.1 K/uL (1.8-8.0); Basophils % 0.7 % (0-1.3); Hematocrit 38.4 % (36.0-45.0); Hemoglobin 13.1 g/dL (12.0-15.0); Lymphocytes % 20.4 % (15.3-44.8); MCH 30.1 pg (27.0-35.0); MCV 88.3 fL (80-100); MPV 10.7 fL (7.6-11.3); Neutrophils % 67.9 % (41.7-73.7); Nucleated Red Blood Cells % 0.1 % (0-0); Platelets 156 thou/uL (152-406); RBC Red Blood Cell Count 4.35 M/uL (3.86-4.86); Red Cell Distribution Width 14.2 % (12.1-15.2)
[2024-05-17 05:59] LABS: Albumin/Globulin Ratio 0.4 (1.1-1.8)
[2024-05-17] MEDS: VANCOMYCIN 1 GM in NA CHLORIDE 0.9% 250 ML IVPB SCH (10:21)
[2024-05-17] MEDS: CEFTRIAXONE 1,000 MG in NA CHLORIDE 0.9% 50 ML IVPB ONE (12:49)
[2024-05-17] MEDS: VANCOMYCIN 2 GM in NA CHLORIDE 0.9% 500 ML IVPB SCH (13:47)
--- NOTE | 2024-05-17 14:22 | P.PN ---
Subjective Date of Service: 05/17/24 Chief Complaint: Generalized weakness , Fever Patient reports intermittent nonproductive cough. No fever over the past 48 hours. Leukocytosis resolved. Physical Examination - Vital Signs Temperature: 98.1 F Blood Pressure: 110/69 Pulse: 78 Respirations: 17 Pulse Ox (%): 98 Assessment And Plan - Plan Physical examination General: Alert and oriented x3, NAD, HEENT: Conjunctiva not pale, anicteric sclera Neck: Supple, no elevated JVD Heart: Heart sounds 1 and 2 normal, regular rhythm, normal rate, no pedal edema Lungs: Mild bibasilar crackles adequate breath sounds bilaterally, no rhonchi or crackles. Abdomen: Soft, nondistended, nontender, normal bowel sounds. Extremities: No tenderness, no deformity Skin: Normal skin turgor, no rash, no nodules or ulcers. Neuro: No focal motor deficit. Normal speech. Psychiatry: Normal mood, no agitation. Assessment and plan Left lower lobe pneumonia Gram-positive cocci bacteremia 3 out of 4 blood culture bottles growing gram-positive cocci. Continue IV Rocephin, IV vancomycin added. Repeat blood cultures. Supportive measures with antitussives as needed. Diabetes with hyperglycemia Morbid obesity History of noncompliance. She was previously on metformin but reports intolerance to it Insulin sliding scale Check hemoglobin A1c. Weight loss by diet and exercise advised. DVT prophylaxis: Lovenox Advanced directive: Full code
[2024-05-17] MEDS: BENZONATATE 100 MG CAP PO PRN (22:15)
[2024-05-18] MEDS: MELATONIN 5 MG TABLET PO PRN (02:37)
[2024-05-18 03:28] VITALS: O2SAT 100
[2024-05-18] MEDS: CEFTRIAXONE 2,000 MG in NA CHLORIDE 0.9% 50 ML IV SCH (09:29)
[2024-05-18 12:40] VITALS: BP 144/80; TEMP 97.5
--- NOTE | 2024-05-18 13:23 | P.DS ---
Admission Date: 05/16/24 Discharge Date: 05/18/24 Disposition: ROUTINE DISCHARGE Discharge Condition: FAIR Reason for Admission: Generalized weakness , Fever Hospital Course: Diagnosis Strep pneumonia left lower lobe pneumonia Strep pneumonia bacteremia secondary to pneumonia. Diabetes with hyperglycemia Morbid obesity 53 yrs old woman with past medical history of hypertension, diabetes, obesity who presented to the ER with generalized weakness, dysuria, fever and abdominal pain and cough productive of yellow sputum. Chest x-ray and CT abdomen and pelvis done in the emergency department was significant for left lower lobe consolidation. UA did not suggest UTI. Patient was admitted for treatment of urinary tract infection and pneumonia. 3 out of 4 blood culture bottles grew strep pneumonia sensitive to penicillin. Source of bacteremia is likely pneumonia. Patient was treated with IV Rocephin and vancomycin Patient had leukocytosis which resolved with IV Rocephin. Repeat blood culture has shown no growth. Patient seen and evaluated by infectious disease Dr. Irizarry. She is discharged with Levaquin to complete 14 days of treatment. Patient has severely elevated blood sugar levels. She has a history of type 2 diabetes but has been noncompliant with treatment. She was initially taking metformin which she said she did not tolerate. Hemoglobin A1c is 11.3. Patient initiated on Lantus insulin. Follow-up with her PCP within 1 week as recommended regarding the pneumonia and blood sugar management. Vital Signs/Physical Exam: Temp Pulse Resp BP Pulse Ox 97.5 F 65 14 144/80 H 98 05/18/24 12:00 05/18/24 12:00 05/18/24 12:00 05/18/24 12:00 05/18/24 12:00 General: Alert, In no apparent distress, Obese HEENT: Mucous membr. moist/pink, Sclerae nonicteric Neck: Supple, JVD not distended Respiratory: Clear to auscultation bilaterally, Normal air movement Cardiovascular: No edema, Regular rate/rhythm, Normal S1 S2 Gastrointestinal: Normal bowel sounds, Soft and benign, Non-distended, No tend erness Musculoskeletal: No swelling, No tenderness Integumentary: No rashes, No cyanosis Neurological: Normal speech, Normal strength at 5/5 x4 extr Laboratory Data at Discharge: WBC 9.00 thou/uL (4.3-10.9) 05/17/24 04:47 Hgb 13.1 g/dL (12.0-15.0) 05/17/24 04:47 Hct 38.4 % (36.0-45.0) 05/17/24 04:47 Plt Count 156 thou/uL (152-406) 05/17/24 04:47 PT 12.7 SECONDS (9.4-12.5) H 05/15/24 22:00 INR 1.14 05/15/24 22:00 APTT 30.3 SECONDS (24.3-36.9) 05/15/24 22:00 Sodium 136 mEq/L (136-145) 05/17/24 04:47 Potassium 4.0 mEq/L (3.5-5.1) 05/17/24 04:47 BUN 11 mg/dL (7-18) 05/17/24 04:47 Creatinine 0.61 mg/dL (0.55-1.02) 05/17/24 04:47 Glucose 202 mg/dL (74-106) H 05/17/24 04:47 Magnesium 2.0 mg/dL (1.6-2.4) 05/17/24 04:47 Total Bilirubin 1.0 mg/dL (0.2-1.0) 05/17/24 04:47 AST 21 U/L (15-37) 05/17/24 04:47 ALT 15 U/L (13-56) 05/17/24 04:47 Alkaline Phosphatase 182 U/L (45-117) H 05/17/24 04:47 Home Medications: Alcohol Antiseptic Pads [Alcohol Swabs] 1 each TP DAILY #100 ea 05/18/24 Benzonatate [Tessalon Perle*] 100 mg PO TID PRN #30 cap 05/18/24 Blood Sugar Diagnostic [Blood Glucose Test Strip] 1 each MC DAILY #30 strip 05/18/24 Blood-Glucose Meter [Blood Glucose Monitoring] 1 each MC DAILY #1 kit 05/18/24 Guaif/Dm [Robitussin Dm*] 10 ml PO Q6H PRN #118 ml 05/18/24 Insulin Glargine,Hum.rec.anlog [Lantus Solostar] 35 unit SQ BEDTIME #20 ml 05/18/24 Lancets [Onetouch Ultrasoft 2 Lancet] 1 each MC DAILY #100 ea 05/18/24 Pen Needle, Diabetic [Insulin Pen Needle] 1 dis.ndl MC DAILY #100 dis.ndl 05/18/24 levoFLOXacin [Levaquin*] 750 mg PO DAILY #12 tab 05/18/24 New Medications: Alcohol Antiseptic Pads [Alcohol Swabs] 1 each TP DAILY #100 ea Blood-Glucose Meter [Blood Glucose Monitoring] 1 each MC DAILY #1 kit Blood Sugar Diagnostic [Blood Glucose Test Strip] 1 each MC DAILY #30 strip Pen Needle, Diabetic [Insulin Pen Needle] 1 dis.ndl MC DAILY #100 dis.ndl Insulin Glargine,Hum.rec.anlog [Lantus Solostar] 35 unit SQ BEDTIME #20 ml levoFLOXacin [Levaquin*] 750 mg PO DAILY #12 tab Lancets [Onetouch Ultrasoft 2 Lancet] 1 each MC DAILY #100 ea Guaif/Dm [Robitussin Dm*] 10 ml PO Q6H PRN #118 ml PRN Reason: Cough Benzonatate [Tessalon Perle*] 100 mg PO TID PRN #30 cap PRN Reason: Cough Physician Discharge Instructions: 53 yrs old woman with past medical history of hypertension, diabetes, obesity who presented to the ER with generalized weakness, dysuria, fever and abdominal pain and cough productive of yellow sputum. Chest x-ray and CT abdomen and pelvis done in the emergency department was significant for left lower lobe consolidation. UA did not suggest UTI. Patient was admitted for treatment of urinary tract infection and pneumonia. 3 out of 4 blood culture bottles grew strep pneumonia sensitive to penicillin. Source of bacteremia is likely pneumonia. Patient was treated with IV Rocephin and vancomycin Patient had leukocytosis which resolved with IV Rocephin. Repeat blood culture has shown no growth. Patient seen and evaluated by infectious disease Dr. Irizarry. She is discharged with Levaquin to complete 14 days of treatment. Patient has severely elevated blood sugar levels. She has a history of type 2 diabetes but has been noncompliant with treatment. She was initially taking metformin which she said she did not tolerate. Hemoglobin A1c is 11.3. Patient initiated on Lantus insulin. Follow-up with her PCP within 1 week as recommended regarding the pneumonia and blood sugar management. Diet: ADA Activity: Ad kenia Followup: NONE,NONE [Primary Care Provider] - 1 Week Time spent managing pt's care (in minutes): 37
[2024-05-18] MEDS: levoFLOXacin 750 MG TAB PO SCH (13:55)
--- NOTE | 2024-05-18 17:55 | CON ---
History Of Present Illness: This is a 53-year-old female. I was consulted to evaluate for pneumonia . The patient is being discharged today on Levaquin. Her blood culture grew Streptococcus pneumonia e in blood. Denies any headache, nausea, vomiting, chest pain, abdominal pain, constipation, or diar natalia. The patient has diabetes mellitus for 8 years, noncompliant to her medication. Past Medical History: As per HPI. Social History: Nonsmoker. Occasional drinker. Family History: Noncontributory. Medications: Levaquin. See MARs for other medications. Allergies: NO KNOWN DRUG ALLERGIES. Review of Systems: A 10-point review was performed. Physical Examination: General: This is a 53-year-old female, lying in bed, not in any acute cardiopulmonary distress. Vital Signs: Temperature 98, pulse is 60, respirations 14, blood pressure 144/80. HEENT: Unremarkab le. Neck: Supple. Lungs: Basal crackles. Heart: S1, S2. Regular. Abdomen: Soft, nontender. Bowel sounds present. Extremities: No edema. Laboratory Data: Blood cultures are growing a Streptococcus pneumoniae. Assessment And Plan: A 53-year-old female presenting with left lower lobe pneumonia and bacteremia s econdary to Streptococcus pneumoniae, improving without any problems. Consider continuing Levaquin f or total of 10 days. Follow up with the primary care doctor. Diabetes mellitus, leukocytosis improv ed. Continue supportive care and current treatment. We will follow the patient as needed. NF/MODL Voice ID: [id number] Report ID: [id number]
[2024-05-18] MEDS ORDERED: INSULIN GLARGINE 100 UNIT/ML SQ SCH (21:00)
--- NOTE | 2024-05-20 16:04 | EKG ---
Test Date: 2024-05-15 Test Time: 21:52:23 Crawler Crane Operator: STACEY MEASUREMENT RESULTS: Intervals: Rate: 111 MT: 130 QRSD: 124 QT: 372 QTc: 505 [place]: P: 27 MT: 130 QRS: 251 T: 1 INTERPRETIVE STATEMENTS: Sinus tachycardia Right bundle branch block Abnormal ECG Compared to ECG 04/03/2021 01:05:07 Right bundle-branch block now present Sinus rhythm no longer present Left-axis deviation no longer present Myocardial infarct finding no longer present Electronically Signed On 05-20-24 15:55:24 PIT SUPERVISOR by Raymond Randall
== END 2024-05-18 14:17 | disposition home or self-care (01) | DRG 871 ==
LOC: ER 20:42 → ERHOLD 05-16 00:49 → 2ND 05-16 12:20
PROVIDERS: ADMIT Family Medicine; ATTEND Internal Medicine
DX: A40.3 Sepsis due to Streptococcus pneumoniae (principal); J13 Pneumonia due to Streptococcus pneumoniae; R65.20 Severe sepsis without septic shock; E87.20 Acidosis, unspecified; N39.0 Urinary tract infection, site not specified; Z68.45 Body mass index [BMI] 70 or greater, adult; E66.01 Morbid (severe) obesity due to excess calories; I45.10 Unspecified right bundle-branch block; E11.65 Type 2 diabetes mellitus with hyperglycemia; I10 Essential (primary) hypertension; Z60.2 Problems related to living alone; Z79.4 Long term (current) use of insulin; Z11.52 Encounter for screening for COVID-19; Z79.52 Long term (current) use of systemic steroids; Z79.899 Other long term (current) drug therapy; Z91.148 Patient's other noncompliance with medication regimen for other reason
CPT/HCPCS: 36415; 71045; 74176; 80053; 81001; 82947; 83036; 83605; 83735; 85025; 85610; 85730; 87040; 87077; 87186; 87205; 87804; 87811; 93005; 96365; 99285; J0696; J1650; J7030; J7040; J7050

== ENCOUNTER 2024-10-01 18:01 | Emergency (ER) | payer OTHER ==
--- OUTSIDE RECORDS SUMMARY | 2024-10-01 18:05 | XMS REPORT | Continuity of Care Document ---
Author Name Unknown Address [address] [facility] [address] [place] [address] [facility] [place] [facility] Address [address] [facility] [address] [place] [address] Care Team Providers Care Yarn Man Name Role Phone Lana Robertson Attending Clinician Unavail able Renuka KEITH Attending Clinician Unavailable [email or web address]_Kadiyala_S Attending Clinician Unavaila ble [email or web address]_Kadiyala_S Admitting Clinician Unavaila ble Payers Payer Name Policy Type Policy Number Effective Date Expirati on Date Source [facility]etter from [facility] [id number] 2019 00:00:00 [facility] Problems Condition Name Condition Details Condition Category Status Onset Date Resolution Date Last Treatment Date Treating Clinician Comments Source Vaginal dryness Vaginal Dryness Problem Active 07-07 00:00: 00 [facility] Diabetes mellitus Diabetes Mellitus Problem Active 07-07 00:00: 00 [facility] Morbid obesity Morbid Obesity Problem Active 07-07 00:00: 00 [facility] Steatosis of liver Steatosis of Liver Problem Active 07-07 00:00: 00 [facility] Postmenopa usal bleeding Postmenopa usal Bleeding Problem Active 12-22 00:00: 00 [facility] Ulceration of vulva Ulceration of Vulva Problem Active 08-28 00:00: 00 [facility] Body mass index 40+ - severely obese Body Mass Index 40+ - Severely Obese Problem Active 08-05 00:00: 00 [facility] Pelvic and perineal pain Pelvic and Perineal Pain Problem Active 08-05 00:00: 00 [facility] Endometria l hyperplasi a Endometria l Hyperplasi a Problem Active 08-05 00:00: 00 [facility] [id number] Type 2 diabetes mellitus with other specified complicati on Problem [facility] [id number] Neuropathy Problem Com [facility] Congenital pes planus Congenital pes planus, unspecifie d foot Problem [facility] Obese Obese Problem [facility] Diabetes mellitus without complicati on Diabetes DMII without complicati ons Problem [facility] [id number] Uncontroll ed type 2 diabetes mellitus without complicati on, without long-term current use of insulin Problem [facility] Uterine polyp Uterine polyp Problem [facility] [id number] Mixed hyperlipid emia Problem Common [facility] [id number] Essential hypertensi on Problem Common [facility] [id number] Type 2 diabetes mellitus with hyperglyce gee, without long-term current use of insulin Problem [facility] [id number] Alcoholic cirrhosis of liver without ascites Problem Common [facility] [id number] Seasonal allergic rhinitis, unspecifie d trigger Problem [facility] 39883951 Body aches Problem Comm on [facility] [id number] Acute sinusitis, unspecifie d Problem [facility] [id number] Current use of insulin Problem [facility] Elevated liver enzymes level Elevated liver enzymes Problem [facility] Polyneurop athy due to type 2 diabetes mellitus Diabetic polyneurop athy associated with type 2 diabetes mellitus Problem [facility] [id number] Right foot pain Problem [facility] [id number] Other specified bacterial agents as the cause of diseases classified elsewhere Problem [facility] [id number] Abscess of skin of abdomen Problem [facility] [id number] 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 Ordering Clinician Indication Dosage Frequency Signature (SIG) Comments Components Source Ondansetron HCl 4 MG Ondansetron HCl 4 MG 5-0 4-10 00:00: 00 No 1{table t} QD Ondansetro n HCl 4 MG Ozempic (1 MG/DOSE) 4 MG/3ML Ozempic (1 MG/DOSE) 4 MG/3ML 5-0 4-10 00:00: 00 No Ozempic (1 MG/DOSE) 4 MG/3ML metFORMIN HCl ER 500 MG metFORMIN HCl ER 500 MG 2024-0 2-21 00:00: 00 No 1{table t_with_ evening _meal} QD metFORMIN HCl ER 500 MG glipiZIDE ER 5 MG glipiZIDE ER 5 MG 5-0 2-20 00:00: 00 No 1{table t_with_ food} QD glipiZIDE ER 5 MG Spironolact one 25 MG Spironolact one 25 MG 5-0 2-20 00:00: 00 No 1{table t} QD Spironolac tone 25 MG spironolact one 25 mg tablet TAKE 1 TABLET BY MOUTH EVERY DAY spironolact one 25 mg tablet TAKE 1 TABLET BY MOUTH EVERY DAY No spironolac tone 25 mg tablet TAKE 1 TABLET BY MOUTH EVERY DAY [facility] Milk Thistle Milk Thistle No 1{table t} BID Milk Thistle glipizide ER 5 mg tablet, extended release 24 hr TAKE 1 TABLET BY MOUTH EVERY DAY WITH FOOD FOR 90 DAYS glipizide ER 5 mg tablet, extended release 24 hr TAKE 1 TABLET BY MOUTH EVERY DAY WITH FOOD FOR 90 DAYS No glipizide ER 5 mg tablet, extended release 24 hr TAKE 1 TABLET BY MOUTH EVERY DAY WITH FOOD FOR 90 DAYS [facility] metformin ER 500 mg tablet,exte nded release 24 hr TAKE 1 TABLET BY MOUTH TWICE A DAY WITH FOOD metformin ER 500 mg tablet,exte nded release 24 hr TAKE 1 TABLET BY MOUTH TWICE A DAY WITH FOOD No metformin ER 500 mg tablet,ext ended release 24 hr TAKE 1 TABLET BY MOUTH TWICE A DAY WITH FOOD [facility] Ozempic 0.25 mg or 0.5 mg (2 mg/3 mL) subcutaneou s pen injector INJECT 0.25 MG SUBCUTANEOU SLY ONE TIME PER WEEK Ozempic 0.25 mg or 0.5 mg (2 mg/3 mL) subcutaneou s pen injector INJECT 0.25 MG SUBCUTANEOU SLY ONE TIME PER WEEK No Ozempic 0.25 mg or 0.5 mg (2 mg/3 mL) subcutaneo us pen injector INJECT 0.25 MG SUBCUTANEO USLY ONE TIME PER WEEK [facility] Vital Signs Vital Name Observation Time Observation Value Comments S ource height 2024-09-15 11:15:00 60 [in_i] Commo n [facility] weight 2024-09-15 11:15:00 289 [lb_av] Comm on [facility] temperature 2024-09-15 11:15:00 97.5 [degF] Com mon [facility] bmi 2024-09-15 11:15:00 56.44 kg/m2 Comm [facility] oximetry 2024-09-15 11:15:00 98 % [facility] respiratory rate 2024-09-15 11:15:00 17 /min [facility] blood pressure systolic 2024-09-15 11:15:00 135 mm[Hg] [facility] blood pressure diastolic 2024-09-15 11:15:00 75 mm[Hg] [facility] Height 2024-09-01 00:00:00 61 [in_i] [facility] BMI (Body Mass Index) 2024-09-01 00:00:00 55.4 kg/m2 [facility] BP Diastolic 2024-09-01 00:00:00 75 mm[Hg] [facility] BP Systolic 2024-09-01 00:00:00 122 mm[Hg] [facility] Body Weight 2024-09-01 00:00:00 293 [lb_av] [facility] height 2024-08-16 16:00:00 60 [in_i] Commo n [facility] weight 2024-08-16 16:00:00 302 [lb_av] Comm [facility] temperature 2024-08-16 16:00:00 97.9 [degF] Com [facility] bmi 2024-08-16 16:00:00 58.97 kg/m2 Comm on [facility] oximetry 2024-08-16 16:00:00 97 % [facility] blood pressure systolic 2024-08-16 16:00:00 128 mm[Hg] Common [facility] blood pressure diastolic 2024-08-16 16:00:00 70 mm[Hg] Common [facility] height 2024-07-28 15:30:00 60 [in_i] Commo n [facility] weight 2024-07-28 15:30:00 288 [lb_av] Comm on [facility] temperature 2024-07-28 15:30:00 97.6 [degF] Com [facility] bmi 2024-07-28 15:30:00 56.24 kg/m2 Comm on [facility] oximetry 2024-07-28 15:30:00 98 % Commo n [facility] blood pressure systolic 2024-07-28 15:30:00 142 mm[Hg] Common [facility] blood pressure diastolic 2024-07-28 15:30:00 88 mm[Hg] Common [facility] Body Weight 2024-07-20 00:00:00 293 [lb_av] [facility] BP Systolic 2024-07-20 00:00:00 134 mm[Hg] [facility] BP Diastolic 2024-07-20 00:00:00 83 mm[Hg] [facility] BMI (Body Mass Index) 2024-07-20 00:00:00 55.4 kg/m2 [facility] Height 2024-07-20 00:00:00 61 [in_i] [facility] Height 2024-07-07 00:00:00 61 [in_i] [facility] BP Diastolic 2024-07-07 00:00:00 85 mm[Hg] [facility] Body Weight 2024-07-07 00:00:00 293 [lb_av] [facility] BP Systolic 2024-07-07 00:00:00 140 mm[Hg] [facility] BMI (Body Mass Index) 2024-07-07 00:00:00 [facility]4 [facility] 2022-01-01 11:00:00 61 [in_i] Commo n [facility] weight 2022-01-01 11:00:00 295 [lb_av] Comm on [facility] bmi 2022-01-01 11:00:00 55.73 kg/m2 Comm on [facility] height 2021-09-03 16:40:00 61 [in_i] Commo n [facility] weight 2021-09-03 16:40:00 285 [lb_av] Comm on [facility] bmi 2021-09-03 16:40:00 53.84 kg/m2 Comm on [facility] height 2021-07-12 13:00:00 61.00 [in_i] Com mon [facility] weight 2021-07-12 13:00:00 285 [lb_av] Comm on [facility] bmi 2021-07-12 13:00:00 53.84 kg/m2 Comm [facility] height 2021-05-14 10:10:00 61.00 [in_i] Com mon [facility] weight 2021-05-14 10:10:00 285.8 [lb_av] Co mmon [facility] temperature 2021-05-14 10:10:00 98.1 [degF] Com mon [facility] bmi 2021-05-14 10:10:00 54 kg/m2 Commo n [facility] oximetry 2021-05-14 10:10:00 98 % Com[facility] respiratory rate 2021-05-14 10:10:00 17 /min [facility] blood pressure systolic 2021-05-14 10:10:00 122 mm[Hg] [facility] blood pressure diastolic 2021-05-14 10:10:00 78 mm[Hg] [facility] Procedures Procedure Date / Time Performed Performing Clinicia n Source MAMMO, screening, digital, bilateral 2024-07-07 00:00:00 [facility] US, liver 2024-07-07 00:00:00 [facility] Hysteroscopy 2019-06-08 00:00:00 [facility] Incision and Drainage 2019-06-08 00:00:00 [facility] Incision and Drainage 2008-06-08 00:00:00 [facility] Encounters Start Date/Time End Date/Time Encounter Type Admission Type Attending [facility] Care Facility Care Department Encounter ID Source 2024-07-28 14:49:00 Outpatient Lana Robertson [facility] [id number] [facility] 2024-07-26 13:49:[address] [facility] [id number] [facility] 2024-07-20 12:59:00 [facility] [id number] [facility] 2024-07-19 10:20:00 Outpatient Lana Robertson [facility] [id number] [facility] 2024-07-08 12:26:00 Outpatient Lana Robertson [facility] [id number] [facility] 2024-07-06 12:27:00 Outpatient Renuka KEITH [facility] [id number] [facility] 2022-03-03 09:33:00 Outpatient Keith, Na [facility] [id number] [facility] 2021-09-04 06:35:00 Outpatient Keith, Na [facility] [id number] [facility] 2021-08-27 11:16:00 Outpatient Renuka Keith [facility] [id number] [facility] 2021-07-03 14:21:33 Outpatient KeithRenuka wolfe [facility] ST[facility] [id number] [facility] 2021-07-03 11:08:47 Outpatient Renuka Keith [facility] [id number] [facility] 2021-07-03 11:07:47 Outpatient Renuka Keith [facility] [id number] [facility] 2024-09-21 00:00:00 2024-09-21 00:00:00 (TEL) [facility] ST[facility] [id number] [facility] 2024-09-15 00:00:00 2024-09-15 00:00:00 (ESTPT) Establishe d Patient STLMLC ST[facility] [id number] [facility] 2024-09-05 00:00:00 2024-09-05 00:00:00 DEEDEE Renteria: [address], [address] [address], [place] [address] , Ph. Formerly [facility], later [facility] - GC_GCBZW_Zenia wojciech Polanco* [id number] [facility] 2024-09-01 00:00:00 2024-09-01 00:00:00 TAN GuillenP: [address], [address], [place] [address] , Ph. Formerly [facility], [facility] GC_GCBZW_Zenia Polanco* [id number] [facility] 2024-08-16 00:00:00 2024-08-16 00:00:00 OFFICE VISIT ESTAB PT LEVEL 4 [facility] ST[facility]C [id number] [facility] 2024-08-12 00:00:00 2024-08-12 00:00:00 (TEL) STLMLC STL[facility]C [id number] [facility] 2024-08-05 00:00:00 2024-08-05 00:00:00 (TEL) STLMLC STLMLC [id number] [facility] 2024-07-29 00:00:00 2024-07-29 00:00:00 (TEL) STLMLC STL[facility]C [id number] [facility] 2024-07-28 00:00:00 2024-07-28 00:00:00 OFFICE VISIT NEW PT LEVEL 4 STLMLC STL[facility]C [id number] [facility] 2024-07-28 00:00:00 2024-07-28 00:00:00 (TEL) STLMLC STL[facility]C [id number] [facility] 2024-07-25 00:00:00 2024-07-25 00:00:00 (TEL) STLMLC STLMLC [id number] [facility] 2024-07-20 00:00:00 2024-07-20 00:00:00 YAHIR Jefferson: [address], [address], [place] [address] , Ph. Formerly [facility], [facility] GC_GCBZW_Zenia Polanco* [id number] [facility] 2024-07-07 00:00:00 2024-07-07 00:00:00 YAHIR Groves: [address], [place] [address] , Ph. [facility] - GC_GCBZW_La wojciech Polanco* [id number] [facility] 2024-07-06 00:00:00 2024-07-06 00:00:00 (TEL) STLMLC STLMLC [id number] [facility] 2023-04-07 00:00:00 2023-04-07 00:00:00 Outpatient GC_GCBZW_Ka keli_S [facility] [id number] [facility] 2022-04-01 00:00:00 2022-04-01 00:00:00 (TEL) STLMLC STLMLC [id number] [facility] 2022-01-02 00:00:00 2022-01-02 00:00:00 (TEL) STLMLC ST[facility]C [id number] [facility] 2022-01-01 00:00:00 2022-01-01 00:00:00 OFFICE VISIT ESTAB PT LEVEL 4 STLMLC STLMLC [id number] [facility] 2021-11-01 00:00:00 2021-11-01 00:00:00 (TEL) STLMLC STLMLC [id number] [facility] 2021-10-30 00:00:00 2021-10-30 00:00:00 OL DIG E/M SVC 11-20 MIN STLMLC STLMLC [id number] [facility] 2021-09-23 00:00:00 2021-09-23 00:00:00 (TEL) STLMLC STLMLC [id number] [facility] 2021-09-03 00:00:00 2021-09-03 00:00:00 OL DIG E/M SVC 11-20 MIN STLMLC STLMLC [id number] [facility] 2021-07-12 00:00:00 2021-07-12 00:00:00 OFFICE VISIT EST PT LEVEL 3 STLMLC ST[facility]C [id number] [facility] 2021-07-10 00:00:00 2021-07-10 00:00:00 (TEL) STLMLC STLML[facility] [id number] [facility] 2021-06-28 00:00:00 2021-06-28 00:00:00 OFFICE VISIT EST PT LEVEL 3 STLMLC STLMLC [id number] [facility] 2021-06-05 00:00:00 2021-06-05 00:00:00 (TEL) STLMLC STLMLC [id number] [facility] 2021-05-15 00:00:00 2021-05-15 00:00:00 (TEL) STLMLC STLMLC [id number] [facility] 2021-05-14 00:00:00 2021-05-14 00:00:00 (TEL) STLMLC STLMLC [id number] [facility] 2021-05-14 00:00:00 2021-05-14 00:00:00 OFFICE VISIT ESTAB PT LEVEL 4 STLMLC STLMLC [id number] [facility] 2021-04-01 00:00:00 2021-04-01 00:00:00 (TEL) STLMLC STLMLC [id number] [facility] 2019-08-25 13:19:00 2019-08-25 13:19:00 Outpatient [facility] [id number] [facility] 2019-08-02 15:05:00 2019-08-02 15:05:00 [facility] [id number] [facility] 2019-08-01 09:53:00 2019-08-01 09:53:00 Outpatient [facility] [id number] [facility] 2019-04-28 09:40:00 2019-04-28 09:40:00 [facility] [id number] [facility] 2019-04-05 09:40:00 2019-04-05 09:40:00 [facility] [id number] [facility] 2019-02-08 11:36:00 2019-02-08 11:36:00 [facility] [id number] [facility] 2019-01-25 16:44:00 2019-01-25 16:44:00 [facility] [id number] [facility] 2018-12-15 10:34:00 2018-12-15 10:34:00 [facility] [id number] [facility] 2018-12-14 11:20:00 2018-12-14 11:20:00 [facility] [id number] [facility] 2018-01-14 10:00:00 2018-01-14 10:00:00 [facility] [id number] [facility] 2017-11-17 15:00:00 2017-11-17 15:00:00 [facility] [id number] [facility] Results Test Description Test Time Test Comments Results Result Co mments Source cytology, vaginal/[id number] 00:00:00Clinical InformationPathologistA SourceA Gross DescriptionA Diagnosis[facility]regnancy test, urine 2024-09-01 13:34:35* Test Item Value Reference Range Interpretation Comme nts HCG (test code = HCG) negative [facility]IP[facility] [id number] 00:00:00* Test Item Value Reference Range Interpretation Comme nts HEMOGLOBIN A1c (test code = 4548-4) 11.3 % See_Comment H [Automated message] The system which generated this result transmitted reference range: 4.2-5.6 %. The reference range was not used to interpret this result as normal/abnormal. ALBUMIN, URINE, RANDOM (test code = 67722-8) 1.5 MG/DL NOT ESTAB MG/DL CALC ALBUMIN/CREAT, RND (test code = 81112-1) 20 MG/G See_Comment [Automated message] The system which generated this result transmitted reference range: <30 MG/G. The reference range was not used to interpret this result as normal/abnormal. CREATININE, URINE, CONC. (test code = 2161-8) 75.0 MG/DL NOT ESTAB MG/DL ALBUMIN (test code = 1751-7) 3.7 G/DL See_Comment [Automated message] The system which generated this result transmitted reference range: 3.5-5.2 G/DL. The reference range was not used to interpret this result as normal/abnormal. ALKALINE PHOSPHATASE (test code = 6768-6) 196 U/L See_Comment H [Automated message] The system which generated this result transmitted reference range: 40-132 U/L. The reference range was not used to interpret this result as normal/abnormal. BILIRUBIN, TOTAL (test code = 1975-2) 1.2 MG/DL See_Comment [Automated message] The system which generated this result transmitted reference range: <=1.2 MG/DL. The reference range was not used to interpret this result as normal/abnormal. BUN (test code = 3094-0) 14 MG/DL See_Comment [Automated message] The system which generated this result transmitted reference range: 6-20 MG/DL. The reference range was not used to interpret this result as normal/abnormal. CALCIUM (test code = 89668-6) 9.4 MG/DL See_Comment [Automated message] The system which generated this result transmitted reference range: 8.5-10.5 MG/DL. The reference range was not used to interpret this result as normal/abnormal. CALC A/G RATIO (test code = 1759-0) 1.0 RATIO See_Comment [Automated message] The system which generated this result transmitted reference range: 1.0-2.6 RATIO. The reference range was not used to interpret this result as normal/abnormal. CALC BUN/CREAT (test code = 3097-3) 26 RATIO See_Comment [Automated message] The system which generated this result transmitted reference range: 6-28 RATIO. The reference range was not used to interpret this result as normal/abnormal. CALC GLOBULIN (test code = 64902-9) 3.8 G/DL See_Comment H [Automated message] The system which generated this result transmitted reference range: 1.9-3.7 G/DL. The reference range was not used to interpret this result as normal/abnormal. CARBON DIOXIDE (test code = 1963-8) 27 MEQ/L See_Comment [Automated message] The system which generated this result transmitted reference range: 19-31 MEQ/L. The reference range was not used to interpret this result as normal/abnormal. CHLORIDE (test code = 2075-0) 101 MEQ/L See_Comment [Automated message] The system which generated this result transmitted reference range: 95-107 MEQ/L. The reference range was not used to interpret this result as normal/abnormal. CREATININE (test code = 2160-0) 0.54 MG/DL See_Comment L [Automated message] The system which generated this result transmitted reference range: 0.60-1.30 MG/DL. The reference range was not used to interpret this result as normal/abnormal. eGFR (2020 CKD-EPI) (test code = 32312-8) 111 ML/MIN/1.73 See_Comment [Automated message] The system which generated this result transmitted reference range: >60 ML/MIN/1.73. The reference range was not used to interpret this result as normal/abnormal. GLUCOSE (test code = 1558-6) 335 MG/DL See_Comment H [Automated message] The system which generated this result transmitted reference range: 70-99 MG/DL. The reference range was not used to interpret this result as normal/abnormal. POTASSIUM (test code = 2823-3) 4.3 MEQ/L See_Comment [Automated message] The system which generated this result transmitted reference range: 3.5-5.4 MEQ/L. The reference range was not used to interpret this result as normal/abnormal. PROTEIN, TOTAL (test code = 2885-2) 7.5 G/DL See_Comment [Automated message] The system which generated this result transmitted reference range: 6.1-8.3 G/DL. The reference range was not used to interpret this result as normal/abnormal. AST (test code = 1920-8) 37 U/L See_Comment [Automated message] The system which generated this result transmitted reference range: 9-40 U/L. The reference range was not used to interpret this result as normal/abnormal. ALT (test code = 1742-6) 30 U/L See_Comment [Automated message] The system which generated this result transmitted reference range: 5-40 U/L. The reference range was not used to interpret this result as normal/abnormal. SODIUM (test code = 2951-2) 137 MEQ/L See_Comment [Automated message] The system which generated this result transmitted reference range: 133-146 MEQ/L. The reference range was not used to interpret this result as normal/abnormal. HEPATITIS A IgM (test code = 59787-9) NON-REACTIVE NON-REACTIVE HEPATITIS B CORE IgM (test code = 13993-8) NON-REACTIVE NON-REACTIVE HEPATITIS B SURF AG (test code = 5195-3) NON-REACTIVE NON-REACTIVE HEPATITIS C ANTIBODY (test code = 07483-0) NON-REACTIVE NON-REACTIVE FERRITIN (test code = 34555-8) 377 NG/ML See_Comment H [Automated message] The system which generated this result transmitted reference range: 13-200 NG/ML. The reference range was not used to interpret this result as normal/abnormal. HEPATITIS B SURF AG (test code = 5196-1) NON-REACTIVE NON-REACTIVE A2 MACROGLOBULIN (test code = 1835-8) 288 mg/dL See_Comment [Automated message] The system which generated this result transmitted reference range: 131-293 mg/dL. The reference range was not used to interpret this result as normal/abnormal. ALT (test code = 1743-4) 31 U/L See_Comment [Automated message] The system which generated this result transmitted reference range: 10-35 U/L. The reference range was not used to interpret this result as normal/abnormal. APOLIPOPROTEIN A1 (test code = 1869-7) 142 mg/dL See_Comment [Automated message] The system which generated this result transmitted reference range: 108-225 mg/dL. The reference range was not used to interpret this result as normal/abnormal. BILIRUBIN (test code = 23164-4) 0.5 mg/dL See_Comment [Automated message] The system which generated this result transmitted reference range: <1.3 mg/dL. The reference range was not used to interpret this result as normal/abnormal. FIBROSIS SCORE (test code = 54989-4) 0.46 A FIBROSIS STAGE (test code = 53877-9) F1-F2 A GAMMA GT (test code = 2324-2) 60 U/L See_Comment H [Automated message] The system which generated this result transmitted reference range: <60 U/L. The reference range was not used to interpret this result as normal/abnormal. HAPTOGLOBIN (test code = 4542-7) 83 mg/dL See_Comment [Automated message] The system which generated this result transmitted reference range: 32-197 mg/dL. The reference range was not used to interpret this result as normal/abnormal. NECROINFLAM GRADE (test code = 50270-4) A0-A1 NECROINFLAM SCORE (test code = 38077-8) 0.19 AMMONIA (test code = 1841-6) 43 uMOL/L See_Comment [Automated message] The system which generated this result transmitted reference range: 11-51 uMOL/L. The reference range was not used to interpret this result as normal/abnormal. TSH REFLEX TO FREE T4 (test code = 14812-5) 1.640 UIU/ML See_Comment [Automated message] The system which generated this result transmitted reference range: 0.400-4.100 UIU/ML. The reference range was not used to interpret this result as normal/abnormal. INR (test code = 6301-6) 1.1 SEE BELOW PROTHROMBIN TIME (PT) (test code = 3289-6) 14.5 SECONDS See_Comment [Automated message] The system which generated this result transmitted reference range: 12.5-14.7 SECONDS. The reference range was not used to interpret this result as normal/abnormal. CALC LDL CHOL (test code = 09442-0) 83 MG/DL See_Comment [Automated message] The system which generated this result transmitted reference range: <100 MG/DL. The reference range was not used to interpret this result as normal/abnormal. CHOLESTEROL (test code = 2093-3) 152 MG/DL See_Comment [Automated message] The system which generated this result transmitted reference range: <200 MG/DL. The reference range was not used to interpret this result as normal/abnormal. HDL CHOLESTEROL (test code = 2085-9) 46 MG/DL See_Comment [Automated message] The system which generated this result transmitted reference range: >39 MG/DL. The reference range was not used to interpret this result as normal/abnormal. RISK RATIO LDL/HDL (test code = 52060-9) 1.80 RATIO See_Comment [Automated message] The system which generated this result transmitted reference range: <3.22 RATIO. The reference range was not used to interpret this result as normal/abnormal. TRIGLYCERIDES (test code = 2571-8) 136 MG/DL See_Comment [Automated message] The system which generated this result transmitted reference range: <150 MG/DL. The reference range was not used to interpret this result as normal/abnormal. igp, apt HPV,rfx 16/18,[id number] 00:00:00* Test Item Value Reference Range Interpretation Comme nts diagnosis: (test code = diagnosis:) COMMENT specimen adequacy: (test cod e = specimen adequacy:) COMMENT performed by: (test code = p erformed by:) COMMENT QC reviewed by: (test code = QC reviewed by:) COMMENT note: (test code = note:) COMMENT test methodology: (test code = test methodology:) COMMENT HPV aptima (test code = HPV aptima) POSITIVE negative A [facility] MedicalHPV genotypes 16/18,[id number] 00:00:00* Test Item Value Reference Range Interpretation Comme nts HPV genotype 16 (test code = HPV genotype 16) Negative negative HPV genotype 18,45 (test cod e = HPV genotype 18,45) Negative [place] [facility] [place] - Serum or [id number] 00:00:00* Test Item Value Reference Range Interpretation Comme nts glucose (test code = glucose) 233 mg/dL 70-99 H BUN (test code = BUN) 11 mg/dL 6-24 creatinine (test code = creatinine) 0.62 mg/dL 0.57-1.00 eGFR (test code = eGFR) 107 mL/min/1.73 >59 BUN/creatinine ratio (test code = BUN/creatinine ratio) 18 9-23 sodium (test code = sodium) 140 mmol/L 134-144 potassium (test code = potassium) 4.4 mmol/L 3.5-5.2 chloride (test code = chloride) 102 mmol/L 96-106 carbon dioxide, total (test code = carbon dioxide, total) 26 mmol/L 20-29 calcium (test code = calcium) 9.1 mg/dL 8.7[facility]10.2 [facility] - [id number] 00:00:00* Test Item Value Reference Range Interpretation Comme nts WBC (test code = WBC) 5.5 x10e3/uL 3.4-10.8 RBC (test code = RBC) 5.12 x10e6/uL 3.77-5.28 hemoglobin (test code = hemoglobin) 15.0 g/dL 11.1-15.9 hematocrit (test code = hematocrit) 45.8 % 34.0-46.6 MCV (test code = MCV) 90 fL 79-97 MCH (test code = MCH) 29.3 pg 26.6-33.0 MCHC (test code = MCHC) 32.8 g/dL 31.5-35.7 RDW (test code = RDW) 13.4 % 11.7-15.4 platelets (test code = platelets) 136 x10e3/uL 150-450 L neutrophils (test code = neutrophils) 62 % not estab. lymphs (test code = lymphs) 24 % not estab. monocytes (test code = monocytes) 8 % not estab. eos (test code = eos) 5 % not estab. basos (test code = basos) 1 % not estab. neutrophils (absolute) (test code = neutrophils (absolute)) 3.5 x10e3/uL 1.4-7.0 lymphs (absolute) (test code = lymphs (absolute)) 1.3 x10e3/uL 0.7-3.1 monocytes(absolute) (test co de = monocytes(absolute)) 0.4 x10e3/uL 0.1-0.9 eos (absolute) (test code = eos (absolute)) 0.3 x10e3/uL 0.0-0.4 baso (absolute) (test code = baso (absolute)) 0.0 x10e3/uL 0.0-0.2 immature granulocytes (test code = immature granulocytes) 0 % not estab. immature grans (abs) (test c ode = immature grans (abs)) 0.0 x10e3/uL 0.0-0.1 [facility] or [id number] 00:00:00* Test Item Value Reference Range Interpretation Comme nts cholesterol, total (test cod e = cholesterol, total) 142 mg/dL 100-199 triglycerides (test code = triglycerides) 116 mg/dL 0-149 HDL cholesterol (test code = HDL cholesterol) 47 mg/dL >39 VLDL cholesterol rui (test c ode = VLDL cholesterol rui) 21 mg/dL 5-40 Cholesterol in LDL [Mass/vol ume] in Serum or Plasma (test code = 2089-1) 74 mg/dL 0-99 [facility] MedicalHepatic function 2000 panel - Serum or [id number] 00:00:00* Test Item Value Reference Range Interpretation Comme nts protein, total (test code = protein, total) 7.0 g/dL 6.0-8.5 albumin (test code = albumin) 3.6 g/dL 3.8-4.9 L bilirubin, total (test code = bilirubin, total) 1.1 mg/dL 0.0-1.2 bilirubin, direct (test code = bilirubin, direct) 0.36 mg/dL 0.00-0.40 alkaline phosphatase (test c ode = alkaline phosphatase) 181 IU/L 44-121 H AST (SGOT) (test code = AST (SGOT)) 28 IU/L 0-40 ALT (SGPT) (test code = ALT (SGPT)) 21 IU/L 0-32 [facility] MedicalThyrotropin [Units/volume] in Serum or Plasma by Detection limit <= 0.005 mIU/[id number] 00:00:00* Test Item Value Reference Range Interpretation Comme nts TSH (test code = TSH) 2.160 uIU/mL 0.450-4.500 [facility] WwctdelP7m Component* Test Item Value Reference Range Interpretation Comme nts HbA1c (test code = 4548-4) 12.0
--- NOTE | 2024-10-01 19:05 | RAD REPORT ---
EXAMINATION: Head C Spine Mpr Wo Con CLINICAL INDICATION: Female, 54 years old. TRAUMA TECHNIQUE: Axial CT images from the skull base to the vertex without intravenous contrast. Axial CT i mages through the cervical spine were obtained without intravenous contrast. Sagittal and coronal reformatted images were created from the data set. Coronal and sagittal reformatted images were creat ed from the data set. One or more of the following dose reduction techniques were used: Automated exposure control, adjustment of the mA and/or kV according to patient size, and/or iterative reconstr uction. Unless otherwise specified, incidental findings do not require dedicated imaging follow-up. [id number]. COMPARISON: Chest CT 04/03/2021 FINDINGS: Head: INTRACRANIAL: No acute intracranial hemorrhage. No hydrocephalus. No mass effect or midline shift. No significant white matter disease. VASCULATURE: No visualized abnormalities in the arteries or dural venous sinuses. SCALP/SKULL: No calvarial fracture identified. No acute soft tissue abnormality. SINUSES: The visualized paranasal sinuses are mostly clear. No significant mastoid fluid. Cervical spine: ALIGNMENT: The cervical spine has normal alignment without scoliosis or spondylolisthesis. BONE: Vertebral body heights are maintained. No aggressive osseous lesions. DEGENERATIVE: Multilevel cervical spondylosis with evidence of bilateral neural foraminal narrowing. No high grade central spinal stenosis. SOFT TISSUE: 10 mm left upper lobe pulmonary nodule is unchanged since 04/03/2021 and benign. IMPRESSION: No acute intracranial abnormality. No acute fracture or traumatic malalignment of the cervical spine.
--- NOTE | 2024-10-01 19:46 | RAD REPORT ---
EXAM: Chest Pa And Lat (2 Views) HISTORY: 54 years Female TRAUMA COMPARISON: 05/15/2024 FINDINGS: LUNGS/PLEURA: Prominence of the pulmonary interstitium with some modest improvement from prior CARDIAC/MEDIASTINUM: Mild cardiomegaly UPPER ABDOMEN: No significant abnormality. BONES: No acute abnormality. LINES/TUBES/OTHER: N/A IMPRESSION: No evidence of acute cardiopulmonary disease. Chronic prominence of the pulmonary interstitium.
--- NOTE | 2024-10-01 19:47 | RAD REPORT ---
EXAMINATION: Shoulder Right 2+ Views CLINICAL INDICATION: Female, 54 years old. PAIN RIGHT COMPARISON: No prior exam. FINDINGS: No acute fracture. No malalignment/dislocation. Mild right glenohumeral joint and AC joint degenerative changes. Other: n/a IMPRESSION: No acute osseous abnormality.
[2024-10-01] MEDS ORDERED: KETOROLAC 30 MG/ML INJ ONE (20:20)
[2024-10-01] MEDS ORDERED: HYDROCODONE/APAP 5/325 MG TAB ONE (20:20)
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
[2024-10-03 22:58] VITALS: BP 132/87; O2SAT 99
== END 2024-10-01 20:50 | disposition home or self-care (01) ==
LOC: ER 18:01
DX: M25.511 Pain in right shoulder (principal); R51.9 Headache, unspecified; V49.40XA Driver injured in collision with unspecified motor vehicles in traffic accident, initial encounter; E11.9 Type 2 diabetes mellitus without complications
CPT/HCPCS: 70450; 71046; 72125; 96372; 99284

== ENCOUNTER 2024-10-23 12:21 | Emergency (ER) | payer OTHER ==
--- OUTSIDE RECORDS SUMMARY | 2024-10-23 12:25 | XMS REPORT | Continuity of Care Document ---
Author Name Unknown Address [address] [facility] [address] [place] [address] [facility] [place] Address [address] [facility] [address] [place] [address] Care Team Providers Care Reverse Engineer Name Role Phone Lnaa Robertson Attending Clinician Unavail able Renuka KEITH Attending Clinician Unavailable GC_GCBZW_Kadiyala_S Attending Clinician Unavaila ble GC_GCBZW_Kadiyala_S Admitting Clinician Unavaila ble Payers Payer Name Policy Type Policy Number Effective Date Expirati on Date Source Ambetter from [facility] [id number] 2019 00:00:00 [facility] Problems Condition Name Condition Details Condition [...] of Vulva Problem Active 08-28 00:00: 00 [facility] Body mass index 40+ - severely obese Body Mass Index 40+ - Severely Obese Problem Active 08-05 00:00: 00 [facility] Pelvic and perineal pain Pelvic and Perineal Pain Problem Active 08-05 00:00: 00 [facility] Endometria l hyperplasi a Endometria l Hyperplasi a Problem Active 08-05 00:00: 00 [facility] [id number] Type 2 diabetes mellitus with other specified complicati on Problem [facility] [id number] Neuropathy Problem Com [facility] Congenital pes planus Congenital pes planus, unspecifie d foot Problem [facility] Obese Obese Problem [facility] Diabetes mellitus without complicati on Diabetes DMII without complicati ons Problem [facility] [id number] Uncontroll ed type 2 diabetes mellitus without complicati on, without long-term current use of insulin Problem [facility] Uterine polyp Uterine polyp Problem [facility] [id number] Mixed hyperlipid emia Problem [facility] [id number] Essential hypertensi on Problem [facility] [id number] Type 2 diabetes mellitus with hyperglyce gee, without long-term current use of insulin Problem [facility] [id number] Alcoholic cirrhosis of liver without ascites Problem [facility] [id number] Seasonal allergic rhinitis, unspecifie d trigger Problem [facility] [id number] Body aches Problem Comm on [facility] [id number] Acute sinusitis, unspecifie d Problem [facility] [id number] Current use of insulin Problem [facility] Elevated liver enzymes level Elevated liver enzymes Problem [facility] Polyneurop athy due to type 2 diabetes mellitus Diabetic polyneurop athy associated with type 2 diabetes mellitus Problem [facility] [id number] Right foot pain Problem [facility] [id number] Other specified bacterial agents as the cause of diseases classified elsewhere Problem [facility] [id number] Abscess of skin of abdomen Problem [facility] [id number] 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) Problem [facility] [id number] Uncontroll ed type 2 diabetes mellitus with hyperglyce gee Problem [facility] Social History Social Habit Start Date Stop Date Quantity Comments Source History of Tobacco Use [facility] Sex Assigned At [facility] Smoking Status Start Date Stop Date [...] EVERY DAY WITH FOOD FOR 90 DAYS [facility] metformin ER 500 mg tablet,exte nded release 24 hr TAKE 1 TABLET BY MOUTH TWICE A DAY WITH FOOD metformin ER 500 mg tablet,exte nded release 24 hr TAKE 1 TABLET BY MOUTH TWICE A DAY WITH FOOD No metformin ER 500 mg tablet,ext ended release 24 hr TAKE 1 TABLET BY MOUTH TWICE A DAY WITH FOOD [facility] Medical Ozempic 0.25 mg or 0.5 mg [...] height 2024-09-15 11:15:00 60 [in_i] [facility] weight 2024-09-15 11:15:00 289 [lb_av] [facility] temperature 2024-09-15 11:15:00 97.5 [degF] Com mon [facility] bmi 2024-09-15 11:15:00 56.44 kg/m2 Comm [facility] oximetry 2024-09-15 11:15:00 98 % [facility] respiratory rate 2024-09-15 11:15:00 17 /min [facility] blood pressure systolic 2024-09-15 11:15:00 135 mm[Hg] [facility] blood pressure diastolic 2024-09-15 11:15:00 75 mm[Hg] [facility] Height 2024-09-01 00:00:00 61 [in_i] [facility] BMI (Body Mass Index) 2024-09-01 00:00:00 55.4 kg/m2 [facility] BP Diastolic 2024-09-01 00:00:00 75 mm[Hg] [facility] BP Systolic 2024-09-01 00:00:00 122 mm[Hg] [facility] Body Weight 2024-09-01 00:00:00 293 [lb_av] [facility] height 2024-08-16 16:00:00 60 [in_i] [facility] n [facility] weight 2024-08-16 16:00:00 302 [lb_av] Comm [facility] temperature 2024-08-16 16:00:00 97.9 [degF] Com [facility] bmi 2024-08-16 16:00:00 58.97 kg/m2 Comm on [facility] oximetry 2024-08-16 16:00:00 97 % [facility] blood pressure systolic 2024-08-16 16:00:00 128 mm[Hg] Common [facility] blood pressure diastolic 2024-08-16 16:00:00 70 mm[Hg] Common [facility] height 2024-07-28 15:30:00 60 [in_i] Commo n [facility] weight 2024-07-28 15:30:00 288 [lb_av] Comm on [facility] temperature 2024-07-28 15:30:00 97.6 [degF] Com [facility] bmi 2024-07-28 15:30:00 56.24 kg/m2 Comm on [facility] oximetry 2024-07-28 15:30:00 98 % Commo n [facility] blood pressure systolic 2024-07-28 15:30:00 142 mm[Hg] Common [facility] blood pressure diastolic 2024-07-28 15:30:00 88 mm[Hg] Common [facility] Body Weight 2024-07-20 00:00:00 293 [lb_av] [facility] [...] (Body Mass Index) 2024-07-07 00:00:00 55.4 kg/m2 [facility] height 2022-01-01 11:00:00 61 [in_i] Commo n [facility] weight 2022-01-01 11:00:00 295 [lb_av] Comm on [facility] bmi 2022-01-01 11:00:00 55.73 kg/m2 Comm on [facility] height 2021-09-03 16:40:00 61 [in_i] Commo n [facility] weight 2021-09-03 16:40:00 285 [lb_av] Comm on [facility] bmi 2021-09-03 16:40:00 53.84 kg/m2 Comm on [facility] height 2021-07-12 13:00:00 61.00 [in_i] Com mon [facility] weight 2021-07-12 13:00:00 285 [lb_av] Comm on [facility] bmi 2021-07-12 13:00:00 53.84 kg/m2 Comm on [facility] height 2021-05-14 10:10:00 61.00 [in_i] Com mon [facility] weight 2021-05-14 10:10:00 285.8 [lb_av] Co mmon [facility] temperature 2021-05-14 10:10:00 98.1 [degF] Com mon [facility] bmi 2021-05-14 10:10:00 54 kg/m2 Com[facility] oximetry 2021-05-14 10:10:00 98 % Com[facility] respiratory rate 2021-05-14 10:10:00 17 /min [facility] blood pressure systolic 2021-05-14 10:10:00 122 mm[Hg] [facility] blood pressure diastolic 2021-05-14 10:10:00 78 mm[Hg] [facility] Procedures Procedure Date / Time Performed Performing Clinicia n Source MAMMO, screening, digital, bilateral 2024-07-07 00:00:00 [facility] US, liver 2024-07-07 00:00:00 [facility] Hysteroscopy 2019-06-08 00:00:00 [facility] Incision and Drainage 2019-06-08 00:00:00 [facility] Incision and Drainage 2008-06-08 00:00:00 [facility] Encounters Start Date/Time End Date/Time Encounter Type Admission Type Attending [facility] Care Facility Care Department Encounter ID Source 2024-07-28 14:49:00 Outpatient Lana Robertson [facility] [id number] [facility] 2024-07-26 13:49:00 Outpatient [facility] [id number] [facility] 2024-07-20 12:59[facility] [id number] [facility] 2024-07-19 10:20:00 Outpatient Lana Robertson [facility] [id number] [facility] 2024-07-08 12:26:00 Outpatient Lana Robertson [facility] [id number] [facility] 2024-07-06 12:27:00 Outpatient Renuka KEITH [facility] [id number] [facility] 2022-03-03 09:33:00 Outpatient Keith, Na [facility] [id number] [facility] 2021-09-04 06:35:00 Outpatient Keith, Na [facility] [id number] [facility] 2021-08-27 11:16:00 Outpatient Renuka Keith [facility] [id number] [facility] 2021-07-03 14:21:33 Outpatient KeithRenuka wolfe [facility] [id number] [facility] 2021-07-03 11:08:47 Outpatient Renuka Keith [facility] [id number] [facility] 2021-07-03 11:07:47 Outpatient Renuka Keith [facility] [id number] [facility] 2024-09-21 00:00:00 2024-09-21 00:00:00 (TEL) [facility] [id number] [facility] 2024-09-15 00:00:00 2024-09-15 00:00:00 (ESTPT) Establishe d Patient [facility] [id number] [facility] 2024-09-05 00:00:00 2024-09-05 00:00:00 DEEDEE Renteria: [address], [address] [address], [place] [address] , Ph. [facility] - GC_GCBZW_Zenia wojciech Polanco* [id number] [facility] 2024-09-01 00:00:00 2024-09-01 00:00:00 TAN GuillenP: [address], [address], [place] [address] , Ph. [facility] GC_GCBZW_Zenia Polanco* [id number] [facility] 2024-08-16 00:00:00 2024-08-16 00:00:00 OFFICE VISIT ESTAB PT LEVEL 4 [facility] [id number] [facility] 2024-08-12 00:00:00 2024-08-12 00:00:00 (TEL) [facility] [id number] [facility] 2024-08-05 00:00:00 2024-08-05 00:00:00 (TEL) [facility] [id number] [facility] 2024-07-29 00:00:00 2024-07-29 00:00:00 (TEL) [facility] [id number] [facility] 2024-07-28 00:00:00 2024-07-28 00:00:00 OFFICE VISIT NEW PT LEVEL 4 [facility] [id number] [facility] 2024-07-28 00:00:00 2024-07-28 00:00:00 (TEL) [facility]C [facility] [id number] [facility] 2024-07-25 00:00:00 2024-07-25 00:00:00 (TEL) [facility] [id number] [facility] 2024-07-20 00:00:00 2024-07-20 00:00:00 YAHIR Jefferson: [address], [address], [place] [address] , Ph. [facility] GC_GCBZW_Zenia Polanco* [id number] [facility] 2024-07-07 00:00:00 2024-07-07 00:00:00 YAHIR Groves: [address], [address], [place] [address] , Ph. [facility] - GC_GCBZW_La wojciech Polanco* [id number] [facility] 2024-07-06 00:00:00 2024-07-06 00:00:00 (TEL) [facility]C [facility] [id number] [facility] 2023-04-07 00:00:00 2023-04-07 00:00:00 Outpatient GC_GCBZW_Ka keli_S [facility] [id number] [facility] 2022-04-01 00:00:00 2022-04-01 00:00:00 (TEL) [facility]C [facility] [id number] [facility] 2022-01-02 00:00:00 2022-01-02 00:00:00 (TEL) [facility] [id number] [facility] 2022-01-01 00:00:00 2022-01-01 00:00:00 OFFICE VISIT ESTAB PT LEVEL 4 [facility] [id number] [facility] 2021-11-01 00:00:00 2021-11-01 00:00:00 (TEL) [facility]C [facility] [id number] [facility] 2021-10-30 00:00:00 2021-10-30 00:00:00 OL DIG E/M SVC 11-20 MIN [facility] [id number] [facility] 2021-09-23 00:00:00 2021-09-23 00:00:00 (TEL) [facility]C [facility] [id number] [facility] 2021-09-03 00:00:00 2021-09-03 00:00:00 OL DIG E/M SVC 11-20 MIN [facility] [id number] [facility] 2021-07-12 00:00:00 2021-07-12 00:00:00 OFFICE VISIT EST PT LEVEL 3 [facility] [id number] [facility] 2021-07-10 00:00:00 2021-07-10 00:00:00 (TEL) [facility]C [facility] [id number] [facility] 2021-06-28 00:00:00 2021-06-28 00:00:00 OFFICE VISIT EST PT LEVEL 3 [facility] [id number] [facility] 2021-06-05 00:00:00 2021-06-05 00:00:00 (TEL) STLMLC [facility] [id number] [facility] 2021-05-15 00:00:00 2021-05-15 00:00:00 (TEL) [facility]LMLC [facility] [id number] [facility] 2021-05-14 00:00:00 2021-05-14 00:00:00 (TEL) [facility]LMLC [facility] [id number] [facility] 2021-05-14 00:00:00 2021-05-14 00:00:00 OFFICE VISIT ESTAB PT LEVEL 4 [facility] [id number] [facility] 2021-04-01 00:00:00 2021-04-01 00:00:00 (TEL) [facility]C [facility] [id number] [facility] 2019-08-25 13:19:00 2019-08-25 13:19:00 Outpatient [facility] Medicine [facility] [id number] [facility] 2019-08-02 15:05:00 2019-08-02 15:05:00 [facility] [id number] [facility] 2019-08-01 09:53:00 2019-08-01 09:53:00 [facility] [id number] [facility] 2019-04-28 09:40:00 2019-04-28 09:40:00 [facility] [id number] [facility] 2019-04-05 09:40:00 2019-04-05 09:40:00 [facility] [id number] [facility] 2019-02-08 11:36:00 2019-02-08 11:36:00 [facility] [id number] [facility] 2019-01-25 16:44:00 2019-01-25 16:44:00 [facility] [id number] [facility] 2018-12-15 10:34:00 2018-12-15 10:34:00 [facility] [id number] [facility] 2018-12-14 11:20:00 2018-12-14 11:20:00 [facility] [id number] [facility] 2018-01-14 10:00:00 2018-01-14 10:00:00 [facility] [id number] [facility] 2017-11-17 15:00:00 2017-11-17 15:00:00 [facility] [id number] [facility] Results Test Description Test Time Test Comments Results Result Co mments Source cytology, vaginal/[id number] 00:00:00Clinical InformationPathologistA SourceA Gross DescriptionA Diagnosis[facility]regnancy test, urine 2024-09-01 13:34:35* Test Item Value Reference Range Interpretation Comme nts HCG (test code = HCG) negative [facility]IP[facility] [id number] 00:00:00* Test Item Value Reference Range Interpretation Comme nts HEMOGLOBIN A1c (test code = 4548-4) 11.3 % See_Comment H [Automated message] The system which generated this result transmitted reference range: 4.2-5.6 %. The reference range was not used to interpret this result as normal/abnormal. ALBUMIN, URINE, RANDOM (test code = 91193-7) 1.5 MG/DL NOT ESTAB MG/DL CALC ALBUMIN/CREAT, RND (test code = 52276-2) 20 MG/G See_Comment [Automated message] The system [...] result as normal/abnormal. CALCIUM (test code = 91725-5) 9.4 MG/DL See_Comment [Automated message] The system [...] as normal/abnormal. CALC GLOBULIN (test code = 10926-0) 3.8 G/DL See_Comment H [Automated message] The [...] normal/abnormal. eGFR (2020 CKD-EPI) (test code = 11756-2) 111 ML/MIN/1.73 See_Comment [Automated message] The system [...] normal/abnormal. HEPATITIS A IgM (test code = 94386-3) NON-REACTIVE NON-REACTIVE HEPATITIS B CORE IgM (test code = 23704-1) NON-REACTIVE NON-REACTIVE HEPATITIS B SURF AG (test code = 5195-3) NON-REACTIVE NON-REACTIVE HEPATITIS C ANTIBODY (test code = 96754-3) NON-REACTIVE NON-REACTIVE FERRITIN (test code = 78163-1) 377 NG/ML See_Comment H [Automated message] The [...] result as normal/abnormal. BILIRUBIN (test code = 98010-1) 0.5 mg/dL See_Comment [Automated message] The system which generated this result transmitted reference range: <1.3 mg/dL. The reference range was not used to interpret this result as normal/abnormal. FIBROSIS SCORE (test code = 79139-0) 0.46 A FIBROSIS STAGE (test code = 16274-4) F1-F2 A GAMMA GT (test code = [...] as normal/abnormal. NECROINFLAM GRADE (test code = 70234-7) A0-A1 NECROINFLAM SCORE (test code = 21950-5) 0.19 AMMONIA (test code = 1841-6) 43 uMOL/L See_Comment [Automated message] The system which generated this result transmitted reference range: 11-51 uMOL/L. The reference range was not used to interpret this result as normal/abnormal. TSH REFLEX TO FREE T4 (test code = 25678-9) 1.640 UIU/ML See_Comment [Automated message] The system [...] normal/abnormal. CALC LDL CHOL (test code = 69715-2) 83 MG/DL See_Comment [Automated message] The system [...] normal/abnormal. RISK RATIO LDL/HDL (test code = 50543-7) 1.80 RATIO See_Comment [Automated message] The system [...] this result as normal/abnormal. igp, apt HPV,rfx 16/18,[id number] 00:00:00* Test Item Value Reference Range Interpretation [...] code = HPV aptima) POSITIVE negative A [facility] MedicalHPV genotypes 16/18,[id number] 00:00:00* Test Item Value Reference Range Interpretation Comme nts HPV genotype 16 (test code = HPV genotype 16) Negative negative HPV genotype 18,45 (test cod e = HPV genotype 18,45) Negative negative [facility] metabolic 2000 panel - Serum or [id number] 00:00:00* Test Item Value Reference Range Interpretation [...] (test code = calcium) 9.1 mg/dL 8.7-10.2 [facility] - [id number] 00:00:00* Test Item Value Reference Range Interpretation [...] = immature grans (abs)) 0.0 x10e3/uL 0.0-0.1 [facility] 1996 panel - Serum or [id number] 00:00:00* Test Item Value Reference Range Interpretation [...] (test code = 2089-1) 74 mg/dL 0-99 [facility] MedicalHepatic function 2000 panel - Serum or [id number] 00:00:00* Test Item Value Reference Range Interpretation [...] code = ALT (SGPT)) 21 IU/L 0-32 [facility] MedicalThyrotropin [Units/volume] in Serum or Plasma by Detection limit <= 0.005 mIU/[id number] 00:00:00* Test Item Value Reference Range Interpretation Comme nts TSH (test code = TSH) 2.160 uIU/mL 0.450-4.500 [facility] UowprvsF0i Component* Test Item Value Reference Range Interpretation Comme nts HbA1c (test code = 4548-4) 12.0
[2024-10-23] MEDS ORDERED: ACETAMINOPHEN 500 MG TAB ONE (12:55)
--- NOTE | 2024-10-23 13:44 | RAD REPORT ---
EXAMINATION: Facial Bones W/ Mpr CLINICAL INDICATION: Female, 54 years old. Facial pain;Trauma TECHNIQUE: Axial images were obtained through the facial bones and orbits without intravenous contras t. Sagittal and coronal reconstructions were created from the data. One or more of the following dose reduction techniques were used: Automated exposure control, adjustment of the mA and/or kV accor ding to patient size, and/or iterative reconstruction. Unless otherwise specified, incidental findings do not require dedicated imaging follow-up. [id number]. COMPARISON: No prior exam. FINDINGS: SOFT TISSUE: No significant abnormalities. BONES: No evidence of fracture, dislocation, or aggressive osseous lesions. No lesion of the visuali zed skull base or calvarium. ORBITS: The globes are intact. No intraorbital hemorrhage or mass. SINUSES: The paranasal sinuses and tympanomastoid cavities are predominantly clear. BRAIN: No acute abnormalities in the visualized intracranial structures. IMPRESSION: No facial fracture identified.
--- NOTE | 2024-10-23 13:45 | RAD REPORT ---
EXAMINATION: Hand Right 3 View VIEWS: Three views CLINICAL INDICATION: Female, 54 years old. PAIN COMPARISON: No prior exam. IMPRESSION: Slightly displaced fracture present at the base of the fifth metacarpal. No definite intra-articular extension. No other fractures identified. No significant focal degenerative changes. No radiopaque foreign body.
--- NOTE | 2024-10-23 14:43 | RAD REPORT ---
EXAMINATION: Ribs Right VIEWS: Two views CLINICAL INDICATION: Female, 54 years old. TRAUMA COMPARISON: 10/01/2024 IMPRESSION: Limited by body habitus. No displaced right-sided rib fractures identified. No pneumothorax is identi fied. Nondisplaced rib fractures may not be apparent radiographically until after healing begins .
[2024-10-23] MEDS ORDERED: IBUPROFEN 400 MG TAB ONE (15:09)
--- NOTE | 2024-10-23 15:19 | EDPHYS ---
Physician Documentation [facility] Name: Roxana Wheeler Age: 54 yrs Sex: Female : 1970 Arrival Date: 10/23/2024 Time: 12:21 Bed 12 Private MD: ED Physician Mohini Wesley HPI: 10/23 13:00 This 54 yrs old Female presents to ER via Ambulatory with complaints of Fall jh7 Injury. 13:00 54 y/o f with a pmh of htn and dm presents to the ER post fall. The patient states that jh7 she was getting out of her car and tripped, landing face first on the concrete. She also reports that she injured the lateral portion of her right hand and that her right ribs are sore. Denies head injury, being on blood thinners, or LOC.. 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 - Infectious Disease History:: Denies. - Social history:: Smoking status: unknown. ROS: 13:00 Constitutional: Per HPI jh7 Exam: 13:00 Constitutional: This is a well developed, well nourished patient who is awake, alert, jh7 and in no acute distress. Neck: Trachea midline, no thyromegaly or masses palpated, and no cervical lymphadenopathy. Supple, full range of motion without nuchal rigidity, or vertebral point tenderness. No Meningismus. Cardiovascular: Regular rate and rhythm with a normal S1 and S2. No gallops, murmurs, or rubs. Normal PMI, no JVD. No pulse deficits. Respiratory: Lungs have equal breath sounds bilaterally, clear to auscultation and percussion. No rales, rhonchi or wheezes noted. No increased work of breathing, no retractions or nasal flaring. Abdomen/GI: Soft, non-tender, with normal bowel sounds. No distension or tympany. No guarding or rebound. No evidence of tenderness throughout. Back: No spinal tenderness. No costovertebral tenderness. Full range of motion. 13:00 Neuro: Awake and alert, GCS 15, oriented to person, place, time, and situation. Cranial nerves II-XII grossly intact. Motor strength 5/5 in all extremities. Sensory grossly intact. Cerebellar exam normal. Normal gait. 13:00 Head/face: Noted is abrasion(s), that are mild, of the forehead and nose, 13:00 Chest/axilla: Inspection: normal, Palpation: tenderness, that is mild, of the right lateral anterior chest, that totally reproduces the patient's complaints, 13:00 Musculoskeletal/extremity: Extremities: noted in the Lateral aspect of the dorsal right hand: contusion, pain, swelling, ROM: full active range of motion, in the right hand, Circulation is intact in all extremities. Perfusion: the extremity is normally perfused throughout, pink, warm, with brisk capillary refill, Sensation intact. 13:00 Skin: injury, abrasion(s), small abrasion noted, of the face, Vital Signs: 12:58 BP 134 / 87; Pulse 79; Resp 16; Temp 97.4(TE); Pulse Ox 97% on R/A; Weight 129.27 kg; cm10 Height 5 ft. 0 in. ; Pain 10/10; 16:13 BP 128 / 79; Pulse 80; Resp 16; Pulse Ox 97% ; ll1 12:58 Body Mass Index 55.66 (129.27 kg, 152.4 cm) cm10 12:58 Pain Scale: Adult cm10 MDM: 12:32 Medical Screening Exam initiated [facility] 15:25 Differential diagnosis: abrasion, contusion, fracture, multiple trauma, sprain, strain. [facility] Data reviewed: vital signs, nurses notes, radiologic studies, CT scan, plain films. I considered the following discharge prescriptions or medication management in the emergency department Medications were administered in the Emergency Department. See MAR. Independent interpretation of the following test(s) in the Emergency Department X-Ray: My interpretation is Fracture of the base of the right fifth metacarpal. Care significantly affected by the following chronic conditions: Diabetes, Hypertension. Counseling: I had a detailed discussion with the patient and/or guardian regarding the historical points, exam findings, and any diagnostic results supporting the discharge/admit diagnosis, the need for outpatient follow up, a orthopedic surgeon, to return to the emergency department if symptoms worsen or persist or if there are any questions or concerns that arise at home. Response to treatment: the patient's symptoms have mildly improved after treatment. 10/23 12:47 Order name: CT Facial Bones W/O Con; Complete Time: 15:05 [facility] 10/23 12:47 Order name: XRAY Hand RIGHT 3 View; Complete Time: 15:05 [facility] 10/23 13:07 Order name: XRAY Ribs RIGHT; Complete Time: 15:05 [facility] 10/23 15:05 Order name: Splint - Ulnar Gutter; Complete Time: 15:41 [facility] Administered Medications: 13:05 Drug: Acetaminophen PO 1000 mg PO once Route: PO; cm10 14:41 Follow up: Response: No adverse reaction cm10 15:21 Drug: Ibuprofen PO 800 mg PO once Route: PO; ll1 16:16 Follow up: Response: No adverse reaction; Pain is decreased; RASS: Alert and Calm (0) ll1 Disposition Summary: 10/23/24 15:18 Discharge Ordered Notes: Location: Home [facility] Problem: new [facility] Symptoms: have improved [facility] Condition: Stable [facility] Diagnosis - Nondisplaced fracture of base of fifth metacarpal bone, right hand [facility] Followup: [facility] - With: Reji Roth MD - When: 2 - 3 days - Reason: Recheck today's complaints Discharge Instructions: - Discharge Summary Sheet [facility] - Cast or Splint Care, Adult [facility] - Metacarpal Fracture [facility] Forms: - Work release form 1 - Medication Reconciliation Form [facility] - Patient Portal Instructions [facility] - Leadership Thank You Letter [facility] Prescriptions: - Naprosyn 500 mg Oral Tablet - take 1 tablet ORAL route 2 times per day take with food; 30 tablet; Refills: 0, 7 Product Selection Permitted Signatures: Dispatcher [employer] Kali Espinosa RN RN 1 Margaret Park FNP DRAMATIC CRITIC 7 Apoorva Gee RN RN cm10
--- NOTE | 2024-10-23 15:19 | ER ---
Nurse's Notes [facility] Name: Roxana Wheeler Age: 54 yrs Sex: Female : 1970 Arrival Date: 10/23/2024 Time: 12:21 Bed 12 Private MD: Diagnosis: Nondisplaced fracture of base of fifth metacarpal bone, right hand Presentation: 10/23 12:58 Chief complaint: Patient states: trip and fall last night. pt reports pain to her right cm10 hand, right ribs, and to her face. pt has noted abrasions to nose and forehead. NO LOC. Coronavirus screen: Client denies travel out of the [place] in the last 14 days. Ebola Screen: Patient denies travel to an Ebola-affected area in the 21 days before illness onset. Initial Sepsis Screen: Does the patient meet any 2 criteria? No. Patient's initial sepsis screen is negative. Does the patient have a suspected source of infection? No. Patient's initial sepsis screen is negative. Risk Assessment: Do you want to hurt yourself or someone else? Patient reports no desire to harm self or others. Onset of symptoms was October 23, 2024. 12:58 Method Of Arrival: Ambulatory cm10 12:58 Acuity: FREDERIC 3 cm10 Triage Assessment: 13:00 General: Appears in no apparent distress. comfortable, Behavior is calm, cooperative. cm10 Neuro: No deficits noted. Level of Consciousness is awake, alert, obeys commands, Oriented to person, place, time, situation, Appropriate for age. Respiratory: No deficits noted. Airway is patent Respiratory effort is even, unlabored, Respiratory pattern is regular, symmetrical. 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 - Infectious Disease History:: Denies. - Social history:: Smoking status: unknown. Screenin:14 [facility] ED Fall Risk Assessment (Adult) History of falling in the last 3 months, ll1 including since admission Yes- single mechanical fall (1 pt) Confusion or Disorientation No (0 pts) Intoxicated or Sedated No (0 pts) Impaired Gait No (0 pts) Mobility Assist Device Used No (0 pt) Altered Elimination No (0 pt) Score/Fall Risk Level 0 - 2 = Low Risk Maintained a safe environment, Hourly rounding (assess needs \T\ fall precautionary measures) done. Abuse screen: Denies threats or abuse. Nutritional screening: No deficits noted. Tuberculosis screening: No symptoms or risk factors identified. Assessment: 14:41 Reassessment: Patient appears in no apparent distress at this time. Patient and/or cm10 family updated on plan of care and expected duration. Pain level reassessed. Patient is alert, oriented x 3, equal unlabored respirations, skin warm/dry/pink. Pt reports that she is still having pain. 15:21 Reassessment: No changes from previously documented assessment. Patient and/or family ll1 updated on plan of care and expected duration. Pain level reassessed. Patient is alert, oriented x 3, equal unlabored respirations, skin warm/dry/pink. 15:22 General: Appears uncomfortable, Behavior is calm, cooperative, appropriate for age. ll1 Pain: Complains of pain in right hand Quality of pain is described as aching. Neuro: Reports headache. Derm: Reports abrasions to face. Musculoskeletal: Reports pain in right hand. Injury Description: Head injury Bruise swelling R hand. 16:14 Reassessment: No changes from previously documented assessment. Patient and/or family ll1 updated on plan of care and expected duration. Pain level reassessed. Patient is alert, oriented x 3, equal unlabored respirations, skin warm/dry/pink. Vital Signs: 12:58 BP 134 / 87; Pulse 79; Resp 16; Temp 97.4(TE); Pulse Ox 97% on R/A; Weight 129.27 kg; cm10 Height 5 ft. 0 in. ; Pain 10/10; 16:13 BP 128 / 79; Pulse 80; Resp 16; Pulse Ox 97% ; ll1 12:58 Body Mass Index 55.66 (129.27 kg, 152.4 cm) cm10 12:58 Pain Scale: Adult cm10 ED Course: 12:23 Patient arrived in ED. al6 12:31 Margaret Park FNP is PHCP. jh7 12:31 Mohini Wesley MD is Attending Physician. jh7 12:59 Triage completed. cm10 12:59 Arm band placed on right wrist. Patient placed in waiting room. cm10 13:30 CT Facial Bones W/O Con In Process Unspecified. EDMS 13:35 XRAY Hand RIGHT 3 View In Process Unspecified. EDMS 14:35 XRAY Ribs RIGHT In Process Unspecified. EDMS 15:17 Reji Roth MD is Referral Physician. jh7 15:20 Patient has correct armband on for positive identification. Bed in low position. ll1 Provided Education on: ER procedures and process. 16:14 No provider procedures requiring assistance completed. Patient did not have IV access ll1 during this emergency room visit. Administered Medications: 13:05 Drug: Acetaminophen PO 1000 mg PO once Route: PO; cm10 14:41 Follow up: Response: No adverse reaction cm10 15:21 Drug: Ibuprofen PO 800 mg PO once Route: PO; ll1 16:16 Follow up: Response: No adverse reaction; Pain is decreased; RASS: Alert and Calm (0) 1 Medication: 16:15 VIS not applicable for this client. 1 Outcome: 15:18 Discharge ordered by . 7 16:14 Discharged to home ambulatory, 1 16:14 Condition: stable 16:14 Discharge instructions given to patient, Instructed on discharge instructions, follow up and referral plans. medication usage, wound care, Demonstrated understanding of instructions, follow-up care, medications, wound care, splint care, Prescriptions given X 1, 16:16 Patient left the ED. 1 Signatures: Dispatcher [employer] EDMS Kali Abel, RN RN 1 Margaret Park MAINTENANCE DATA ANALYST MAINTENANCE DATA ANALYST 7 Apoorva Gee RN RN cm10 Chitra [email or web address]
[2024-10-23 16:27] VITALS: TEMP 97.4; O2SAT 97
[2024-10-23 16:29] VITALS: BP 128/79
== END 2024-10-23 16:16 | disposition home or self-care (01) ==
LOC: ER 12:21
PROC: 2W3EX1Z Immobilization of Right Hand using Splint (ICD-10-PCS; principal; 2024-10-23)
DX: S62.346A Nondisplaced fracture of base of fifth metacarpal bone, right hand, initial encounter for closed fracture (principal); W01.198A Fall on same level from slipping, tripping and stumbling with subsequent striking against other object, initial encounter
CPT/HCPCS: 70486; 76377; 99283

== ENCOUNTER 2025-01-22 18:55 | Emergency (ER) | payer OTHER ==
--- OUTSIDE RECORDS SUMMARY | 2025-01-22 18:59 | XMS REPORT | Continuity of Care Document ---
Author Name Unknown Address [address] [facility] [address] [place] [address] Organization [facility] [place] Address [address] [facility] [address] [place] [address] Care Team Providers Care Real Estate Administrative Assistant Name Role Phone Lana Robertson Attending Clinician Unavail able Renuka KEITH Attending Clinician Unavailable Payers Payer Name Policy Type Policy Number Effective Date Expirati on Date Source [facility]etter from [facility] [id number] 2019 00:00:00 [facility] Problems Condition Name Condition Details Condition Category Status Onset Date Resolution Date Last Treatment Date Treating Clinician Comments Source Vaginal dryness Vaginal Dryness Problem Active 07-07 00:00: 00 [facility] Diabetes mellitus Diabetes Mellitus Problem Active 07-07 00:00: 00 [facility] Morbid obesity Morbid Obesity Problem Active 07-07 00:00: 00 [facility] Steatotic liver disease Steatotic Liver Disease Problem Active 07-07 00:00: 00 [facility] Postmenopa usal bleeding Postmenopa usal Bleeding Problem Active 7-17 00:00: 00 [facility] Ulceration of vulva Ulceration of Vulva Problem Active 3-23 00:00: 00 [facility] Body mass index 40+ - severely obese Body Mass Index 40+ - Severely Obese Problem Active 08-05 00:00: 00 [facility] Pelvic and perineal pain Pelvic and Perineal Pain Problem Active 08-05 00:00: [address] [facility] Endometria l hyperplasi a Endometria l Hyperplasi a Problem Active 08-05 00:00: 00 [facility] [id number] Type 2 diabetes mellitus with other specified complicati on Problem [facility] [id number] Neuropathy Problem Com [facility] Congenital pes planus Congenital pes planus, unspecifie d foot Problem Common [facility] Obese Obese Problem Common [facility] Diabetes mellitus without complicati on Diabetes DMII without complicati ons Problem [facility] [id number] Uncontroll ed type 2 diabetes mellitus without complicati on, without long-term current use of insulin Problem [facility] Uterine polyp Uterine polyp Problem [facility] [id number] Mixed hyperlipid emia Problem [facility] [id number] Essential hypertensi on Problem [facility] [id number] Type 2 diabetes mellitus with hyperglyce gee, without long-term current use of insulin Problem [facility] [id number] Alcoholic cirrhosis of liver without ascites Problem [facility] [id number] Seasonal allergic rhinitis, unspecifie d trigger Problem [facility] [id number] Body aches Problem Comm on [facility] [id number] Acute sinusitis, unspecifie d Problem [facility] [id number] Current use of insulin Problem [facility] Elevated liver enzymes level Elevated liver enzymes Problem [facility] Polyneurop athy due to type 2 diabetes mellitus Diabetic polyneurop athy associated with type 2 diabetes mellitus Problem [facility] [id number] Right foot pain Problem [facility] [id number] Other specified bacterial agents as the cause of diseases classified elsewhere Problem [facility] [id number] Abscess of skin of abdomen Problem [facility] [id number] 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 Medications Ordered Medication Name Filled Medication Name Start Date Stop Date Current Medication? Ordering Clinician Indication Dosage Frequency Signature (SIG) Comments Components Source Ozempic (1 MG/DOSE) 4 MG/3ML Ozempic (1 MG/DOSE) 4 MG/3ML 5-0 4-10 00:00: 00 No Ozempic (1 MG/DOSE) 4 MG/3ML metFORMIN HCl ER 500 MG metFORMIN HCl ER 500 MG 2024-0 2-21 00:00: 00 No 1{table t_with_ evening _meal} BID metFORMIN HCl ER 500 MG glipiZIDE ER 5 MG glipiZIDE ER 5 MG 5-0 2-20 00:00: 00 No 1{table t_with_ food} QD glipiZIDE ER 5 MG Spironolact one 25 MG Spironolact one 25 MG 5-0 2-20 00:00: 00 No 1{table t} QD Spironolac tone 25 MG glipizide ER 5 mg tablet, extended release [...] EVERY DAY WITH FOOD FOR [address] [facility] metformin ER 500 mg tablet,exte nded release 24 hr TAKE 1 TABLET BY MOUTH TWICE A DAY WITH FOOD metformin ER 500 mg tablet,exte nded release 24 hr TAKE 1 TABLET BY MOUTH TWICE A DAY WITH FOOD No metformin ER 500 mg tablet,ext ended release 24 hr TAKE 1 TABLET BY MOUTH TWICE A DAY WITH FOOD [facility] spironolact one 25 mg tablet TAKE 1 TABLET BY MOUTH EVERY DAY spironolact one 25 mg tablet TAKE 1 TABLET BY MOUTH EVERY DAY No spironolac tone 25 mg tablet TAKE 1 TABLET BY MOUTH EVERY DAY [facility] naproxen 500 mg tablet TAKE 1 TABLET BY MOUTH TWICE A DAY WITH FOOD naproxen 500 mg tablet TAKE 1 TABLET BY MOUTH TWICE A DAY WITH FOOD No naproxen 500 mg tablet TAKE 1 TABLET BY MOUTH TWICE A DAY WITH FOOD [facility] Ozempic 1 mg/dose (4 mg/3 mL) subcutaneou s pen injector INJECT 1 MG SUBCUTANEOU SLY WEEKLY Ozempic 1 mg/dose (4 mg/3 mL) subcutaneou s pen injector INJECT 1 MG SUBCUTANEOU SLY WEEKLY No Ozempic 1 mg/dose (4 mg/3 mL) subcutaneo us pen injector INJECT 1 MG SUBCUTANEO USLY WEEKLY [facility] Probiotic Probiotic No Probiotic [facility] tramadol 50 mg tablet TAKE 1 TABLET BY MOUTH EVERY 8 HOURS NEEDED tramadol 50 mg tablet TAKE 1 TABLET BY MOUTH EVERY 8 HOURS NEEDED No tramadol 50 mg tablet TAKE 1 TABLET BY MOUTH EVERY [address] [facility] Multivitami n Multivitami n No 1{table t} BID Multivitam in Liver Detox - Liver Detox - No Liver Detox - Ondansetron HCl 4 MG Ondansetron HCl 4 MG No 1{table t} QD Ondansetro n HCl 4 MG Vital Signs Vital Name Observation Time Observation Value Comments S ource Height 2025-01-17 00:00:00 61 [in_i] [facility] height 2024-11-29 09:00:00 60 [in_i] Commo n [facility] weight 2024-11-29 09:00:00 288 [lb_av] Comm on [facility] temperature 2024-11-29 09:00:00 98.0 [degF] Com mon [facility] bmi 2024-11-29 09:00:00 56.24 kg/m2 Comm on [facility] blood pressure systolic 2024-11-29 09:00:00 129 mm[Hg] Common [facility] blood pressure diastolic 2024-11-29 09:00:00 80 mm[Hg] Common [facility] height 2024-11-08 09:00:00 60 [in_i] Commo n [facility] weight 2024-11-08 09:00:00 288 [lb_av] Comm on [facility] temperature 2024-11-08 09:00:00 98.0 [degF] Com [facility] bmi 2024-11-08 09:00:00 56.24 kg/m2 Comm on [facility] blood pressure systolic 2024-11-08 09:00:00 130 mm[Hg] Common [facility] blood pressure diastolic 2024-11-08 09:00:00 82 mm[Hg] Common [facility] height 2024-10-25 10:30:00 60 [in_i] Commo n [facility] weight 2024-10-25 10:30:00 289 [lb_av] Comm on [facility] temperature 2024-10-25 10:30:00 97.6 [degF] Com [facility] bmi 2024-10-25 10:30:00 56.44 kg/m2 Comm on [facility] blood pressure systolic 2024-10-25 10:30:00 131 mm[Hg] [facility] blood pressure diastolic 2024-10-25 10:30:00 77 mm[Hg] [facility] height 2024-09-15 11:15:00 60 [in_i] Commo n [facility] weight 2024-09-15 11:15:00 289 [lb_av] Comm on [facility] temperature 2024-09-15 11:15:00 97.5 [degF] Com [facility] bmi 2024-09-15 11:15:00 56.44 kg/m2 Comm on [facility] oximetry 2024-09-15 11:15:00 98 % Commo n [facility] respiratory rate 2024-09-15 11:15:00 17 /min Common [facility] blood pressure systolic 2024-09-15 11:15:00 135 mm[Hg] Common [facility] blood pressure diastolic 2024-09-15 11:15:00 75 mm[Hg] Common [facility] Height 2024-09-01 00:00:00 61 [in_i] [facility] BMI (Body Mass Index) 2024-09-01 00:00:00 55.4 kg/m2 [facility] BP Diastolic 2024-09-01 00:00:00 75 mm[Hg] [facility] BP Systolic 2024-09-01 00:00:00 122 mm[Hg] [facility] Body Weight 2024-09-01 00:00:00 293 [lb_av] [facility] height 2024-08-16 16:00:00 60 [in_i] Commo n [facility] weight 2024-08-16 16:00:00 302 [lb_av] Comm on [facility] temperature 2024-08-16 16:00:00 97.9 [degF] Com mon [facility] bmi 2024-08-16 16:00:00 58.97 kg/m2 Comm on [facility] oximetry 2024-08-16 16:00:00 97 % Commo n [facility] blood pressure systolic 2024-08-16 16:00:00 128 mm[Hg] Common [facility] blood pressure diastolic 2024-08-16 16:00:00 70 mm[Hg] Common [facility] height 2024-07-28 15:30:00 60 [in_i] Commo n [facility] weight 2024-07-28 15:30:00 288 [lb_av] Comm on [facility] temperature 2024-07-28 15:30:00 97.6 [degF] Com mon [facility] bmi 2024-07-28 15:30:00 56.24 kg/m2 Comm on [facility] oximetry 2024-07-28 15:30:00 98 % Commo n [facility] blood pressure systolic 2024-07-28 15:30:00 142 mm[Hg] Common [facility] blood pressure diastolic 2024-07-28 15:30:00 88 mm[Hg] Common [facility] Body Weight 2024-07-20 00:00:00 293 [lb_av] [facility] BP Systolic 2024-07-20 00:00:00 134 mm[Hg] [facility] BP Diastolic 2024-07-20 00:00:00 83 mm[Hg] [facility] BMI (Body Mass Index) 2024-07-20 00:00:00 55.4 kg/m2 [facility] Height 2024-07-20 00:00:00 61 [in_i] [facility] Height 2024-07-07 00:00:00 61 [in_i] [facility] BP Diastolic 2024-07-07 00:00:00 85 mm[Hg] [facility] Body Weight 2024-07-07 00:00:00 293 [lb_av] [facility] BP Systolic 2024-07-07 00:00:00 140 mm[Hg] [facility] BMI (Body Mass Index) 2024-07-07 00:00:00 55.4 kg/m2 [facility] height 2022-01-01 11:00:00 61 [in_i] Commo n [facility] weight 2022-01-01 11:00:00 295 [lb_av] Comm on [facility] bmi 2022-01-01 11:00:00 55.73 kg/m2 Comm on [facility] height 2021-09-03 16:40:00 61 [in_i] Commo n [facility] weight 2021-09-03 16:40:00 285 [lb_av] Comm on [facility] bmi 2021-09-03 16:40:00 53.84 kg/m2 Comm on [facility] height 2021-07-12 13:00:00 61.00 [in_i] Com [facility] weight 2021-07-12 13:00:00 285 [lb_av] Comm on [facility] bmi 2021-07-12 13:00:00 53.84 kg/m2 Comm [facility] height 2021-05-14 10:10:00 61.00 [in_i] Com [facility] weight 2021-05-14 10:10:00 285.8 [lb_av] Co mmon [facility] temperature 2021-05-14 10:10:00 98.1 [degF] Com mon [facility] bmi 2021-05-14 10:10:00 54 kg/m2 Commo [facility] oximetry 2021-05-14 10:10:00 98 % Commo [facility] respiratory rate 2021-05-14 10:10:00 17 /min [facility] blood pressure systolic 2021-05-14 10:10:00 122 mm[Hg] [facility] blood pressure diastolic 2021-05-14 10:10:00 78 mm[Hg] [facility] Procedures Procedure Date / Time Performed Performing [...] ID Source 2024-07-28 14:49:[address] [facility] [id number] [facility] 2024-07-26 13:49:[address] [facility] [id number] [facility] 2024-07-20 12:59:00 Outpatient Lana Robertson [facility] [id number] [facility] 2024-07-19 10:20:00 Outpatient Lana Robertson [facility] [id number] [facility] 2024-07-08 12:26:00 Outpatient Lana Robertson [facility] [id number] [facility] 2024-07-06 12:27:00 Outpatient INNA, Na STLML[facility] ST[facility] [id number] [facility] 2022-03-03 09:33:00 Outpatient Keith, Na STLMLC ST[facility]C [id number] [facility] 2021-09-04 06:35:00 Outpatient Keith, Na [facility]LML[facility] [id number] [facility] 2021-08-27 11:16:00 Outpatient Keith, Na [facility]LML[facility] ST[facility] [id number] [facility] 2021-07-03 14:21:33 Outpatient Keith, Na [facility]LML[facility] ST[facility] [id number] [facility] 2021-07-03 11:08:47 Outpatient Keith, Na [facility] ST[facility] [id number] [facility] 2021-07-03 11:07:47 Outpatient Keith, Na STLML[facility] ST[facility]C [id number] [facility] 2025-01-17 00:00:00 2025-01-17 00:00:00 DEEDEE Renteria: [address], [address] [address], [place] [address] , Ph. [facility] - GC_GCBZW_Zenia Polanco* [id number] [facility] 2024-12-26 00:00:00 2024-12-26 00:00:00 (TEL) STLMLC STLMLC [id number] [facility] 2024-11-29 00:00:00 2024-11-29 00:00:00 OFFICE VISIT ESTAB PT LEVEL 3 [facility] STL[facility]C [id number] [facility] 2024-11-08 00:00:00 2024-11-08 00:00:00 OFFICE VISIT ESTAB PT LEVEL 3 [facility] STL[facility] [id number] [facility] 2024-10-25 00:00:00 2024-10-25 00:00:00 OFFICE VISIT NEW PT LEVEL 3 [facility] STL[facility] [id number] [facility] 2024-09-21 00:00:00 2024-09-21 00:00:00 (TEL) STLMLC STLMLC [id number] [facility] 2024-09-15 00:00:00 2024-09-15 00:00:00 (ESTPT) Establishe d Patient STLMLC STLMLC [id number] [facility] 2024-09-05 00:00:00 2024-09-05 00:00:00 Mera Clement PA: [address], [address], [place] [address] , Ph. [facility] GC_GCBZW_In wojciech Vail* [id number] [facility] 2024-09-01 00:00:00 2024-09-01 00:00:00 YAHIR Guillen: [address], [address], [place] [address] , Ph. [facility] GC_GCBZW_[facility]* [id number] [facility] 2024-08-16 00:00:00 2024-08-16 00:00:00 OFFICE VISIT ESTAB PT LEVEL 4 STLMLC STLMLC [id number] [facility] 2024-08-12 00:00:00 2024-08-12 00:00:00 (TEL) STLMLC STLMLC [id number] [facility] 2024-08-05 00:00:00 2024-08-05 00:00:00 (TEL) STLMLC STLMLC [id number] [facility] 2024-07-29 00:00:00 2024-07-29 00:00:00 (TEL) STLMLC STLMLC [id number] [facility] 2024-07-28 00:00:00 2024-07-28 00:00:00 OFFICE VISIT NEW PT LEVEL 4 STLMLC STLMLC [id number] [facility] 2024-07-28 00:00:00 2024-07-28 00:00:00 (TEL) STLMLC STLMLC [id number] [facility] 2024-07-25 00:00:00 2024-07-25 00:00:00 (TEL) STLMLC STLMLC [id number] [facility] 2024-07-20 00:00:00 2024-07-20 00:00:00 YAHIR Jefferson: [address], [address], [place] [address] , Ph. [facility] GC_GCBZW_[facility]* [id number] [facility] 2024-07-07 00:00:00 2024-07-07 00:00:00 YAHIR Groves: [address], [address], [place] [address] , Ph. [facility] GC_GCBZW_[facility]* [id number] [facility] 2024-07-06 00:00:00 2024-07-06 00:00:00 (TEL) STLMLC STLMLC [id number] [facility] 2022-04-01 00:00:00 2022-04-01 00:00:00 (TEL) STLMLC STLMLC [id number] [facility] 2022-01-02 00:00:00 2022-01-02 00:00:00 (TEL) STLMLC STLMLC [id number] [facility] 2022-01-01 00:00:00 2022-01-01 00:00:00 OFFICE VISIT ESTAB PT LEVEL 4 STLMLC STLMLC [id number] [facility] 2021-11-01 00:00:00 2021-11-01 00:00:00 (TEL) STLMLC STLMLC [id number] [facility] 2021-10-30 00:00:00 2021-10-30 00:00:00 OL DIG E/M SVC 11-20 MIN STLMLC STLMLC [id number] [facility] 2021-09-23 00:00:00 2021-09-23 00:00:00 (TEL) STLMLC STLMLC [id number] [facility] 2021-09-03 00:00:00 2021-09-03 00:00:00 OL DIG E/M SVC 11-20 MIN STLMLC STLMLC [id number] [facility] 2021-07-12 00:00:00 2021-07-12 00:00:00 OFFICE VISIT EST PT LEVEL 3 STLMLC STLMLC [id number] [facility] 2021-07-10 00:00:00 2021-07-10 00:00:00 (TEL) STLMLC STLMLC [id number] [facility] 2021-06-28 00:00:00 2021-06-28 00:00:00 OFFICE VISIT EST PT LEVEL 3 STLMLC STLMLC [id number] [facility] 2021-06-05 00:00:00 2021-06-05 00:00:00 (TEL) STLMLC STLMLC [id number] [facility] 2021-05-15 00:00:00 2021-05-15 00:00:00 (TEL) STLMLC STLMLC [id number] [facility] 2021-05-14 00:00:00 2021-05-14 00:00:00 (TEL) STLMLC STLMLC [id number] [facility] 2021-05-14 00:00:00 2021-05-14 00:00:00 OFFICE VISIT ESTAB PT LEVEL 4 STLMLC STLMLC [id number] [facility] 2021-04-01 00:00:00 2021-04-01 00:00:00 (TEL) STLMLC STLMLC [id number] [facility] 2019-08-25 13:19:00 2019-08-25 13:19:[address] [facility] [id number] [facility] 2019-08-02 15:05:00 2019-08-02 15:05:[address] [facility] [id number] [facility] 2019-08-01 09:53:00 2019-08-01 09:53:00 [facility] [id number] [facility] 2019-04-28 09:40:00 2019-04-28 09:40:00 [facility] [id number] [facility] 2019-04-05 09:40:00 2019-04-05 09:40:00 [facility] [id number] [facility] 2019-02-08 11:36:00 2019-02-08 11:36:00 [facility] [id number] [facility] 2019-01-25 16:44:00 2019-01-25 16:44:00 [facility] [id number] [facility] 2018-12-15 10:34:00 2018-12-15 10:34:[address] [facility] [facility] [id number] [facility] 2018-12-14 11:20:00 2018-12-14 11:20:00 Outpatient [facility] [id number] [facility] 2018-01-14 10:00:00 2018-01-14 10:00:00 Outpatient [facility] [id number] [facility] 2017-11-17 15:00:00 2017-11-17 15:00:00 Outpatient [facility] [id number] [facility] Results Test Description Test Time Test Comments Results Result Co mments Source HEMOGLOBIN [id number] 00:00:00* Test Item Value Reference Range Interpretation Comme [facility] A1C (test code = 4548-4) 8.5 cytology, vaginal/[id number] 00:00:00Clinical InformationPathologistA SourceA Gross DescriptionA Diagnosis[facility], urine 2024-09-01 13:34:35* Test Item Value Reference Range Interpretation Comme nts HCG (test code = HCG) negative [facility]IPID [id number] 00:00:00* Test Item Value Reference Range Interpretation Comme nts HEMOGLOBIN A1c (test code = 4548-4) 11.3 % See_Comment H [Automated message] The system which generated this result transmitted reference range: 4.2-5.6 %. The reference range was not used to interpret this result as normal/abnormal. ALBUMIN, URINE, RANDOM (test code = 70308-6) 1.5 MG/DL NOT ESTAB MG/DL CALC ALBUMIN/CREAT, RND (test code = 72149-2) 20 MG/G See_Comment [Automated message] The system [...] result as normal/abnormal. CALCIUM (test code = 53318-2) 9.4 MG/DL See_Comment [Automated message] The system [...] as normal/abnormal. CALC GLOBULIN (test code = 83002-2) 3.8 G/DL See_Comment H [Automated message] The [...] normal/abnormal. eGFR (2020 CKD-EPI) (test code = 27004-7) 111 ML/MIN/1.73 See_Comment [Automated message] The system [...] normal/abnormal. HEPATITIS A IgM (test code = 41364-5) NON-REACTIVE NON-REACTIVE HEPATITIS B CORE IgM (test code = 35821-4) NON-REACTIVE NON-REACTIVE HEPATITIS B SURF AG (test code = 5195-3) NON-REACTIVE NON-REACTIVE HEPATITIS C ANTIBODY (test code = 63599-8) NON-REACTIVE NON-REACTIVE FERRITIN (test code = 06968-4) 377 NG/ML See_Comment H [Automated message] The [...] result as normal/abnormal. BILIRUBIN (test code = 90509-3) 0.5 mg/dL See_Comment [Automated message] The system which generated this result transmitted reference range: <1.3 mg/dL. The reference range was not used to interpret this result as normal/abnormal. FIBROSIS SCORE (test code = 80388-4) 0.46 A FIBROSIS STAGE (test code = 12704-4) F1-F2 A GAMMA GT (test code = [...] as normal/abnormal. NECROINFLAM GRADE (test code = 79063-4) A0-A1 NECROINFLAM SCORE (test code = 49736-7) 0.19 AMMONIA (test code = 1841-6) 43 uMOL/L See_Comment [Automated message] The system which generated this result transmitted reference range: 11-51 uMOL/L. The reference range was not used to interpret this result as normal/abnormal. TSH REFLEX TO FREE T4 (test code = 50550-6) 1.640 UIU/ML See_Comment [Automated message] The system [...] normal/abnormal. CALC LDL CHOL (test code = 50563-8) 83 MG/DL See_Comment [Automated message] The system [...] normal/abnormal. RISK RATIO LDL/HDL (test code = 48182-5) 1.80 RATIO See_Comment [Automated message] The system [...] this result as normal/abnormal. igp, apt HPV,rfx 16/18,[id number] 00:00:00* Test Item Value Reference Range Interpretation [...] code = HPV aptima) POSITIVE negative [facility] 16/18,[id number] 00:00:00* Test Item Value Reference Range Interpretation Comme nts HPV genotype 16 (test code = HPV genotype 16) Negative negative HPV genotype 18,45 (test cod e = HPV genotype 18,45) Negative negative [facility] metabolic 2000 panel - Serum or [id number] 00:00:00* Test Item Value Reference Range Interpretation [...] (test code = calcium) 9.1 mg/dL 8.7-10.2 [facility] W Auto Differential panel - [id number] 00:00:00* Test Item Value Reference Range Interpretation [...] = immature grans (abs)) 0.0 x10e3/uL 0.0-0.1 [facility] MedicalLipid 1995 panel - Serum or [id number] 00:00:00* Test Item Value Reference Range Interpretation [...] (test code = 2089-1) 74 mg/dL 0-99 [facility] MedicalHepatic function 1999 panel - Serum or [id number] 00:00:00* Test Item Value Reference Range Interpretation [...] code = ALT (SGPT)) 21 IU/L 0-32 [facility] [Units/volume] in Serum or Plasma by Detection limit <= 0.005 mIU/[id number] 00:00:00* Test Item Value Reference Range Interpretation Comme nts TSH (test code = TSH) 2.160 uIU/mL 0.450-4.500 [facility]* Test Item Value Reference Range Interpretation Comme nts HbA1c (test code = 4548-4) 12.0
[2025-01-22] MEDS ORDERED: ACETAMINOPHEN 500 MG TAB ONE (19:49)
[2025-01-22] MEDS ORDERED: BENZONATATE 100 MG CAP PO ONE (19:50)
[2025-01-22 20:17] LABS: Influenza A Ag Negative; Influenza B Ag Negative; SARS-CoV-2 Antigen Rapid Res Negative (Negative)
--- NOTE | 2025-01-22 20:25 | ER ---
Nurse's Notes [facility] Name: Roxana Wheeler Age: 54 yrs Sex: Female : 1970 Arrival Date: 01/22/2025 Time: 18:55 Bed 11 Private MD: Diagnosis: Cough;Nasal congestion Presentation: 01/22 19:13 Chief complaint: Patient states: nose congestion, headache, itchy throat, cough, right ha1 ear ache since yesterday. Coronavirus screen: Client denies travel out of the [place] in the last 14 days. Ebola Screen: No symptoms or risks identified at this time. Initial Sepsis Screen: Does the patient meet any 2 criteria? No. Patient's initial sepsis screen is negative. Does the patient have a suspected source of infection? No. Patient's initial sepsis screen is negative. Risk Assessment: Do you want to hurt yourself or someone else? Patient reports no desire to harm self or others. Onset of symptoms was January 21, 2025. 19:13 Method Of Arrival: Ambulatory ha1 19:13 Acuity: FREDERIC 4 ha1 Triage Assessment: 19:16 General: Appears uncomfortable, Behavior is calm, cooperative. Pain: Complains of pain ha1 in right ear Pain currently is 7 out of 10 on a pain scale. Neuro: Level of Consciousness is awake, alert, obeys commands, Oriented to person, place, time, situation. Cardiovascular: Capillary refill < 3 seconds Patient's skin is warm and dry. Respiratory: Reports cough that is Airway is patent Respiratory effort is even, unlabored, Respiratory pattern is regular, symmetrical. 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 It has been more than one year since last vaccine. - Infectious Disease History:: Denies. - Social history:: Smoking status: Patient denies any tobacco usage or history of. Screenin:30 [facility] ED Fall Risk Assessment (Adult) History of falling in the last 3 months, kj2 including since admission No falls in past 3 months (0 pts) Confusion or Disorientation No (0 pts) Intoxicated or Sedated No (0 pts) Impaired Gait No (0 pts) Mobility Assist Device Used No (0 pt) Altered Elimination No (0 pt) Score/Fall Risk Level 0 - 2 = Low Risk Maintained a safe environment, Hourly rounding (assess needs \T\ fall precautionary measures) done. Abuse screen: Denies threats or abuse. Denies injuries from another. Nutritional screening: No deficits noted. Tuberculosis screening: No symptoms or risk factors identified. Assessment: 19:30 General: Appears in no apparent distress. Behavior is calm, cooperative. Pain: kj2 Complains of pain in right ear Pain currently is 5 out of 10 on a pain scale. Neuro: Level of Consciousness is awake, alert, obeys commands, Oriented to person, place, time, situation. Cardiovascular: Patient's skin is warm and dry. Respiratory: Reports cough that is non-productive. GI: No signs and/or symptoms were reported involving the gastrointestinal system. : No signs and/or symptoms were reported regarding the genitourinary system. 20:26 Reassessment: Patient appears in no apparent distress at this time. Patient and/or kj2 family updated on plan of care and expected duration. Pain level reassessed. Patient is alert, oriented x 3, equal unlabored respirations, skin warm/dry/pink. Vital Signs: 19:13 BP 124 / 82; Pulse 78; Resp 17; Temp 98.2; Pulse Ox 95% ; Weight 130.18 kg; Height 5 ha1 ft. 0 in. ; 20:31 BP 121 / 70; Pulse 72; Resp 20; Temp 98.2; Pulse Ox 100% on R/A; kj2 19:13 Body Mass Index 56.05 (130.18 kg, 152.4 cm) ha1 ED Course: 19:03 Patient arrived in ED. al6 19:07 Yunior Wilson PA-C is PHCP. cp 19:07 Urbano Amaral MD is Attending Physician. cp 19:16 Triage completed. ha1 19:30 Patient has correct armband on for positive identification. Bed in low position. Call kj2 light in reach. Provided Education on: call light. 19:30 Arm band placed on Patient placed. kj2 19:37 Rebekah Sloan RN is Primary Nurse. kj2 19:49 Mohini Wesley MD is Attending Physician. cp 20:26 No provider procedures requiring assistance completed. Patient did not have IV access kj2 during this emergency room visit. Administered Medications: 19:52 Drug: Tessalon Perle PO 200 mg PO once Route: PO; kj2 20:27 Follow up: Response: No adverse reaction kj2 19:53 Drug: Acetaminophen PO 1000 mg PO once Route: PO; kj2 20:27 Follow up: Response: No adverse reaction kj2 Medication: 19:58 VIS not applicable for this client. kj2 Outcome: 20:24 Discharge ordered by MD. cp 20:26 Discharged to home ambulatory, kj2 20:26 Condition: stable 20:26 Discharge instructions given to patient, family, Instructed on discharge instructions, follow up and referral plans. Demonstrated understanding of instructions, follow-up care, 20:43 Patient left the ED. kj2 Signatures: Yunior Wilson, PADedeC PA-C Ewelina Gilbert RN RN ha1 Rebekah Sloan RN RN kj2 Chitra Espinal al6
--- NOTE | 2025-01-22 20:25 | EDPHYS ---
Physician Documentation [facility] Name: Roxana Wheeler Age: 54 yrs Sex: Female : 1970 Arrival Date: 01/22/2025 Time: 18:55 Bed 11 Private MD: ED Physician Mohini Wesley HPI: 01/22 19:49 This 54 yrs old Female presents to ER via Ambulatory with complaints of Flu cp Symptoms. 19:50 The patient or guardian reports cough, that is intermittent, with no sputum. Onset: The cp symptoms/episode began/occurred yesterday. Associated signs and symptoms: Pertinent positives: earache, sore throat, nasal congestion, Pertinent negatives: chest pain, diarrhea, fever, vomiting. 19:50 Severity of symptoms: in the emergency department the symptoms are unchanged despite cp home interventions. 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 It has been more than one year since last vaccine. - Infectious Disease History:: Denies. - Social history:: Smoking status: Patient denies any tobacco usage or history of. ROS: 19:50 Eyes: Negative for injury, pain, redness, and discharge, cp 19:50 Constitutional: Negative for body aches, chills, fever, poor PO intake, 19:50 ENT: Positive for ear pain, sore throat, nasal congestion, Negative for drainage from ear(s), difficulty swallowing, difficulty handling secretions, 19:50 Respiratory: Positive for cough, Negative for shortness of breath, wheezing, 19:50 Abdomen/GI: Negative for abdominal pain, vomiting, diarrhea, constipation, 19:50 Neuro: Negative for altered mental status, headache, 19:50 All other systems are negative, Exam: 19:55 Constitutional: The patient appears in no acute distress, alert, awake, non-toxic, well cp developed, well nourished, obese, 19:55 Head/Face: Normocephalic, atraumatic. cp 19:55 Eyes: Periorbital structures: appear normal, Conjunctiva: normal, no exudate, no injection, Sclera: no appreciated abnormality, Lids and lashes: appear normal, bilaterally, 19:55 ENT: External ear(s): pain with movement, that is mild, of the right ear canal, Ear canal(s): are normal, clear, TM's: dullness, bilaterally, Nose: is normal, Mouth: Lips: moist, Oral mucosa: moist, Posterior pharynx: Airway: no evidence of obstruction, patent, Tonsils: no enlargement, no exudate, erythema, that is mild, exudate, is not appreciated, 19:55 Neck: ROM/movement: Meningeal signs: are not present, Lymph nodes: no appreciated lymphadenopathy, 19:55 Chest/axilla: Inspection: normal, 19:55 Cardiovascular: Rate: normal, 19:55 Respiratory: the patient does not display signs of respiratory distress, Respirations: normal, no use of accessory muscles, no retractions, labored breathing, is not present, Breath sounds: decreased breath sounds, are not appreciated, stridor, is not appreciated, + upper airway congestion. 19:55 Abdomen/GI: Inspection: obese 19:55 Skin: no rash present. Vital Signs: 19:13 BP 124 / 82; Pulse 78; Resp 17; Temp 98.2; Pulse Ox 95% ; Weight 130.18 kg; Height 5 ha1 ft. 0 in. ; 20:31 BP 121 / 70; Pulse 72; Resp 20; Temp 98.2; Pulse Ox 100% on R/A; kj2 19:13 Body Mass Index 56.05 (130.18 kg, 152.4 cm) ha1 MDM: 20:00 Differential diagnosis: bronchitis, flu, pneumonia, strep throat, otitis media, cp COVID-19, influenza. 20:24 Medical Screening Exam initiated cp 20:24 Data reviewed: vital signs, nurses notes, lab test result(s), and as a result, I will cp discharge patient. 20:24 Antibiotic administration: Not indicated, the patient has a suspected viral illness. I cp considered the following discharge prescriptions or medication management in the emergency department Medications were administered in the Emergency Department. See MAR. Care significantly affected by the following chronic conditions: Diabetes, Obesity. Counseling: I had a detailed discussion with the patient and/or guardian regarding the historical points, exam findings, and any diagnostic results supporting the discharge/admit diagnosis, lab results, to return to the emergency department if symptoms worsen or persist or if there are any questions or concerns that arise at home. Response to treatment: the patient's symptoms have mildly improved after treatment, and as a result, I will discharge patient. 01/22 19:14 Order name: COVID-19 Ag + Flu A+B Ag cp 01/22 19:43 Order name: Group A Streptococcus Rapid cp 01/22 20:20 Order name: Throat Culture EDMS Administered Medications: 19:52 Drug: Tessalon Perle PO 200 mg PO once Route: PO; kj2 20:27 Follow up: Response: No adverse reaction kj2 19:53 Drug: Acetaminophen PO 1000 mg PO once Route: PO; kj2 20:27 Follow up: Response: No adverse reaction kj2 Disposition Summary: 01/22/25 20:24 Discharge Ordered Notes: Location: Home cp Problem: new cp Symptoms: have improved cp Condition: Stable cp Diagnosis - Cough cp - Nasal congestion cp Followup: cp - With: Private Physician - When: 2 - 3 days - Reason: Worsening of condition Discharge Instructions: - Discharge Summary Sheet cp - Cough, Adult cp Forms: - Medication Reconciliation Form cp - Antibiotic Education cp - Prescription Opioid Use cp - Patient Portal Instructions cp - Leadership Thank You Letter cp Prescriptions: - Bromfed DM 2-30-10 mg/5 mL Oral syrup - administer 10 milliliter ORAL route every 6-8 hours as needed for cold cp symptoms; 240 milliliter; Refills: 0, Product Selection Permitted - Flonase Allergy Relief 50 mcg/actuation Nasal spray, suspension - spray 1 spray INTRANASAL route daily administer into each nostril; 1 unit; cp Refills: 0, Product Selection Permitted Signatures: Dispatcher [employer] Yunior Wilson PA-C PA-C cp Ewelina Simpson RN RN ha1 Rebekah Sloan RN RN kj2
[2025-01-23 02:45] VITALS: TEMP 98.2
[2025-01-23 02:48] VITALS: BP 121/70; O2SAT 100
== END 2025-01-22 20:43 | disposition home or self-care (01) ==
LOC: ER 18:55
DX: R05.9 Cough, unspecified (principal); R09.81 Nasal congestion; Z11.52 Encounter for screening for COVID-19
CPT/HCPCS: 36415; 87070; 87428; 99283